=== PATIENT | male | born 1985 | race Caucasian/White ===

== ENCOUNTER 2017-05-22 00:19 | Observation (INO) | payer OTHER ==
[~2017-05-22] VITALS: Ht 182.9 cm; Wt 83.1 kg
[~2017-05-22 00:19] MED LIST: LORA1TAB PO
[2017-05-22] MEDS ORDERED: CLINDAMYCIN INJECTION 900 MG in NS (IVPB) 50 ML IV ONE (00:45)
[2017-05-22] MEDS ORDERED: LIDOCAINE/EPI 1%-1:100,000 (XYLOCAINE) 20ML INJ ONE (00:45)
[2017-05-22] MEDS ORDERED: TETANUS,DIPTH,PERTUSS P/F (BOOSTRIX) 0.5 ML VIAL IM ONE (00:45)
[2017-05-22 00:48] LABS: BASOPHILS # (AUTO) 0.1 10^3/uL (0.0-0.1); BASOPHILS % (AUTO) 1 % (0-10); EOSINOPHILS # (AUTO) 0.1 10^3/uL (0.0-0.3); EOSINOPHILS % (AUTO) 1 % (0-10); LYMPHOCYTES % (AUTO) 41 % (12-44); MEAN CORPUSCULAR HEMOGLOBIN 26 PG (25-34); MEAN CORPUSCULAR HGB CONC 34 G/DL (32-36); MEAN CORPUSCULAR VOLUME 76 FL (80-99); MEAN PLATELET VOLUME 10.9 FL (7.4-10.4); MONOCYTES # (AUTO) 0.3 X 10^3 (0.0-1.0); MONOCYTES % (AUTO) 5 % (0-12); NEUTROPHILS # (AUTO) 2.5 X 10^3 (1.8-7.8); NEUTROPHILS % (AUTO) 51 % (42-75); PLATELET COUNT 199 10^3/uL (130-400); RED BLOOD COUNT 5.32 10^6/uL (4.35-5.85); RED CELL DISTRIBUTION WIDTH 14.2 % (10.0-14.5); WHITE BLOOD COUNT 4.9 10^3/uL (4.3-11.0)
[2017-05-22] MEDS ORDERED: LIDOCAINE/EPI 1%-1:200,000 (XYLOCAINE) 30 ML VIAL INJ ONE (01:00)
[2017-05-22 01:02] LABS: ALANINE AMINOTRANSFERASE 18 U/L (0-55); ALBUMIN 4.3 GM/DL (3.2-4.5); ALCOHOL 112 MG/DL (<10); ANION GAP 13 MMOL/L (5-14); ASPARTATE AMINO TRANSFERASE 21 U/L (5-34); BILIRUBIN,TOTAL 0.5 MG/DL (0.1-1.0); BLOOD UREA NITROGEN 9 MG/DL (7-18); BUN/CREATININE RATIO 10; CALCIUM 8.8 MG/DL (8.5-10.1); CARBON DIOXIDE 20 MMOL/L (21-32); CHLORIDE 107 MMOL/L (98-107); CREATININE SERUM 0.91 MG/DL (0.60-1.30); GFR ESTIMATED > 60; GLUCOSE 108 MG/DL (70-105); POTASSIUM 3.5 MMOL/L (3.6-5.0); SALICYLATE < 5.0 MG/DL (5.0-20.0); SODIUM 140 MMOL/L (135-145); TOTAL PROTEIN 7.1 GM/DL (6.4-8.2)
[2017-05-22 01:05] LABS: ACETAMINOPHEN < 10 UG/ML (10-30)
[2017-05-22] MEDS ORDERED: LORazepam 0.5 MG (ATIVAN) TABLET ONE (01:46)
[2017-05-22] MEDS ORDERED: LORazepam 0.5 MG (ATIVAN) TABLET PO ONE (02:00)
--- NOTE | 2017-05-22 02:23 | ED Psychosocial ---
General Chief Complaint: Psych/Social Disorder Stated Complaint: SUICIDE ATTEMPT Nursing Triage Note: pt to er per ems. lac to right ac with double edged knife. arterial bleeding reported by [facility]. tourniquet in place per pd at 2350. denies drug use. admits to drinking approx 1 pint of whiskey. pt mumbling to self. awake. Source: patient, EMS Exam Limitations: intoxication History of Present Illness Time seen by provider: 00:17 Initial Comments This 31 year old man presents to the ER with a deep laceration to the left antecubital fossa which was self-inflicted with a knife. This was admittedly a suicide attempt. Patient cut himself and then presented to his mother's house and she called 911. Patient admits to suicidal ideation. He also admits to consuming a significant amount of alcohol. He is alert and oriented. He denies any other injuries. Tourniquet was applied by police. EMS estimated blood loss of about 500 mL. Patient is agitated and mildly belligerent in conversation. He is ultimately cooperative with some coaxing. [place] police are present to assist with the case. Allergies and Home Medications Allergies Coded Allergies: NKANo Known Allergies (Verified Allergy, Unknown, 02/07/06) haloperidol (Unverified Adverse Reaction, Unknown, 05/22/17) Home Medications No Active Prescriptions or Reported Meds Constitutional: see HPI EENTM: no symptoms reported Respiratory: no symptoms reported Cardiovascular: see HPI Gastrointestinal: no symptoms reported Genitourinary: no symptoms reported Musculoskeletal: see HPI Skin: see HPI Psychiatric/Neurological: See HPI Past Qsqlypn-Msbkcq-Ahdzji Hx Patient Social History Alcohol Use: Regular Use Recreational Drug Use: Yes (THC, Alcohol) Smoking Status: Unknown if Ever Smoked Recent Foreign Travel: No Contact w/Someone Who Travel: No Recent Infectious Disease Expo: No Recent Hopitalizations: Yes Immunizations Up To Date Tetanus Booster (TDap): Unknown Surgeries HX Surgeries: No Respiratory Hx Respiratory Disorders: No Cardiovascular Hx Cardiac Disorders: No Neurological Hx Neurological Disorders: No Reproductive System Hx Reproductive Disorders: No Sexually Transmitted Disease: No Genitourinary Hx Genitourinary Disorders: No Gastrointestinal Hx Gastrointestinal Disorders: No Musculoskeletal Hx Musculoskeletal Disorders: No Endocrine Hx Endocrine Disorders: No HEENT HX ENT Disorders: No Cancer Hx Cancer: No Psychosocial Hx Psychiatric Problems: Yes (history of alcohol abuse and suicidal ideation.) Blood Transfusions Hx Blood Disorders: No Physical Exam Vital Signs Vital Sign - Last 12Hours 05/22/17 00:24 Temp 99.6 Pulse 84 Resp 18 B/P (MAP) 151/99 Capillary Refill : Less Than 3 Seconds General Appearance: WD/WN, other (intermittently belligerent) HEENT: PERRL/EOMI, normal ENT inspection, pharynx normal Neck: normal inspection Respiratory: lungs clear, normal breath sounds, no respiratory distress, no accessory muscle use Cardiovascular: regular rate, rhythm, no edema, no murmur Gastrointestinal: normal bowel sounds, non tender, soft Extremities: no pedal edema, other (8 cm laceration over the antecubital fossa. Bleeding is controlled. Range of motion and tendon function appear to be intact. Laceration extends into the subcutaneous tissue and fascia layers. No injury to the tendon, muscle, or large vessels noted. 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 Is cooperative with coaxing and retraction. Agitated at times) Appearance/Memory: disheveled, impaired insight Behavior/Eye Contact: good eye contact, normal speech Thoughts/Hallucinations: no apparent hallucination, other (Suicidal ideation. He sometimes talks to himself.) Skin: normal color, warm/dry, other (Laceration as described above.) Laceration Repair : Wound Location: Upper Extremities Other Wound Location Left antecubital fossa Wound Length (cm): 8 Wound's Depth, Shape: linear, irregular, sub Q Wound Explored: clean Irrigated w/ Saline (ccs): 500 Betadine Prep?: Yes Anesthesia: Lidocaine w/ Epi Volume Anesthetic (ccs): 8 Suture: Prolene, Vicryl Suture Size: 3-0 (Vicryl), 4-0 (Prolene) Number of Sutures: 15 Number Deep Layer Sutures: 5 Progress Skin was cleaned with alcohol and local anesthetic injected. No active bleeding at the time of repair. After wound was anesthetized, the wound and surrounding skin was cleaned with sterile saline and chlorhexidine. The wound was then irrigated with sterile saline. Betadine was applied. 5 deep 3-0 Vicryl sutures were placed in the fascial and subcutaneous layers to help approximate the deep wound. 10 sutures of 4-0 Prolene were then used to approximate the skin. Patient tolerated the procedure well. Progress/Results/Core Measures Results/Orders Lab Results Laboratory Tests Test 05/22/17 00:25 05/22/17 00:50 Range/Units White Blood Count 4.9 4.3-11.0 10^3/uL Red Blood Count 5.32 4.35-5.85 10^6/uL Hemoglobin 13.9 13.3-17.7 G/DL Hematocrit 41 40-54 % Mean Corpuscular Volume 76 L 80-99 FL Mean Corpuscular Hemoglobin 26 25-34 PG Mean Corpuscular Hemoglobin Concent 34 32-36 G/DL Red Cell Distribution Width 14.2 10.0-14.5 % Platelet Count 199 130-400 10^3/uL Mean Platelet Volume 10.9 H 7.4-10.4 FL Neutrophils (%) (Auto) 51 42-75 % Lymphocytes (%) (Auto) 41 12-44 % Monocytes (%) (Auto) 5 0-12 % Eosinophils (%) (Auto) 1 0-10 % Basophils (%) (Auto) 1 0-10 % Neutrophils # (Auto) 2.5 1.8-7.8 X 10^3 Lymphocytes # (Auto) 2.0 1.0-4.0 X 10^3 Monocytes # (Auto) 0.3 0.0-1.0 X 10^3 Eosinophils # (Auto) 0.1 0.0-0.3 10^3/uL Basophils # (Auto) 0.1 0.0-0.1 10^3/uL Sodium Level 140 135-145 MMOL/L Potassium Level 3.5 L 3.6-5.0 MMOL/L Chloride Level 107 98-107 MMOL/L Carbon Dioxide Level 20 L 21-32 MMOL/L Anion Gap 13 5-14 MMOL/L Blood Urea Nitrogen 9 7-18 MG/DL Creatinine 0.91 0.60-1.30 MG/DL Estimat Glomerular Filtration Rate > 60 BUN/Creatinine Ratio 10 Glucose Level 108 H 70-105 MG/DL Calcium Level 8.8 8.5-10.1 MG/DL Total Bilirubin 0.5 0.1-1.0 MG/DL Aspartate Amino Transf (AST/SGOT) 21 5-34 U/L Alanine Aminotransferase (ALT/SGPT) 18 0-55 U/L Alkaline Phosphatase 67 40-136 U/L Total Protein 7.1 6.4-8.2 GM/DL Albumin 4.3 3.2-4.5 GM/DL TSH [place] Testing 0.72 0.35-4.94 UIU/ML Salicylates Level < 5.0 L 5.0-20.0 MG/DL Acetaminophen Level < 10 L 10-30 UG/ML Serum Alcohol 112 H <10 MG/DL Urine Opiates Screen NEGATIVE NEGATIVE Urine Oxycodone Screen NEGATIVE NEGATIVE Urine Methadone Screen NEGATIVE NEGATIVE Urine Propoxyphene Screen NEGATIVE NEGATIVE Urine Barbiturates Screen NEGATIVE NEGATIVE Ur Tricyclic Antidepressants Screen NEGATIVE NEGATIVE Urine Phencyclidine Screen NEGATIVE NEGATIVE Urine Amphetamines Screen NEGATIVE NEGATIVE Urine Methamphetamines Screen NEGATIVE NEGATIVE Urine Benzodiazepines Screen NEGATIVE NEGATIVE Urine Cocaine Screen NEGATIVE NEGATIVE Urine Cannabinoids Screen POSITIVE H NEGATIVE My Orders Orders - BO SHELDON MD Elbow, Left, 2 Views (05/22/17 00:34) Dipht,Pertuss(Acell),Tet Adult (Boostrix (05/22/17 00:45) Clindamycin Injection (Cleocin Injection (05/22/17 00:45) Acetaminophen (05/22/17 00:34) Alcohol (05/22/17 00:34) Cbc With Automated Diff (05/22/17 00:34) Comprehensive Metabolic Panel (05/22/17 00:34) Salicylate (05/22/17 00:34) Thyroid Analyzer (05/22/17 00:34) Saline Lock/Iv-Start (05/22/17 00:34) Lidocaine/Epi 1% 1:100,000 (Xylocaine /E (05/22/17 00:45) Lidocaine/Epi 1% 1:200,00 (Xylocaine/Epi (05/22/17 01:00) Drug Screen Stat (Urine) (05/22/17 00:57) Lorazepam Tablet (Ativan Tablet) (05/22/17 02:00) Lorazepam Tablet (Ativan Tablet) (05/22/17 01:46) Medications Given in ED Vital Signs/I&O Vital Sign - Last 12Hours 05/22/17 05/22/17 05/22/17 05/22/17 05:00 06:00 07:00 08:15 Temp 98.8 Pulse 68 69 73 67 Resp 20 24 25 B/P (MAP) 148/98 147/96 139/82 Pulse Ox 99 98 98 O2 Delivery Room Air Room Air Room Air 05/22/17 05/22/17 05/22/17 05/22/17 08:40 09:30 12:00 12:30 Temp 98.0 Pulse 77 64 Resp 24 23 B/P (MAP) 139/82 132/80 Pulse Ox 95 96 O2 Delivery Room Air Room Air Room Air Blood Pressure Mean: 116 Progress Note : Progress Note Patient received a liter of IV fluids as started by EMS. Patient declined tetanus immunization as he reports he recently had a tetanus booster while incarcerated. Clindamycin 900 mg IV was administered for infection prophylaxis. Patient did attempt to leave AMA and made it as far as the exterior ER door before returning. He was escorted during this time by this provider. He was extremely agitated at that time even striking himself in the head and motion and toward objects in the waiting room as if he were going to hit them. Ativan 1 mg orally was given to help with agitation. Laceration was repaired. Patient was ultimately admitted to the ICU. I did contact Britany with [facility] for screening. She intends to screen him later in the day when he is sober. Diagnostic Imaging Diagonstic Imaging: Xray Plain Films/CT/US/NM/MRI: elbow Comments X-ray of the left elbow was viewed by me. Report not yet available. No bony injuries or foreign bodies were identified. Departure Communication Time/Spoke to Admitting Phy: 02:[address] Triana Impression Impression: Primary Impression: Suicide attempt Additional Impressions: Alcohol intoxication Qualified Codes: F10.929 - Alcohol use, unspecified with intoxication, unspecified Laceration of left upper arm Qualified Codes: S41.112A - Laceration without foreign body of left upper arm , initial encounter Disposition: ADMITTED INPATIENT Condition: Improved Departure-Patient Inst. Referrals: ANTONINA SERRATO MD (PCP/Family) Primary Care Physician Scripts No Active Prescriptions or Reported Meds BO SHELDON MD May 22, 2017 02:23
[2017-05-22 04:00] VITALS: BP 145/85
[2017-05-22] MEDS ORDERED: ONDANSETRON 4 MG/2 ML (SDV) Z0FRAN IV PRN (04:45)
[2017-05-22 05:00] VITALS: BP 148/98
[2017-05-22 06:00] VITALS: BP 147/96
[2017-05-22 08:15] VITALS: BP 139/82
--- NOTE | 2017-05-22 08:17 | Diagnostic Imaging Report ---
INDICATION: Self-inflicted wound. TECHNIQUE: 3 views of the left elbow CORRELATION STUDY: None FINDINGS: There is normal alignment of the osseous structures of the elbow. No acute fracture. No abnormal joint effusion. Apparent soft tissue defect along the antecubital region. No definitive radiographic evidence for soft tissue foreign body. IMPRESSION: 1. Negative for acute bony abnormality of the elbow. Dictated by: Dictated on workstation # [id number]
[2017-05-22 08:40] VITALS: BP 139/82
--- OUTSIDE RECORDS SUMMARY | 2017-05-22 09:26 | XMS REPORT | Continuity of Care Document ---
Author Author [facility] Organization [facility] Address Unknown Phone Unavailable Allergies Active Description Code Type Severity Reaction Onset Reported/Identified Relationship to Patient Clinical Status Yes NKANo Known Allergies NKA Miscellaneous Allergy Unknown N/ A 02/07/2006 Medications Problems Date Dx Coded Attending Type Code Diagnosis Diagnosed By 11/20/2016 NICK RENDON MD Ot G43.909 MIGRAINE, UNSP, NOT INTRACTABLE, WITHOUT 11/20/2016 NICK RENDON MD Ot Z53.21 PROC/TRTMT NOT CRD OUT D/T PT LV BEF SEE 2016 NICK RENDON MD Ot G43.909 MIGRAINE, UNSP, NOT INTRACTABLE, WITHOUT 2016 NICK RENDON MD Ot Z53.21 PROC/TRTMT NOT CRD OUT D/T PT LV BEF SEE Procedures Results Encounters ACCT No. Visit Date/Time Discharge Status Pt. Type Provider Facility Loc./Unit Complaint [id number] 11/19/2016 11:58:00 2015 12:12:00 DIS Outpatient NICK RENDON MD [facility] ER [place] [id number] 08/01/2013 04:36:00 2012 06:24:00 DIS Emergency
--- OUTSIDE RECORDS SUMMARY | 2017-05-22 09:26 | XMS REPORT | Continuity of Care Document ---
Author Author [facility] Organization [facility] Address Unknown Phone Unavailable Care Team Providers Care Outsole Tacker Name Role Phone NO, LOCAL PHYSICIAN PP Unavailable Insurance Providers Payer Name Policy Number Subscriber Name Relationship Unknown Gavin Flowers Advance Directives Directive Response Recorded Date Advance Directives N 11/02/11 1:15am Health Care Power of Circulation Manager N 11/02/11 1:15am Organ Donor N 11/02/11 1:15am Problems No Known Problems or Medical conditions. Allergies, Adverse Reactions, Alerts Allergen Type Severity Reaction Last Updated NKANo Known Allergies Allergy Unknown 02/07/06 Medications Medication Dose Units Route Sig Qty Days Lorazepam (Lorazepam 1 Mg) 1 Mg PO Q8H PRN 15 Response Recorded Date/Time Status not known Unknown Results No Known Relevant Diagnostic Tests, Laboratory Data and/or Discharge Summary. Procedures Procedure Code Date ALCOHOL DETOXIFICATION 94.62 11/12/10 CLOSURE SKIN & SUBCUTANEOUS NEC 86.59 12/09 ALCOHOL DETOXIFICATION 94.62 11/02/11 Encounters Encounter Location Date/Time Departed Emergency Room [facility] 07/06 4:36am Discharged [facility] 12:35am
[2017-05-22 09:30] VITALS: BP 132/80
--- OUTSIDE RECORDS SUMMARY | 2017-05-22 09:41 | XMS REPORT | Continuity of Care Document ---
Author Author [facility] Organization [facility] Address Unknown Phone Unavailable Allergies Active Description [...] Status Pt. Type Provider Facility Loc./Unit Complaint [id number] 11/19/2016 11:58:00 2015 12:12:00 DIS Outpatient NICK RENDON MD [facility] ER [place] [id number] 08/01/2013 04:36:00 2012 06:24:00 DIS Emergency
--- NOTE | 2017-05-22 11:36 | Short Stay Summary-Hospitalist ---
HPI History of Present Illness: HPI/Chief Complaint The patient is a 31-year-old white male who presented to the emergency room late last night after what would seem to be a suicide gesture if not an attempt. He states that he drank a pint of whiskey and then made a horizontal cut to his left antecubital fossa. This was the 8 cm in length and repaired in the emergency room. It involved the deep subcutaneous tissues but not vessels or tendons. He is made such attempts in the past. He has just finished his mental health evaluation by Ar Ozuna. Source: patient Exam Limitations: no limitations Date Seen 05/22/17 Time Seen by Provider: 11:31 Attending Physician Ruth Triana DO PCP No,Local Physician Referring Physician Date of Admission May 22, 2017 at 02:21 Home Medications & Allergies Home Medications Reviewed patient Home Medication Reconciliation Form Allergies Allergies Coded Allergies NKANo Known Allergies (Verified Allergy, Unknown, 02/07/06) haloperidol (Unverified Adverse Reaction, Unknown, 05/22/17) Past Brxotxb-Ovgvoh-Qratgp Hx Patient Social History Alcohol Use: Rarely Uses Recreational Drug Use: Yes Drug of Choice: MARIJUANA Smoking Status: Current Everyday Smoker Type Used: Cigarettes Physical Abuse Screen: No Sexual Abuse: No Recent Foreign Travel: No Contact w/other who traveled: No Recent Hopitalizations: No Recent Infectious Disease Expo: No Immunizations Up To Date Tetanus Booster (TDap): Unknown Seasonal Allergies Seasonal Allergies: No Surgeries HX Surgeries: No Respiratory Hx Respiratory Disorders: No Cardiovascular Hx Cardiovascular Disorders: No Neurological Hx Neurological Disorders: No Reproductive System Hx Reproductive Disorders: No Sexually Transmitted Disease: No Genitourinary Hx Genitourinary Disorders: No Gastrointestinal Hx Gastrointestinal Disorders: No Musculoskeletal Hx Musculoskeletal Disorders: No Musculoskeletal Disorders: Fractures Endocrine Hx Endocrine Disorders: No HEENT HX ENT Disorders: No Cancer Hx Cancer: No Psychosocial Hx Psychiatric Problems: Yes (history of alcohol abuse and suicidal ideation.) Behavioral Health Disorders: ADD/ADHD, Anxiety, Suicide Attempts, Depression Blood Transfusions Hx Blood Disorders: No Family Medical History Family Hx: Patient reports no known family medical history. Review of Systems Constitutional: see HPI EENTM: other (headache) Respiratory: no symptoms reported Cardiovascular: no symptoms reported Gastrointestinal: no symptoms reported Genitourinary: no symptoms reported Musculoskeletal: no symptoms reported Skin: no symptoms reported Psychiatric/Neurological: See HPI, Depressed Physical Exam Physical Exam Vital Signs Vital Sign - Last 12Hours 05/22/17 00:24 Temp 99.6 Pulse 84 Resp 18 B/P (MAP) 151/99 Capillary Refill : Less Than 3 Seconds General Appearance: Mild Distress Eyes: Bilateral Eye Normal Inspection HEENT: Normal ENT Inspection Neck: Full Range of Motion, Normal Inspection, Non Tender, Supple, Carotid Bruit Respiratory: Chest Non Tender, Lungs Clear, Normal Breath Sounds, No Accessory Muscle Use, No Respiratory Distress Cardiovascular: Regular Rate, Rhythm, No Edema, No Gallop, No JVD, No Murmur, Normal Peripheral Pulses Gastrointestinal: Normal Bowel Sounds, No Organomegaly, No Pulsatile Mass, Non Tender, Soft Back: Normal Inspection, No CVA Tenderness, No Vertebral Tenderness Extremity: Normal Capillary Refill, Normal Inspection, Normal Range of Motion, Non Tender, No Calf Tenderness, No Pedal Edema Neurologic/Psychiatric: Alert, Oriented x3 Comments There is an 8 cm laceration which has been repaired. It is horizontal and in the left antecubital fossa. In addition multiple other horizontally applied scars are noted over the palm are aspect of the left forearm from the antecubital fossa to the wrist. There would appear to be 20 or more. Results Results/Procedures Lab Laboratory Tests 05/22/17 00:25 Short Stay Diagnosis Discharge Diagnosis-Short Stay Admission Diagnosis Suicide attempt. 2.self-inflicted laceration left antecubital fossa Final Discharge Diagnosis 1.suicide attempt. 2.self-inflicted laceration left antecubital fossa Conclusion Plan He has been seen by Ar Ozuna from [facility]. He will be enlisted in an outpatient program. He has agreed to do this. Clinical Quality Measures DVT/VTE Risk/Contraindication: Risk Factor Score Per Nursin RFS Level Per Nursing on Admit: 1=Low/No VTE PPX MARIANN MARS MD May 22, 2017 11:36
--- NOTE | 2017-05-22 11:41 | Discharge Instructions ---
Discharge Instructions Patient Instructions Goal/Follow Up Appt: Avoid alcohol. Adhere to mental health program and arrangements. Patient Instructions: Keep laceration clean and dry. You may clean up any clotted blood residue with peroxide and a Q-tip. Suture removal in one week. As this was placed in the ER you may return there one week from today to have it looked at and the sutures removed if appropriate Activity & Diet Discharge Diet: No Restrictions MARIANN MARS MD May 22, 2017 11:41
== END 2017-05-22 11:39 | disposition home or self-care (01) ==
LOC: EDUNIT# 00:19 → ER 00:20 → UNDOADMOB 02:21 → ICU 02:21 → UNDODISOB 12:30
PROVIDERS: ADMIT Internal Medicine; ATTEND Internal Medicine
DX: R45.851 Suicidal ideations (principal); S61.512A Laceration without foreign body of left wrist, initial encounter; F10.129 Alcohol abuse with intoxication, unspecified; R45.1 Restlessness and agitation; Y90.5 Blood alcohol level of 100-119 mg/100 ml; X78.1XXA Intentional self-harm by knife, initial encounter; Y92.009 Unspecified place in unspecified non-institutional (private) residence as the place of occurrence of the external cause; Y99.8 Other external cause status
CPT/HCPCS: 36415; 73070; 80053; 80306; 80320; 80329; 84443; 85025; 87081; 96365; 99211; G0378

== ENCOUNTER 2017-06-13 20:18 | Inpatient (IN) | payer OTHER ==
[~2017-06-13] VITALS: Ht 172.7 cm; Wt 82.1 kg
[2017-06-13] MEDS ORDERED: ROCURONIUM 50 MG/5 ML (ZEMURON) VIAL IV ONE (20:20)
[2017-06-13] MEDS ORDERED: ETOMIDATE IV SOLN 20 MG/10 ML VIAL IV ONE ×2 (20:20→20:30)
[2017-06-13] MEDS ORDERED: fentaNYL INJECTION 100 MCG/2 ML AMP INJ ONE (20:20)
[2017-06-13] MEDS ORDERED: MIDAZOLAM 5 MG/5 ML (VERSED) VIAL INJ ONE (20:20)
[2017-06-13] MEDS ORDERED: SUCCINYLCHOLINE INJ 100 MG/5 ML SYR INJ ONE ×2 (20:20→20:30)
[2017-06-13] MEDS ORDERED: ceFAZolin INJECTION 1,000 MG in NS (IVPB) 50 ML IV ONE (20:30)
[2017-06-13] MEDS ORDERED: TETANUS,DIPTH,PERTUSS P/F (BOOSTRIX) 0.5 ML VIAL IM ONE (20:30)
[2017-06-13 20:40] VITALS: BP 168/116
[2017-06-13 20:40] LABS: MEAN PLATELET VOLUME 10.5 FL (7.4-10.4); RED BLOOD COUNT 4.56 10^6/uL (4.35-5.85); RED CELL DISTRIBUTION WIDTH 14.9 % (10.0-14.5); WHITE BLOOD COUNT 12.8 10^3/uL (4.3-11.0)
[2017-06-13] MEDS ORDERED: TRANEXAMIC ACID 100 MG/ML 10 ML INJECTION IV ONE ×2 (20:48)
[2017-06-13] MEDS ORDERED: NS (IVPB) 50 ML ONE ×2 (20:48→20:52)
[2017-06-13 20:52] LABS: INR 1.2 (0.8-1.4); PROTHROMBIN TIME PATIENT 14.5 SEC (12.2-14.7)
[2017-06-13 20:55] LABS: BILIRUBIN,URINE NEGATIVE (NEGATIVE); KETONES,URINE NEGATIVE (NEGATIVE); LEUKOCYTE ESTERASE ,URINE NEGATIVE (NEGATIVE); NITRITE,URINE NEGATIVE (NEGATIVE); PH,URINE 6.5 (5-9); PROTEIN,URINE 2+ (NEGATIVE); UROBILINOGEN,URINE NORMAL (NORMAL)
--- NOTE | 2017-06-13 20:57 | ED Upper Extremity ---
General Stated Complaint: LACERATION Source: patient, police, EMS Exam Limitations: clinical condition History of Present Illness Time seen by provider: 20:20 Initial Comments Here with report of left arm laceration just proximal to the antecubital fossa anterior on the left arm. This was self-inflicted with a razor blade. Occurred sometime between 1929 and 1949. A tourniquet was applied at 1952 by law enforcement due to spurting blood from the wound concerning for arterial injury. There was a large amount of blood in the area around the patient and on the patient. He was diaphoretic and tachycardic. In route they were unable to get blood pressure except for one at 93 systolic. Patient did receive Zofran 4 mg IV for nausea and vomiting. Tourniquet was kept in place and person dressing was also applied for continued bleeding. Patient is intermittently nearly unresponsive and then sometimes combative. Patient admits to drinking a little alcohol and is unclear on what occurred. EMS reports that patient's mother reported patient had self-inflicted wound. Patient did say that he cut himself with a razor blade. Patient denies drug use. Onset: just prior to arrival Severity: severe Pain/Injury Location: left arm Method of Injury: incised Modifying Factors: Improves With Immobilization, Worse With Movement Allergies and Home Medications Allergies Coded Allergies: NKANo Known Allergies (Verified Allergy, Unknown, 02/07/06) haloperidol (Unverified Adverse Reaction, Unknown, 05/22/17) Home Medications No Active Prescriptions or Reported Meds Constitutional: see HPI, No chills, diaphoresis, No fever Cardiovascular: see HPI Gastrointestinal: no symptoms reported Musculoskeletal: see HPI, muscle pain Skin: see HPI, lesions (5 cm incision with arterial bleeding to the left distal biceps area anteriorly) Psychiatric/Neurological: Emotional Problems, Weakness Other Unable to complete review of systems due to altered mental status and critical condition. Past Tjcckqh-Wmfqzv-Pztobs Hx Patient Social History Alcohol Use: Occasionally Uses Recreational Drug Use: No Drug of Choice: MARIJUANA Smoking Status: Current Everyday Smoker Type Used: Cigarettes Recent Hopitalizations: No Immunizations Up To Date Tetanus Booster (TDap): Unknown Seasonal Allergies Seasonal Allergies: No Surgeries HX Surgeries: No Respiratory Hx Respiratory Disorders: No Cardiovascular Hx Cardiac Disorders: No Neurological Hx Neurological Disorders: No Reproductive System Hx Reproductive Disorders: No Sexually Transmitted Disease: No Genitourinary Hx Genitourinary Disorders: No Gastrointestinal Hx Gastrointestinal Disorders: No Musculoskeletal Hx Musculoskeletal Disorders: No Musculoskeletal Disorders: Fractures Endocrine Hx Endocrine Disorders: No HEENT HX ENT Disorders: No Cancer Hx Cancer: No Psychosocial Hx Psychiatric Problems: Yes (history of alcohol abuse and suicidal ideation.) Behavioral Health Disorders: ADD/ADHD, Anxiety, Suicide Attempts, Depression Blood Transfusions Hx Blood Disorders: No Reviewed Nursing Assessment Reviewed/Agree w Nursing PMH: Yes Family Medical History Other History per records due to altered mental status and critical condition. Family Medial History: Patient reports no known family medical history. Physical Exam Vital Signs Vital Sign - Last 12Hours 06/13/17 20:40 Pulse 69 Resp 17 Pulse Ox 98 FiO2 50 Capillary Refill : General Appearance: WD/WN, moderate distress HEENT: TMs normal, other (Pin[place] pupils bilateral) Neck: full range of motion, supple, normal inspection Cardiovascular: no murmur, tachycardia Respiratory: lungs clear, normal breath sounds Gastrointestinal: non tender, soft Back: normal inspection, no CVA tenderness, no vertebral tenderness Shoulder: normal inspection, no evidence of injury Elbow/Forearm: Left, soft tissue tenderness (turning applied to left upper arm due to 5 cm laceration to the distal anterior biceps area with arterial and venous bleeding of significance without tourniquet application.) Wrist: Yes normal inspection, Yes no evidence of injury Hand: normal ROM, Bilateral Neurologic/Psychiatric: other (Intermittent unresponsiveness with combativeness. Patient very diaphoretic and covered in blood.) Skin: cool, diaphoresis, pallor Tube Size: 7.50 Laceration Repair : Suture Size: 3-0, 4-0 Progress/Results/Core Measures Results/Orders Lab Results Laboratory Tests Test 06/13/17 20:32 Range/Units White Blood Count 12.8 H 4.3-11.0 10^3/uL Red Blood Count 4.56 4.35-5.85 10^6/uL Hemoglobin 12.1 L 13.3-17.7 G/DL Hematocrit 37 L 40-54 % Mean Corpuscular Volume 81 80-99 FL Mean Corpuscular Hemoglobin 27 25-34 PG Mean Corpuscular Hemoglobin Concent 33 32-36 G/DL Red Cell Distribution Width 14.9 H 10.0-14.5 % Platelet Count 248 130-400 10^3/uL Mean Platelet Volume 10.5 H 7.4-10.4 FL My Orders Orders - KATE ESCAMILLA MD ([facility]) (Sodium C... W/Tranexamic Acid (06/13/17 21:00) Tranexamic Acid Injection (Cyklokapron I (06/13/17 21:00) Vital Signs/I&O Vital Sign - Last 12Hours 06/13/17 20:40 Pulse 69 Resp 17 Pulse Ox 98 FiO2 50 Progress Note : Progress Note Seen and evaluated on arrival by EMS. Type I activation due to vital signs and severe vascular injury. Dr. Javier pagedeann and arrived within 10 minutes of patient 's arrival. Bleeding controlled with tourniquet and vascular clamping as well as pressure dressing. Due to patient's symptoms, emergent administration of blood products initiated with 1 unit of packed red blood cells O+ type. Patient intubated emergently as patient was going to the OR and he had periods of combativeness causing danger to self and staff. He also had declining status. Elevation without difficulty. NG tube, Ballesteros catheter, second IV line initiated. TXA considered but DC by surgeon prior to administration as this is a local vascular injury. Right subclavian central line placed by surgeon. Post line placement chest x-ray shows NG tube to be in the right mainstem bronchus. This was removed and will be replaced by anesthesia in the OR. Labs , UA and chest x-ray reviewed. Chest x-ray other she otherwise shows central line in ET tube in good position. Patient did receive second unit of packed red blood cells of O+ type. Transferred to the OR at 2107 in stable condition with tourniquet still in place. Diagnostic Imaging Diagonstic Imaging: Xray Plain Films/CT/US/NM/MRI: chest Comments ET tube in good position. Central line in good position. NG tube appears to be in the right mainstem bronchus. This was removed. No obvious pneumothorax or pneumonia. Reviewed: Reviewed by Me Departure Communication Time/Spoke to Admitting Phy: 20:30 Impression Impression: Primary Impression: Injury of artery of right upper extremity Qualified Codes: S45.901A - Unspecified injury of unspecified blood vessel at shoulder and upper arm level, right arm, initial encounter Additional Impressions: Laceration of right upper arm Qualified Codes: S41.111A - Laceration without foreign body of right upper arm , initial encounter Suicide attempt Disposition: ADMITTED INPATIENT Condition: Critical Decision to Admit Reason: Admit from ER (Trauma) Decision to Admit/Date: Jun 13, 2017 Time/Decision to Admit Time: 21:07 Departure-Patient Inst. Referrals: NO,LOCAL PHYSICIAN (PCP/Family) Primary Care Physician Scripts No Active Prescriptions or Reported Meds KATE ESCAMILLA MD Jun 13, 2017 20:57
[2017-06-13] MEDS ORDERED: TRANEXAMIC ACID INJECTION 1,000 MG in NS (IVPB) 250 ML IV SCH (21:00)
[2017-06-13] MEDS ORDERED: TRANEXAMIC ACID INJECTION 1,000 MG in NS (IVPB) 50 ML IV ONE (21:00)
[2017-06-13 21:02] LABS: ALANINE AMINOTRANSFERASE 48 U/L (0-55); ALBUMIN 3.9 GM/DL (3.2-4.5); ALCOHOL 145 MG/DL (<10); ANION GAP 18 MMOL/L (5-14); ASPARTATE AMINO TRANSFERASE 65 U/L (5-34); BILIRUBIN,DIRECT 0.2 MG/DL (0.0-0.3); BILIRUBIN,INDIRECT 0.4 MG/DL; BILIRUBIN,TOTAL 0.6 MG/DL (0.1-1.0); BLOOD UREA NITROGEN 10 MG/DL (7-18); BUN/CREATININE RATIO 10; CALCIUM 7.5 MG/DL (8.5-10.1); CARBON DIOXIDE 13 MMOL/L (21-32); CHLORIDE 111 MMOL/L (98-107); CREATININE SERUM 1.04 MG/DL (0.60-1.30); GFR ESTIMATED > 60; GLUCOSE 143 MG/DL (70-105); POTASSIUM 3.2 MMOL/L (3.6-5.0); SODIUM 142 MMOL/L (135-145)
[2017-06-13] MEDS ORDERED: HEParin 1000 UNIT/ML (10ML VIAL) FOR BOLUS ONE (21:02)
[2017-06-13 21:03] LABS: WBC,URINE RARE /HPF
[2017-06-13] MEDS: LACTATED RINGERS 1,000 ML IV SCH ×2 (21:11→22:22)
[2017-06-13] MEDS ORDERED: morphine INJ 10 MG/ML 1ML (SYR OR VIAL) ONE (21:24)
--- NOTE | 2017-06-13 21:24 | Diagnostic Imaging Report ---
EXAM: CHEST 1 VIEW, AP/PA ONLY INDICATION: Line placement. COMPARISON: None. FINDINGS: NG tube tip is in the right mainstem bronchus. This should be repositioned. ETT tip at the level of clavicles. Right IJ CVC tip low SVC. Normal heart size and pulmonary vascularity. No focal pulmonary opacity, pleural effusion or pneumothorax. No acute osseous findings. IMPRESSION: 1. ETT tip at the level of the clavicles. 2. NG tube tip is in the right mainstem bronchus. Findings were discussed with Dr. Vazquez in the emergency department at 9:20 PM on 06/13/2017. The NGT had already been repositioned. Dictated by: Dictated on workstation # [id number]
[2017-06-13] MEDS ORDERED: fentaNYL INJECTION 100 MCG/2 ML AMP ONE ×2 (21:42→22:20)
[2017-06-13] MEDS ORDERED: NS IV 500 ML 500 ML ONE (21:45)
[2017-06-13] MEDS ORDERED: LACTATED RINGERS 1,000 ML IV ONE ×2 (21:45→22:20)
[2017-06-13] MEDS ORDERED: NS IV 1000 ML 1,000 ML ONE (21:45)
[2017-06-13] MEDS ORDERED: ceFAZolin 1,000 MG (ANCEF) VIAL ONE (21:45)
--- NOTE | 2017-06-13 22:21 | Progress Note-Pre Operative ---
Pre-Operative Progress Note H&P Reviewed The H&P was reviewed, patient examined and no changes noted. Date Seen by Provider: Jun 13, 2017 Time Seen by Provider: 21:00 Date H&P Reviewed: Jun 13, 2017 Time H&P Reviewed: 21:00 Pre-Operative Diagnosis: penetrating trauma left arm with active bleeding. SOLIS COLMENARES MD Jun 13, 2017 10:21 pm
--- NOTE | 2017-06-13 22:24 | Progress Note-Post Operative ---
Post-Operative Progess Note Surgeon (s)/Graduate Engineer (s) Surgeon SOLIS COLMENARES MD Graduate Engineer: none Pre-Operative Diagnosis penetrating trauma left arm with active bleeding. Post-Operative Diagnosis same with deep brachial vein lacerating an active bleed. brachial artery intact. Procedure & Operative Findings Date of Procedure 06/13/17 Procedure Performed/Findings left upper extremity vascular exploration and venoplasty. Anesthesia Type GET Estimated Blood Loss Estimated blood loss (mL): minimal Specimens/Packing Specimens Removed none SOLIS COLMENARES MD Jun 13, 2017 10:24 pm
[2017-06-13] MEDS ORDERED: morphine INJ 10 MG/ML 1ML (SYR OR VIAL) IVP PRN ×2 (22:30→23:00)
[2017-06-13] MEDS ORDERED: HYDROcodone/APAP 5 MG/325 MG (LORTAB) TAB PO ONE (22:30)
[2017-06-13] MEDS ORDERED: ACETAMINOPHEN 325 MG TABLET/CAPLET (TYLENOL) PO PRN (22:30)
[2017-06-13] MEDS ORDERED: ONDANSETRON 4 MG/2 ML (SDV) Z0FRAN IVP PRN ×2 (22:30→23:00)
[2017-06-13] MEDS ORDERED: ceFAZolin 1,000 MG (ANCEF) VIAL IV ONE (22:30)
[2017-06-13] MEDS ORDERED: LORazepam INJ 2 MG/ML (ATIVAN) VIAL ONE (22:45)
[2017-06-13] MEDS ORDERED: LORazepam INJ 2 MG/ML (ATIVAN) VIAL IVP ONE (23:00)
[2017-06-14] VITALS (7 sets, daily range): BP systolic 99–154; BP diastolic 59–103
[2017-06-14] MEDS ORDERED: NS (IVPB) 0 ML ONE (00:13)
[2017-06-14 04:48] LABS: BASOPHILS % (AUTO) 0 % (0-10); EOSINOPHILS % (AUTO) 0 % (0-10); LYMPHOCYTES # (AUTO) 1.1 X 10^3 (1.0-4.0); LYMPHOCYTES % (AUTO) 8 % (12-44); MEAN CORPUSCULAR HEMOGLOBIN 28 PG (25-34); MEAN CORPUSCULAR HGB CONC 34 G/DL (32-36); MEAN CORPUSCULAR VOLUME 83 FL (80-99); MEAN PLATELET VOLUME 11.3 FL (7.4-10.4); MONOCYTES # (AUTO) 0.8 X 10^3 (0.0-1.0); MONOCYTES % (AUTO) 6 % (0-12); NEUTROPHILS % (AUTO) 86 % (42-75); PLATELET COUNT 161 10^3/uL (130-400); RED BLOOD COUNT 4.26 10^6/uL (4.35-5.85); RED CELL DISTRIBUTION WIDTH 14.9 % (10.0-14.5); WHITE BLOOD COUNT 13.9 10^3/uL (4.3-11.0)
[2017-06-14] MEDS ORDERED: DEXMEDETOMIDINE INJECTION 400 MCG in NS (IVPB) 100 ML IV SCH (05:00)
[2017-06-14 05:19] LABS: ANION GAP 8 MMOL/L (5-14); BLOOD UREA NITROGEN 9 MG/DL (7-18); BUN/CREATININE RATIO 12; CARBON DIOXIDE 22 MMOL/L (21-32); CHLORIDE 110 MMOL/L (98-107); CREATININE SERUM 0.78 MG/DL (0.60-1.30); GFR ESTIMATED > 60; GLUCOSE 104 MG/DL (70-105); MAGNESIUM 1.4 MG/DL (1.8-2.4); POTASSIUM 4.5 MMOL/L (3.6-5.0); SODIUM 140 MMOL/L (135-145)
[2017-06-14] MEDS: MAGNESIUM 1 GM/100 ML IVPB 100 ML IV SCH ×3 (05:37→09:26)
[2017-06-14] MEDS ORDERED: KCL 20 MEQ TAB (K-DUR) PO SCH (06:00)
[2017-06-14] MEDS ORDERED: POTASSIUM CL 10MEQ/50ML IVPB 50 ML IV SCH (06:00)
[2017-06-14] MEDS: ceFAZolin INJECTION 1,000 MG in NS (IVPB) 50 ML IV SCH ×2 (06:07→15:03)
--- NOTE | 2017-06-14 07:50 | Diagnostic Imaging Report ---
CHEST 1 VIEW, AP/PA ONLY Indication: Dyspnea Comparison: 06/13/2017 Findings: Support Devices: ET and enteric tubes have been removed. Stable right subclavian central venous catheter. Chest: Visible lungs are clear. No pleural effusion or pneumothorax. Normal cardiomediastinal silhouette. Impression: 1. ET and enteric tubes have been removed. 2. No adverse development in the interim. Dictated by: Dictated on workstation # [id number]
--- NOTE | 2017-06-14 11:06 | Progress Note (SOAP) ---
Subjective Date Seen by Provider: Jun 14, 2017 Time Seen by Provider: 10:45 Subjective/Events-last exam doing well. palpable left radial and ulnar artery. compartments soft. Objective Exam Vital Signs Date Time Temp Pulse Resp B/P (MAP) Pulse Ox O2 Delivery O2 Flow Rate FiO2 06/14/17 08:15 100.4 91 16 127/70 97 Room Air 06/14/17 07:23 100.8 104 22 136/79 97 Room Air 06/14/17 06:02 77 107/59 100 Room Air 06/14/17 05:03 80 97 Room Air 06/14/17 04:06 80 8 99/60 96 Room Air 06/14/17 03:20 79 21 94 Room Air 06/14/17 02:00 84 21 94 Room Air 06/14/17 01:00 83 06/14/17 01:00 84 9 124/84 96 Room Air 06/14/17 00:00 79 18 112/68 95 Room Air 06/13/17 23:05 Room Air 06/13/17 21:07 110 12 99 Ambu Bag 15.00 06/13/17 20:40 69 17 98 50 06/13/17 20:20 96.1 118 16 136/92 (107) 95 Room Air I & O 06/14/17 07:00 Intake Total 1800 ml Output Total 300 ml Balance 1500 ml Capillary Refill : Less Than 3 Seconds General Appearance: No Apparent Distress HEENT: PERRL/EOMI Neck: Full Range of Motion Respiratory: Chest Non Tender, Lungs Clear, Normal Breath Sounds Cardiovascular: Regular Rate, Rhythm Peripheral Pulses: 4+ Radial Pulses (L) Gastrointestinal: normal bowel sounds, non tender, soft Extremity: Normal Capillary Refill, Non Tender, No Calf Tenderness Neurologic/Psychiatric: Alert, Oriented x3 Skin: Normal Color Lymphatic: No Adenopathy Results Lab Laboratory Tests 06/13/17 20:32: White Blood Count 12.8H, Red Blood Count 4.56, Hemoglobin 12.1L, Hematocrit 37L , Mean Corpuscular Volume 81, Mean Corpuscular Hemoglobin 27, Mean Corpuscular Hemoglobin Concent 33, Red Cell Distribution Width 14.9H, Platelet Count 248, Mean Platelet Volume 10.5H, Prothrombin Time 14.5, INR Comment 1.2, Activated Partial Thromboplast Time 26, Sodium Level 142, Potassium Level 3.2L, Chloride Level 111H, Carbon Dioxide Level 13L, Anion Gap 18H, Blood Urea Nitrogen 10, Creatinine 1.04, Estimat Glomerular Filtration Rate > 60, BUN/Creatinine Ratio 10, Glucose Level 143H, Calcium Level 7.5L, Total Bilirubin 0.6, Direct Bilirubin 0.2, Indirect Bilirubin 0.4, Aspartate Amino Transf (AST/SGOT) 65H, Alanine Aminotransferase (ALT/SGPT) 48, Alkaline Phosphatase 59, Troponin I < 0.30, Total Protein 6.0L, Albumin 3.9, Serum Alcohol 145H 06/13/17 20:49: Urine Color YELLOW, Urine Clarity CLEAR, Urine pH 6.5, Urine Specific [place] 1.010L, Urine Protein 2+H, Urine Glucose (UA) NEGATIVE, Urine Ketones NEGATIVE, Urine Nitrite NEGATIVE, Urine Bilirubin NEGATIVE, Urine Urobilinogen NORMAL, Urine Leukocyte Esterase NEGATIVE, Urine RBC (Auto) NEGATIVE, Urine RBC NONE, Urine WBC RARE, Urine Crystals NONE, Urine Bacteria NEGATIVE, Urine Casts NONE, Urine Mucus NEGATIVE, Urine Culture Indicated NO, Urine Opiates Screen NEGATIVE , Urine Oxycodone Screen NEGATIVE, Urine Methadone Screen NEGATIVE, Urine Propoxyphene Screen NEGATIVE, Urine Barbiturates Screen NEGATIVE, Ur Tricyclic Antidepressants Screen NEGATIVE, Urine Phencyclidine Screen NEGATIVE, Urine Amphetamines Screen NEGATIVE, Urine Methamphetamines Screen NEGATIVE, Urine Benzodiazepines Screen NEGATIVE, Urine Cocaine Screen NEGATIVE, Urine Cannabinoids Screen NEGATIVE 06/14/17 04:10: White Blood Count 13.9H, Red Blood Count 4.26L, Hemoglobin 11.8L, Hematocrit 35L , Mean Corpuscular Volume 83, Mean Corpuscular Hemoglobin 28, Mean Corpuscular Hemoglobin Concent 34, Red Cell Distribution Width 14.9H, Platelet Count 161, Mean Platelet Volume 11.3H, Sodium Level 140, Potassium Level 4.5, Chloride Level 110H, Carbon Dioxide Level 22, Anion Gap 8, Blood Urea Nitrogen 9, Creatinine 0.78, Estimat Glomerular Filtration Rate > 60, BUN/Creatinine Ratio 12, Glucose Level 104, Calcium Level 8.0L, Neutrophils (%) (Auto) 86H, Lymphocytes (%) (Auto) 8L, Monocytes (%) (Auto) 6, Eosinophils (%) (Auto) 0, Basophils (%) (Auto) 0, Neutrophils # (Auto) 12.0H, Lymphocytes # (Auto) 1.1, Monocytes # (Auto) 0.8, Eosinophils # (Auto) 0.0, Basophils # (Auto) 0.0, Phosphorus Level 3.0, Magnesium Level 1.4L Assessment/Plan Assessment/Plan Assess & Plan/Chief Complaint trauma-laceration left arm with active brachial vein bleed s/p exploration and venoplasty. patient stable from surgical standpoint. will evaluate self-harm risk and home status. consult IM Clinical Quality Measures DVT/VTE Risk/Contraindication: RFS Level Per Nursing on Admit: 1=Low/No VTE PPX SOLIS COLMENARES MD Jun 14, 2017 11:06 am
--- NOTE | 2017-06-14 12:27 | Consultation-Hospitalist ---
HPI History of Present Illness: HPI/Chief Complaint CC: Suicide attempt with alcohol intoxication and cutting purposefully left brachial region of arm HPI: This is a 31-year-old white male known to the hospitalist service for cutting himself purposely when he is intoxicated with alcohol. Dr. Javier performed procedure of deep laceration of brachial vein but did not lacerate the brachial artery during exploratory. He did have urinary retention after catheter was removed considering had 1 L and when they placed last night but currently he is able to void a small amount but it does burn but I have initiated Urecholine and Pyridium with good results. He is rated ago after suicide hotline has been contacted and he is safe to go home with family. Source: patient Exam Limitations: no limitations Date Seen 06/14/17 Attending Physician Mariama Javier MD PCP No,Local Physician Referring Physician Date of Admission Jun 14, 2017 at 00:00 Home Medications & Allergies Home Medications Reviewed patient Home Medication Reconciliation Form Allergies Allergies Coded Allergies NKANo Known Allergies (Verified Allergy, Unknown, 02/07/06) haloperidol (Unverified Adverse Reaction, Unknown, 05/22/17) Past Uvlqapn-Vwiivb-Yfnptu Hx Patient Social History Marrital Status: single Employed/Student: unemployed Alcohol Use: Occasionally Uses Recreational Drug Use: Yes Drug of Choice: MARIJUANA Smoking Status: Current Everyday Smoker Type Used: Cigarettes Physical Abuse Screen: No Sexual Abuse: No Recent Foreign Travel: No Contact w/other who traveled: No Recent Hopitalizations: Yes Recent Infectious Disease Expo: No Immunizations Up To Date Tetanus Booster (TDap): Unknown Seasonal Allergies Seasonal Allergies: No Surgeries HX Surgeries: No Respiratory Hx Respiratory Disorders: No Cardiovascular Hx Cardiovascular Disorders: No Neurological Hx Neurological Disorders: No Reproductive System Hx Reproductive Disorders: No Sexually Transmitted Disease: No Genitourinary Hx Genitourinary Disorders: No Gastrointestinal Hx Gastrointestinal Disorders: No Musculoskeletal Hx Musculoskeletal Disorders: No Musculoskeletal Disorders: Fractures Endocrine Hx Endocrine Disorders: No HEENT HX ENT Disorders: No Cancer Hx Cancer: No Psychosocial Hx Psychiatric Problems: Yes (history of alcohol abuse and suicidal ideation.) Behavioral Health Disorders: ADD/ADHD, Anxiety, Suicide Attempts, Depression Blood Transfusions Hx Blood Disorders: No Reviewed Nursing Assessment Reviewed/Agree w Nursing PMH: Yes Family Medical History Family Hx: Patient reports no known family medical history. Review of Systems Constitutional: see HPI EENTM: no symptoms reported Respiratory: no symptoms reported Cardiovascular: no symptoms reported Gastrointestinal: no symptoms reported Genitourinary: no symptoms reported Musculoskeletal: no symptoms reported Skin: no symptoms reported Psychiatric/Neurological: No Symptoms Reported All Other Systems Reviewed Negative Unless Noted: Yes Physical Exam Physical Exam Vital Signs Vital Sign - Last 12Hours 06/13/17 06/13/17 06/13/17 20:20 20:40 21:07 Temp 96.1 Pulse 118 Resp 16 B/P (MAP) 136/92 (107) Pulse Ox 95 O2 Delivery Room Air O2 Flow Rate 15.00 FiO2 50 Capillary Refill : Less Than 3 Seconds General Appearance: No Apparent Distress, WD/WN Eyes: Bilateral Eye Normal Inspection, Bilateral Eye PERRL HEENT: PERRL/EOMI, Normal ENT Inspection, Pharynx Normal Neck: Full Range of Motion, Normal Inspection, Non Tender, Supple, Carotid Bruit Respiratory: Chest Non Tender, Lungs Clear, Normal Breath Sounds, No Accessory Muscle Use, No Respiratory Distress Cardiovascular: Regular Rate, Rhythm, No Edema, No Gallop, No JVD, No Murmur, Normal Peripheral Pulses Gastrointestinal: Normal Bowel Sounds, No Organomegaly, No Pulsatile Mass, Non Tender, Soft Back: Normal Inspection, No CVA Tenderness, No Vertebral Tenderness Extremity: Normal Capillary Refill, Normal Inspection, Normal Range of Motion, Non Tender, No Calf Tenderness, No Pedal Edema Neurologic/Psychiatric: Alert, Oriented x3, No Motor/Sensory Deficits, Normal Mood/Affect Skin: Normal Color, Warm/Dry Lymphatic: No Adenopathy Results Results/Procedures Lab Laboratory Tests 06/13/17 20:32 06/14/17 04:10 Assessment/Plan Admission Diagnosis Assessment: ETOH abuse Suicide ideation? Left brachial laceration s/p repair by Dr Javier self-inflicted Assessment and Plan Plan: DC home after suicide hotline contacted Clinical Quality Measures DVT/VTE Risk/Contraindication: RFS Level Per Nursing on Admit: 1=Low/No VTE PPX CHELA SANCHEZ DO Jun 14, 2017 12:27
[2017-06-14] MEDS ORDERED: BETHANECHOL 25 MG (URECHOLINE) TAB PO NR (12:34)
[2017-06-14] MEDS ORDERED: PHENAZOPYRIDINE 100 MG (PYRIDIUM) TABLET PO NR (12:35)
--- NOTE | 2017-06-14 14:00 | Anesthesia-General Post-Op ---
General Patient Condition Mental Status/LOC: Same as Preop Cardiovascular: Satisfactory Nausea/Vomiting: Absent Respiratory: Satisfactory Pain: Controlled Complications: Absent Post Op Complications Complications None Follow Up Care/Instructions Patient Instructions None needed. Anesthesia/Patient Condition Patient Condition Patient is doing well, no complaints, stable vital signs, no apparent adverse anesthesia problems. No complications reported per nursing. MILTON BARRON CRNA Jun 14, 2017 14:00
[2017-06-14] MEDS: LACTATED RINGERS 1,000 ML IV SCH (18:43)
--- NOTE | 2017-06-15 00:34 | HISTORY AND PHYSICAL ---
DATE OF ADMISSION: 06/13/2017 Mr. Reggie Pino is a 31 year-old male with a self-inflicted razor blade laceration to the left anterior arm just proximal to the antecubital fossa. There was a significant amount of arterial bleeding. Law enforcement arrived and due to the arterial bleeding a tourniquet was applied. There was also a significant amount of blood lost on the field. When he came in, he had a low blood pressure of 93; however, after 2 units of blood, his blood pressure and heart rate normalized. He does not have any distal pulses. It appears that he has, based on the location, injured his brachial artery. He is currently intubated and we cannot get a full history from him. Upon looking at previous records, he did have a previous suicidal attempt even within 1 month ago. He does have a history of drug abuse as well as alcohol. PAST MEDICAL HISTORY: 1. Drug abuse. 2. Suicidal ideation. 3. ADHD. 4. Anxiety. 5. Depression. PAST SURGERIES: None known. SOCIAL HISTORY: Positive THC. Regular cigarettes and alcohol. FAMILY HISTORY: Noncontributory. VITAL SIGNS: Pulse 69, respirations 17, pulse ox 98% on endotracheal intubation FiO2 50%. REVIEW OF SYSTEMS: This is a well nourished male who is intubated and sedated. He has stable vital signs at this time. Upon examination, he has good breath sounds bilaterally. There is a pulseless left distal left lower extremity with a tourniquet applied. There is also a pressure dressing and there is no identifiable active bleeding. The left upper extremity brachial and distal pulses are palpable. All other review of systems negative. PHYSICAL EXAMINATION: CHEST: Good breath sounds bilaterally. HEART: Regular. No murmurs. HEENT: No scleral icterus, no cervical lymphadenopathy. ABDOMEN: Soft, nontender, nondistended. VASCULAR: There is a tourniquet applied to the proximal aspect of the left upper extremity with a pressure dressing applied with no active bleeding; however, he has absent distal pulses as well as arterial bleeding on the field, most likely consistent with a brachial artery injury based on the location. LABS: WBC 12.8, hemoglobin 12.1, hematocrit 37, platelets 248. ASSESSMENT AND PLAN: 31 year-old male with a self inflicted laceration to the left upper extremity with probable brachial artery injury and arterial bleeding and absent distal pulses. He shows hard signs of arterial bleeding. We will proceed directly with exploration, possible repair, possible vein graft placement. In the Emergency Department, a right subclavian central venous catheter was placed. The chest and neck were prepped and draped in standard surgical fashion. We then proceeded with cannulation of the right subclavian artery, withdrawing of venous blood. The guidewire was then inserted without any resistance. A small incision was made using an 11 blade and cannulating needle removed and a dilator was used to provide a track. Over the guidewire, using the Seldinger technique, a triple lumen central venous catheter was placed and the guidewire removed. All 3 ports jarvis venous blood and flush pushed in without any resistance. The catheter was sutured to the skin using 3-0 Silk interrupted sutures. The catheter was then cleaned and covered with sterile gauze, followed by OpSite. The patient tolerated the procedure well. Job ID: [id number] Dictated Date: 06/13/2017 21:26:34 Siding Coreboard Inspector Date: 06/14/2017 23:59:36/emanuel
--- NOTE | 2017-06-16 09:46 | OPERATIVE REPORT ---
PROCEDURE PHYSICIAN: SOLIS COLMENARES DATE OF ADMISSION: 06/13/2017 DATE OF PROCEDURE: 06/13/2017. PREOPERATIVE DIAGNOSIS: Penetrating trauma to the left upper extremity with active bleeding. POSTOPERATIVE DIAGNOSIS: 1. Penetrating trauma to the left upper extremity with active bleeding. 2. Brachial vein active bleeding. Brachial artery was intact with good distal perfusion. PROCEDURE: Exploration penetrating wound left upper extremity and venoplasty. SURGEON: Dr. Colmenares. ANESTHESIA: General endotracheal. ESTIMATED BLOOD LOSS: Minimal. FINDINGS: The brachial artery was intact with no injury and good distal pulses distally. Of the brachial vein there was a full-thickness laceration along the anterior wall and a partial thickness laceration of the posterior wall. This was repaired. DISPOSITION: The patient tolerated the procedure well. BRIEF HISTORY: Mr. Reggie Pino is a 31-year-old male who was brought to [facility] emergency department after sustaining self-inflicted trauma to the left upper extremity. This gentleman appears to have some psychological issues and this is the second suicide attempt in approximately one month. He used a razor blade that caused a significant amount of bleeding. Law enforcement arrived in a tourniquet placed in due to a significant amount of bleeding, as well as blood on the field. The patient was resuscitated with 2 units of blood with good response and return of vital signs. Currently there is a tourniquet applied. A right subclavian central venous was placed in the ED before taking the patient to the operating room. There were no distal pulses of the left upper extremity. PROCEDURE: The patient was brought to the operating room, laid supine on the table. After adequate IV pain and sedative medications and general endotracheal intubation the left upper and lower extremities were prepped and draped in standard surgical fashion. The tourniquet was removed and there was bleeding identified. Direct pressure was applied and the wound examined. The brachial artery was completely intact with a good palpable pulse of the brachial artery, as well as ulnar and radial arteries. Adjacent to this was the brachial vein which was actively bleeding and vessel loops were applied proximally and distally to get proximal and distal control. This area was examined and there was a full thickness laceration along the anterior wall and a partial thickness laceration of the posterior wall. The posterior wall was repaired using a running 5-0 Prolene suture. The anterior wall was repaired in a similar manner and before it was completely close, flushed proximally and distally. Good hemostasis was observed. The wound was copiously irrigated. The subcutaneous tissue was then reapproximated using 3-0 Vicryl interrupted sutures. The skin was closed using interrupted 3-0 nylon sutures. The wound was then cleaned and covered with Adaptic, followed by Kerlix wrap. The patient tolerated the procedure well. We will admit him to the ICU for observation. Once he continues to have good perfusion of the left upper extremity, as well as no other issues, we will discharge him home. We will continue with IV antibiotics while admitted. Job ID: [id number] Dictated Date: 06/13/2017 22:35:48 [place] Date: 06/16/2017 09:30:42 / vashti
--- NOTE | 2017-06-16 12:06 | Physician Query-Final Dx ---
CHATA MCCLAIN 06/16/17 1206: Final Diagnosis Give Final Diagnosis Please give Final Diagnosis SOLIS COLMENARES MD 06/16/17 1816: Final Diagnosis Give Final Diagnosis trauma, laceration left upper arm with active venous bleeding. CHATA MCCLAIN Jun 16, 2017 12:06 SOLIS COLMENARES MD Jun 16, 2017 18:16
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
== END 2017-06-14 19:54 | DRG 909 ==
LOC: EDUNIT# 20:18 → ER 20:19 → SDC 20:43 → ICU 06-14
PROVIDERS: ADMIT Surgery; ATTEND Surgery
PROC: 0X370ZZ Control Bleeding in Left Upper Extremity, Open Approach (ICD-10-PCS; principal; 2017-06-13 21:11)
DX: S45.212A Laceration of axillary or brachial vein, left side, initial encounter (principal); F10.129 Alcohol abuse with intoxication, unspecified; F90.9 Attention-deficit hyperactivity disorder, unspecified type; F41.9 Anxiety disorder, unspecified; F32.9 Major depressive disorder, single episode, unspecified; F17.210 Nicotine dependence, cigarettes, uncomplicated; R33.9 Retention of urine, unspecified; X78.8XXA Intentional self-harm by other sharp object, initial encounter
CPT/HCPCS: 31500; 36415; 43760; 51702; 71010; 80048; 80076; 80306; 80320; 81000; 83735; 84100; 84484; 85025; 85027; 85610; 85730; 86850; 86900; 86901; 86920; 93041; 94664; 96360; 99291

== ENCOUNTER 2018-02-08 17:37 | Inpatient (IN) | payer SELFPAY ==
[~2018-02-08] VITALS: Ht 182.9 cm; Wt 83.2 kg
[2018-02-08] VITALS (13 sets, daily range): BP systolic 114–166; BP diastolic 41–94
--- OUTSIDE RECORDS SUMMARY | 2018-02-08 17:42 | XMS REPORT | Continuity of Care Document ---
Author Author [facility] Organization [facility] Address Unknown Phone Unavailable Allergies Active Description Code Type Severity Reaction Onset Reported/Identified Relationship to Patient Clinical Status Yes NO NAME AVAILABLE 86528 DRUG N/ A N/A Yes NKANo Known Allergies NKA Miscellaneous Allergy Unknown N/A 02/07/2006 Yes haloperidol [id number] Drug Allergy Unknown N/A 05/22/2017 Yes HALOPERIDOL 26270 DRUG INGREDI Med Other 06/15/2017 06/15/2017 Yes TRAZODONE 21775 DRUG INGREDI N/ A Other 06/18/2017 06/18/2017 Medications Medication Packaging Start Date Stop Date Route Dosage Sig TRAZODONE HCL 100 MG PO TABS Oral 100 BEDTIME PRN OLANZAPINE 10 MG PO TBDP 2016 Oral 10 2 TIMES DAILY PRN QUETIAPINE FUMARATE 25 MG PO TABS 06/15/2017 Oral 25 4 TIMES DAILY PRN MAGNESIUM HYDROXIDE 400 MG/5ML PO SUSP 06/15/2017 Oral 30 DAILY PRN ALUM T MAG HYDROXIDE-SIMETH 200-200-20 MG/5ML PO SUSP 06/15/2017 Oral 30 4 TIMES DAILY PRN ACETAMINOPHEN 325 MG PO TABS Oral 650 EVERY 6 HOURS PRN Problems [...] D/T PT LV BEF SEE 05/22/2017 SANCHEZ DO, CHELA Ot F10.129 ALCOHOL ABUSE WITH INTOXICATION, UNSPECI 05/22/2017 SANCHEZ DO, CHELA Ot R45.1 RESTLESSNESS AND AGITATION 05/22/2017 SANCHEZ DO, CHELA Ot R45.851 SUICIDAL IDEATIONS 05/22/2017 SANCHEZ DO, CHELA Ot S61.512A LACERATION WITHOUT FOREIGN BODY OF LEFT 05/22/2017 SANCHEZ DO, CHELA Ot X78.1XXA INTENTIONAL SELF-HARM BY KNIFE, INITIAL 05/22/2017 SANCHEZ DO, CHELA Ot Y90.5 BLOOD ALCOHOL LEVEL OF 100-119 MG/100 ML 05/22/2017 SANCHEZ DO, CHELA Ot Y92.[address] [facility] [address] [facility] 05/22/2017 SANCHEZ DO, CHELA Ot Y99.8 OTHER EXTERNAL CAUSE STATUS 05/22/2017 SANCHEZ DO, CHELA Ot F10.129 ALCOHOL ABUSE WITH INTOXICATION, UNSPECI 05/22/2017 SANCHEZ DO, CHELA Ot R45.1 RESTLESSNESS AND AGITATION 05/22/2017 SANCHEZ DO, CHELA Ot R45.851 SUICIDAL IDEATIONS 05/22/2017 SANCHEZ DO, CHELA Ot S61.512A LACERATION WITHOUT FOREIGN BODY OF LEFT 05/22/2017 SANCHEZ DO, CHELA Ot X78.1XXA INTENTIONAL SELF-HARM BY KNIFE, INITIAL 05/22/2017 SANCHEZ DO, CHELA Ot Y90.5 BLOOD ALCOHOL LEVEL OF 100-119 MG/100 ML 05/22/2017 SANCHEZ DO, CHELA Ot Y92.[address] [facility] [address] [facility] 05/22/2017 SANCHEZ DO, CHELA Ot Y99.8 OTHER EXTERNAL CAUSE STATUS 06/14/2017 SOLIS COLMENARES MD Ot F10.129 ALCOHOL ABUSE WITH INTOXICATION, UNSPECI 06/14/2017 SOLIS COLMENARES MD, Ot F17.210 NICOTINE DEPENDENCE, CIGARETTES, UNCOMPL 06/14/2017 SOLIS COLMENARES MD Ot F32.9 MAJOR DEPRESSIVE DISORDER, SINGLE EPISOD 06/14/2017 SOLIS COLMENARES MD, Ot F41.9 ANXIETY DISORDER, UNSPECIFIED 06/14/2017 SOLIS COLMENARES MD, Ot F90.9 ATTENTION-DEFICIT HYPERACTIVITY DISORDER 06/14/2017 SOLIS COLMENARES MD, Ot R33.9 RETENTION OF URINE, UNSPECIFIED 06/14/2017 SOLIS COLMENARES MD, Ot S45.212A LACERATION OF AXILLARY OR BRACHIAL VEIN, 06/14/2017 SOLIS COMLENARES MD, Ot X78.8XXA INTENTIONAL SELF-HARM BY OTHER SHARP OBJ 06/19/2017 KABINS, DOREEN B V 173626 Suicidal KABINS, DOREEN B 06/19/2017 KABINS, DOREEN B V 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 KABINS, DOREEN B Procedures Code Description Performed By Performed On [id number] CONTROL BLEEDING IN LEFT UPPER EXTREMITY 06/13/2017 Results Test Result Range Complete blood count (CBC) with automated white blood cell (WBC) differential - 05/22/17 00:25 Blood leukocytes automated count (number/volume) 4.9 10*3/uL 4.3-11.0 Blood erythrocytes automated count (number/volume) 5.32 10*6/uL 4.35-5.85 Venous blood hemoglobin measurement (mass/volume) 13.9 [...] Automated blood platelet mean volume measurement 10.9 [foz_us] 7.4-10.4 Automated blood neutrophils/100 leukocytes 51 % [...] Serum or plasma sodium measurement (moles/volume) 140 mmol/L 135-145 Serum or plasma potassium measurement (moles/volume) 3.5 mmol/L 3.6-5.0 Serum or plasma chloride measurement (moles/volume) 107 mmol/L 98-107 Carbon dioxide 20 mmol/L 21-32 Serum or plasma anion gap determination (moles/volume) 13 mmol/L 5-14 Serum or plasma urea nitrogen measurement (mass/volume) 9 mg/dL 7-18 Serum or plasma creatinine measurement (mass/volume) 0.91 mg/dL 0.60-1.30 Serum or plasma urea nitrogen/creatinine mass [...] Serum or plasma salicylates measurement (mass/volume) < mg/dL 5.0-20.0 Serum or plasma acetaminophen measurement (mass/volume) - 05/22/17 00:25 Serum or plasma acetaminophen measurement (mass/volume) < ug/mL 10-30 Serum or plasma ethanol measurement (mass/volume) [...] 20:32 Blood leukocytes automated count (number/volume) 12.8 10*3/uL 4.3-11.0 Blood erythrocytes automated count (number/volume) 4.56 10*6/uL 4.35-5.85 Venous blood hemoglobin measurement (mass/volume) 12.1 [...] Automated blood platelet mean volume measurement 10.5 [foz_us] 7.4-10.4 PT panel in platelet poor plasma [...] RED CELLS LEUKO REDUCED AS1 NOT AVAILABLE NRG Blood type T Indirect antibody screen panel - 06/13/17 20:32 ABO+Rh group ON NRG Transfusion band number [id number] NR Blood group antibody screen NEGATIVE [facility] Liver function panel (serum or plasma alk [...] or plasma indirect bilirubin measurement (mass/volume) 0.4 mg/ dL [facility] Whole blood basic metabolic panel - 06/13/17 20:32 Serum or plasma sodium measurement (moles/volume) 142 mmol/L 135-145 Serum or plasma potassium measurement (moles/volume) 3.2 mmol/L 3.6-5.0 Serum or plasma chloride measurement (moles/volume) 111 mmol/L 98-107 Carbon dioxide 13 mmol/L 21-32 Serum or plasma anion gap determination (moles/volume) 18 mmol/L 5-14 Serum or plasma urea nitrogen measurement (mass/volume) 10 mg/dL 7-18 Serum or plasma creatinine measurement (mass/volume) 1.04 mg/dL 0.60-1.30 Serum or plasma urea nitrogen/creatinine mass ratio 10 NRG Serum or plasma creatinine measurement with calculation of estimated glomerular filtration rate > NRG Serum or plasma glucose measurement (mass/volume) 143 mg/dL 70-105 Serum or plasma calcium measurement (mass/volume) 7.5 mg/dL 8.5-10.1 Serum or plasma troponin i.cardiac measurement (mass/volume) - 06/13/17 20:32 Serum or plasma troponin i.cardiac measurement (mass/volume) < ng/ mL <0.30 Serum or plasma ethanol measurement (mass/volume) - 06/13/17 20:32 Serum or plasma ethanol measurement (mass/volume) 145 mg/dL <10 Complete urinalysis with reflex to culture - 06/13/17 20:49 Urine color determination YELLOW NRG Urine clarity determination CLEAR NRG Urine pH measurement by test strip 6.5 5-9 Specific gravity of urine by test strip 1.010 1.016- 1.022 Urine protein assay by test strip, semi-quantitative [...] 04:10 Blood leukocytes automated count (number/volume) 13.9 10*3/uL 4.3-11.0 Blood erythrocytes automated count (number/volume) 4.26 10*6/uL 4.35-5.85 Venous blood hemoglobin measurement (mass/volume) 11.8 [...] Automated blood platelet mean volume measurement 11.3 [foz_us] 7.4-10.4 Automated blood neutrophils/100 leukocytes 86 % [...] Serum or plasma sodium measurement (moles/volume) 140 mmol/L 135-145 Serum or plasma potassium measurement (moles/volume) 4.5 mmol/L 3.6-5.0 Serum or plasma chloride measurement (moles/volume) 110 mmol/L 98-107 Carbon dioxide 22 mmol/L 21-32 Serum or plasma anion gap determination (moles/volume) 8 mmol/L 5-14 Serum or plasma urea nitrogen measurement (mass/volume) 9 mg/dL 7-18 Serum or plasma creatinine measurement (mass/volume) 0.78 mg/dL 0.60-1.30 Serum or plasma urea nitrogen/creatinine mass ratio 12 NRG Serum or plasma creatinine measurement with calculation of estimated glomerular filtration rate > NRG Serum or plasma glucose measurement (mass/volume) 104 mg/dL 70-105 Serum or plasma calcium measurement (mass/volume) 8.0 mg/dL 8.5-10.1 Serum or plasma phosphate measurement (mass/volume) - 06/14/17 04:10 Serum or plasma phosphate measurement (mass/volume) 3.0 mg/dL 2.3-4.7 Magnesium - 06/14/17 04:10 Magnesium 1.4 mg/dL 1.8-2.4 CBC WITH AUTO DIFFERENTIAL - 06/15/17 06:01 BASOPHILS RELATIVE PERCENT 1.0 % 0.0-2.5 EOSINOPHILS RELATIVE PERCENT 3.3 % <=5.0 HEMATOCRIT 32.2 % 38.8-50.0 HEMOGLOBIN 10.7 g/dL 13.5-17.5 LYMPHOCYTES RELATIVE PERCENT 32.2 % 22.0-49.0 MEAN CORPUSCULAR HEMOGLOBIN 27.9 pg 26.0-34.0 MEAN CORPUSCULAR HEMOGLOBIN CONC 33.2 g/dL 31.0-37.0 MEAN CORPUSCULAR VOLUME 83.9 fL 81.2-95.1 MONOCYTES RELATIVE PERCENT 12.7 % 2.0-9.0 NEUTROPHILS RELATIVE PERCENT 50.8 % 40.0-75.0 NUCLEATED RED BLOOD CELLS 0 /100 <=0 PLATELET COUNT 145 10E9/L 150-450 RED BLOOD CELL COUNT 3.84 10E12/L 4.32-5.72 RED CELL DISTRIBUTION WIDTH 14.7 % 11.8-15.6 [id number] 5.1 10E9/L 3.5-10.5 2519710 1.65 10E9/L 0.90-2.90 3415563 0.65 10E9/L 0.30-0.90 7941970 0.17 10E9/L 0.05-0.50 1916138 2.60 10E9/L 1.70-7.00 [id number] 0.05 10E9/L 0.00-0.30 2853716 0 % TSH (REFLEX FREE T4 IF ABNORMAL) - 06/15/17 06:01 TSH 1.237 uIU/mL 0.400-4.000 Encounters ACCT No. Visit Date/Time Discharge Status Pt. Type Provider Facility Loc./Unit Complaint [id number] 06/14/2017 00:00:00 06/14/2017 19:54:00 DIS Inpatient SOLIS COLMENARES MD [facility] ICU LACERATION [id number] 05/22/2017 02:21:00 05/22/2017 12:30:00 DIS Inpatient LORRAINE SANCHEZ DOI [facility] ICU SUICIDE ATTEMPT,ALCOHOL INTOX,L ARM LACERATION [id number] 11/19/2016 11:58:00 11/19/2016 12:12:00 DIS Emergency NICK RENDON MD [facility] ER MIGRAINE [id number] 08/01/2013 04:36:00 08/01/2013 06:24:00 DIS Emergency [id number] 06/15/2017 00:18:00 06/19/2017 16:42:00 DIS Inpatient [facility] [id number] 06/15/2017 02:29:55 Document Registration
[2018-02-08] MEDS ORDERED: NS IV 1000 ML 1,000 ML IV ONE (17:50)
[2018-02-08 18:21] LABS: BASOPHILS % (AUTO) 0 % (0-10); EOSINOPHILS % (AUTO) 0 % (0-10); HEMATOCRIT 31 % (40-54); HEMOGLOBIN 10.9 G/DL (13.3-17.7); LYMPHOCYTES # (AUTO) 1.8 X 10^3 (1.0-4.0); LYMPHOCYTES % (AUTO) 9 % (12-44); MEAN CORPUSCULAR HEMOGLOBIN 27 PG (25-34); MEAN CORPUSCULAR HGB CONC 35 G/DL (32-36); MEAN CORPUSCULAR VOLUME 78 FL (80-99); MEAN PLATELET VOLUME 10.8 FL (7.4-10.4); MONOCYTES # (AUTO) 1.5 X 10^3 (0.0-1.0); MONOCYTES % (AUTO) 7 % (0-12); NEUTROPHILS # (AUTO) 17.4 X 10^3 (1.8-7.8); NEUTROPHILS % (AUTO) 84 % (42-75); PLATELET COUNT 330 10^3/uL (130-400); RED CELL DISTRIBUTION WIDTH 14.2 % (10.0-14.5); WHITE BLOOD COUNT 20.7 10^3/uL (4.3-11.0)
[2018-02-08] MEDS ORDERED: proPOfol 200 MG/20 ML (DIPRIVAN) VIAL IV ONE (18:23)
[2018-02-08] MEDS ORDERED: ONDANSETRON 4 MG/2 ML (SDV) Z0FRAN ONE ×2 (18:23→19:12)
[2018-02-08] MEDS ORDERED: LACTATED RINGERS 1,000 ML IV ONE ×2 (18:23→20:21)
[2018-02-08] MEDS ORDERED: SUCCINYLCHOLINE INJ 100 MG/5 ML SYR ONE (18:23)
[2018-02-08] MEDS ORDERED: LIDOCAINE PF 2% 5 ML (XYLOCAINE) VIAL ONE (18:23)
[2018-02-08] MEDS ORDERED: fentaNYL INJECTION 100 MCG/2 ML AMP ONE (18:24)
[2018-02-08] MEDS ORDERED: MIDAZOLAM 2 MG/2 ML (VERSED) VIAL ONE (18:24)
--- NOTE | 2018-02-08 18:27 | ED Trauma-Multisystem ---
General Chief Complaint: Trauma EMS/Air Arrival Activat Stated Complaint: L ELBOW LAC Nursing Triage Note: Self-inflicted laceation to left AC with significant blood loss. EMS estimate >1500 cc at the scene Source of Information: Patient Exam Limitations: Other (clinical condition) History of Present Illness Date Seen by Provider: Feb 08, 2018 Time Seen by Provider: 17:40 Initial Comments 32 yo male patient presents to the ED via [facility] with a self- inflicted laceration to the left AC with significant blood loss. EMS estimates approximately 2431-6139 cc's blood loss at the scene. Tourniquet placed on the left bicep by EMS at the scene. EMS reports patient verbalized to them that he was trying to harm himself. Reports patient has been alert and oriented. Patient reportedly used methamphetamines this afternoon and then locked himself in the [facility] bathroom. Patient does verbalize intending to commit suicide. Patient is mildly confused. Per EMS patient had a similar attempt within the last couple of years. Pain/Injury Location: Upper Extremity (left AC) Method of Injury: Other (self-inflicted laceration to the left AC) Allergies and Home Medications Allergies Coded Allergies: NKANo Known Allergies (Verified Allergy, Unknown, 02/07/06) haloperidol (Unverified Adverse Reaction, Unknown, 05/22/17) Home Medications No Active Prescriptions or Reported Meds Constitutional: other (patient unable to answer ROS due to clinical condition.) Past Qgsvzmx-Zolfxf-Yfqpeh Hx Patient Social History Alcohol Use: Occasionally Uses Number of Drinks Today: GG Alcohol Beverage of Choice: Beer, Whiskey Recreational Drug Use: Yes (DRUG AND ETOH ABUSE) Drug of Choice: MARIJUANA Smoking Status: Unknown if Ever Smoked Type Used: Cigarettes Recent Foreign Travel: No Contact w/Someone Who Travel: No Recent Infectious Disease Expo: No Recent Hopitalizations: Yes Immunizations Up To Date Tetanus Booster (TDap): Unknown Seasonal Allergies Seasonal Allergies: No Surgeries History of Surgeries: Yes Respiratory History of Respiratory Disorde: No Currently Using CPAP: No Currently Using BIPAP: No Cardiovascular History of Cardiac Disorders: No Neurological History of Neurological Disord: No Reproductive System Hx Reproductive Disorders: No Sexually Transmitted Disease: No Genitourinary History of Genitourinary Disor: No Gastrointestinal History of Gastrointestinal Di: No Musculoskeletal History of Musculoskeletal Dis: Yes Musculoskeletal Disorders: Fractures Endocrine History of Endocrine Disorders: No HEENT History of HEENT Disorders: No Cancer History of Cancer: No Psychosocial History of Psychiatric Problem: Yes (history of alcohol abuse and suicidal ideation.) Behavioral Health Disorders: ADD/ADHD, Anxiety, Suicide Attempts, Depression Integumentary History of Skin or Integumenta: No Blood Transfusions History of Blood Disorders: No Reviewed Nursing Assessment Reviewed/Agree w Nursing PMH: Yes Family Medical History Significant Family History: No Pertinent Family Hx Family Medial History: Patient reports no known family medical history. Physical Exam Vital Signs Vital Signs - First Documented 02/08/18 02/08/18 02/08/18 17:37 17:40 18:25 Temp 95.1 Pulse 98 Resp 16 B/P (MAP) 62/22 (35) Pulse Ox 95 O2 Delivery Nasal Cannula O2 Flow Rate 3.00 FiO2 95 Temperature (Fahrenheit): 95.1 General Appearance: WD/WN, Other (alert, answering simple questions. pale. mildly confused. bilateral radial pulses weak and thready.) Head: No Evidence of Injury, No Kc's Sign, No Contusions, No Raccoon Eyes Eyes: Bilateral Eye Normal Inspection, Bilateral Eye PERRL, Bilateral Eye EOMI Ears, Nose, Throat: Hearing Grossly Normal, No Evidence of ENT Injury, No Dental Injury Neck: Full Range of Motion, Normal Inspection, Non Tender, Supple Cardiovascular: No Edema, No Murmur, Tachycardia Respiratory: Lungs Clear, Normal Breath Sounds, No Accessory Muscle Use, No Respiratory Distress Gastrointestinal: Normal Bowel Sounds, Non Tender, Soft Back: Normal Inspection, No Vertebral Tenderness Extremity: No Pedal Edema, Pelvis Stable, Other (8x3x2 cm transverse, linear laceration to the left AC without active bleeding. lacerated muscle belly noted in the wound bed. left radial pulse thready and weak. left hand dusky. tourniquet released. no bleeding noted from the wound. no improvement in the color of the left distal upper extremity. no injury noted to the BLE or the RUE.) Neurologic/Psychiatric: Alert, emergency man II-XII Norm as Tested, Other (flat, depressed affect. mildly confused. answers simple questions only. patient is moving all 4 extremities without difficulty.) Skin: Cool, Pallor, Other (see extremity exam above.) Christina Coma Score Best Eye Response ([place]): (4) Open Spontaneously Best Verbal Response ([place]): (4) Confused Conversation Best Motor Response ([place]): (6) Obeys Commands [place] Total: 14 Laceration Repair : Suture Size: 3-0, 4-0 Progress/Results/Core Measures Results/Orders Lab Results Laboratory Tests Test 02/08/18 18:05 Range/Units White Blood Count 20.7 H 4.3-11.0 10^3/uL Red Blood Count 4.00 L 4.35-5.85 10^6/uL Hemoglobin 10.9 L 13.3-17.7 G/DL Hematocrit 31 L 40-54 % Mean Corpuscular Volume 78 L 80-99 FL Mean Corpuscular Hemoglobin 27 25-34 PG Mean Corpuscular Hemoglobin Concent 35 32-36 G/DL Red Cell Distribution Width 14.2 10.0-14.5 % Platelet Count 330 130-400 10^3/uL Mean Platelet Volume 10.8 H 7.4-10.4 FL Neutrophils (%) (Auto) 84 H 42-75 % Lymphocytes (%) (Auto) 9 L 12-44 % Monocytes (%) (Auto) 7 0-12 % Eosinophils (%) (Auto) 0 0-10 % Basophils (%) (Auto) 0 0-10 % Neutrophils # (Auto) 17.4 H 1.8-7.8 X 10^3 Lymphocytes # (Auto) 1.8 1.0-4.0 X 10^3 Monocytes # (Auto) 1.5 H 0.0-1.0 X 10^3 Eosinophils # (Auto) 0.0 0.0-0.3 10^3/uL Basophils # (Auto) 0.0 0.0-0.1 10^3/uL Neutrophils % (Manual) 74 % Lymphocytes % (Manual) 7 % Monocytes % (Manual) 6 % Eosinophils % (Manual) 0 % Basophils % (Manual) 0 % Band Neutrophils 12 % Reactive Lymphocytes 1 % Toxic Granulation 1+ Microcytosis SLIGHT Prothrombin Time 16.4 H 12.2-14.7 SEC INR Comment 1.3 0.8-1.4 Activated Partial Thromboplast Time 29 24-35 SEC Sodium Level 139 135-145 MMOL/L Potassium Level 3.8 3.6-5.0 MMOL/L Chloride Level 103 98-107 MMOL/L Carbon Dioxide Level 15 L 21-32 MMOL/L Anion Gap 21 H 5-14 MMOL/L Blood Urea Nitrogen 27 H 7-18 MG/DL Creatinine 2.11 H 0.60-1.30 MG/DL Estimat Glomerular Filtration Rate 36 BUN/Creatinine Ratio 13 Glucose Level 300 H 70-105 MG/DL Calcium Level 8.5 8.5-10.1 MG/DL Total Bilirubin 1.2 H 0.1-1.0 MG/DL Aspartate Amino Transf (AST/SGOT) 24 5-34 U/L Alanine Aminotransferase (ALT/SGPT) 29 0-55 U/L Alkaline Phosphatase 62 40-136 U/L Total Protein 6.0 L 6.4-8.2 GM/DL Albumin 3.9 3.2-4.5 GM/DL Free Thyroxine 0.97 0.70-1.48 NG/DL TSH Colome Testing 8.86 H 0.35-4.94 UIU/ML Salicylates Level < 5.0 L 5.0-20.0 MG/DL Acetaminophen Level < 10 L 10-30 UG/ML Serum Alcohol < 10 <10 MG/DL My Orders Orders - SHARAN PALENCIA Saline Lock/Iv-Start (02/08/18 17:50) Ekg Tracing (02/08/18 17:50) O2 (02/08/18 17:50) Monitor-Rhythm Ecg Trace Only (02/08/18 17:50) Acetaminophen (02/08/18 17:50) Alcohol (02/08/18 17:50) Cbc With Automated Diff (02/08/18 17:50) Comprehensive Metabolic Panel (02/08/18 17:50) Drug Screen Stat (Urine) (02/08/18 17:50) Protime With Inr (02/08/18 17:50) Partial Thromboplastin Time (02/08/18 17:50) Salicylate (02/08/18 17:50) Thyroid Analyzer (02/08/18 17:50) Ua Culture If Indicated (02/08/18 17:50) Red Cells Leukocytes Reduced (02/08/18 17:50) Saline Lock/Iv-Start (02/08/18 17:50) Ns Iv 1000 Ml (Sodium Chloride 0.9%) (02/08/18 17:50) Catheter(Urinary) Insert & Ass 15 (02/08/18 17:53) Type And Screen (02/08/18 17:50) Manual Differential (02/08/18 18:05) Succinylcholine Injection (Succinylcholi (02/08/18 18:23) Propofol Injection (Diprivan Injection) (02/08/18 18:23) Ondansetron Injection (Zofran Injectio (02/08/18 18:23) Lidocaine 2% Pf 5 Ml (Xylocaine 2% Pf) (02/08/18 18:23) Lactated Ringers (Lr 1000 Ml Iv Solution (02/08/18 18:23) Fentanyl Injection (Sublimaze Injection (02/08/18 18:24) Midazolam Injection (Versed Injection) (02/08/18 18:24) Free T4 (Free Thyroxine) (02/08/18 18:05) Vital Signs/I&O Vital Sign - Last 12Hours 02/08/18 02/08/18 02/08/18 17:37 17:40 18:25 Temp 95.1 Pulse 98 93 Resp 16 16 B/P (MAP) 62/22 (35) 105/65 Pulse Ox 95 95 95 O2 Delivery Nasal Cannula Nasal Cannula O2 Flow Rate 3.00 FiO2 95 Critical Care Note Critical Care Start Time: 17:37 Stop Time: 18:25 Total Time (minutes) 48 minutes Departure Communication (Admissions) Communication Dr. Gilbert Progress Notes 1740 patient seen and evaluated. Patient's status is critical. Upgraded to a Level [address] Gilbert notified. Dr. Bolden in patient room. 2 units of uncrossmatched blood ordered per protocol. 1750 Dr. Gilbert in ED. Requesting OR crew and anesthesia to be called in. Dr. Gilbert to place central line at bedside. last tetanus on 06/13/17 per EMR Impression Impression: Primary Impression: Hemorrhagic shock Additional Impressions: Laceration of left upper extremity with complication Qualified Codes: S41.112A - Laceration without foreign body of left upper arm , initial encounter Suicide attempt, initial encounter Disposition: ADMITTED INPATIENT Condition: Critical Admissions Decision to Admit Reason: Admit from ER (General) Decision to Admit/Date: Feb 08, 2018 Time/Decision to Admit Time: 17:50 Departure-Patient Inst. Referrals: NO,LOCAL PHYSICIAN (PCP/Family) Primary Care Physician Scripts No Active Prescriptions or Reported Meds SHARAN PALENCIA Feb 08, 2018 18:27
[2018-02-08 18:30] LABS: INR 1.3 (0.8-1.4); PROTHROMBIN TIME PATIENT 16.4 SEC (12.2-14.7)
[2018-02-08 18:41] LABS: ALANINE AMINOTRANSFERASE 29 U/L (0-55); ALBUMIN 3.9 GM/DL (3.2-4.5); ALKALINE PHOSPHATASE 62 U/L (40-136); BILIRUBIN,TOTAL 1.2 MG/DL (0.1-1.0); BUN/CREATININE RATIO 13; CALCIUM 8.5 MG/DL (8.5-10.1); CARBON DIOXIDE 15 MMOL/L (21-32); CHLORIDE 103 MMOL/L (98-107); CREATININE SERUM 2.11 MG/DL (0.60-1.30); GFR ESTIMATED 36; GLUCOSE 300 MG/DL (70-105); POTASSIUM 3.8 MMOL/L (3.6-5.0); SALICYLATE < 5.0 MG/DL (5.0-20.0); SODIUM 139 MMOL/L (135-145)
[2018-02-08 18:48] LABS: BAND NEUTROPHILS 12 %; BASOPHILS % (MANUAL) 0 %; EOSINOPHILS % (MANUAL) 0 %; LYMPHOCYTES % (MANUAL) 7 %; MONOCYTES % (MANUAL) 6 %; NEUTROPHILS % (MANUAL) 74 %
[2018-02-08 18:49] LABS: MICROCYTOSIS SLIGHT; REACTIVE LYMPHOCYTES 1 %; TOXIC GRANULATION/VACUOLAZATIO 1+
--- OUTSIDE RECORDS SUMMARY | 2018-02-08 18:51 | XMS REPORT | Continuity of Care Document ---
Author Author [facility] Organization [facility] Address Unknown Phone Unavailable Allergies Active Description Code Type Severity Reaction Onset Reported/Identified Relationship to Patient Clinical Status Yes NO NAME AVAILABLE 76969 DRUG N/ A N/A Yes NKANo Known Allergies NKA Miscellaneous Allergy Unknown N/A 02/07/2006 Yes haloperidol [id number] Drug Allergy Unknown N/A 05/22/2017 Yes HALOPERIDOL 08055 DRUG INGREDI Med Other 06/15/2017 06/15/2017 Yes TRAZODONE 08090 DRUG INGREDI N/ A Other 06/18/2017 06/18/2017 [...] ML 05/22/2017 SANCHEZ DO, CHELA Ot Y92.[address] [facility] [address] IN [facility] 05/22/2017 SANCHEZ DO, CHELA Ot Y99.8 [...] ML 05/22/2017 SANCHEZ DO, CHELA Ot Y92.[address] [facility] [address] [facility] 05/22/2017 SANCHEZ DO, CHELA Ot Y99.8 [...] OF AXILLARY OR BRACHIAL VEIN, 06/14/2017 SOLIS COLMENARES MD, Ot X78.8XXA INTENTIONAL SELF-HARM BY OTHER SHARP OBJ 06/19/2017 KABINS, DOREEN B V 324989 Suicidal KABINS, DOREEN B 06/19/2017 KABINS, DOREEN B V 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 KABINS, DOREEN B Procedures Code Description Performed By Performed On [id number] CONTROL BLEEDING IN LEFT UPPER EXTREMITY 06/13/2017 [...] ABO+Rh group ON NRG Transfusion band number [id number] NR Blood group antibody screen NEGATIVE [facility] Liver function panel (serum or plasma alk [...] indirect bilirubin measurement (mass/volume) 0.4 mg/ dL [facility] Whole blood basic metabolic panel - 06/13/17 [...] RED CELL DISTRIBUTION WIDTH 14.7 % 11.8-15.6 7973719 5.1 10E9/L 3.5-10.5 8292902 1.65 10E9/L 0.90-2.90 1320911 0.65 10E9/L 0.30-0.90 5035820 0.17 10E9/L 0.05-0.50 0651726 2.60 10E9/L 1.70-7.00 3504175 0.05 10E9/L 0.00-0.30 5637894 0 % TSH (REFLEX FREE T4 IF ABNORMAL) - 06/15/17 06:01 TSH 1.237 uIU/mL 0.400-4.000 Encounters ACCT No. Visit Date/Time Discharge Status Pt. Type Provider Facility Loc./Unit Complaint [id number] 06/14/2017 00:00:00 06/14/2017 19:54:00 DIS Inpatient SOLIS COLMENARES MD [facility] ICU LACERATION [id number] 05/22/2017 02:21:00 05/22/2017 12:30:00 DIS Inpatient LORRAINE SANCHEZ DOI [facility] ICU SUICIDE ATTEMPT,ALCOHOL INTOX,L ARM LACERATION [id number] 11/19/2016 11:58:00 11/19/2016 12:12:00 DIS Emergency NICK RENDON MD [facility] ER MIGRAINE [id number] 08/01/2013 04:36:00 08/01/2013 06:24:00 DIS Emergency [id number] 06/15/2017 00:18:00 06/19/2017 16:42:00 DIS Inpatient DOREEN MALLOY [facility] [id number] 06/15/2017 02:29:55 Document Registration
[2018-02-08 18:55] LABS: ACETAMINOPHEN < 10 UG/ML (10-30)
[2018-02-08 19:01] LABS: TSH (THYROID ANALYZER) 8.86 UIU/ML (0.35-4.94)
[2018-02-08] MEDS ORDERED: diphenhydrAMINE 50 MG/ML INJ (BENADRYL) ONE (19:08)
[2018-02-08] MEDS ORDERED: HYDROCORTISONE 100 MG/2 ML (Solu-CORTEF) VIAL ONE (19:08)
[2018-02-08] MEDS ORDERED: FAMOTIDINE 20MG/2ML IV (PEPCID) ONE (19:08)
[2018-02-08] MEDS ORDERED: morphine INJ 10 MG/ML 1ML (SYR OR VIAL) ONE (19:12)
[2018-02-08 19:51] LABS: FREE T4 (FREE THYROXINE) 0.97 NG/DL (0.70-1.48)
[2018-02-08] MEDS ORDERED: ROCURONIUM 10 MG/ML 5 ML SYRINGE IV ONE (20:09)
--- NOTE | 2018-02-08 20:20 | History & Physicial ---
History of Present Illness History of Present Illness Reason for visit/HPI Self-inflicted knife wound to the left elbow with acute hypotension Date of Admission 02/08/18 Date Seen by Provider: Feb 08, 2018 Time Seen by Provider: 17:50 I consulted on this patient on 02/08/18 20:15 Attending Physician Enedina Fisher MD Admitting Physician No,Local Physician Consult Dr.Mindi Triana Allergies and Home Medications Allergies Coded Allergies: NKANo Known Allergies (Verified Allergy, Unknown, 02/07/06) haloperidol (Unverified Adverse Reaction, Unknown, 05/22/17) Home Medications No Active Prescriptions or Reported Meds Patient Home Medication List Home Medication List Reviewed: Yes Past Hrmbvmz-Rswzac-Mphfum Hx Patient Social History Marrital Status: single Employed/Student: employed Alcohol Use: Occasionally Uses Number of Drinks Today: GG Alcohol Beverage of Choice: Beer, Whiskey Recreational Drug Use: Yes (DRUG AND ETOH ABUSE) Drug of Choice: MARIJUANA Smoking Status: Unknown if Ever Smoked Type Used: Cigarettes Recent Foreign Travel: No Contact w/other who traveled: No Recent Hopitalizations: Yes Recent Infectious Disease Expo: No Immunizations Up To Date Tetanus Booster (TDap): Unknown Seasonal Allergies Seasonal Allergies: No Surgeries Yes Orthopedic Respiratory No Currently Using CPAP: No Currently Using BIPAP: No Cardiovascular No Neurological No Reproductive System Hx Reproductive Disorders: No Sexually Transmitted Disease: No Genitourinary No Gastrointestinal No Musculoskeletal Yes Fractures Endocrine History of Endocrine Disorders: No HEENT History of HEENT Disorders: No Cancer No Psychosocial History of Psychiatric Problem: Yes (history of alcohol abuse and suicidal ideation.) Behavioral Health Disorders: ADD/ADHD, Anxiety, Suicide Attempts, Depression Integumentary History of Skin or Integumenta: No Blood Transfusions History of Blood Disorders: No Family Medical History Family Hx: Patient reports no known family medical history. Constitutional: see HPI EENTM: see HPI Respiratory: no symptoms reported Gastrointestinal: no symptoms reported Genitourinary: no symptoms reported Musculoskeletal: no symptoms reported Skin: see HPI Psychiatric/Neurological: Anxiety, Depressed, Emotional Problems Physical Exam Vital Signs Vital Signs - First Documented 02/08/18 02/08/18 17:37 17:40 Temp 95.1 Pulse 98 Resp 16 B/P (MAP) 62/22 (35) Pulse Ox 95 O2 Delivery Nasal Cannula FiO2 95 Capillary Refill : Less Than 3 Seconds General Appearance: Other Neck: Normal Inspection Respiratory: Lungs Clear Cardiovascular: Tachycardia Gastrointestinal: Non Tender, Soft Rectal: Deferred Back: Normal Inspection Extremity: Other Comments Decreased mentation, a conjunctiva him. Laceration in a transverse fashion measuring about 10 cm over the anterior aspect of the left elbow. Previous scar proximal and distal to the current laceration. Core body temperature very low at 91F. Both hands cold and pale Surgical scar over the right ankle and the right knee Assessment/Plan Assessment and Plan Gentleman with acute hypotension due to blood loss from a laceration over the left elbow. Central venous catheter placed over the right internal jugular vein using ultrasound guidance and blood transfusion initiated. Intraosseous access placed by the paramedics and removed in the emergency room. Will be taken to surgery for urgent exploration of the left elbow. Tourniquet was removed in the emergency room with no evidence of active bleeding Problems: Admission Diagnosis Admission Status: Inpatient Order (span 2 midnights) Reason for Inpatient Admission: Patient requiring ventilatory support ENEDINA FISHER MD Feb 08, 2018 8:20 pm
[2018-02-08] MEDS ORDERED: NS IV 500 ML 500 ML ONE (20:21)
[2018-02-08] MEDS ORDERED: NS IV 1000 ML 2,000 ML ONE (20:21)
[2018-02-08] MEDS ORDERED: SEVOFLURANE (ULTANE) 15 ML INHAL SOLN ONE (20:22)
--- NOTE | 2018-02-08 20:31 | Operative Report ---
Operative Report Date of Procedure/Surgery Feb 08, 2018 Surgeon (s) ENEDINA FISHER MD Mortgage Collector (s): N/A Post-Operative Diagnosis Laceration of the basilic vein and superficial veins. Procedure Performed Exploration of left elbow. Repair of basilic vein Description of Procedure Anesthesia Type: General Estimated blood loss (mL): Minimal Specimen(s) collected/removed None Description of the Procedure Indication for the procedure: This gentleman with a previous history of suicidal attempts was brought emergency room with a self-inflicted knife wound to the left elbow and acute hypotension due to blood loss. He was also hypothermic. Following resuscitation in the emergency room using a central venous catheter placed in his right internal jugular vein, he was brought to the operating room for exploration and appropriate bleeding control. His mental status status was depressed due to acute blood loss anemia and therefore it is felt reasonable to proceed with surgery without a signed operative consent. Description of procedure: He was placed supine on the operating table and general anesthesia induced. A gram of Ancef was administered intravenously as prophylaxis against wound infection. Left upper extremity was prepared and draped in sterile manner. The laceration was about 10 cm in length situated over the antecubital fossa. Incision was extended in a S shaped fashion , revealing anterior laceration of the basilic vein. It was repaired using a 6-0 nylon suture. In addition, bleeding was noticed from multiple superficial veins, which was controlled with ligaclips. The biceps tendon was retracted laterally and the median nerve was found to be intact. The vascular bundle was also intact. After irrigation with sterile saline, the incision was approximated with 3-0 PDS for the subcutaneous tissue and 4-0 nylon for skin, in an interrupted fashion. Due to tension, the central aspect of the wound was left open, to facilitate delayed closure. He tolerated the procedure well and was taken to the intensive care unit in an intubated state. Warming efforts would continue prior to extubating him Findings of the Procedure See op report Allergies and Home Medications Allergies Coded Allergies: NKANo Known Allergies (Verified Allergy, Unknown, 02/07/06) haloperidol (Unverified Adverse Reaction, Unknown, 05/22/17) Home Medications No Active Prescriptions or Reported Meds Patient Home Medication List Home Medication List Reviewed: Yes ENEDINA FISHER MD Feb 08, 2018 8:31 pm
[2018-02-08] MEDS ORDERED: ONDANSETRON 4 MG/2 ML (SDV) Z0FRAN IVP PRN ×2 (20:45→21:00)
[2018-02-08] MEDS ORDERED: NS IV 1000 ML 1,000 ML ONE ×2 (20:49→20:55)
[2018-02-08] MEDS ORDERED: morphine INJ 10 MG/ML 1ML (SYR OR VIAL) IVP PRN (21:00)
[2018-02-08] MEDS ORDERED: MEPERIDINE (DEMEROL) INJ 50 MG/ML IVP PRN (21:00)
[2018-02-08] MEDS ORDERED: TETANUS & DIPHTHERIA TOX,ADULT 0.5 ML (TENIVAC) IM ONE (21:00)
[2018-02-08] MEDS ORDERED: PROPOFOL DRIP (ICU) 100 ML IV ONE (21:13)
--- OUTSIDE RECORDS SUMMARY | 2018-02-08 21:18 | XMS REPORT | Continuity of Care Document ---
Author Author [facility] Organization [facility] Address Unknown Phone Unavailable Allergies Active Description Code Type Severity Reaction Onset Reported/Identified Relationship to Patient Clinical Status Yes NO NAME AVAILABLE 80379 DRUG N/ A N/A Yes NKANo Known Allergies NKA Miscellaneous Allergy Unknown N/A 02/07/2006 Yes haloperidol [id number] Drug Allergy Unknown N/A 05/22/2017 Yes HALOPERIDOL 62951 DRUG INGREDI Med Other 06/15/2017 06/15/2017 Yes TRAZODONE 29520 DRUG INGREDI N/ A Other 06/18/2017 06/18/2017 [...] ML 05/22/2017 SANCHEZ DO, CHELA Ot Y92.009 [facility] 05/22/2017 SANCHEZ DO, CHELA Ot [...] ML 05/22/2017 SANCHEZ DO, CHELA Ot Y92.009 [facility] 05/22/2017 SANCHEZ DO, CHELA Ot Y99.8 [...] [place] 06/19/2017 KABINS, DOREEN B V 656990 Suicidal KABINS, DOREEN B 06/19/2017 KABINS, DOREEN B V 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 KABINS, DOREEN B Procedures Code Description Performed By Performed On [id number] CONTROL BLEEDING IN LEFT UPPER EXTREMITY 06/13/2017 [...] ABO+Rh group ON NRG Transfusion band number [id number] NR Blood group antibody screen NEGATIVE [facility] Liver function panel (serum or plasma alk [...] indirect bilirubin measurement (mass/volume) 0.4 mg/ dL [facility] Whole blood basic metabolic panel - 06/13/17 [...] RED CELL DISTRIBUTION WIDTH 14.7 % 11.8-15.6 8689981 5.1 10E9/L 3.5-10.5 7652507 1.65 10E9/L 0.90-2.90 3401252 0.65 10E9/L 0.30-0.90 6634340 0.17 10E9/L 0.05-0.50 2634056 2.60 10E9/L 1.70-7.00 3313577 0.05 10E9/L 0.00-0.30 7185317 0 % TSH (REFLEX FREE T4 IF ABNORMAL) - 06/15/17 06:01 TSH 1.237 uIU/mL 0.400-4.000 Encounters ACCT No. Visit Date/Time Discharge Status Pt. Type Provider Facility Loc./Unit Complaint [id number] 06/14/2017 00:00:00 06/14/2017 19:54:00 DIS Inpatient SOLIS COLMENARES MD [facility] ICU LACERATION [id number] 05/22/2017 02:21:00 05/22/2017 12:30:00 DIS Inpatient LORRAINE SANCHEZ DOI [facility] ICU SUICIDE ATTEMPT,ALCOHOL INTOX,L ARM LACERATION [id number] 11/19/2016 11:58:00 11/19/2016 12:12:00 DIS Emergency NICK RENDON MD [facility] ER MIGRAINE [id number] 08/01/2013 04:36:00 08/01/2013 06:24:00 DIS Emergency [id number] 06/15/2017 00:18:00 06/19/2017 16:42:00 DIS Inpatient DOREEN MALLOY [facility] [id number] 06/15/2017 02:29:55 Document Registration
[2018-02-08] MEDS: PROPOFOL DRIP (ICU) 100 ML IV SCH (21:28)
--- NOTE | 2018-02-08 21:42 | Diagnostic Imaging Report ---
PATIENT HISTORY: Endotracheal tube placement. TECHNIQUE: Single frontal view of the chest. COMPARISON: 06/14/2017. FINDINGS: The endotracheal tube is approximately 5 cm from the richard. The right central line tip projects over the right atrium. This may be altered due to semiupright positioning. No focal pulmonary consolidation is seen. Lung volumes appear normal. The cardiac silhouette is normal in size. IMPRESSION: 1. The endotracheal tube is approximately 5 cm from the richard. 2. The right central line projects over the right atrium. Consider approximately 4 cm of retraction. Report was called to patient's nurse at [facility] at 9:38 p.m., by sridhar. Dictated by: Dictated on workstation # [id number]
[2018-02-08] MEDS ORDERED: CATHETER FLUSH 10 ML SYR IV PRN (21:45)
[2018-02-08 22:16] LABS: HEMOGLOBIN 11.7 G/DL (13.3-17.7); MEAN PLATELET VOLUME 10.5 FL (7.4-10.4); RED BLOOD COUNT 4.19 10^6/uL (4.35-5.85); RED CELL DISTRIBUTION WIDTH 15.3 % (10.0-14.5); WHITE BLOOD COUNT 20.8 10^3/uL (4.3-11.0)
[2018-02-08] MEDS: fentaNYL INJECTION 100 MCG/2 ML AMP IVP PRN (22:28)
[2018-02-08] MEDS: LACTATED RINGERS 1,000 ML IV SCH (22:29)
[2018-02-08 22:30] LABS: ABG BASE EXCESS -4.8 MMOL/L (-2.5-2.5); ABG OXYGEN SATURATION 100 % (94-100); ABG PCO2 45 MMHG (35-45); ABG PO2 177 MMHG (79-93); ABG TCO2 22.3 MMOL/L (21.0-31.0)
[2018-02-08 22:31] LABS: ALLENS TEST ART LINE; INSPIRED O2 80%; PATIENT TEMP 97.8; VENTILATOR YES
[2018-02-08 22:32] LABS: ABG PH 7.28 (7.37-7.43)
[2018-02-09] VITALS (55 sets, daily range): BP systolic 93–140; BP diastolic 50–87
[2018-02-09] MEDS: fentaNYL INJECTION 100 MCG/2 ML AMP IVP PRN ×6 (00:10→08:10)
[2018-02-09] MEDS: ceFAZolin INJECTION 1,000 MG in NS (IVPB) 100 ML IV SCH ×3 (00:14→14:56)
[2018-02-09] MEDS: inSUlin (REGULAR) HUMAN 1 UNIT/0.01 ML (CHARGE PER UNIT) SC SCH ×4 (00:19→17:15)
[2018-02-09] MEDS: PROPOFOL DRIP (ICU) 100 ML IV SCH ×7 (00:25→23:17)
[2018-02-09 02:27] LABS: BASOPHILS % (AUTO) 0 % (0-10); EOSINOPHILS % (AUTO) 0 % (0-10); HEMATOCRIT 31 % (40-54); LYMPHOCYTES # (AUTO) 1.5 X 10^3 (1.0-4.0); LYMPHOCYTES % (AUTO) 9 % (12-44); MEAN CORPUSCULAR HEMOGLOBIN 28 PG (25-34); MEAN CORPUSCULAR HGB CONC 36 G/DL (32-36); MEAN CORPUSCULAR VOLUME 79 FL (80-99); MEAN PLATELET VOLUME 10.5 FL (7.4-10.4); MONOCYTES # (AUTO) 1.4 X 10^3 (0.0-1.0); MONOCYTES % (AUTO) 8 % (0-12); NEUTROPHILS # (AUTO) 14.7 X 10^3 (1.8-7.8); NEUTROPHILS % (AUTO) 83 % (42-75); PLATELET COUNT 169 10^3/uL (130-400); RED CELL DISTRIBUTION WIDTH 15.1 % (10.0-14.5); WHITE BLOOD COUNT 17.6 10^3/uL (4.3-11.0)
[2018-02-09 02:32] LABS: ABG BASE EXCESS -2.1 MMOL/L (-2.5-2.5); ABG OXYGEN SATURATION 98 % (94-100); ABG PCO2 44 MMHG (35-45); ABG PO2 83 MMHG (79-93); ABG TCO2 24.4 MMOL/L (21.0-31.0)
[2018-02-09 02:37] LABS: ALLENS TEST ART LINE; INSPIRED O2 21%; PATIENT TEMP 97.6; VENTILATOR YES
[2018-02-09 02:38] LABS: ABG PH 7.34 (7.37-7.43)
[2018-02-09 02:46] LABS: ALANINE AMINOTRANSFERASE 27 U/L (0-55); ALBUMIN 3.2 GM/DL (3.2-4.5); ALKALINE PHOSPHATASE 44 U/L (40-136); BILIRUBIN,TOTAL 0.6 MG/DL (0.1-1.0); BUN/CREATININE RATIO 21; CALCIUM 7.2 MG/DL (8.5-10.1); CARBON DIOXIDE 23 MMOL/L (21-32); CHLORIDE 109 MMOL/L (98-107); CREATININE SERUM 1.24 MG/DL (0.60-1.30); GFR ESTIMATED > 60; GLUCOSE 114 MG/DL (70-105); MAGNESIUM 1.8 MG/DL (1.8-2.4); PHOSPHORUS 5.2 MG/DL (2.3-4.7); POTASSIUM 5.3 MMOL/L (3.6-5.0); SODIUM 138 MMOL/L (135-145); TOTAL PROTEIN 4.6 GM/DL (6.4-8.2)
[2018-02-09] MEDS: MAGNESIUM 1 GM/100 ML IVPB 100 ML IV SCH (05:06)
[2018-02-09] MEDS: POTASSIUM CL 10MEQ/50ML IVPB 50 ML IV SCH (05:06)
--- NOTE | 2018-02-09 06:46 | Pulmonary Consultation ---
History of Present Illness History of Present Illness Date of Consultation 02/09/18 06:41 Time Seen by Provider: 07:24 Date of Admission History of Present Illness 32yo male Allergies and Home Medications Allergies Coded Allergies: NKANo Known Allergies (Verified Allergy, Unknown, 02/07/06) haloperidol (Unverified Adverse Reaction, Unknown, 05/22/17) Home Medications No Active Prescriptions or Reported Meds Past Jvxdbwp-Gwcqxu-Ngrnsj Hx Patient Social History Alcohol Use: Occasionally Uses Number of Drinks Today: GG Alcohol Beverage of Choice: Beer, Whiskey Recreational Drug Use: Yes (DRUG AND ETOH ABUSE) Drug of Choice: MARIJUANA Smoking Status: Unknown if Ever Smoked Type Used: Cigarettes Recent Foreign Travel: No Contact w/Someone Who Travel: No Recent Infectious Disease Expo: No Recent Hopitalizations: Yes Immunizations Up To Date Tetanus Booster (TDap): Unknown Seasonal Allergies Seasonal Allergies: No Surgeries History of Surgeries: Yes Surgeries: Orthopedic Respiratory History of Respiratory Disorde: No Currently Using CPAP: No Currently Using BIPAP: No Cardiovascular History of Cardiac Disorders: No Neurological History of Neurological Disord: No Reproductive System Hx Reproductive Disorders: No Sexually Transmitted Disease: No Genitourinary History of Genitourinary Disor: No Gastrointestinal History of Gastrointestinal Di: No Musculoskeletal History of Musculoskeletal Dis: Yes Musculoskeletal Disorders: Fractures Endocrine History of Endocrine Disorders: No HEENT History of HEENT Disorders: No Cancer History of Cancer: No Psychosocial History of Psychiatric Problem: Yes (history of alcohol abuse and suicidal ideation.) Behavioral Health Disorders: ADD/ADHD, Anxiety, Suicide Attempts, Depression Integumentary History of Skin or Integumenta: No Blood Transfusions History of Blood Disorders: No Reviewed Nursing Assessment Reviewed/Agree w Nursing PMH: Yes Family Medical History Significant Family History: No Pertinent Family Hx Family Medial History: Patient reports no known family medical history. Review of Systems Time Seen by Provider: 07:24 Exam Exam Vital Signs Date Time Temp Pulse Resp B/P (MAP) Pulse Ox O2 Delivery O2 Flow Rate FiO2 02/09/18 06:20 106 16 97 21 02/09/18 06:15 106 15 105/58 (74) 97 Mechanical Ventilator 21.00 02/09/18 06:05 99.1 02/09/18 06:00 107 10 100/61 (74) 96 Mechanical Ventilator 21.00 02/09/18 05:45 107 10 100/66 (77) 97 Mechanical Ventilator 21.00 18 05:30 108 14 109/64 (79) 98 Mechanical Ventilator 21.00 18 05:15 107 9 108/65 (79) 97 Mechanical Ventilator 21.00 18 05:00 108 12 110/65 (80) 97 Mechanical Ventilator 21.00 18 04:45 110 13 108/61 (77) 97 Mechanical Ventilator 21.00 02/09/18 04:30 109 16 110/64 (79) 97 Mechanical Ventilator 21.00 18 04:15 109 16 117/68 (84) 97 Mechanical Ventilator 21.00 02/09/18 04:11 107 02/09/18 04:10 108 18 97 21 02/09/18 04:00 111 13 114/67 (83) 97 Mechanical Ventilator 21.00 02/09/18 04:00 99 Mechanical Ventilator 24 02/09/18 04:00 98.1 02/09/18 03:45 111 21 118/69 (85) 98 Mechanical Ventilator 21.00 02/09/18 03:30 111 13 117/70 (86) 97 Mechanical Ventilator 21.00 02/09/18 03:15 112 14 129/87 (101) 97 Mechanical Ventilator 21.00 02/09/18 03:00 109 7 137/72 (93) 97 Mechanical Ventilator 21.00 02/09/18 02:45 110 11 136/84 (101) 97 Mechanical Ventilator 21.00 02/09/18 02:30 106 10 139/79 (99) 98 Mechanical Ventilator 21.00 02/09/18 02:15 112 9 139/84 (102) 99 Mechanical Ventilator 21.00 02/09/18 02:13 109 21 99 21 18 02:00 112 16 131/79 (96) 99 Mechanical Ventilator 24.00 02/09/18 01:58 97.6 02/09/18 01:45 111 18 124/72 (89) 99 Mechanical Ventilator 24.00 02/09/18 01:30 110 14 122/68 (86) 98 Mechanical Ventilator 24.00 18 01:15 111 18 122/63 (82) 100 Mechanical Ventilator 24.00 02/09/18 01:00 111 19 114/63 (80) 100 Mechanical Ventilator 24.00 02/09/18 01:00 111 3/19/18 00:45 112 18 109/62 (78) 99 Mechanical Ventilator 24.00 02/09/18 00:30 112 16 103/58 (73) 99 Mechanical Ventilator 24.00 02/09/18 00:25 112 3/18 00:15 112 14 95/51 (66) 98 Mechanical Ventilator 24.00 02/09/18 00:13 98 54 99 24 18 00:11 98.1 18 00:00 115 25 103/81 (88) 96 Mechanical Ventilator 35.00 02/09/18 00:00 99 Mechanical Ventilator 24 18 23:45 107 14 130/76 (94) 100 Mechanical Ventilator 35.00 02/08/18 23:30 107 20 139/84 (102) 100 Mechanical Ventilator 35.00 18/18 23:15 98 15 120/67 (84) 100 Mechanical Ventilator 35.00 02/08/18 23:06 99 Mechanical Ventilator 35 18/18 23:00 107 17 132/83 (99) 100 Mechanical Ventilator 35.00 18 22:45 103 15 124/71 (88) 100 Mechanical Ventilator 35.00 18/18 22:43 98.2 18/18 22:32 101 17 100 35 18/18 22:30 101 20 132/74 (93) 100 Mechanical Ventilator 35.00 18/18 22:15 98 20 145/86 (105) 100 Mechanical Ventilator 50.00 318/18 22:00 98 20 145/87 (106) 100 Mechanical Ventilator 50.00 18/18 21:45 102 10 152/87 (108) 100 Mechanical Ventilator 50.00 318/18 21:30 92 10 114/72 (86) 100 Mechanical Ventilator 50.00 318/18 21:30 97.4 318/18 21:28 86 18/18 21:15 87 26 166/94 (118) 100 Mechanical Ventilator 50.00 318/18 21:13 91 3/18/18 21:00 94 10 128/78 (95) 100 Mechanical Ventilator 50.00 318/18 20:40 94 7 121/41 (67) 94 Mechanical Ventilator 50.00 318/18 20:34 95 16 100 50 318/18 18:25 93 16 105/65 95 Nasal Cannula 3.00 02/08/18 17:40 95 95 02/08/18 17:37 95.1 98 16 62/22 (35) 95 Nasal Cannula I & O 02/09/18 07:00 Output Total 1580 ml Balance -1580 ml General Appearance: WD/WN, Moderate Distress, Other (pt is on vent agitated trying to pull tube ) Neck: Full Range of Motion, Normal Inspection, Non Tender, Supple Respiratory: Lungs Clear, Normal Breath Sounds, No Accessory Muscle Use, No Respiratory Distress Cardiovascular: No Edema, No Murmur, Tachycardia Capillary Refill: Less Than 3 Seconds Extremity: No Pedal Edema, Pelvis Stable, Other (8x3x2 cm transverse, linear laceration to the left AC without active bleeding. lacerated muscle belly noted in the wound bed. left radial pulse thready and weak. left hand dusky. tourniquet released. no bleeding noted from the wound. no improvement in the color of the left distal upper extremity. no injury noted to the BLE or the RUE.) Neurologic/Psychiatric: Alert, radiological technician II-XII Norm as Tested, Other (flat, depressed affect. mildly confused. answers simple questions only. patient is moving all 4 extremities without difficulty.) Skin: Cool, Pallor, Other (see extremity exam above.) Results Lab Laboratory Tests 02/08/18 18:05 02/08/18 22:00 02/09/18 02:20 Assessment/Plan Assessment/Plan Suicidal attempt in [place]'s bathroom Acute blood loss approximately 1500-2000mls and hypotension s/p surgery s/p 4 units of O positive (pt is O negative) -PT remained on ventilator post surgery -RN states pt becomes very combative with sedation is weaned. Will leave on vent until tomorrow to allow Methamphetamine to metabolize. -Start Fentanyl gtt -Start Solumedrol 40 IV Q 6 for transfusion reaction Anemia -Monitor Hyperkalemia -change IVF to NS and repeat labs at 9am. Hypothyroid -Start Synthroid 75mcg IV Methamphetamine use prior to event Transverse laceration 10cm of left AC area previous scar in same area Critical Care: Critically Ill Patient Time spent with patient (mins): 60min TARIK MCCOY DO Feb 09, 2018 06:46
[2018-02-09] MEDS: LACTATED RINGERS 1,000 ML IV SCH (06:54)
[2018-02-09] MEDS ORDERED: NS IV 1000 ML 1,000 ML ONE (06:57)
[2018-02-09] MEDS ORDERED: LEVOTHYROXINE 100 MCG INJ (SYNTHROID) VIAL IV SCH (07:00)
[2018-02-09] MEDS: NS IV 1000 ML 1,000 ML IV SCH ×3 (07:06→23:20)
[2018-02-09] MEDS ORDERED: LORazepam INJ 2 MG/ML (ATIVAN) VIAL ONE (07:15)
--- NOTE | 2018-02-09 07:27 | Consultation-Hospitalist ---
HPI History of Present Illness: HPI/Chief Complaint Pt is a 32yoCM with a PMH of substance abuse and suicide attempts who presented to the ER after being found in a [facility] bathroom with self inflicted injuries. He is unable to provide any history at this time due to sedation for intubation. All history is obtained from records. Reportedly he locked himself inside a [facility] bathroom and cut his inner arm near the AC. Per EMS there was roughly 1500-2000cc EBL at the scene. On arrival his SBP were in the 60s. He was found to have a severe injury to his elbow and was activated as a Level [address] Gilbert took to OR last night for repair. He was transfused 5 units of uncrossmatched pRBCs [facility] trauma protocol. Per Dr Gilbert note 10cm laceration on elbow. Of note he was found to be hypothermic on arrival with a temp of 95.1. He has attempted to harm himself in this manor previously as recently as both April and May of 2017. Exam Limitations: clinical condition Date Seen 02/09/18 Attending Physician Ino Gilbert MD PCP No,Local Physician Referring Physician Date of Admission Feb 08, 2018 at 8:34 pm Home Medications & Allergies Home Medications Reviewed patient Home Medication Reconciliation performed by pharmacy medication reconciliations emergency veterinary technician and/or nursing. Patients Allergies have been reviewed. Allergies Allergies Coded Allergies NKANo Known Allergies (Verified Allergy, Unknown, 02/07/06) haloperidol (Unverified Adverse Reaction, Unknown, 05/22/17) Past Sibmnen-Lqxfft-Npdbtr Hx Past Med/Social Hx: Reviewed Nursing Past Med/Soc Hx Patient Social History Marrital Status: single Employed/Student: employed Alcohol Use: Occasionally Uses Number of Drinks Today: GG Alcohol Beverage of Choice: Beer, Whiskey Recreational Drug Use: Yes (DRUG AND ETOH ABUSE) Drug of Choice: MARIJUANA Smoking Status: Unknown if Ever Smoked Type Used: Cigarettes Physical Abuse Screen: No Sexual Abuse: No Recent Foreign Travel: No Contact w/other who traveled: No Recent Hopitalizations: Yes Recent Infectious Disease Expo: No Immunizations Up To Date Tetanus Booster (TDap): Unknown Seasonal Allergies Seasonal Allergies: No Past Medical History Surgeries: Orthopedic Currently Using CPAP: No Currently Using BIPAP: No Reproductive: No Sexually Transmitted Disease: No Musculoskeletal: Fractures Psychosocial: ADD/ADHD, Anxiety, Suicide Attempts, Depression History of Blood Disorders: No Family History Reviewed Nursing Family Hx Patient reports no known family medical history. No Pertinent Family Hx Unable to obtain family history Review of Systems ROS-Unable to Obtain: due to sedation and intubation Constitutional: no symptoms reported Physical Exam Physical Exam Vital Signs Vital Signs - First Documented 02/08/18 02/08/18 02/08/18 17:37 17:40 18:25 Temp 95.1 Pulse 98 Resp 16 B/P (MAP) 62/22 (35) Pulse Ox 95 O2 Delivery Nasal Cannula O2 Flow Rate 3.00 FiO2 95 Capillary Refill : Less Than 3 Seconds General Appearance: WD/WN, Mild Distress, Other (intubated) HEENT: PERRL/EOMI, Moist Mucous Membranes Neck: No JVD, No Thyromegaly Respiratory: Lungs Clear, No Accessory Muscle Use, No Respiratory Distress Cardiovascular: Regular Rate, Rhythm, No Murmur, Normal Peripheral Pulses Gastrointestinal: Normal Bowel Sounds, Non Tender, Soft Rectal: Deferred Extremity: Normal Capillary Refill, Non Tender, No Calf Tenderness, No Pedal Edema, Other (left elbow with surgical dressing in place, c/d/i) Neurologic/Psychiatric: Other (sedated but moves all extremities, responds to verbal stimuli) Skin: Normal Color, Warm/Dry, No Mottled Results Results/Procedures Labs Laboratory Tests 02/08/18 18:05 02/08/18 22:00 02/09/18 02:20 02/09/18 08:53 Patient resulted labs reviewed. Imaging: Reviewed Imaging Films Imaging Date of Exam: 02/08/18 CHEST 1 VIEW, AP/PA ONLY PATIENT HISTORY: Endotracheal tube placement. TECHNIQUE: Single frontal view of the chest. COMPARISON: 06/14/2017. FINDINGS: The endotracheal tube is approximately 5 cm from the richard. The right central line tip projects over the right atrium. This may be altered due to semiupright positioning. No focal pulmonary consolidation is seen. Lung volumes appear normal. The cardiac silhouette is normal in size. IMPRESSION: 1. The endotracheal tube is approximately 5 cm from the richard. 2. The right central line projects over the right atrium. Consider approximately 4 cm of retraction. Assessment/Plan Assessment and Plan Assess & Plan/Chief Complaint Suicide Attempt Critical Care Critical Care: Critically Ill Patient Diagnosis/Problems Diagnosis/Problems (1) Suicide attempt Status: Acute Assessment & Plan: Reportedly has history of similar attempts in past Is sedated and intubated currently Once extubated and more stable will contact mental health for screening and place on suicide precautions (2) Laceration of left elbow with complication Assessment & Plan: Underwent urgent exploration yesterday by Dr Gilbert Qualifiers: Encounter type: initial encounter Qualified Codes: S51.012A - Laceration without foreign body of left elbow, initial encounter (3) Mismatched blood transfused Status: Acute Assessment & Plan: Activated as trauma and received blood products per protocol Has Anti- D antibodies heme consulted, appreciate recs Will monitor closely Goal UOP 80-100cc/hr- discussed with RN to inform MD chief librarian circulation department if UOP drops Solu Medrol started (4) Agitation Assessment & Plan: Despite high levels of propofol for sedation pt has been very sedated Will keep intubated today due to agitation Fentanyl gtt added Nearly self extubated this AM- maintain RASS -1 to -2 (5) Hypotension Status: Acute Assessment & Plan: Likely due to blood loss Monitor with art line Has not needed pressors- continue fluids Qualifiers: Hypotension type: unspecified hypotension type Qualified Codes: I95.9 - Hypotension, unspecified (6) Normocytic anemia Status: Acute Assessment & Plan: s/p 5 units of pRBCs Trend (7) Hypothyroidism Assessment & Plan: TSH high but normal T4 Will start on Synthroid Once OG place will give orally Qualifiers: Hypothyroidism type: unspecified Qualified Codes: E03.9 - Hypothyroidism, unspecified (8) Leukocytosis Assessment & Plan: Likely reactive, trend Qualifiers: Leukocytosis type: unspecified Qualified Codes: D72.829 - Elevated white blood cell count, unspecified (9) Hyperkalemia Status: Acute Assessment & Plan: Mild, will check haptoglobin to evaluate for hemolytic anemia given phosphorus elevation as wel (10) Methamphetamine use Assessment & Plan: Reported Will get UDS (11) MITESH (acute kidney injury) Assessment & Plan: Now resolved, continue to monitor Clinical Quality Measures DVT/VTE Risk/Contraindication: Risk Factor Score Per Nursin RFS Level Per Nursing on Admit: 3=High BRUNO CHARLES MD Feb 09, 2018 7:27 am
[2018-02-09] MEDS ORDERED: INFLUENZA TRIvalent 2017-2018 0.5 ML/45 MCG SYR IM ONE (07:45)
--- NOTE | 2018-02-09 07:45 | Diagnostic Imaging Report ---
Indication: Respiratory failure. Procedure: Portable chest 7:32 AM Findings: ET tube project the trachea. Right jugular central line tip projects over the right atrium. Heart size and pulmonary vascularity are normal. Lungs are clear. There are no effusions or pneumothoraces. Impression: No change in the chest compared to earlier in the day. Dictated by: Dictated on workstation # [id number]
--- NOTE | 2018-02-09 07:48 | Diagnostic Imaging Report ---
INDICATION: Respiratory distress Portable chest 3:11 AM There is an ET tube projecting over the trachea. Right IJ central line tip projects over the right atrium. Heart size and pulmonary vascularity are normal. Lungs are clear. There are no effusions or pneumothoraces. IMPRESSION: No acute abnormalities in the chest. No change from previous day. Dictated by: Dictated on workstation # [id number]
[2018-02-09] MEDS: LORazepam INJ 2 MG/ML (ATIVAN) VIAL IVP PRN ×5 (08:10→23:17)
[2018-02-09] MEDS: fentaNYL INJECTION 1,250 MCG in NS (IVPB) 250 ML IV SCH ×2 (08:12→21:49)
[2018-02-09] MEDS ORDERED: LEVOTHYROXINE 50 MCG (LEVOTHROID) TAB PO ONE (08:15)
[2018-02-09 08:19] LABS: AMPHETAMINE SCREEN, URINE POSITIVE (NEGATIVE); BARBITURATE SCREEN URINE NEGATIVE (NEGATIVE); BENZODIAZEPINES SCREEN URINE NEGATIVE (NEGATIVE); CANNABINOID SCREEN, URINE NEGATIVE (NEGATIVE); COCAINE SCREEN URINE NEGATIVE (NEGATIVE); METHADONE STAT NEGATIVE (NEGATIVE); METHAMPHETAMINE SCREEN URINE S POSITIVE (NEGATIVE); OPIATE SCREEN URINE NEGATIVE (NEGATIVE); OXYCODONE STAT NEGATIVE (NEGATIVE); PROPOXYPHENE STAT NEGATIVE (NEGATIVE); TRICYCLIC ANTIDEPRESSANTS SCRE NEGATIVE (NEGATIVE)
[2018-02-09 09:02] LABS: BASOPHILS % (AUTO) 0 % (0-10); EOSINOPHILS % (AUTO) 0 % (0-10); HEMATOCRIT 29 % (40-54); HEMOGLOBIN 10.1 G/DL (13.3-17.7); LYMPHOCYTES # (AUTO) 2.2 X 10^3 (1.0-4.0); LYMPHOCYTES % (AUTO) 20 % (12-44); MEAN CORPUSCULAR HEMOGLOBIN 28 PG (25-34); MEAN CORPUSCULAR HGB CONC 35 G/DL (32-36); MEAN CORPUSCULAR VOLUME 81 FL (80-99); MEAN PLATELET VOLUME 10.8 FL (7.4-10.4); MONOCYTES # (AUTO) 1.1 X 10^3 (0.0-1.0); MONOCYTES % (AUTO) 10 % (0-12); NEUTROPHILS # (AUTO) 7.7 X 10^3 (1.8-7.8); NEUTROPHILS % (AUTO) 69 % (42-75); PLATELET COUNT 166 10^3/uL (130-400); RED BLOOD COUNT 3.58 10^6/uL (4.35-5.85); RED CELL DISTRIBUTION WIDTH 15.3 % (10.0-14.5); WHITE BLOOD COUNT 11.1 10^3/uL (4.3-11.0)
--- NOTE | 2018-02-09 09:25 | Diagnostic Imaging Report ---
INDICATION: OG catheter placement. FINDINGS: OG catheter is in the stomach. A right IJ in the right atrium. ET tube mid trachea. Lungs are clear. No effusion or pneumothorax. IMPRESSION: OG catheter has been placed in good position tip in the stomach. The remaining lines and catheters project in unchanged position with no acute appearing cardiopulmonary abnormality. Dictated by: Dictated on workstation # [id number]
[2018-02-09 09:26] LABS: BUN/CREATININE RATIO 21; CALCIUM 7.3 MG/DL (8.5-10.1); CARBON DIOXIDE 23 MMOL/L (21-32); CHLORIDE 110 MMOL/L (98-107); CREATININE SERUM 1.08 MG/DL (0.60-1.30); GFR ESTIMATED > 60; GLUCOSE 96 MG/DL (70-105); POTASSIUM 4.1 MMOL/L (3.6-5.0); SODIUM 140 MMOL/L (135-145)
[2018-02-09] MEDS: methylPREDNISolone 40 MG/ML (Solu-MEDROL) VIAL IV SCH ×5 (10:00→23:17)
[2018-02-09] MEDS ORDERED: LEVOTHYROXINE 50 MCG (LEVOTHROID) TAB PO NR (12:45)
--- NOTE | 2018-02-09 13:54 | Progress Note-Standard ---
Standard Progress Note Progress Notes/Assess & Plan Date Seen by Provider: Feb 09, 2018 Time Seen by Provider: 11:25 Progress/Assessment & Plan mechanically ventilated. Hemodynamically stable. Good. Pulse felt over the left radial artery. Mismatched transposition with antibiotics reported. Hospitalist following. Urine output reasonable. Hyperkalemia, recommendations per hospitalist. Final Diagnosis laceration of the left elbow with acute hypovolemic shock ENEDINA FISHER MD Feb 09, 2018 13:54
--- NOTE | 2018-02-09 13:59 | Anesthesia-General Post-Op ---
General Patient Condition Mental Status/LOC: Unreactive (Pt is currently unresponsive, sedated and intubated.) Cardiovascular: Satisfactory Nausea/Vomiting: Absent (Still intubated. ) Respiratory: Satisfactory (SaO2 99% on vent, may wean tomorrow per Dr Chandra's note. ) Pain: Controlled (Currently sedated, unable to assess.) Complications: Absent (No anesthetic complications noted. ) Post Op Complications Complications None Follow Up Care/Instructions Patient Instructions None needed. Anesthesia/Patient Condition Patient Condition Patient is currently intubated and sedated with stable vital signs, no apparent adverse anesthesia problems. We will be available if needed. AILYN HUGHES DO Feb 09, 2018 13:59
--- NOTE | 2018-02-09 15:38 | Oncology Consultation ---
Visit Information Visit Information Date of Admission Feb 08, 2018 at 20:34 Attending Physician Ino Gilbert MD Admitting Physician No,Local Physician Chief Complaint Life threatening bleeding required emergency RBC transfusion, then found auto warm antibody in the labs. Called to help monitoring patient for transfusion reactions Interval History Pt is a 32 year old white was found in the bathroom and suicidal left arm laceration and bleeding about [id number]. He was coded by EMS and then brought to ER last night. His BP was 60/30, Temp 91. He was resuscitated at ER with emergency RBC transfusion in total of 6 units to maintain his BP. Patient has similar situation in 2017 and required emergency blood type. He was O negative in the 2017 and was given O positive RBCs at that time. He was negative anti-D antibody at that time so he did fine in 2017. However, the O positive RBC he received in 2017 triggered him to produce anti-D antibody and he is anti-D antibody positive 2+ in today's test. Unfortunately, there was not enough time to do a cross match and check antibody last night. When blood bank found out the he was positive anti-D antibody, they stopped O positive RBC and changed him to O negative RBC. He got about 2 units of O pos blood. At this point, pt reminds on ventilator, hemodynamic stable, Hb 11 and normal renal function and bili. He was also given solumedryl 40mg IV q 6hrs. Bleeding appeared stopped. I consulted the patient on: 02/09/18 15:24 Time Seen by Provider: 14:50 Constitutional: other (on vent) Health Status Allergies Coded Allergies: NKANo Known Allergies (Verified Allergy, Unknown, 02/07/06) haloperidol (Unverified Adverse Reaction, Unknown, 05/22/17) Home Medications No Active Prescriptions or Reported Meds RAE-Fheydw-Okmytk Hx Patient Social History Marrital Status: single Employed/Student: employed Alcohol Use: Occasionally Uses Recreational Drug Use: Yes (DRUG AND ETOH ABUSE) Drug of Choice: MARIJUANA Smoking Status: Unknown if Ever Smoked Type Used: Cigarettes Recent Foreign Travel: No Contact w/other who traveled: No Recent Infectious Disease Expo: No Recent Hopitalizations: Yes Physical Abuse Screen: No Sexual Abuse: No Immunizations Up To Date Tetanus Booster (TDap): Unknown Family Medical History Significant Family History: No Pertinent Family Hx Family History: Patient reports no known family medical history. Physical Exam Vital Signs Vital Signs - First Documented 02/08/18 02/08/18 02/08/18 17:37 17:40 18:25 Temp 95.1 Pulse 98 Resp 16 B/P (MAP) 62/22 (35) Pulse Ox 95 O2 Delivery Nasal Cannula O2 Flow Rate 3.00 FiO2 95 Capillary Refill : Less Than 3 Seconds General Appearance: Other (sedated on vent) HEENT: PERRL/EOMI Cardiovascular: Regular Rate, Rhythm Gastrointestinal: Soft Extremity: Other (left arm in dressing) Data Review Labs Laboratory Tests 02/08/18 18:05 02/08/18 22:00 02/09/18 02:20 02/09/18 08:53 Laboratory Tests 02/08/18 18:05: White Blood Count 20.7H, Red Blood Count 4.00L, Hemoglobin 10.9L, Hematocrit 31L , Mean Corpuscular Volume 78L, Mean Platelet Volume 10.8H, Neutrophils (%) (Auto ) 84H, Lymphocytes (%) (Auto) 9L, Neutrophils # (Auto) 17.4H, Monocytes # (Auto ) 1.5H, Prothrombin Time 16.4H, Carbon Dioxide Level 15L, Anion Gap 21H, Blood Urea Nitrogen 27H, Creatinine 2.11H, Glucose Level 300H, Total Bilirubin 1.2H, Total Protein 6.0L, TSH [place] Testing 8.86H, Salicylates Level < 5.0L, Acetaminophen Level < 10L 02/08/18 22:00: White Blood Count 20.8H, Red Blood Count 4.19L, Hemoglobin 11.7L, Hematocrit 33L , Mean Corpuscular Volume 79L, Mean Platelet Volume 10.5H, Red Cell Distribution Width 15.3H 02/08/18 22:15: Arterial Blood pH 7.28*L, Arterial Blood Partial Pressure O2 177H, Arterial Blood HCO3 21L, Arterial Blood Base Excess -4.8L 02/09/18 00:19: 02/09/18 02:20: White Blood Count 17.6H, Red Blood Count 3.90L, Hemoglobin 11.0L, Hematocrit 31L , Mean Corpuscular Volume 79L, Red Cell Distribution Width 15.1H, Mean Platelet Volume 10.5H, Neutrophils (%) (Auto) 83H, Lymphocytes (%) (Auto) 9L, Neutrophils # (Auto) 14.7H, Monocytes # (Auto) 1.4H, Arterial Blood pH 7.34*L, Potassium Level 5.3H, Chloride Level 109H, Blood Urea Nitrogen 26H, Glucose Level 114H, Calcium Level 7.2L, Phosphorus Level 5.2H, Total Protein 4.6L 02/09/18 08:00: Urine Amphetamines Screen POSITIVEH, Urine Methamphetamines Screen POSITIVEH 02/09/18 08:43: 02/09/18 08:53: White Blood Count 11.1H, Red Blood Count 3.58L, Hemoglobin 10.1L, Hematocrit 29L , Red Cell Distribution Width 15.3H, Mean Platelet Volume 10.8H, Monocytes # ( Auto) 1.1H, Chloride Level 110H, Blood Urea Nitrogen 23H, Calcium Level 7.3L, Lactate Dehydrogenase 223H 02/09/18 12:23: Impression & Plan Impression & Plan IMP: 1. 32 year old man suicidal attempt with left arm laceration and resulted 1500- 2000ml bleeding 2. s/p Resuscitation with emergency blood transfusion, 2/6 units of RBC transfused were mismatched. 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 4. Depression and drug abuse. Rec: 1. Continue IV Solumedry 40mg q 6hrs for next 48 hrs. If his Hb is stable, then we can wean off. 2. I would not check retic counts nor haptoglobin because they would not reflect the acute hemolysis pictures. We know he has some degree hemolysis. I would check LDH level to help monitoring the degree of acute hemolysis. 3. Aggressive hydration and monitoring renal function and urine out put. I suggest to keep him on NS IVF at 200ml/hr for next 24-48 hrs. 4. Will follow up with you. Thank you for the consultation. АНДРЕЙ AMBROSE MD Feb 09, 2018 15:38
[2018-02-09 16:38] LABS: OCCULT BLOOD,GASTRIC FLUID POSITIVE (NEGATIVE)
[2018-02-09] MEDS: PANTOPRAZOLE 40 MG/10 ML (PROTONIX) VIAL IV SCH (17:15)
[2018-02-10] VITALS (19 sets, daily range): BP systolic 106–147; BP diastolic 50–91
[2018-02-10] MEDS: inSUlin (REGULAR) HUMAN 1 UNIT/0.01 ML (CHARGE PER UNIT) SC SCH ×4 (00:32→18:24)
[2018-02-10] MEDS: PROPOFOL DRIP (ICU) 100 ML IV SCH ×2 (01:46→04:37)
[2018-02-10 03:17] LABS: ABG BASE EXCESS 1.2 MMOL/L (-2.5-2.5); ABG OXYGEN SATURATION 97 % (94-100); ABG PCO2 49 MMHG (35-45); ABG PH 7.35 (7.37-7.43); ABG PO2 81 MMHG (79-93); ABG TCO2 27.5 MMOL/L (21.0-31.0); ALLENS TEST ART LINE; INSPIRED O2 21%; PATIENT TEMP 99.3; VENTILATOR YES
[2018-02-10] MEDS: NS IV 1000 ML 1,000 ML IV SCH ×3 (03:28→21:47)
[2018-02-10 03:36] LABS: BUN/CREATININE RATIO 19; CALCIUM 7.7 MG/DL (8.5-10.1); CARBON DIOXIDE 25 MMOL/L (21-32); CHLORIDE 110 MMOL/L (98-107); CREATININE SERUM 0.72 MG/DL (0.60-1.30); GFR ESTIMATED > 60; GLUCOSE 127 MG/DL (70-105); MAGNESIUM 1.8 MG/DL (1.8-2.4); PHOSPHORUS 3.7 MG/DL (2.3-4.7); POTASSIUM 4.5 MMOL/L (3.6-5.0); SODIUM 140 MMOL/L (135-145)
[2018-02-10 03:46] LABS: BASOPHILS % (AUTO) 0 % (0-10); EOSINOPHILS % (AUTO) 0 % (0-10); HEMATOCRIT 26 % (40-54); HEMOGLOBIN 8.4 G/DL (13.3-17.7); LYMPHOCYTES # (AUTO) 0.8 X 10^3 (1.0-4.0); LYMPHOCYTES % (AUTO) 9 % (12-44); MEAN CORPUSCULAR HEMOGLOBIN 27 PG (25-34); MEAN CORPUSCULAR HGB CONC 32 G/DL (32-36); MEAN CORPUSCULAR VOLUME 85 FL (80-99); MONOCYTES # (AUTO) 0.1 X 10^3 (0.0-1.0); MONOCYTES % (AUTO) 1 % (0-12); NEUTROPHILS # (AUTO) 7.9 X 10^3 (1.8-7.8); NEUTROPHILS % (AUTO) 90 % (42-75); PLATELET COUNT 136 10^3/uL (130-400); RED CELL DISTRIBUTION WIDTH 15.1 % (10.0-14.5); WHITE BLOOD COUNT 8.7 10^3/uL (4.3-11.0)
[2018-02-10 03:55] LABS: INR 1.1 (0.8-1.4); PROTHROMBIN TIME PATIENT 14.7 SEC (12.2-14.7)
[2018-02-10] MEDS: POTASSIUM CL 10MEQ/50ML IVPB 50 ML IV SCH (06:07)
[2018-02-10] MEDS: MAGNESIUM 1 GM/100 ML IVPB 100 ML IV SCH (06:07)
[2018-02-10] MEDS: methylPREDNISolone 40 MG/ML (Solu-MEDROL) VIAL IV SCH ×4 (06:08→21:18)
[2018-02-10] MEDS ORDERED: LEVOTHYROXINE 50 MCG (LEVOTHROID) TAB PO ONE (06:30)
--- NOTE | 2018-02-10 06:54 | Pulmonary Progress Note ---
Subjective Time Seen by Provider: 06:53 Subjective/Events-last exam pt is sedated on vent. Exam Exam Vital Signs Date Time Temp Pulse Resp B/P (MAP) Pulse Ox O2 Delivery O2 Flow Rate FiO2 02/10/18 06:44 93 16 94 21 02/10/18 06:00 92 107/50 (69) 94 Mechanical Ventilator 21.00 02/10/18 05:00 89 106/50 (68) 94 Mechanical Ventilator 21.00 02/10/18 04:37 89 02/10/18 04:34 88 16 94 21 02/10/18 04:00 89 115/53 (73) 94 Mechanical Ventilator 21.00 02/10/18 04:00 99 Mechanical Ventilator 21 02/10/18 04:00 99.1 02/10/18 03:00 96 124/61 (82) 95 Mechanical Ventilator 21.00 02/10/18 02:38 90 17 95 21 02/10/18 02:00 89 124/60 (81) 95 Mechanical Ventilator 21.00 02/10/18 01:46 88 02/10/18 01:00 88 121/57 (78) 95 Mechanical Ventilator 21.00 02/10/18 01:00 88 02/10/18 00:31 89 18 95 21 02/10/18 00:00 99 Mechanical Ventilator 21 02/10/18 00:00 99.1 02/10/18 00:00 90 123/59 (80) 95 Mechanical Ventilator 21.00 02/09/18 23:17 86 02/09/18 23:00 89 140/65 (90) 97 Mechanical Ventilator 21.00 02/09/18 22:45 87 18 97 21 02/09/18 22:00 87 135/65 (88) 97 Mechanical Ventilator 21.00 02/09/18 21:00 85 126/61 (82) 97 Mechanical Ventilator 21.00 02/09/18 20:54 91 19 96 21 02/09/18 20:04 82 02/09/18 20:00 84 94/50 (65) 96 Mechanical Ventilator 21.00 02/09/18 20:00 97.4 Mechanical Ventilator 21.00 02/09/18 20:00 99 Mechanical Ventilator 21 02/09/18 19:00 99 02/09/18 19:00 99 22 96/52 (67) 98 Mechanical Ventilator 21.00 02/09/18 18:45 85 16 97 21 18 18:00 86 16 93/50 (64) 96 Mechanical Ventilator 21.00 02/09/18 17:00 89 15 97/51 (66) 96 Mechanical Ventilator 21.00 02/09/18 16:15 24 112/56 97 02/09/18 16:00 99 Mechanical Ventilator 21 02/09/18 16:00 101 16 134/63 (86) 100 Mechanical Ventilator 21.00 02/09/18 15:59 89 16 96 21 02/09/18 15:00 98 12 110/60 (77) 99 Mechanical Ventilator 21.00 02/09/18 14:44 90 20 97 21 02/09/18 14:00 93 16 101/50 (67) 97 Mechanical Ventilator 21.00 02/09/18 13:00 98 12 110/60 (77) 99 Mechanical Ventilator 21.00 02/09/18 13:00 98 02/09/18 12:21 99 16 100 21 02/09/18 12:15 104 02/09/18 12:00 99 Mechanical Ventilator 24 02/09/18 12:00 101 16 134/63 (86) 100 Mechanical Ventilator 21.00 02/09/18 11:00 112 21 112/57 (75) 97 Mechanical Ventilator 21.00 02/09/18 10:00 110 10 106/62 (77) 96 Mechanical Ventilator 21.00 02/09/18 09:39 110 16 96 21 02/09/18 09:00 112 15 104/60 (75) 96 Mechanical Ventilator 21.00 02/09/18 08:20 114 16 95 21 02/09/18 08:09 112 14 02/09/18 08:00 112 13 94/53 (67) 96 Mechanical Ventilator 21.00 02/09/18 08:00 99 Mechanical Ventilator 24 02/09/18 07:00 107 14 116/68 (84) 97 Mechanical Ventilator 21.00 02/09/18 07:00 107 I & O 02/10/18 07:00 Intake Total 1100 ml Output Total 2440 ml Balance -1340 ml General Appearance: Other (sedated on vent) HEENT: PERRL/EOMI Neck: No JVD, No Thyromegaly Respiratory: Lungs Clear, No Accessory Muscle Use, No Respiratory Distress Cardiovascular: Regular Rate, Rhythm Capillary Refill: Less Than 3 Seconds Extremity: Other (left arm in dressing) Neurologic/Psychiatric: Other (sedated but moves all extremities, responds to verbal stimuli) Skin: Normal Color, Warm/Dry, No Mottled Results Lab Laboratory Tests 02/08/18 18:05 02/08/18 22:00 02/09/18 02:20 02/09/18 08:53 02/10/18 03:05 Assessment/Plan Assessment/Plan Suicidal attempt in [facility] bathroom Acute blood loss approximately 1500-2000mls and hypotension s/p surgery s/p 4 units of O positive (pt is O negative) -PT remained on ventilator post surgery -Will attempt extubation today. -Start Fentanyl gtt -Start Solumedrol 40 IV Q 6 for transfusion reaction Anemia -Monitor Hyperkalemia -change IVF to NS and repeat labs at 9am. Hypothyroid -Start Synthroid 75mcg IV Methamphetamine use prior to event Transverse laceration 10cm of left AC area previous scar in same area 233 Critical Care: Critically Ill Patient TARIK MCCOY DO Feb 10, 2018 06:53
[2018-02-10] MEDS ORDERED: HALOPERIDOL 5 MG/ML (HALDOL) AMP IV PRN (07:00)
[2018-02-10] MEDS ORDERED: morphine INJ 4 MG/ML 1 ML (VIAL/SYRINGE) IVP PRN ×2 (07:00→16:00)
--- NOTE | 2018-02-10 07:20 | Diagnostic Imaging Report ---
INDICATION: Respiratory failure. Portable chest 2:59 AM FINDINGS: There is an ET tube projecting over the trachea. NG tube enters the stomach. Right IJ central line tip projects over the right atrium. Heart size and pulmonary vascularity are normal. Lungs are clear. There are no effusions or pneumothoraces. IMPRESSION: Stable chest from previous day. No acute abnormality is seen. Dictated by: Dictated on workstation # [id number]
[2018-02-10] MEDS ORDERED: PROPOFOL DRIP (ICU) 100 ML IV ONE (07:23)
--- NOTE | 2018-02-10 08:21 | Progress Note-Hospitalist ---
Subjective HPI/CC On Admission Date Seen by Provider: Feb 10, 2018 Time Seen by Provider: 08:16 Pt is a 32yoCM with a PMH of substance abuse and suicide attempts who presented to the ER after being found in a [facility] bathroom with self inflicted injuries. He is unable to provide any history at this time due to sedation for intubation. All history is obtained from records. Reportedly he locked himself inside a [facility] bathroom and cut his inner arm near the AC. Per EMS there was roughly 1500-2000cc EBL at the scene. On arrival his SBP were in the 60s. He was found to have a severe injury to his elbow and was activated as a Level [address] Gilbert took to OR last night for repair. He was transfused 5 units of uncrossmatched pRBCs [facility] trauma protocol. Per Dr Gilbert note 10cm laceration on elbow. Of note he was found to be hypothermic on arrival with a temp of 95.1. He has attempted to harm himself in this manor previously as recently as both April and May of 2017. Subjective/Events-last exam Remains intubated and sedated. No ROS obtainable. Discussed with RN who reports no concerns. Objective Exam Vital Signs Vital Signs Date Time Temp Pulse Resp B/P (MAP) Pulse Ox O2 Delivery O2 Flow Rate FiO2 02/08/18 17:37 95.1 98 16 62/22 (35) 95 Nasal Cannula 02/08/18 17:40 95 02/08/18 18:25 3.00 Capillary Refill : Less Than 3 Seconds General Appearance: WD/WN Respiratory: Lungs Clear, No Accessory Muscle Use, Other (intubated) Cardiovascular: Regular Rate, Rhythm, No Murmur Gastrointestinal: Normal Bowel Sounds, Non Tender, Soft Extremity: No Calf Tenderness, No Pedal Edema, Other (left upper extremity wrapped with surgical dressing, c/d/i) Neurologic/Psychiatric: Other (sedated, unresponsive) Results/Procedures Lab Laboratory Tests 02/10/18 03:05 Patient resulted labs reviewed. Imaging: Reviewed Imaging Films Assessment/Plan Assessment and Plan Assess & Plan/Chief Complaint Suicide Attempt Critical Care Critical Care: Critically Ill Patient Diagnosis/Problems Diagnosis/Problems (1) Mismatched blood transfused Status: Acute Assessment & Plan: Activated as trauma on arrival and received blood products per protocol Has Anti- D antibodies which were resulted after completion of 2 units unmatched blood heme consulted, appreciate recs Will monitor closely Goal UOP 80-100cc/hr- discussed with RN to inform MD environmental protection officer if UOP drops had 1940ml UOP yesterday- at goal Continue Solu Medrol (2) Suicide attempt Status: Acute Assessment & Plan: Reportedly has history of similar attempts in past Is sedated and intubated currently Once extubated and more stable will contact mental health for screening and place on suicide precautions (3) Laceration of left elbow with complication Assessment & Plan: Underwent urgent exploration 02/[address] Gilbert Qualifiers: Encounter type: initial encounter Qualified Codes: S51.012A - Laceration without foreign body of left elbow, initial encounter (4) Agitation Assessment & Plan: Despite high levels of propofol for sedation pt has been very sedated Attempt to wean sedation and extubate today (5) Hypotension Status: Resolved Assessment & Plan: Improving, trend Qualifiers: Hypotension type: unspecified hypotension type Qualified Codes: I95.9 - Hypotension, unspecified (6) Normocytic anemia Status: Acute Assessment & Plan: s/p 5 units of pRBCs Trend- down to 8.4 today hemolysis and dilution likely contributing to drop (7) Hypothyroidism Assessment & Plan: TSH high but normal T4 Continue Synthroid Qualifiers: Hypothyroidism type: unspecified Qualified Codes: E03.9 - Hypothyroidism, unspecified (8) Leukocytosis Status: Resolved Assessment & Plan: Resolved Qualifiers: Leukocytosis type: unspecified Qualified Codes: D72.829 - Elevated white blood cell count, unspecified (9) Hyperkalemia Status: Acute Assessment & Plan: resolved (10) Methamphetamine use Assessment & Plan: UDS positive (11) MITESH (acute kidney injury) Assessment & Plan: Now resolved, continue to monitor Clinical Quality Measures DVT/VTE Risk/Contraindication: Risk Factor Score Per Nursin RFS Level Per Nursing on Admit: 3=High BRUNO CHARLES MD Feb 10, 2018 8:21 am
[2018-02-10] MEDS: PANTOPRAZOLE 40 MG/10 ML (PROTONIX) VIAL IV SCH ×2 (08:38→21:18)
[2018-02-10] MEDS: DEXMEDETOMIDINE INJECTION 400 MCG in NS (IVPB) 96 ML IV SCH (08:39)
[2018-02-10] MEDS: risperiDONE 1 MG (RisperDAL) TAB GT SCH ×3 (10:06→21:23)
[2018-02-10] MEDS: LORazepam INJ 2 MG/ML (ATIVAN) VIAL IVP PRN (10:50)
--- NOTE | 2018-02-10 15:32 | Physician Progress Note ---
Progress Note Assessment/Plan Time Seen by Provider: 11:30 Events since last exam Pt was extubated today. He is using pillow to cover himself and has no interest to talk. Tmax 100 VSS stable Appeared comfortable in bed. Lab today showed normal LDH, normal Cr. Laboratory Tests 02/10/18 03:05 Laboratory Tests 02/10/18 03:05 Assessment/Plan IMP: 1. 32 year old man suicidal attempt with left arm laceration and resulted 1500- 2000ml bleeding 2. s/p Resuscitation with emergency blood transfusion, 2/6 units of RBC transfused were mismatched. LDH normal and Cr normal today. He is most likely ( 80%) out of the danger of hemolysis. Hb drop today most likely from IVF dilution and some degree of hemolysis. 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 4. Depression and drug abuse. Rec: 1. Wean off IV Solumedry 40mg over 3 days. Change to 40mg tid today, bid tomorrow and qd and then off. 2. I would not check retic counts nor haptoglobin because they would not reflect the acute hemolysis pictures. We know he has some degree hemolysis. I would check LDH level to help monitoring the degree of acute hemolysis. 3. Slow down IVF hydration to 100ml/hr today and if doing well, wean off IVF tomorrow. 4. Will follow up with you. Thank you for the consultation. Vitals Last set of Vitals Signs Vital Signs Date Time Temp Pulse Resp B/P (MAP) Pulse Ox O2 Delivery O2 Flow Rate FiO2 02/10/18 14:00 112 18 142/82 (102) 98 Nasal Cannula 2.00 02/10/18 12:00 21 02/10/18 09:24 99.4 I&O I&O Intake and Output 02/10/18 00:00 Intake Total 1000 ml Output Total 1940 ml Balance -940 ml IV Total 1000 ml Output Urine Total 1940 ml Labs Laboratory Tests 02/09/18 16:20: Gastric Fluid Occult Blood POSITIVE 02/09/18 17:12: Glucometer 100 02/10/18 03:05: White Blood Count 8.7, Red Blood Count 3.10L, Hemoglobin 8.4L, Hematocrit 26L, Mean Corpuscular Volume 85, Mean Corpuscular Hemoglobin 27, Mean Corpuscular Hemoglobin Concent 32, Red Cell Distribution Width 15.1H, Platelet Count 136, Mean Platelet Volume 11.0H, Neutrophils (%) (Auto) 90H, Lymphocytes (%) (Auto) 9L, Monocytes (%) (Auto) 1, Eosinophils (%) (Auto) 0, Basophils (%) (Auto) 0, Neutrophils # (Auto) 7.9H, Lymphocytes # (Auto) 0.8L, Monocytes # (Auto) 0.1, Eosinophils # (Auto) 0.0, Basophils # (Auto) 0.0, Prothrombin Time 14.7, INR Comment 1.1, Blood Gas Puncture Site R YOSVANY, Blood Gas Patient Temperature 99.3 , Arterial Blood pH 7.35L, Arterial Blood Partial Pressure CO2 49H, Arterial Blood Partial Pressure O2 81, Arterial Blood HCO3 26, Arterial Blood Total CO2 27.5, Arterial Blood Oxygen Saturation 97, Arterial Blood Base Excess 1.2, Durga Test ART LINE, Blood Gas Ventilator Setting YES, Blood Gas Inspired Oxygen 21%, Sodium Level 140, Potassium Level 4.5, Chloride Level 110H, Carbon Dioxide Level 25, Anion Gap 5, Blood Urea Nitrogen 14, Creatinine 0.72, Estimat Glomerular Filtration Rate > 60, BUN/Creatinine Ratio 19, Glucose Level 127H, Calcium Level 7.7L, Phosphorus Level 3.7, Magnesium Level 1.8, Lactate Dehydrogenase 131 02/10/18 10:03: Lab Scanned Report Transfusion Reaction Form Clinical Quality Measures DVT/VTE Risk/Contraindication: Risk Factor Score Per Nursin RFS Level Per Nursing on Admit: 3=High АНДРЕЙ AMBROSE MD Feb 10, 2018 15:32
[2018-02-10] MEDS ORDERED: ZIPRASIDONE 20 MG INJ (GEODON) VIAL IM PRN (16:30)
--- NOTE | 2018-02-10 17:14 | Progress Note-Standard ---
Standard Progress Note Progress Notes/Assess & Plan Date Seen by Provider: Feb 10, 2018 Time Seen by Provider: 15:55 Progress/Assessment & Plan mechanically ventilated. Hemodynamically stable. Good. Pulse felt over the left radial artery. Mismatched transposition with antibiotics reported. Hospitalist following. Urine output reasonable. Hyperkalemia, recommendations per hospitalist. extubated this morning. Awake and stable. Wound over the left elbow appears to be healthy. Less edematous. Skin edges are still under tension and therefore healing by secondary intention would be ideal. Nursing staff report suicidal behavior of the patient and the hospitalist Dr. Kaye confirms making the necessary arrangements. Credit Risk Manager has recommended observation for 2 more days in view of blood transfusion induced concerns. Final Diagnosis laceration of the left elbow ENEDINA FISHER MD Feb 10, 2018 5:14 pm
[2018-02-10] MEDS: ZIPRASIDONE 20 MG (GEODON) CAP PO SCH (17:37)
[2018-02-11] MEDS: inSUlin (REGULAR) HUMAN 1 UNIT/0.01 ML (CHARGE PER UNIT) SC SCH (01:20)
[2018-02-11 04:00] VITALS: BP 128/80
[2018-02-11] MEDS: DEXMEDETOMIDINE INJECTION 400 MCG in NS (IVPB) 96 ML IV SCH (05:09)
--- NOTE | 2018-02-11 05:58 | Pulmonary Progress Note ---
Subjective Date Seen by Provider: Feb 10, 2018 (late entry for 02/10 today is 02/11. ) Time Seen by Provider: 14:00 Subjective/Events-last exam Pt is agitated and pulled out central line. He states he just wants to . Exam Exam Vital Signs Date Time Temp Pulse Resp B/P (MAP) Pulse Ox O2 Delivery O2 Flow Rate FiO2 02/11/18 04:00 98.7 66 18 128/80 (96) 93 Room Air 02/10/18 21:00 99 Room Air 02/10/18 20:00 99.4 112 20 145/84 (104) 95 Room Air 02/10/18 16:00 Room Air 02/10/18 14:00 112 18 142/82 (102) 98 Nasal Cannula 2.00 02/10/18 12:00 101 98 Nasal Cannula 2.00 02/10/18 12:00 Room Air 21 02/10/18 11:00 94 134/82 (99) 98 Nasal Cannula 2.00 02/10/18 10:00 131 147/91 (109) 96 Nasal Cannula 2.00 02/10/18 09:24 99.4 02/10/18 09:00 115 20 129/80 (96) 96 Nasal Cannula 2.00 02/10/18 08:50 100 Nasal Cannula 2.00 02/10/18 08:50 Nasal Cannula 2.00 02/10/18 08:30 100.1 02/10/18 08:29 93 16 93 21 02/10/18 08:00 90 10 109/52 (71) 95 Mechanical Ventilator 21.00 02/10/18 08:00 99 Mechanical Ventilator 21 02/10/18 07:23 120/55 02/10/18 07:00 92 02/10/18 06:44 93 16 94 21 02/10/18 06:00 92 107/50 (69) 94 Mechanical Ventilator 21.00 I & O 02/11/18 07:00 Intake Total 410 ml Output Total 950 ml Balance -540 ml General Appearance: WD/WN, Anxious HEENT: PERRL/EOMI Neck: No JVD, No Thyromegaly Respiratory: Lungs Clear, No Accessory Muscle Use, Other (intubated) Cardiovascular: Regular Rate, Rhythm, No Murmur Capillary Refill: Less Than 3 Seconds Extremity: No Calf Tenderness, No Pedal Edema Skin: Normal Color, Warm/Dry, No Mottled Results Lab Laboratory Tests 02/09/18 08:53 02/10/18 03:05 Assessment/Plan Assessment/Plan Suicidal attempt in [facility] -Pt states he just wants to . He has had previous suicidal attempts. After pt was extubated from ventilator he was telling the RN to just let him . Pt is still very suicidal and needs to be admitted to inpatient psych. psychosis -Risperdal 1mg BID -Ativan Acute blood loss approximately 1500-2000mls and hypotension s/p surgery s/p 4 units of O positive (pt is O negative) -Pt is doing well off ventilator. - Solumedrol 40 IV Q 6 for transfusion reaction Anemia -Monitor Hyperkalemia -change IVF to NS and repeat labs at 9am. Methamphetamine use prior to event Transverse laceration 10cm of left AC area previous scar in same area I was called to bedside secondary to patient agitation. PT trying to leave AMA. Pt is telling RN he just wants to and requesting that she lets him . Pt pulled out central line and ripped off left arm wound dressing. Pt is very suicidal and we can't let him leave AMA. Pt needs inpatient psych. I discussed patient indetail with Dr. Montoya, SALVADOR, and risk management. At least 60min was spent discussing patients care of plan with medical staff and risk management. Critical Care: Critically Ill Patient Advance Care discuss with: patient (SW, medical staff, risk managment. pt needs in patient psych and can not be allowed to leave AMA. ) Time spent on discussion(mins): 60 TARIK MCCOY DO Feb 11, 2018 05:58
--- NOTE | 2018-02-11 06:10 | Pulmonary Progress Note ---
Subjective Time Seen by Provider: 06:09 Subjective/Events-last exam PT is currently sleeping. Exam Exam Vital Signs Date Time Temp Pulse Resp B/P (MAP) Pulse Ox O2 Delivery O2 Flow Rate FiO2 02/11/18 04:00 98.7 66 18 128/80 (96) 93 Room Air 02/10/18 21:00 99 Room Air 02/10/18 20:00 99.4 112 20 145/84 (104) 95 Room Air 02/10/18 16:00 Room Air 02/10/18 14:00 112 18 142/82 (102) 98 Nasal Cannula 2.00 02/10/18 12:00 101 98 Nasal Cannula 2.00 02/10/18 12:00 Room Air 21 02/10/18 11:00 94 134/82 (99) 98 Nasal Cannula 2.00 02/10/18 10:00 131 147/91 (109) 96 Nasal Cannula 2.00 02/10/18 09:24 99.4 02/10/18 09:00 115 20 129/80 (96) 96 Nasal Cannula 2.00 02/10/18 08:50 100 Nasal Cannula 2.00 02/10/18 08:50 Nasal Cannula 2.00 02/10/18 08:30 100.1 02/10/18 08:29 93 16 93 21 02/10/18 08:00 90 10 109/52 (71) 95 Mechanical Ventilator 21.00 02/10/18 08:00 99 Mechanical Ventilator 21 02/10/18 07:23 120/55 02/10/18 07:00 92 02/10/18 06:44 93 16 94 21 I & O 02/11/18 07:00 Intake Total 410 ml Output Total 950 ml Balance -540 ml General Appearance: No Apparent Distress, WD/WN HEENT: PERRL/EOMI Neck: No JVD, No Thyromegaly Respiratory: Lungs Clear, No Accessory Muscle Use Cardiovascular: Regular Rate, Rhythm, No Murmur Capillary Refill: Less Than 3 Seconds Extremity: No Calf Tenderness, No Pedal Edema Skin: Normal Color, Warm/Dry, No Mottled Results Lab Laboratory Tests 02/09/18 08:53 02/10/18 03:05 Assessment/Plan Assessment/Plan Suicidal attempt in [facility] -Pt states he just wants to . He has had previous suicidal attempts. After pt was extubated from ventilator he was telling the RN to just let him . Pt is still very suicidal and needs to be admitted to inpatient psych. Acute blood loss approximately 1500-2000mls and hypotension s/p surgery s/p 4 units of O positive (pt is O negative) -Pt is doing well off ventilator. - Solumedrol 40 IV Q 6 for transfusion reaction Psychosis -risperadol 1mg BID -Ativan PRN Anemia -Monitor Hyperkalemia -change IVF to NS and repeat labs at 9am. Methamphetamine use prior to event Transverse laceration 10cm of left AC area previous scar in same area Pt is doing well from critical care/pulmonary standpoint. He is remaining in ICU because he is very suicidal. I am going to sign off please call with any questions or concerns. 233 Critical Care: Critically Ill Patient TARIK MCCOY DO Feb 11, 2018 06:10
[2018-02-11] MEDS: methylPREDNISolone 40 MG/ML (Solu-MEDROL) VIAL IV SCH ×3 (06:20→21:30)
[2018-02-11] MEDS: NS IV 1000 ML 1,000 ML IV SCH ×3 (07:30→17:45)
[2018-02-11 07:59] VITALS: BP 125/73
--- NOTE | 2018-02-11 08:08 | Progress Note-Hospitalist ---
Subjective HPI/CC On Admission Date Seen by Provider: Feb 11, 2018 Time Seen by Provider: 08:03 Pt is a 32yoCM with a PMH of substance abuse and suicide attempts who presented to the ER after being found in a [facility] bathroom with self inflicted injuries. He is unable to provide any history at this time due to sedation for intubation. All history is obtained from records. Reportedly he locked himself inside a [facility] bathroom and cut his inner arm near the AC. Per EMS there was roughly 1500-2000cc EBL at the scene. On arrival his SBP were in the 60s. He was found to have a severe injury to his elbow and was activated as a Level [address] Gilbert took to OR last night for repair. He was transfused 5 units of uncrossmatched pRBCs st[facility] trauma protocol. Per Dr Gilbert note 10cm laceration on elbow. Of note he was found to be hypothermic on arrival with a temp of 95.1. He has attempted to harm himself in this manor previously as recently as both April and May of 2017. Subjective/Events-last exam Pt reports feeling "great" this morning. No complaints. Objective Exam Vital Signs Vital Signs Date Time Temp Pulse Resp B/P (MAP) Pulse Ox O2 Delivery O2 Flow Rate FiO2 02/08/18 17:37 95.1 98 16 62/22 (35) 95 Nasal Cannula 02/08/18 17:40 95 02/08/18 18:25 3.00 Capillary Refill : Less Than 3 Seconds General Appearance: No Apparent Distress, WD/WN Respiratory: Lungs Clear, No Accessory Muscle Use, No Respiratory Distress Cardiovascular: Regular Rate, Rhythm, No Murmur Gastrointestinal: Normal Bowel Sounds, Non Tender, Soft Extremity: Other (left elbow dressed in bandages, clean dry and intact) Neurologic/Psychiatric: Alert Results/Procedures Lab Patient resulted labs reviewed. Imaging: Reviewed Imaging Films Assessment/Plan Assessment and Plan Assess & Plan/Chief Complaint Suicide Attempt Critical Care Critical Care: Critically Ill Patient Diagnosis/Problems Diagnosis/Problems (1) Mismatched blood transfused Status: Acute Assessment & Plan: Activated as trauma on arrival and received blood products per protocol Has Anti- D antibodies which were resulted after completion of 2 units unmatched blood heme consulted, appreciate recs Will monitor closely Goal UOP 80-100cc/hr- discussed with RN to inform MD professor of communication and writing if UOP drops had 2250ml UOP yesterday- at goal Continue Solu Medrol taper Will needed monitored one more day fo transfusion reaction (2) Suicide attempt Status: Acute Assessment & Plan: Reportedly has history of similar attempts in past Still actively suicidal per note yesterday Will need evaluated by Mental Health tomorrow to assist with placemnt Cannot leave AMA due to risk of self harm (3) Laceration of left elbow with complication Status: Acute Assessment & Plan: Underwent urgent exploration 02/[address] Gilbert Qualifiers: Encounter type: initial encounter Qualified Codes: S51.012A - Laceration without foreign body of left elbow, initial encounter (4) Agitation Status: Acute Assessment & Plan: Improving with geodon (5) Hypotension Status: Resolved Assessment & Plan: now normotensive Qualifiers: Hypotension type: unspecified hypotension type Qualified Codes: I95.9 - Hypotension, unspecified (6) Normocytic anemia Status: Acute Assessment & Plan: s/p 5 units of pRBCs Trend- down to 8.4 02/10 hemolysis and dilution likely contributing to drop Did not allow labs this AM, will attempt later (7) Hypothyroidism Assessment & Plan: TSH high but normal T4 Continue Synthroid Qualifiers: Hypothyroidism type: unspecified Qualified Codes: E03.9 - Hypothyroidism, unspecified (8) Leukocytosis Status: Resolved Assessment & Plan: Resolved Qualifiers: Leukocytosis type: unspecified Qualified Codes: D72.829 - Elevated white blood cell count, unspecified (9) Hyperkalemia Status: Acute Assessment & Plan: resolved (10) Methamphetamine use Assessment & Plan: UDS positive (11) MITESH (acute kidney injury) Assessment & Plan: Now resolved, continue to monitor Clinical Quality Measures DVT/VTE Risk/Contraindication: Risk Factor Score Per Nursin RFS Level Per Nursing on Admit: 3=High BRUNO CHARLES MD Feb 11, 2018 8:08 am
[2018-02-11 08:52] LABS: BASOPHILS % (AUTO) 0 % (0-10); EOSINOPHILS % (AUTO) 0 % (0-10); HEMATOCRIT 25 % (40-54); HEMOGLOBIN 7.9 G/DL (13.3-17.7); LYMPHOCYTES # (AUTO) 0.8 X 10^3 (1.0-4.0); LYMPHOCYTES % (AUTO) 12 % (12-44); MEAN CORPUSCULAR HEMOGLOBIN 28 PG (25-34); MEAN CORPUSCULAR HGB CONC 32 G/DL (32-36); MEAN CORPUSCULAR VOLUME 86 FL (80-99); MEAN PLATELET VOLUME 10.7 FL (7.4-10.4); MONOCYTES # (AUTO) 0.3 X 10^3 (0.0-1.0); MONOCYTES % (AUTO) 5 % (0-12); NEUTROPHILS # (AUTO) 5.7 X 10^3 (1.8-7.8); NEUTROPHILS % (AUTO) 83 % (42-75); PLATELET COUNT 158 10^3/uL (130-400); RED BLOOD COUNT 2.87 10^6/uL (4.35-5.85); RED CELL DISTRIBUTION WIDTH 14.8 % (10.0-14.5); WHITE BLOOD COUNT 6.9 10^3/uL (4.3-11.0)
--- NOTE | 2018-02-11 08:53 | Anesthesia-General Post-Op ---
General Patient Condition Mental Status/LOC: Same as Preop Cardiovascular: Satisfactory Nausea/Vomiting: Absent Respiratory: Satisfactory Pain: Controlled Complications: Absent Post Op Complications Complications None Follow Up Care/Instructions Patient Instructions None needed. Anesthesia/Patient Condition Patient Condition N LOUIE JUAREZ CRNA Feb 11, 2018 08:53
[2018-02-11 09:11] LABS: BUN/CREATININE RATIO 24; CALCIUM 8.4 MG/DL (8.5-10.1); CARBON DIOXIDE 29 MMOL/L (21-32); CHLORIDE 107 MMOL/L (98-107); CREATININE SERUM 0.63 MG/DL (0.60-1.30); GFR ESTIMATED > 60; GLUCOSE 115 MG/DL (70-105); POTASSIUM 4.1 MMOL/L (3.6-5.0); SODIUM 142 MMOL/L (135-145)
[2018-02-11] MEDS: PANTOPRAZOLE 40 MG/10 ML (PROTONIX) VIAL IV SCH (09:20)
[2018-02-11] MEDS: ZIPRASIDONE 20 MG (GEODON) CAP PO SCH ×2 (09:39→17:30)
--- NOTE | 2018-02-11 10:21 | Progress Note-Standard ---
Standard Progress Note Progress Notes/Assess & Plan Date Seen by Provider: Feb 11, 2018 Time Seen by Provider: 09:20 Progress/Assessment & Plan mechanically ventilated. Hemodynamically stable. Good. Pulse felt over the left radial artery. Mismatched transposition with antibiotics reported. Hospitalist following. Urine output reasonable. Hyperkalemia, recommendations per hospitalist. extubated this morning. Awake and stable. Wound over the left elbow appears to be healthy. Less edematous. Skin edges are still under tension and therefore healing by secondary intention would be ideal. Nursing staff report suicidal behavior of the patient and the hospitalist Dr. Kaye confirms making the necessary arrangements. Recycler has recommended observation for 2 more days in view of blood transfusion induced concerns. patient awake and interactive. Hemoglobin just over 7 g. Awaiting clearance by the feed research aide regarding transfusion incompatibility. Final Diagnosis self-inflicted laceration of the left elbow with blood loss anemia ENEDINA FISHER MD Feb 11, 2018 10:21 am
[2018-02-11] MEDS: risperiDONE 1 MG (RisperDAL) TAB GT SCH ×2 (10:46→21:30)
[2018-02-11 12:00] VITALS: BP 154/88
[2018-02-11 15:55] VITALS: BP 130/74
--- NOTE | 2018-02-11 17:07 | Physician Progress Note ---
Progress Note Assessment/Plan Time Seen by Provider: 14:45 Events since last exam Pt is extubated. He still has suicidal thoughts. Hb relatively stable. No sign of massive hemolysis. He will be 72 hrs after tonight from his mismatch RBC transfusion. Assessment/Plan IMP: 1. 32 year old man suicidal attempt with left arm laceration and resulted 1500- 2000ml bleeding 2. s/p Resuscitation with emergency blood transfusion, 2/6 units of RBC transfused were mismatched. LDH normal and Cr normal today. He is most likely ( 80%) out of the danger of hemolysis. Hb drop today most likely from IVF dilution and some degree of hemolysis. 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 4. Depression and drug abuse. Rec: 1. Wean off IV Solumedry 40mg over 3 days. Last dose of will be tomorrow 9am. 2. He will need some iron replacement as out-pt. 3. Slow down IVF hydration to 100ml/hr today and if doing well, wean off IVF tomorrow. 4. Will follow up with you. 5. psych and behavior evaluation. 6. He needs to have a card or bracelet with him to document that he has anti-D antibody and needs to have O negative transfusion in the future if he ever end up in the bleeding situation and need transfusion again. Vitals Last set of Vitals Signs Vital Signs Date Time Temp Pulse Resp B/P (MAP) Pulse Ox O2 Delivery O2 Flow Rate FiO2 02/11/18 15:55 97.6 98 20 130/74 (92) 97 Room Air 02/10/18 14:00 2.00 02/10/18 12:00 21 I&O I&O Intake and Output 02/11/18 00:00 Intake Total 510 ml Output Total 2250 ml Balance -1740 ml Intake Oral 350 ml IV Total 160 ml Output Urine Total 2050 ml Gastric Drainage Total 200 ml # Voids 4 # Bowel Movements 2 Labs Laboratory Tests 02/10/18 17:46: Glucometer 165H 02/10/18 22:55: Triglycerides Level 74 02/11/18 08:45: White Blood Count 6.9, Red Blood Count 2.87L, Hemoglobin 7.9L, Hematocrit 25L, Mean Corpuscular Volume 86, Mean Corpuscular Hemoglobin 28, Mean Corpuscular Hemoglobin Concent 32, Red Cell Distribution Width 14.8H, Platelet Count 158, Mean Platelet Volume 10.7H, Neutrophils (%) (Auto) 83H, Lymphocytes (%) (Auto) 12, Monocytes (%) (Auto) 5, Eosinophils (%) (Auto) 0, Basophils (%) (Auto) 0, Neutrophils # (Auto) 5.7, Lymphocytes # (Auto) 0.8L, Monocytes # (Auto) 0.3, Eosinophils # (Auto) 0.0, Basophils # (Auto) 0.0, Sodium Level 142, Potassium Level 4.1, Chloride Level 107, Carbon Dioxide Level 29, Anion Gap 6, Blood Urea Nitrogen 15, Creatinine 0.63, Estimat Glomerular Filtration Rate > 60, BUN/ Creatinine Ratio 24, Glucose Level 115H, Calcium Level 8.4L Clinical Quality Measures DVT/VTE Risk/Contraindication: Risk Factor Score Per Nursin RFS Level Per Nursing on Admit: 3=High АНДРЕЙ AMBROSE MD Feb 11, 2018 17:07
[2018-02-11] MEDS: PANTOPRAZOLE 40 MG (PROTONIX) TAB PO SCH (17:30)
[2018-02-11 19:56] VITALS: BP 133/68
[2018-02-11 23:45] VITALS: BP 140/83
[2018-02-12 04:00] VITALS: BP 145/95
[2018-02-12 04:04] LABS: BASOPHILS % (AUTO) 0 % (0-10); EOSINOPHILS % (AUTO) 0 % (0-10); HEMATOCRIT 26 % (40-54); HEMOGLOBIN 8.3 G/DL (13.3-17.7); LYMPHOCYTES # (AUTO) 1.4 X 10^3 (1.0-4.0); LYMPHOCYTES % (AUTO) 14 % (12-44); MEAN CORPUSCULAR HEMOGLOBIN 28 PG (25-34); MEAN CORPUSCULAR HGB CONC 33 G/DL (32-36); MEAN CORPUSCULAR VOLUME 86 FL (80-99); MEAN PLATELET VOLUME 11.2 FL (7.4-10.4); MONOCYTES # (AUTO) 0.6 X 10^3 (0.0-1.0); MONOCYTES % (AUTO) 6 % (0-12); NEUTROPHILS # (AUTO) 8.1 X 10^3 (1.8-7.8); NEUTROPHILS % (AUTO) 81 % (42-75); PLATELET COUNT 184 10^3/uL (130-400); RED BLOOD COUNT 2.97 10^6/uL (4.35-5.85); RED CELL DISTRIBUTION WIDTH 14.7 % (10.0-14.5); WHITE BLOOD COUNT 10.1 10^3/uL (4.3-11.0)
[2018-02-12] MEDS: DEXMEDETOMIDINE INJECTION 400 MCG in NS (IVPB) 96 ML IV SCH (04:16)
[2018-02-12] MEDS: NS IV 1000 ML 1,000 ML IV SCH ×3 (04:16→23:30)
[2018-02-12 04:21] LABS: BUN/CREATININE RATIO 25; CALCIUM 8.1 MG/DL (8.5-10.1); CARBON DIOXIDE 28 MMOL/L (21-32); CHLORIDE 105 MMOL/L (98-107); CREATININE SERUM 0.68 MG/DL (0.60-1.30); GFR ESTIMATED > 60; GLUCOSE 128 MG/DL (70-105); POTASSIUM 4.3 MMOL/L (3.6-5.0); SODIUM 140 MMOL/L (135-145)
[2018-02-12 08:00] VITALS: BP 125/79
--- NOTE | 2018-02-12 08:14 | Progress Note-Hospitalist ---
Subjective HPI/CC On Admission Date Seen by Provider: Feb 12, 2018 Time Seen by Provider: 08:20 Pt is a 32yoCM with a PMH of substance abuse and suicide attempts who presented to the ER after being found in a [facility] bathroom with self inflicted injuries. He is unable to provide any history at this time due to sedation for intubation. All history is obtained from records. Reportedly he locked himself inside a [facility] bathroom and cut his inner arm near the AC. Per EMS there was roughly 1500-2000cc EBL at the scene. On arrival his SBP were in the 60s. He was found to have a severe injury to his elbow and was activated as a Level [address] Gilbert took to OR last night for repair. He was transfused 5 units of uncrossmatched pRBCs [facility] trauma protocol. Per Dr Gilbert note 10cm laceration on elbow. Of note he was found to be hypothermic on arrival with a temp of 95.1. He has attempted to harm himself in this manor previously as recently as both April and May of 2017. Subjective/Events-last exam Reports doing "great." No other complaints. Objective Exam Vital Signs Vital Signs Date Time Temp Pulse Resp B/P (MAP) Pulse Ox O2 Delivery O2 Flow Rate FiO2 02/08/18 17:37 95.1 98 16 62/22 (35) 95 Nasal Cannula 02/08/18 17:40 95 02/08/18 18:25 3.00 Capillary Refill : Less Than 3 Seconds General Appearance: No Apparent Distress, WD/WN Respiratory: Lungs Clear, No Respiratory Distress Cardiovascular: Regular Rate, Rhythm, No Murmur Extremity: Other (moves all extremities, left arm in surgical dress that is clean and dry) Neurologic/Psychiatric: Alert, Oriented x3, Depressed Affect Skin: Normal Color, Warm/Dry, Tattoos/Piercings Results/Procedures Lab Laboratory Tests 02/12/18 03:55 Patient resulted labs reviewed. Imaging: Reviewed Imaging Films Assessment/Plan Assessment and Plan Assess & Plan/Chief Complaint Suicide Attempt Critical Care Critical Care: Critically Ill Patient Diagnosis/Problems Diagnosis/Problems (1) Mismatched blood transfused Status: Acute Assessment & Plan: Activated as trauma on arrival and received blood products per protocol Has Anti- D antibodies which were resulted after completion of 2 units unmatched blood heme consulted, appreciate recs Will monitor closely Adequate UOP Continue Solu Medrol taper- finishes this AM (2) Suicide attempt Status: Acute Assessment & Plan: Reportedly has history of similar attempts in past Still actively suicidal per note yesterday Will need evaluated by Mental Health tomorrow to assist with placement Cannot leave AMA due to risk of self harm Will need placement for inpatient psych stable for transfer to inpatient psych from medical standpoint. (3) Laceration of left elbow with complication Status: Acute Assessment & Plan: Underwent urgent exploration 02/[address] Gilbert Qualifiers: Encounter type: initial encounter Qualified Codes: S51.012A - Laceration without foreign body of left elbow, initial encounter (4) Agitation Status: Acute Assessment & Plan: tolerating Geodon and psychosis improving (5) Hypotension Status: Resolved Assessment & Plan: now normotensive Qualifiers: Hypotension type: unspecified hypotension type Qualified Codes: I95.9 - Hypotension, unspecified (6) Normocytic anemia Status: Acute Assessment & Plan: s/p 5 units of pRBCs Trend- down to 8.4 02/10 hemolysis and dilution likely contributing to drop Did not allow labs this AM, will attempt later (7) Hypothyroidism Assessment & Plan: TSH high but normal T4 Continue Synthroid Qualifiers: Hypothyroidism type: unspecified Qualified Codes: E03.9 - Hypothyroidism, unspecified (8) Leukocytosis Status: Resolved Assessment & Plan: Resolved Qualifiers: Leukocytosis type: unspecified Qualified Codes: D72.829 - Elevated white blood cell count, unspecified (9) Hyperkalemia Status: Acute Assessment & Plan: resolved (10) Methamphetamine use Assessment & Plan: UDS positive (11) MITESH (acute kidney injury) Assessment & Plan: Now resolved, continue to monitor Clinical Quality Measures DVT/VTE Risk/Contraindication: Risk Factor Score Per Nursin RFS Level Per Nursing on Admit: 3=High BRUNO CHARLES MD Feb 12, 2018 08:14
[2018-02-12] MEDS: ZIPRASIDONE 20 MG (GEODON) CAP PO SCH ×2 (08:33→17:56)
[2018-02-12] MEDS: methylPREDNISolone 40 MG/ML (Solu-MEDROL) VIAL IV SCH (08:33)
[2018-02-12] MEDS: PANTOPRAZOLE 40 MG (PROTONIX) TAB PO SCH ×2 (08:33→17:56)
[2018-02-12] MEDS: risperiDONE 1 MG (RisperDAL) TAB GT SCH ×2 (08:38→21:01)
[2018-02-12 12:00] VITALS: BP 139/86
--- NOTE | 2018-02-12 13:57 | Physician Progress Note ---
Progress Note Assessment/Plan Time Seen by Provider: 13:40 Events since last exam Pt looked better today. He is willing to talk to me. When I asked if he has any family and friends, he answered "They all ". Then I found out that he does not want to talk to any of his family and friends that was why they answered they were all ". Hb is up from 7.8 to 8.4 today. He is out of the danger of hemolysis and can be discharged from hematology point view. I told patient that he needs to remember his blood type is O negative and to tell doctor to transfuse O negative blood if he ever needs to have blood transfusion again. To my surprise, he thanked me for telling him that. Assessment/Plan IMP: 1. 32 year old man suicidal attempt with left arm laceration and resulted 1500- 2000ml bleeding 2. s/p Resuscitation with emergency blood transfusion, 2/6 units of RBC transfused were mismatched. LDH normal and Cr normal today. He is most likely ( 80%) out of the danger of hemolysis. Hb drop today most likely from IVF dilution and some degree of hemolysis. 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 4. Depression and drug abuse. Rec: 1. Stop Solumedryl 2. He will need some iron replacement as out-pt. We can start Ferrous sulfate 325mg bid po for 1 month. 3. Pt can be discharged from hematology point of view. I will sign off on this case. . 4. Psych and behavior evaluation. 5. He needs to have a card or bracelet with him to document that he has anti-D antibody and needs to have O negative transfusion in the future if he ever end up in the bleeding situation and need transfusion again. Vitals Last set of Vitals Signs Vital Signs Date Time Temp Pulse Resp B/P (MAP) Pulse Ox O2 Delivery O2 Flow Rate FiO2 02/12/18 12:00 97.3 73 16 139/86 (103) 96 Room Air 02/10/18 14:00 2.00 02/10/18 12:00 21 I&O I&O Intake and Output 02/12/18 00:00 Intake Total 1025 ml Output Total 2575 ml Balance -1550 ml Intake Oral 1025 ml Output Urine Total 2375 ml Gastric Drainage Total 200 ml # Voids 1 Labs Laboratory Tests 3/22/18 03:55: White Blood Count 10.1, Red Blood Count 2.97L, Hemoglobin 8.3L, Hematocrit 26L, Mean Corpuscular Volume 86, Mean Corpuscular Hemoglobin 28, Mean Corpuscular Hemoglobin Concent 33, Red Cell Distribution Width 14.7H, Platelet Count 184, Mean Platelet Volume 11.2H, Neutrophils (%) (Auto) 81H, Lymphocytes (%) (Auto) 14, Monocytes (%) (Auto) 6, Eosinophils (%) (Auto) 0, Basophils (%) (Auto) 0, Neutrophils # (Auto) 8.1H, Lymphocytes # (Auto) 1.4, Monocytes # (Auto) 0.6, Eosinophils # (Auto) 0.0, Basophils # (Auto) 0.0, Sodium Level 140, Potassium Level 4.3, Chloride Level 105, Carbon Dioxide Level 28, Anion Gap 7, Blood Urea Nitrogen 17, Creatinine 0.68, Estimat Glomerular Filtration Rate > 60, BUN/ Creatinine Ratio 25, Glucose Level 128H, Calcium Level 8.1L Clinical Quality Measures DVT/VTE Risk/Contraindication: Risk Factor Score Per Nursin RFS Level Per Nursing on Admit: 3=High АНДРЕЙ AMBROSE MD Feb 12, 2018 13:57
--- NOTE | 2018-02-12 15:20 | Progress Note-Standard ---
Standard Progress Note Progress Notes/Assess & Plan Date Seen by Provider: Feb 12, 2018 Time Seen by Provider: 11:35 Progress/Assessment & Plan mechanically ventilated. Hemodynamically stable. Good. Pulse felt over the left radial artery. Mismatched transposition with antibiotics reported. Hospitalist following. Urine output reasonable. Hyperkalemia, recommendations per hospitalist. extubated this morning. Awake and stable. Wound over the left elbow appears to be healthy. Less edematous. Skin edges are still under tension and therefore healing by secondary intention would be ideal. Nursing staff report suicidal behavior of the patient and the hospitalist Dr. Kaye confirms making the necessary arrangements. Power Builder Developer has recommended observation for 2 more days in view of blood transfusion induced concerns. patient awake and interactive. Hemoglobin just over 7 g. Awaiting clearance by the repairer engine production regarding transfusion incompatibility. hemoglobin stable wound appears to be healthy. Arrangements for transfer to an inpatient psychiatric unit in progress Final Diagnosis self inflicted laceration of left elbow ENEDINA FISHER MD Feb 12, 2018 3:20 pm
[2018-02-12 16:00] VITALS: BP 129/69
[2018-02-12 19:32] VITALS: BP 145/76
[2018-02-12 23:49] VITALS: BP 150/75
[2018-02-13 04:00] VITALS: BP 141/83
[2018-02-13] MEDS: DEXMEDETOMIDINE INJECTION 400 MCG in NS (IVPB) 96 ML IV SCH (05:06)
[2018-02-13] MEDS: PANTOPRAZOLE 40 MG (PROTONIX) TAB PO SCH (06:02)
[2018-02-13] MEDS: ZIPRASIDONE 20 MG (GEODON) CAP PO SCH ×2 (06:02→19:02)
[2018-02-13 08:00] VITALS: BP 166/88
--- NOTE | 2018-02-13 08:09 | Progress Note-Hospitalist ---
Subjective HPI/CC On Admission Date Seen by Provider: Feb 13, 2018 Time Seen by Provider: 08:05 Pt is a 32yoCM with a PMH of substance abuse and suicide attempts who presented to the ER after being found in a [employer] bathroom with self inflicted injuries. He is unable to provide any history at this time due to sedation for intubation. All history is obtained from records. Reportedly he locked himself inside a [employer] bathroom and cut his inner arm near the AC. Per EMS there was roughly 1500-2000cc EBL at the scene. On arrival his SBP were in the 60s. He was found to have a severe injury to his elbow and was activated as a Level [address] Gilbert took to OR last night for repair. He was transfused 5 units of uncrossmatched pRBCs stan[facility] trauma protocol. Per Dr Gilbert note 10cm laceration on elbow. Of note he was found to be hypothermic on arrival with a temp of 95.1. He has attempted to harm himself in this manor previously as recently as both April and May of 2017. Subjective/Events-last exam Pt reports doing well. Eating and drinking well. No other complaints. Objective Exam Vital Signs Vital Signs Date Time Temp Pulse Resp B/P (MAP) Pulse Ox O2 Delivery O2 Flow Rate FiO2 02/08/18 17:37 95.1 98 16 62/22 (35) 95 Nasal Cannula 02/08/18 17:40 95 02/08/18 18:25 3.00 Capillary Refill : Less Than 3 Seconds General Appearance: No Apparent Distress, WD/WN Respiratory: Lungs Clear, No Respiratory Distress Cardiovascular: Regular Rate, Rhythm, No JVD, No Murmur Extremity: No Calf Tenderness Neurologic/Psychiatric: Alert, Oriented x3 Skin: Normal Color, Warm/Dry, Tattoos/Piercings Results/Procedures Lab Patient resulted labs reviewed. Imaging: Reviewed Imaging Films Assessment/Plan Assessment and Plan Assess & Plan/Chief Complaint Suicide Attempt Critical Care Critical Care: Critically Ill Patient Diagnosis/Problems Diagnosis/Problems (1) Mismatched blood transfused Status: Acute Assessment & Plan: Activated as trauma on arrival and received blood products per protocol Has Anti- D antibodies which were resulted after completion of 2 units unmatched blood heme consulted, appreciate recs Adequate UOP Completed Solu-Medrol taper yesterday (2) Suicide attempt Status: Acute Assessment & Plan: Reportedly has history of similar attempts in past Still actively suicidal per note yesterday Will need evaluated by Mental Health tomorrow to assist with placement Cannot leave AMA due to risk of self harm Will need placement for inpatient psych stable for transfer to inpatient psych from medical standpoint. (3) Laceration of left elbow with complication Status: Acute Assessment & Plan: Underwent urgent exploration 02/[address] Gilbert Dressing per Dr Gilbert orders Qualifiers: Encounter type: initial encounter Qualified Codes: S51.012A - Laceration without foreign body of left elbow, initial encounter (4) Agitation Status: Acute Assessment & Plan: tolerating Geodon and psychosis improving (5) Hypotension Status: Resolved Assessment & Plan: Trending up this AM, will monitor Qualifiers: Hypotension type: unspecified hypotension type Qualified Codes: I95.9 - Hypotension, unspecified (6) Normocytic anemia Status: Acute Assessment & Plan: s/p 5 units of pRBCs Stable (7) Hypothyroidism Assessment & Plan: TSH high but normal T4 Continue Synthroid Qualifiers: Hypothyroidism type: unspecified Qualified Codes: E03.9 - Hypothyroidism, unspecified (8) Leukocytosis Status: Resolved Assessment & Plan: Resolved Qualifiers: Leukocytosis type: unspecified Qualified Codes: D72.829 - Elevated white blood cell count, unspecified (9) Hyperkalemia Status: Resolved Assessment & Plan: resolved (10) Methamphetamine use Status: Acute Assessment & Plan: UDS positive (11) MITESH (acute kidney injury) Status: Resolved Assessment & Plan: Now resolved, continue to monitor Clinical Quality Measures DVT/VTE Risk/Contraindication: Risk Factor Score Per Nursin RFS Level Per Nursing on Admit: 3=High BRUNO CHARLES MD Feb 13, 2018 8:09 am
--- NOTE | 2018-02-13 08:45 | Progress Note-Standard ---
Standard Progress Note Progress Notes/Assess & Plan Date Seen by Provider: Feb 13, 2018 Time Seen by Provider: 07:45 Progress/Assessment & Plan mechanically ventilated. Hemodynamically stable. Good. Pulse felt over the left radial artery. Mismatched transposition with antibiotics reported. Hospitalist following. Urine output reasonable. Hyperkalemia, recommendations per hospitalist. extubated this morning. Awake and stable. Wound over the left elbow appears to be healthy. Less edematous. Skin edges are still under tension and therefore healing by secondary intention would be ideal. Nursing staff report suicidal behavior of the patient and the hospitalist Dr. Kaye confirms making the necessary arrangements. Program Management Specialist has recommended observation for 2 more days in view of blood transfusion induced concerns. patient awake and interactive. Hemoglobin just over 7 g. Awaiting clearance by the civil engineer helper regarding transfusion incompatibility. hemoglobin stable wound appears to be healthy. Arrangements for transfer to an inpatient psychiatric unit in progress medically stable. Wound healthy. Requires psychiatric care without further delay. staff attorney in the process of making the necessary arrangements. Final Diagnosis self-inflicted laceration of left elbow. ENEDINA FISHER MD Feb 13, 2018 8:45 am
[2018-02-13 09:44] LABS: BASOPHILS % (AUTO) 0 % (0-10); EOSINOPHILS # (AUTO) 0.1 10^3/uL (0.0-0.3); EOSINOPHILS % (AUTO) 2 % (0-10); HEMATOCRIT 28 % (40-54); HEMOGLOBIN 9.4 G/DL (13.3-17.7); LYMPHOCYTES # (AUTO) 2.7 X 10^3 (1.0-4.0); LYMPHOCYTES % (AUTO) 33 % (12-44); MEAN CORPUSCULAR HEMOGLOBIN 28 PG (25-34); MEAN CORPUSCULAR HGB CONC 34 G/DL (32-36); MEAN CORPUSCULAR VOLUME 84 FL (80-99); MEAN PLATELET VOLUME 10.5 FL (7.4-10.4); MONOCYTES # (AUTO) 0.6 X 10^3 (0.0-1.0); MONOCYTES % (AUTO) 8 % (0-12); NEUTROPHILS # (AUTO) 4.6 X 10^3 (1.8-7.8); NEUTROPHILS % (AUTO) 57 % (42-75); PLATELET COUNT 213 10^3/uL (130-400); RED BLOOD COUNT 3.34 10^6/uL (4.35-5.85); RED CELL DISTRIBUTION WIDTH 14.9 % (10.0-14.5); WHITE BLOOD COUNT 8.1 10^3/uL (4.3-11.0)
[2018-02-13 10:00] LABS: BUN/CREATININE RATIO 22; CALCIUM 8.1 MG/DL (8.5-10.1); CARBON DIOXIDE 32 MMOL/L (21-32); CHLORIDE 103 MMOL/L (98-107); CREATININE SERUM 0.72 MG/DL (0.60-1.30); GFR ESTIMATED > 60; GLUCOSE 104 MG/DL (70-105); POTASSIUM 3.4 MMOL/L (3.6-5.0); SODIUM 140 MMOL/L (135-145)
[2018-02-13 11:58] VITALS: BP 157/94
[2018-02-13 20:07] VITALS: BP 143/90
[2018-02-14] MEDS: ZIPRASIDONE 20 MG (GEODON) CAP PO SCH ×2 (07:38→17:47)
--- NOTE | 2018-02-14 07:46 | Progress Note-Hospitalist ---
Subjective HPI/CC On Admission Date Seen by Provider: Feb 14, 2018 Time Seen by Provider: 07:43 Pt is a 32yoCM with a PMH of substance abuse and suicide attempts who presented to the ER after being found in a [employer] bathroom with self inflicted injuries. He has attempted to harm himself in this manor previously as recently as both April and May of 2017. Subjective/Events-last exam Pt reports doing well. No complaints. Eating and drinking well. Objective Exam Vital Signs Vital Signs Date Time Temp Pulse Resp B/P (MAP) Pulse Ox O2 Delivery O2 Flow Rate FiO2 02/08/18 17:37 95.1 98 16 62/22 (35) 95 Nasal Cannula 02/08/18 17:40 95 02/08/18 18:25 3.00 Capillary Refill : Less Than 3 Seconds Vital Signs Date Time Temp Pulse Resp B/P (MAP) Pulse Ox O2 Delivery O2 Flow Rate FiO2 02/13/18 20:55 98 Room Air 02/13/18 20:07 98.4 74 18 143/90 (107) 98 Room Air 02/13/18 11:58 84 18 157/94 (115) 98 Room Air 02/13/18 09:00 98 Room Air 02/13/18 08:00 98.4 83 18 166/88 (114) 98 Room Air I & O 02/14/18 07:00 Intake Total 950 ml Output Total 1700 ml Balance -750 ml General Appearance: No Apparent Distress, WD/WN Respiratory: Lungs Clear, No Respiratory Distress Cardiovascular: Regular Rate, Rhythm, No Murmur Neurologic/Psychiatric: Alert, Oriented x3 Skin: Normal Color, Warm/Dry, Tattoos/Piercings Results/Procedures Lab Laboratory Tests 02/13/18 09:33 Patient resulted labs reviewed. Imaging: Reviewed Imaging Films Assessment/Plan Assessment and Plan Assess & Plan/Chief Complaint Suicide Attempt Diagnosis/Problems Diagnosis/Problems (1) Suicide attempt Status: Acute Assessment & Plan: Has history of similar attempts in past Still actively suicidal Cannot leave AMA due to risk of self harm Will need placement for inpatient psych stable for transfer to inpatient psych from medical standpoint. (2) Mismatched blood transfused Status: Acute Assessment & Plan: Activated as trauma on arrival and received blood products per protocol Has Anti- D antibodies which were resulted after completion of 2 units unmatched blood heme consulted, appreciate recs Adequate UOP Completed Solu-Medrol taper 02/12 Medically stable for DC when psych bed available (3) Laceration of left elbow with complication Status: Acute Assessment & Plan: Underwent urgent exploration 02/[address] Gilbert Dressing per Dr Gilbert orders- daily changes Qualifiers: Encounter type: initial encounter Qualified Codes: S51.012A - Laceration without foreign body of left elbow, initial encounter (4) Agitation Status: Acute Assessment & Plan: tolerating Geodon and psychosis improving (5) Hypotension Status: Resolved Assessment & Plan: Trending up this AM, will monitor Qualifiers: Hypotension type: unspecified hypotension type Qualified Codes: I95.9 - Hypotension, unspecified (6) Normocytic anemia Status: Acute Assessment & Plan: s/p 5 units of pRBCs Stable (7) Hypothyroidism Assessment & Plan: TSH high but normal T4 Continue Synthroid Qualifiers: Hypothyroidism type: unspecified Qualified Codes: E03.9 - Hypothyroidism, unspecified (8) Leukocytosis Status: Resolved Assessment & Plan: Resolved Qualifiers: Leukocytosis type: unspecified Qualified Codes: D72.829 - Elevated white blood cell count, unspecified (9) Hyperkalemia Status: Resolved Assessment & Plan: resolved (10) Methamphetamine use Status: Acute Assessment & Plan: UDS positive (11) MITESH (acute kidney injury) Status: Resolved Assessment & Plan: Now resolved, continue to monitor Clinical Quality Measures DVT/VTE Risk/Contraindication: Risk Factor Score Per Nursin RFS Level Per Nursing on Admit: 3=High BRUNO CHARLES MD Feb 14, 2018 07:46
[2018-02-14 09:00] VITALS: BP 142/85
[2018-02-14 09:23] LABS: BUN/CREATININE RATIO 19; CALCIUM 8.4 MG/DL (8.5-10.1); CARBON DIOXIDE 28 MMOL/L (21-32); CHLORIDE 101 MMOL/L (98-107); CREATININE SERUM 0.75 MG/DL (0.60-1.30); GFR ESTIMATED > 60; GLUCOSE 105 MG/DL (70-105); SODIUM 139 MMOL/L (135-145)
[2018-02-14 09:27] LABS: BASOPHILS % (AUTO) 0 % (0-10); EOSINOPHILS # (AUTO) 0.2 10^3/uL (0.0-0.3); EOSINOPHILS % (AUTO) 3 % (0-10); HEMATOCRIT 33 % (40-54); LYMPHOCYTES % (AUTO) 26 % (12-44); MEAN CORPUSCULAR HEMOGLOBIN 28 PG (25-34); MEAN CORPUSCULAR HGB CONC 34 G/DL (32-36); MEAN CORPUSCULAR VOLUME 83 FL (80-99); MEAN PLATELET VOLUME 10.4 FL (7.4-10.4); MONOCYTES # (AUTO) 0.5 X 10^3 (0.0-1.0); MONOCYTES % (AUTO) 7 % (0-12); NEUTROPHILS # (AUTO) 4.9 X 10^3 (1.8-7.8); NEUTROPHILS % (AUTO) 64 % (42-75); PLATELET COUNT 274 10^3/uL (130-400); RED BLOOD COUNT 3.95 10^6/uL (4.35-5.85); RED CELL DISTRIBUTION WIDTH 15.2 % (10.0-14.5); WHITE BLOOD COUNT 7.7 10^3/uL (4.3-11.0)
--- NOTE | 2018-02-14 11:52 | Progress Note (SOAP) ---
Subjective Date Seen by Provider: Feb 14, 2018 Time Seen by Provider: 11:35 Subjective/Events-last exam Patient seen with Dr. Javier. Patient reports doing well this AM. Eating and drinking well. Does report some pain of the left arm. Objective Exam Vital Signs Date Time Temp Pulse Resp B/P (MAP) Pulse Ox O2 Delivery O2 Flow Rate FiO2 02/14/18 09:00 98.5 82 18 142/85 (104) 98 Room Air 02/14/18 08:00 Room Air 02/13/18 20:55 98 Room Air 02/13/18 20:07 98.4 74 18 143/90 (107) 98 Room Air 02/13/18 11:58 84 18 157/94 (115) 98 Room Air I & O 02/14/18 07:00 Intake Total 950 ml Output Total 1700 ml Balance -750 ml Capillary Refill : Less Than 3 Seconds General Appearance: No Apparent Distress, WD/WN Respiratory: Lungs Clear, Normal Breath Sounds, No Accessory Muscle Use, No Respiratory Distress Cardiovascular: Regular Rate, Rhythm, No Edema Gastrointestinal: normal bowel sounds, non tender, soft Extremity: Normal Capillary Refill, Normal Range of Motion, Other (palpable left radial pulse.) Skin: Normal Color, Warm/Dry, Tattoos/Piercings Results Lab Laboratory Tests 02/14/18 08:51: White Blood Count 7.7, Red Blood Count 3.95L, Hemoglobin 11.0L, Hematocrit 33L, Mean Corpuscular Volume 83, Mean Corpuscular Hemoglobin 28, Mean Corpuscular Hemoglobin Concent 34, Red Cell Distribution Width 15.2H, Platelet Count 274, Mean Platelet Volume 10.4, Neutrophils (%) (Auto) 64, Lymphocytes (%) (Auto) 26 , Monocytes (%) (Auto) 7, Eosinophils (%) (Auto) 3, Basophils (%) (Auto) 0, Neutrophils # (Auto) 4.9, Lymphocytes # (Auto) 2.0, Monocytes # (Auto) 0.5, Eosinophils # (Auto) 0.2, Basophils # (Auto) 0.0, Sodium Level 139, Potassium Level 4.0, Chloride Level 101, Carbon Dioxide Level 28, Anion Gap 10, Blood Urea Nitrogen 14, Creatinine 0.75, Estimat Glomerular Filtration Rate > 60, BUN/ Creatinine Ratio 19, Glucose Level 105, Calcium Level 8.4L Assessment/Plan Assessment/Plan Assess & Plan/Chief Complaint Self-inflicted laceration of left elbow. medically stable. Wound healthy. Requires psychiatric care without further delay. staff anesthesiologist in the process of making the necessary arrangements. Clinical Quality Measures DVT/VTE Risk/Contraindication: Risk Factor Score Per Nursin RFS Level Per Nursing on Admit: 3=High STERLING BUTLER APRN Feb 14, 2018 11:52 am
[2018-02-14 15:10] VITALS: BP 129/79
[2018-02-14 20:04] VITALS: BP 149/92
[2018-02-15] MEDS: ZIPRASIDONE 20 MG (GEODON) CAP PO SCH ×2 (07:06→17:27)
[2018-02-15 08:00] VITALS: BP 155/92
--- NOTE | 2018-02-15 10:07 | Progress Note (SOAP) ---
Subjective Date Seen by Provider: Feb 15, 2018 Time Seen by Provider: 10:00 Subjective/Events-last exam doing well. no issues. awaiting transfer to inpatient psychiatric care. Objective Exam Vital Signs Date Time Temp Pulse Resp B/P (MAP) Pulse Ox O2 Delivery O2 Flow Rate FiO2 02/15/18 08:00 97.8 91 18 155/92 (113) 99 Room Air 02/14/18 21:00 97 Room Air 02/14/18 20:04 98.7 103 18 149/92 (111) 97 Room Air 02/14/18 15:10 98.9 80 17 129/79 (96) 96 Room Air I & O 02/15/18 07:00 Intake Total 1346 ml Output Total 975 ml Balance 371 ml Capillary Refill : Less Than 3 Seconds General Appearance: No Apparent Distress HEENT: PERRL/EOMI Neck: Full Range of Motion Respiratory: Chest Non Tender Cardiovascular: Regular Rate, Rhythm Gastrointestinal: normal bowel sounds, non tender, soft Extremity: Normal Capillary Refill Neurologic/Psychiatric: Alert, Oriented x3 Skin: Normal Color Lymphatic: No Adenopathy Assessment/Plan Assessment/Plan Assess & Plan/Chief Complaint depression/suicide risk/self mutilative behavior. clinicall stable with stable wound. awaiting transfer to inpatient psychiatry. Clinical Quality Measures DVT/VTE Risk/Contraindication: Risk Factor Score Per Nursin RFS Level Per Nursing on Admit: 3=High SOLIS COLMENARES MD Feb 15, 2018 10:07 am
--- NOTE | 2018-02-15 12:08 | Progress Note-Hospitalist ---
Subjective HPI/CC On Admission Date Seen by Provider: Feb 15, 2018 Time Seen by Provider: 09:30 Pt is a 32yoCM with a PMH of substance abuse and suicide attempts who presented to the ER after being found in a [employer] bathroom with self inflicted injuries. He has attempted to harm himself in this manor previously as recently as both April and May of 2017. Subjective/Events-last exam Pt sleepy during exam. Denies any complaints or need. Discussed with RN. He was up ambulating well yesterday. Has been cooperative with dressing changes. Objective Exam Vital Signs Vital Signs Date Time Temp Pulse Resp B/P (MAP) Pulse Ox O2 Delivery O2 Flow Rate FiO2 02/09/18 00:00 99 Mechanical Ventilator 24 02/09/18 00:00 115 25 103/81 (88) 35.00 02/09/18 00:11 98.1 Capillary Refill : Less Than 3 Seconds General Appearance: No Apparent Distress, WD/WN Respiratory: Lungs Clear, No Respiratory Distress Cardiovascular: Regular Rate, Rhythm, No Murmur Extremity: Other (surgical dressing in place) Results/Procedures Lab Patient resulted labs reviewed. Imaging: Reviewed Imaging Films Assessment/Plan Assessment and Plan Assess & Plan/Chief Complaint Suicide Attempt Diagnosis/Problems Diagnosis/Problems (1) Suicide attempt Status: Acute Assessment & Plan: Has history of similar attempts in past Still actively suicidal tolerating Geodon well Cannot leave AMA due to risk of self harm Will need placement for inpatient psych stable for transfer to inpatient psych from medical standpoint. (2) Mismatched blood transfused Status: Acute Assessment & Plan: Activated as trauma on arrival and received blood products per protocol Has Anti-D antibodies which were resulted after completion of 2 units unmatched blood heme consulted, appreciate recs Adequate UOP Completed Solu-Medrol taper 02/12 Medically stable for DC when psych bed available (3) Laceration of left elbow with complication Status: Acute Assessment & Plan: Underwent urgent exploration 02/[address] Gilbert Dressing per Dr Gilbert orders- daily changes Qualifiers: Encounter type: initial encounter Qualified Codes: S51.012A - Laceration without foreign body of left elbow, initial encounter (4) Agitation Status: Acute Assessment & Plan: tolerating Geodon and psychosis improving (5) Hypotension Status: Resolved Assessment & Plan: now having elevated BPs trend- could consider treatment if remains high Qualifiers: Hypotension type: unspecified hypotension type Qualified Codes: I95.9 - Hypotension, unspecified (6) Normocytic anemia Status: Acute Assessment & Plan: s/p 5 units of pRBCs Stable (7) Hypothyroidism Status: Acute Assessment & Plan: TSH high but normal T4 Will need outpatient followup Qualifiers: Hypothyroidism type: unspecified Qualified Codes: E03.9 - Hypothyroidism, unspecified (8) Leukocytosis Status: Resolved Assessment & Plan: Resolved Qualifiers: Leukocytosis type: unspecified Qualified Codes: D72.829 - Elevated white blood cell count, unspecified (9) Hyperkalemia Status: Resolved Assessment & Plan: resolved (10) Methamphetamine use Status: Chronic Assessment & Plan: UDS positive (11) MITESH (acute kidney injury) Status: Resolved Assessment & Plan: Now resolved, continue to monitor Clinical Quality Measures DVT/VTE Risk/Contraindication: Risk Factor Score Per Nursin RFS Level Per Nursing on Admit: 3=High BRUNO CHARLES MD Feb 15, 2018 12:08
[2018-02-15 20:05] VITALS: BP 149/110
[2018-02-15 23:30] VITALS: BP 139/91
[2018-02-16 04:05] VITALS: BP 150/96
[2018-02-16] MEDS ORDERED: PIPERACILLIN/TAZO 4.5 GM VIAL (ZOSYN) IV ONE (04:31)
[2018-02-16] MEDS ORDERED: NS (IVPB) 100 ML ONE (04:31)
[2018-02-16] MEDS: PIPERACILLIN SODIUM/TAZOBACTAM 4.5 GM in NS (IVPB) 100 ML IV SCH ×3 (05:02→23:02)
[2018-02-16 05:13] LABS: BASOPHILS # (AUTO) 0.1 10^3/uL (0.0-0.1); BASOPHILS % (AUTO) 1 % (0-10); EOSINOPHILS # (AUTO) 0.3 10^3/uL (0.0-0.3); EOSINOPHILS % (AUTO) 3 % (0-10); HEMATOCRIT 34 % (40-54); HEMOGLOBIN 11.6 G/DL (13.3-17.7); LYMPHOCYTES # (AUTO) 2.9 X 10^3 (1.0-4.0); LYMPHOCYTES % (AUTO) 28 % (12-44); MEAN CORPUSCULAR HEMOGLOBIN 28 PG (25-34); MEAN CORPUSCULAR HGB CONC 34 G/DL (32-36); MEAN CORPUSCULAR VOLUME 82 FL (80-99); MEAN PLATELET VOLUME 10.2 FL (7.4-10.4); MONOCYTES # (AUTO) 0.7 X 10^3 (0.0-1.0); MONOCYTES % (AUTO) 6 % (0-12); NEUTROPHILS # (AUTO) 6.4 X 10^3 (1.8-7.8); NEUTROPHILS % (AUTO) 62 % (42-75); PLATELET COUNT 358 10^3/uL (130-400); RED BLOOD COUNT 4.15 10^6/uL (4.35-5.85); RED CELL DISTRIBUTION WIDTH 15.3 % (10.0-14.5); WHITE BLOOD COUNT 10.3 10^3/uL (4.3-11.0)
[2018-02-16 05:32] LABS: BUN/CREATININE RATIO 20; CALCIUM 8.8 MG/DL (8.5-10.1); CARBON DIOXIDE 23 MMOL/L (21-32); CHLORIDE 104 MMOL/L (98-107); CREATININE SERUM 0.79 MG/DL (0.60-1.30); GFR ESTIMATED > 60; GLUCOSE 101 MG/DL (70-105); POTASSIUM 4.5 MMOL/L (3.6-5.0); SODIUM 137 MMOL/L (135-145)
[2018-02-16 08:00] VITALS: BP 140/87
[2018-02-16] MEDS: ZIPRASIDONE 20 MG (GEODON) CAP PO SCH ×2 (09:23→17:46)
[2018-02-16 16:00] VITALS: BP 131/79
--- NOTE | 2018-02-16 16:22 | Progress Note-Standard ---
Standard Progress Note Progress Notes/Assess & Plan Date Seen by Provider: Feb 16, 2018 Time Seen by Provider: 14:55 Progress/Assessment & Plan mechanically ventilated. Hemodynamically stable. Good. Pulse felt over the left radial artery. Mismatched transposition with antibiotics reported. Hospitalist following. Urine output reasonable. Hyperkalemia, recommendations per hospitalist. extubated this morning. Awake and stable. Wound over the left elbow appears to be healthy. Less edematous. Skin edges are still under tension and therefore healing by secondary intention would be ideal. Nursing staff report suicidal behavior of the patient and the hospitalist Dr. Kaye confirms making the necessary arrangements. Integrated Circuit Ic Layout Designer has recommended observation for 2 more days in view of blood transfusion induced concerns. patient awake and interactive. Hemoglobin just over 7 g. Awaiting clearance by the computer patternmaker regarding transfusion incompatibility. hemoglobin stable wound appears to be healthy. Arrangements for transfer to an inpatient psychiatric unit in progress medically stable. Wound healthy. Requires psychiatric care without further delay. waitstaff in the process of making the necessary arrangements. Afebrile. Concern about crepitus around the wound brought up early this morning.. His upper arm is soft and I do not see any evidence of tissue necrosis or gas gangrene. The feeling of crepitus is due to the skin flaps being loose. The open aspect of the wound appears to be granulating satisfactorily. I feel strongly that he would benefit from behavioral health care as soon as possible Final Diagnosis Laceration of the left elbow ENEDINA FISHER MD Feb 16, 2018 4:22 pm
--- NOTE | 2018-02-16 16:35 | Progress Note-Hospitalist ---
Progress Note HPI/CC on Admission Pt is a 32yoCM with a PMH of substance abuse and suicide attempts who presented to the ER after being found in a [facility] bathroom with self inflicted injuries. He has attempted to harm himself in this manor previously as recently as both April and May of 2017. Progress Notes/Assess & Plan Date Seen 02/16/18 Time Seen by Provider: 16:28 Diagonsis/Assessment & Plan The patient is a 32-year-old white male who attempted suicide 8 days ago by slashing his left antecubital fossa with a knife while in the bathroom at a local [facility]. It was brought to the emergency room by ambulance and went directly to the OR for arterial repair by Dr. Gilbert. In the postop. He was aggressive and psychotic. This has now been managed. He is actually quite pleasant today. He was to have gone to [facility] today. Apparently a rn shift mgr nurse reported crepitus in the right upper arm and this was enough to derail the plan. Dr. Gilbert has subsequently examine the surgical wound and was quite pleased with the healing process. Physical exam: The patient is alert and sitting up on the bedside talking calmly to a female abatement worker. Lungs are clear to auscultation. CV is regular without murmur. Vital signs are stable. Impression: Suicide attempt by laceration of the left antecubital fossa. 2.subsequent arterial bleed and surgical repair. Plan: Attempt transfer in MARIANN Ferreira MD Feb 16, 2018 16:35
[2018-02-16 20:00] VITALS: BP 145/93
[2018-02-17] VITALS (7 sets, daily range): BP systolic 127–146; BP diastolic 72–98
[2018-02-17] MEDS: PIPERACILLIN SODIUM/TAZOBACTAM 4.5 GM in NS (IVPB) 100 ML IV SCH (05:12)
[2018-02-17] MEDS: ZIPRASIDONE 20 MG (GEODON) CAP PO SCH ×2 (06:19→17:03)
--- NOTE | 2018-02-17 10:27 | Progress Note-Standard ---
Standard Progress Note Progress Notes/Assess & Plan Date Seen by Provider: Feb 17, 2018 Time Seen by Provider: 10:26 Progress/Assessment & Plan mechanically ventilated. Hemodynamically stable. Good. Pulse felt over the left radial artery. Mismatched transposition with antibiotics reported. Hospitalist following. Urine output reasonable. Hyperkalemia, recommendations per hospitalist. extubated this morning. Awake and stable. Wound over the left elbow appears to be healthy. Less edematous. Skin edges are still under tension and therefore healing by secondary intention would be ideal. Nursing staff report suicidal behavior of the patient and the hospitalist Dr. Kaye confirms making the necessary arrangements. Clinical Advisor has recommended observation for 2 more days in view of blood transfusion induced concerns. patient awake and interactive. Hemoglobin just over 7 g. Awaiting clearance by the manager rehab regarding transfusion incompatibility. hemoglobin stable wound appears to be healthy. Arrangements for transfer to an inpatient psychiatric unit in progress medically stable. Wound healthy. Requires psychiatric care without further delay. staff technologist in the process of making the necessary arrangements. Afebrile. Concern about crepitus around the wound brought up early this morning.. His upper arm is soft and I do not see any evidence of tissue necrosis or gas gangrene. The feeling of crepitus is due to the skin flaps being loose. The open aspect of the wound appears to be granulating satisfactorily. I feel strongly that he would benefit from behavioral health care as soon as possible. Continues to improve. Antibiotics could be stopped today. Simple wound care to be continued. Patient is stable and from a surgical standpoint, to be transferred to the [facility] to receive the appropriate care. Final Diagnosis Self-inflicted laceration of the left elbow ENEDINA FISHER MD Feb 17, 2018 10:27
--- NOTE | 2018-02-17 13:31 | Progress Note (SOAP) ---
Subjective Date Seen by Provider: Feb 17, 2018 Time Seen by Provider: 08:45 Subjective/Events-last exam Patient has no specific symptoms. Afebrile. Anxious to receive the appropriate behavioral health care. Antibiotics would be discontinued Review of Systems General: No Chills, No Night Sweats, No Fatigue, No Malaise HEENT: No Head Aches, No Eye Pain, No Ear Pain, No Dysphasia, No Sinus Congestion, No Post Nasal Drip, No Sore Throat Pulmonary: No Dyspnea, No Cough, No Pleuritic Chest Pain Cardiovascular: No: Chest Pain, Palpitations, Orthopnea, Paroxysmal Noc. Dyspnea, Edema, Lt Headedness, Other Genitourinary: No Dysuria, No Frequency, No Incontinence, No Hematuria, No Retention Musculoskeletal: No: other, neck pain, shoulder pain, arm pain, back pain, hand pain, leg pain, foot pain Neurological: No: Weakness, Numbness, Incoordination, Change in speech, Confusion, Seizures, Other Objective Exam Vital Signs Date Time Temp Pulse Resp B/P (MAP) Pulse Ox O2 Delivery O2 Flow Rate FiO2 02/17/18 12:14 97.1 110 12 127/93 (104) 97 Room Air 02/17/18 08:00 Room Air 02/17/18 07:58 97.5 92 17 134/72 (92) 99 Room Air 02/17/18 04:00 98.5 87 15 133/74 (93) 99 Room Air 02/17/18 00:00 98.3 106 17 146/88 (107) 98 Room Air 02/16/18 21:00 Room Air 02/16/18 20:00 98.2 101 14 145/93 (110) 100 Room Air 02/16/18 16:00 97.6 100 16 131/79 (96) 100 Room Air I & O 02/17/18 07:00 Intake Total 3120 ml Output Total 4000 ml Balance -880 ml Capillary Refill : Less Than 3 Seconds General Appearance: No Apparent Distress Neck: Normal Inspection Respiratory: Lungs Clear Cardiovascular: Regular Rate, Rhythm Gastrointestinal: soft Extremity: Other Neurologic/Psychiatric: Alert, Oriented x3 Skin: Warm/Dry Other comments The wound over the left elbow appears to be granulating. There is no evidence of active infection or cellulitis. Antibiotics could be discontinued. Recommend dressing with Xeroform gauze and Kerlix wrap once a day. Does not require continued antibiotics. Care regarding behavioral health issues takes priority and it is essential that this service be provided to him without further delay Results Lab Microbiology 02/16/18 Blood Culture - Preliminary, Resulted No growth 02/16/18 Gram Stain - Final, Resulted 02/16/18 Wound Culture - Preliminary, Resulted Staphylococcus aureus Assessment/Plan Assessment/Plan Assess & Plan/Chief Complaint Gentleman with a self-inflicted laceration of the left elbow. Neurovascular bundle intact. No active infection. The wound was not closed completely due to tension. Sutures intact the central aspect of the wound is granulating measuring about 4 cm transversely by 3 cm vertically. This could be managed with simple wound care measures using Xeroform gauze and Kerlix wrapping once a day Final Diagnosis Self-inflicted laceration of the left elbow. Suicidal ideation Clinical Quality Measures Admission Status Admission Dx Gentleman with acute hypotension due to blood loss from a laceration over the left elbow. Central venous catheter placed over the right internal jugular vein using ultrasound guidance and blood transfusion initiated. Intraosseous access placed by the paramedics and removed in the emergency room. Will be taken to surgery for urgent exploration of the left elbow. Tourniquet was removed in the emergency room with no evidence of active bleeding DVT/VTE Risk/Contraindication: Risk Factor Score Per Nursin RFS Level Per Nursing on Admit: 3=High ENEDINA FISHER MD Feb 17, 2018 1:31 pm
[2018-02-18 04:30] VITALS: BP 140/83
[2018-02-18 08:50] VITALS: BP 120/98
[2018-02-18] MEDS: ZIPRASIDONE 20 MG (GEODON) CAP PO SCH (09:33)
[2018-02-18] MEDS ORDERED: ZIPR20CA24 PO (11:18)
--- NOTE | 2018-02-18 11:58 | Discharge Summary-Hospitalist ---
Diagnosis/Chief Complaint Date of Admission Feb 08, 2018 at 20:34 Date of Discharge Discharge Date: Feb 18, 2018 Discharge Diagnosis (1) Suicide attempt Status: Acute Assessment & Plan: Has history of similar attempts in past Still actively suicidal tolerating Geodon well Cannot leave AMA due to risk of self harm Will need placement for inpatient psych stable for transfer to inpatient psych from medical standpoint. (2) Mismatched blood transfused Status: Acute Assessment & Plan: Activated as trauma on arrival and received blood products per protocol Has Anti-D antibodies which were resulted after completion of 2 units unmatched blood heme consulted, appreciate recs Adequate UOP Completed Solu-Medrol taper 02/12 Medically stable for DC when psych bed available (3) Laceration of left elbow with complication Status: Acute Assessment & Plan: Underwent urgent exploration 02/[address] Gilbert Dressing per Dr Gilbert orders- daily changes (4) Agitation Status: Acute Assessment & Plan: tolerating Geodon and psychosis improving (5) Hypotension Status: Resolved Assessment & Plan: now having elevated BPs trend- could consider treatment if remains high (6) Normocytic anemia Status: Acute Assessment & Plan: s/p 5 units of pRBCs Stable (7) Hypothyroidism Status: Acute Assessment & Plan: TSH high but normal T4 Will need outpatient followup (8) Leukocytosis Status: Resolved Assessment & Plan: Resolved (9) Hyperkalemia Status: Resolved Assessment & Plan: resolved (10) Methamphetamine use Status: Chronic Assessment & Plan: UDS positive (11) MITESH (acute kidney injury) Status: Resolved Assessment & Plan: Now resolved, continue to monitor Discharge Summary Discharge Physical Exam Allergies: Coded Allergies: haloperidol (Unverified Adverse Reaction, Unknown, 05/22/17) Vitals & I&Os Vital Signs Date Time Temp Pulse Resp B/P (MAP) Pulse Ox O2 Delivery O2 Flow Rate FiO2 02/18/18 12:25 02/18/18 08:50 87 16 100 Room Air 02/18/18 04:30 96.9 General Appearance: Alert, Oriented X3, Cooperative HEENT: Atraumatic, PERRLA Respiratory: Clear to Auscultation, Normal Air Movement Psych/Mental Status: Mental Status NL, Mood NL Hospital Course Dr. Tracy Review: Dr. Tracy was called and she made it clear that if pt is not in the condition that we assured her he is, he will be sent back to [facility] Wound dressing was discussed auto damage appraiser: Pt is here because of suicide attempt, he cut himself and hit a deep vein. Dr. Gilbert did surgery Pt is not on abx currently, crepitus was resolved Wound is gauze wrapped No medical issues Pt has depression and was on meth when he attempted suicide this time, has had previous suicide attempts and scars on arms ADHD hx Pt is nice and seems clear now Dr. Gilbert says he will do DrCelio to when he gets time SW Review: Pt had suicidal thoughts this am Pt Interview: Pt was finished with shower during interview Pt confirms eating and drinking and confirms urinating and BMs Pt denies any concerns Physical exam stable. Lungs CTAB Plan: DC to [facility] Scribed by Fany Harper under direct supervision of Dr. Ruth Sanchez. Hospital course: This is a 32yoWM patient with h/o meth abuse and suicide attempts who attempted to kill himself with left elbow excision by a knife. [facility] Pt was sent to ER and deep vein was noted to have been lacerated and that was repaired. Pt had wound care management and secondary intention area of the laceration appears to have good granulation tissue and had no evidence of erythema or infection. Pt was deemed stable for DC to [facility]. Labs (last 24 hrs) Microbiology 02/16/18 Blood Culture - Preliminary, Resulted No growth 02/16/18 Gram Stain - Final, Resulted 02/16/18 Wound Culture - Preliminary, Resulted Staphylococcus aureus Patient resulted labs reviewed. Imaging: Reviewed Imaging Films Discussion & Recommendations Discharge Planning: <30 minutes discharge planning Discharge Home Medications: Active Scripts Active Ziprasidone HCl 20 Mg Capsule 20 Mg PO BID WITH MEALS 30 Days Instructions to patient/family Please see electronic discharge instructions given to patient. Clinical Quality Measures DVT/VTE Risk/Contraindication: Risk Factor Score Per Nursin RFS Level Per Nursing on Admit: 3=High Problem Qualifiers (1) Laceration of left elbow with complication: Encounter type: initial encounter Qualified Codes: S51.012A - Laceration without foreign body of left elbow, initial encounter (2) Hypotension: Hypotension type: unspecified hypotension type Qualified Codes: I95.9 - Hypotension, unspecified (3) Hypothyroidism: Hypothyroidism type: unspecified Qualified Codes: E03.9 - Hypothyroidism, unspecified (4) Leukocytosis: Leukocytosis type: unspecified Qualified Codes: D72.829 - Elevated white blood cell count, unspecified RUTH SANCHEZ DO Feb 18, 2018 11:58
--- NOTE | 2018-02-18 13:44 | Progress Note-Standard ---
Standard Progress Note Progress Notes/Assess & Plan Date Seen by Provider: Feb 18, 2018 Time Seen by Provider: 10:45 Progress/Assessment & Plan Wound appears to be granulating satisfactorily and he could be transferred to psychiatric care Final Diagnosis Self-inflicted laceration of the left elbow ENEDINA FISHER MD Feb 18, 2018 1:44 pm
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
== END 2018-02-18 12:25 | DRG 907 ==
LOC: EDUNIT# 17:37 → ER 17:38 → SDC 18:47 → ICU 20:34
PROVIDERS: ADMIT Surgery; ATTEND Surgery
PROC: 5A1945Z Respiratory Ventilation, 24-96 Consecutive Hours (ICD-10-PCS; 2018-02-08)
PROC: 05Q Upper Veins, Repair (ICD-10-PCS; principal; 2018-02-08 18:26)
DX: S55.212A Laceration of vein at forearm level, left arm, initial encounter (principal); S51.012A Laceration without foreign body of left elbow, initial encounter; T79.4XXA Traumatic shock, initial encounter; D62 Acute posthemorrhagic anemia; N17.9 Acute kidney failure, unspecified; R68.0 Hypothermia, not associated with low environmental temperature; E87.5 Hyperkalemia; E03.9 Hypothyroidism, unspecified; R45.1 Restlessness and agitation; F15.90 Other stimulant use, unspecified, uncomplicated; F12.90 Cannabis use, unspecified, uncomplicated; F17.210 Nicotine dependence, cigarettes, uncomplicated; F10.10 Alcohol abuse, uncomplicated; F90.9 Attention-deficit hyperactivity disorder, unspecified type; F41.9 Anxiety disorder, unspecified; F32.9 Major depressive disorder, single episode, unspecified; X78.1XXA Intentional self-harm by knife, initial encounter; Y92.524 Gas station as the place of occurrence of the external cause; Z23 Encounter for immunization
CPT/HCPCS: 36415; 71045; 80048; 80053; 80306; 80320; 80329; 82271; 82805; 82962; 83010; 83615; 83735; 84100; 84439; 84443; 84478; 85007; 85025; 85027; 85610; 85730; 86850; 86870; 86900; 86901; 86922; 87040; 87070; 87077; 87186; 87205; 90714; 93041; 94002; 94003; 94664; 94799; 99291

== ENCOUNTER 2019-01-07 16:10 | Emergency (ER) | payer BC, OTHER ==
[~2019-01-07] VITALS: Ht 182.9 cm; Wt 81.6 kg
[~2019-01-07 16:10] MED LIST changes: +ZIPR20CA24 PO
--- NOTE | 2019-01-07 16:16 | NUR ---
ATTEMPT TO CALL PT BACK ET PT IN BATHROOM.
[2019-01-07] MEDS ORDERED: FLUORESCEIN (FLUOR-I-STRIPS) 1 MG STRP OU ONE (16:30)
[2019-01-07] MEDS ORDERED: TETRACAINE 0.5% OPHTH SOLN 4 ML BTL (SINGLE DOSE ONLY) OU ONE (16:30)
[2019-01-07] MEDS ORDERED: BSS 15 ML IR ONE (16:30)
[2019-01-07] MEDS ORDERED: HYDR-4226 PO (16:46)
--- NOTE | 2019-01-07 16:46 | ED EENT ---
History of Present Illness General Chief Complaint: Eye Problems Stated Complaint: LT EYE INJURY Nursing Triage Note: THE PT IS AMBULATORY TO THE ROOM WITHOUT DIFFICULTY. NO DISTRESS IS SEEN ON ARRIVAL LOC IS NORMAL FOR THE PT. THE PT SCRATCHED HIS LEFT EYE. Source: patient Exam Limitations: no limitations History of Present Illness Date Seen by Provider: Jan 07, 2019 Time Seen by Provider: 16:42 Initial Comments To ER per private vehicle with reports of left eye injury. He was babysitting his nephew when his nephew attempted to grab his hat and axially scratched his eye. This occurred just prior to arrival. He does not have an eye doctor. Timing/Duration: abrupt Severity: moderate Location: eye (L) Associated Symptoms: denies symptoms Allergies and Home Medications Allergies Coded Allergies: haloperidol (Unverified Adverse Reaction, Unknown, 05/22/17) Home Medications Ziprasidone HCl 20 Mg Capsule, 20 MG PO BID WITH MEALS Prescribed by: CHELA SANCHEZ on 02/18/18 1118 Patient Home Medication List Home Medication List Reviewed: Yes Review of Systems Review of Systems Constitutional: see HPI Eyes: See HPI, Foreign Body Sensation Ears: No Symptoms Reported Nose: no symptoms reported Mouth: no symptoms reported Throat: no symptoms reported Respiratory: no symptoms reported Cardiovascular: no symptoms reported Musculoskeletal: no symptoms reported Past Bfpnceu-Tdlxho-Wpjmku Hx Patient Social History Alcohol Beverage of Choice: Beer, Whiskey Drug of Choice: MARIJUANA Type Used: Cigarettes Recent Foreign Travel: No Contact w/Someone Who Travel: No Recent Infectious Disease Expo: No Recent Hopitalizations: Yes Physical Abuse: No Sexual Abuse: No Mistreated: No Fear: No Immunizations Up To Date Tetanus Booster (TDap): Unknown Seasonal Allergies Seasonal Allergies: No Past Medical History Surgeries: Yes Orthopedic Respiratory: No Currently Using CPAP: No Currently Using BIPAP: No Cardiac: No Neurological: No Reproductive Disorders: No Sexually Transmitted Disease: No Genitourinary: No Gastrointestinal: No Musculoskeletal: Yes Fractures Endocrine: No HEENT: No Cancer: No Psychosocial: Yes (history of alcohol abuse and suicidal ideation.) ADD/ADHD, Anxiety, Suicide Attempts, Depression Integumentary: No Blood Disorders: No Family Medical History Patient reports no known family medical history. No Pertinent Family Hx Unable to obtain family history Physical Exam Vital Signs Vital Signs - First Documented 01/07/19 16:33 Temp 96.3 Pulse 92 Resp 16 B/P (MAP) 150/96 (114) Height, Weight, BMI Height: 6'0" Weight: 180lbs. 0oz. 81.058399no; 25.4 BMI Method:Estimated General Appearance: WD/WN, no apparent distress Eyes: left eye other (There is a superficial corneal abrasion to the left eye from about the 9:00 to 11:00 position. No foreign bodies are seen. No hyphema. Pupils are reactive. Scleral injection is minimal. No subconjunctival hemorrhage.); bilateral eye PERRL, bilateral eye EOMI Ears: bilateral ear auricle normal, bilateral ear canal normal, bilateral ear TM normal Neck: non-tender, full range of motion Gastrointestinal: normal bowel sounds, non tender, soft Neurologic/Psychiatric: alert, normal mood/affect, oriented x 3 Skin: normal color, warm/dry Procedures/Interventions Date of ETT Placement: Feb 08, 2018 Suture Size: 3-0, 4-0 Progress/Results/Core Measures Results/Orders My Orders Orders - SABIHA RICHARDSON APRN Tetracaine 0.5% Ophth Jennifer Sdv (Tetracai (01/07/19 16:30) Fluorescein Strips (Rrbyj-F-Iydwnt) (01/07/19 16:30) Balanced Salt Irrigation Soln (Bss Irrig (01/07/19 16:30) Tobramycin Ophth Ointment (Tobrex Ophth (01/07/19 21:00) Vital Signs/I&O 01/07/19 16:33 Temp 96.3 Pulse 92 Resp 16 B/P (MAP) 150/96 (114) Blood Pressure Mean: 114 Departure Impression Primary Impression: Corneal abrasion Qualified Codes: S05.02XA - Injury of conjunctiva and corneal abrasion without foreign body, left eye, initial encounter Disposition: 01 HOME, SELF-CARE Condition: Stable Departure-Patient Inst. Decision time for Depature: 16:44 Referrals: CEZAR WILLAMS OD,LOCAL PHYSICIAN (PCP) Primary Care Physician Patient Instructions: Corneal Abrasion (DC) Add. Discharge Instructions: 1. Apply the antibiotic ointment to the lower eyelid 3 times a day for 4 days. This will help prevent infection. Take pain medication as directed. Follow-up with your doctor next week. If you do not have an eye doctor, call Dr. Willams tomorrow to make an appointment to be seen. All discharge instructions reviewed with patient and/or family. Voiced understanding. Scripts Hydrocodone/Acetaminophen ([place] 5-325 Tablet) 1 Each Tablet 1 EACH PO Q6H PRN for PAIN-MODERATE MDD 10, #14 TAB Prov: SABIHA RICHARDSON APRN 01/07/19 Work/School Note: Work Release Form Date Seen in the Emergency Department: Jan 07, 2019 Return to Work: Jan 09, 2019 SABIHA RICHARDSON APRN Jan 07, 2019 16:46
[2019-01-07 16:52] VITALS: BP 150/96
[2019-01-07] MEDS ORDERED: TOBRAMYCIN (TOBREX) 0.3% OP OINT 3.5 GM TUBE OU SCH (21:00)
== END 2019-01-07 17:01 | disposition home or self-care (01) ==
LOC: EDUNIT# 16:10 → ER 16:12
DX: S05.02XA Injury of conjunctiva and corneal abrasion without foreign body, left eye, initial encounter (principal); F12.10 Cannabis abuse, uncomplicated; F41.9 Anxiety disorder, unspecified; F32.9 Major depressive disorder, single episode, unspecified; F90.9 Attention-deficit hyperactivity disorder, unspecified type; Z88.8 Allergy status to other drugs, medicaments and biological substances; W51.XXXA Accidental striking against or bumped into by another person, initial encounter
CPT/HCPCS: 99282

== ENCOUNTER 2019-05-15 19:25 | Emergency (ER) | payer SELFPAY ==
[~2019-05-15] VITALS: Ht 177.8 cm; Wt 79.4 kg
[~2019-05-15 19:25] MED LIST changes: +HYDR-4226 PO
--- NOTE | 2019-05-15 19:42 | ED Upper Extremity ---
General Chief Complaint: Upper Extremity Stated Complaint: RT THUMB LACERATION Source: patient Exam Limitations: no limitations History of Present Illness Date Seen by Provider: May 15, 2019 Time Seen by Provider: 19:41 Initial Comments To ER with laceration to the pad of the right thumb from a table saw just prior to arrival. Tetanus vaccine is up-to-date. Onset: just prior to arrival Severity: moderate Pain/Injury Location: right thumb Method of Injury: unknown Modifying Factors: Worse With Movement Allergies and Home Medications Allergies Coded Allergies: haloperidol (Unverified Adverse Reaction, Unknown, 05/22/17) Home Medications Hydrocodone/Acetaminophen 1 Each Tablet, 1 EACH PO Q6H PRN for PAIN-MODERATE Prescribed by: SABIHA RICHARDSON on 01/07/19 1646 Ziprasidone HCl 20 Mg Capsule, 20 MG PO BID WITH MEALS Prescribed by: CHELA SANCHEZ on 02/18/18 1118 Patient Home Medication List Home Medication List Reviewed: Yes Review of Systems Constitutional: see HPI EENTM: see HPI Respiratory: no symptoms reported Cardiovascular: no symptoms reported Musculoskeletal: no symptoms reported Skin: see HPI Past Jtilqnd-Vrcbmy-Loiekp Hx Patient Social History Alcohol Beverage of Choice: Beer, Whiskey Drug of Choice: MARIJUANA Type Used: Cigarettes Recent Foreign Travel: No Contact w/Someone Who Travel: No Recent Hopitalizations: Yes Immunizations Up To Date Tetanus Booster (TDap): Unknown Seasonal Allergies Seasonal Allergies: No Past Medical History Surgeries: Yes Orthopedic Respiratory: No Currently Using CPAP: No Currently Using BIPAP: No Cardiac: No Neurological: No Reproductive Disorders: No Sexually Transmitted Disease: No Genitourinary: No Gastrointestinal: No Musculoskeletal: Yes Fractures Endocrine: No HEENT: No Cancer: No Psychosocial: Yes (history of alcohol abuse and suicidal ideation.) ADD/ADHD, Anxiety, Suicide Attempts, Depression Integumentary: No Blood Disorders: No Family Medical History Patient reports no known family medical history. No Pertinent Family Hx Unable to obtain family history Physical Exam Vital Signs Vital Signs - First Documented 05/15/19 19:37 Temp 98.5 Pulse 90 Resp 16 B/P (MAP) 160/100 (120) Capillary Refill : Height, Weight, BMI Height: 6'0" Weight: 180lbs. 0oz. 81.100901si; 25.4 BMI Method:Estimated General Appearance: WD/WN, no apparent distress HEENT: PERRL/EOMI, normal ENT inspection Respiratory: no respiratory distress, no accessory muscle use Elbow/Forearm: normal inspection, non-tender Hand: laceration (3 cm laceration to the pad of the thumb on the right. A large part of this flap of laceration does not avi and so will likely slough off. ) Neurologic/Tendon: normal sensation, normal motor functions, normal tendon functions, other (presently does have normal sensation of the distal thumb distal to the laceration and he does have ability to flex the thumb DIP joint) Neurologic/Psychiatric: alert, normal mood/affect, oriented x 3 Skin: normal color, warm/dry Procedures/Interventions Date of ETT Placement: Feb 08, 2018 Suture Size: 3-0, 4-0 1957-digital block was done using 5 mL of 0.5% bupivacaine without epinephrine. 2027-the flap was used to suture the tissue back in place as there was not a lot of other viable tissue over the pad of the distal phalanx of the thumb. This was loosely stitched with total of 12 interrupted simple sutures Prolene size 4-0 and 5-0. The distal aspect of the thumb has capillary refill. This was covered with Xeroform dressing and gauze roll. Progress/Results/Core Measures Results/Orders My Orders Orders - SABIHA RICHARDSON APRN Bupivacaine 0.5% Injection (Sensorcaine (05/15/19 19:45) Hand, Right, 3 Views (05/15/19 19:35) Cephalexin Capsule (Keflex Capsule) (05/15/19 19:45) Medications Given in ED Current Medications Medications Dose Ordered Sig/Yamile Route Start Time Stop Time Status Last Admin Dose Admin Bupivacaine HCl 30 ml ONCE ONCE INJ 05/15/19 19:45 05/15/19 19:46 DC 05/15/19 19:52 30 ML Cephalexin HCl 500 mg ONCE ONCE PO 05/15/19 19:45 05/15/19 19:46 DC 05/15/19 19:50 500 MG Vital Signs/I&O 05/15/19 19:37 Temp 98.5 Pulse 90 Resp 16 B/P (MAP) 160/100 (120) Departure Impression Primary Impression: Laceration of right thumb Qualified Codes: S61.011A - Laceration without foreign body of right thumb without damage to nail, initial encounter Disposition: 01 HOME, SELF-CARE Condition: Stable Departure-Patient Inst. Decision time for Depature: 20:03 Referrals: NO,LOCAL PHYSICIAN (PCP/Family) Primary Care Physician Patient Instructions: Laceration Repair With Stitches (DC) Add. Discharge Instructions: 1. Return to ER for any concerns 2. Antibiotic as directed 3. Change the dressing tomorrow morning with the materials provided. Do not soak this in water until the stitches have been removed. Stitches should be removed in about 10-12 days. You can let water run over this after he removed the dressing starting in 48 hours. Please return to the emergency room on Friday or Friday for wound check. All discharge instructions reviewed with patient and/or family. Voiced understanding. Scripts Hydrocodone Bit/Acetaminophen (Hydrocodone/Acetaminophen 5/325mg Tablet) 1 Tab Tab 1 EACH PO Q4-6HR PRN for PAIN-MODERATE MDD 10 for 3 Days, #20 TAB Do not fill them us Keflex is also filled Prov: SABIHA RICHARDSON APRN 05/15/19 Cephalexin (Cephalexin) 500 Mg Tablet 500 MG PO QID, #20 TAB 0 Refills Prov: SABIHA RICHARDSON APRN 05/15/19 Work/School Note: Work Release Form Date Seen in the Emergency Department: May 15, 2019 Return to Work: May 17, 2019 Other Restrictions Listed Below: No use of right hand until cleared. Dressing on right hand at all times SABIHA RICHARDSON APRN May 15, 2019 19:42
[2019-05-15] MEDS ORDERED: BUPIVACAINE 0.5% 30 ML (SENSORCAINE) VIAL INJ ONE (19:45)
[2019-05-15] MEDS ORDERED: CEPHALEXIN 250 MG (KEFLEX) CAP PO ONE (19:45)
--- NOTE | 2019-05-15 20:06 | Diagnostic Imaging Report ---
PATIENT HISTORY: Right first digit injury by table saw. TECHNIQUE: 3 views of the right hand COMPARISON: 09/26/2007 FINDINGS: There is a comminuted fracture of the right thumb distal phalangeal tuft, with bone defects at the radial aspect of the shaft and small tiny ossific fragment seen. There is overlying soft tissue laceration. Alignment appears normal. There is deformity of the fifth metacarpal head from remote injury. No radiopaque foreign body is seen. IMPRESSION: 1. Comminuted fracture of the right thumb distal phalangeal tuft with additional bone defects of the distal phalangeal shaft. 2. Right thumb soft tissue laceration with no radiopaque foreign body seen. Dictated by: Dictated on workstation # [id number]
[2019-05-15] MEDS ORDERED: CEPH500T PO (20:31)
[2019-05-15] MEDS ORDERED: ACHD5005 PO (20:31)
[2019-05-15 20:45] VITALS: BP 160/90
[2019-05-15] MEDS ORDERED: RX-HYDROCODONE/APAP 5/325 MG #4 TAB PK PO PRN (20:45)
== END 2019-05-15 20:49 | disposition home or self-care (01) ==
LOC: EDUNIT# 19:25 → ER 19:26
DX: S61.011A Laceration without foreign body of right thumb without damage to nail, initial encounter (principal); F41.9 Anxiety disorder, unspecified; F90.9 Attention-deficit hyperactivity disorder, unspecified type; F32.9 Major depressive disorder, single episode, unspecified; Z88.8 Allergy status to other drugs, medicaments and biological substances; W29.8XXA Contact with other powered hand tools and household machinery, initial encounter
CPT/HCPCS: 73130

== ENCOUNTER 2021-03-28 21:40 | Emergency (ER) | payer SELFPAY ==
[~2021-03-28] VITALS: Ht 185.5 cm; Wt 86.0 kg
[~2021-03-28 21:40] MED LIST changes: +ACHD5005 PO; +CEPH500T PO
[2021-03-28 21:43] VITALS: BP 177/127
--- NOTE | 2021-03-28 21:50 | ED GI ---
General Chief Complaint: Foreign Body Stated Complaint: RAZOR BLADE IN ANUS Source of Information: Patient Exam Limitations: No Limitations History of Present Illness Date Seen by Provider: March 28, 2021 Time Seen by Provider: 21:49 Initial Comments To ER by private vehicle with reports of a Octavio mccall razor blade in his rectal canal. He has a long complicated history that I do not understand as to how this got into the anal canal. He seems acutely psychotic. Timing/Duration: 1-2 Days Severity/Quality: Moderate Location: Other Radiation: No Radiation Activities at Onset: None Allergies and Home Medications Allergies Coded Allergies: haloperidol (Unverified Adverse Reaction, Unknown, 05/22/17) Home Medications Cephalexin 500 Mg Tablet, 500 MG PO QID Prescribed by: SABIHA RICHARDSON on 05/15/192030 Hydrocodone Bit/Acetaminophen 1 Tab Tab, 1 EACH PO Q4-6HR PRN for PAIN-MODERATE Do not fill them us Keflex is also filled Prescribed by: SABIHA RICHARDSON on 05/15/192030 Hydrocodone/Acetaminophen 1 Each Tablet, 1 EACH PO Q6H PRN for PAIN-MODERATE Prescribed by: SABIHA RICHARDSON on 01/07/19 1646 Ziprasidone HCl 20 Mg Capsule, 20 MG PO BID WITH MEALS Prescribed by: CHELA SANCHEZ on 02/18/18 1118 Patient Home Medication List Home Medication List Reviewed: Yes Review of Systems Review of Systems Constitutional: see HPI EENTM: No Symptoms Reported Respiratory: No Symptoms Reported Cardiovascular: No Symptoms Reported Gastrointestinal: See HPI Genitourinary: No Symptoms Reported Musculoskeletal: no symptoms reported Skin: no symptoms reported Psychiatric/Neurological: No Symptoms Reported Endocrine: No Symptoms Reported Hematologic/Lymphatic: No Symptoms Reported Past Buvvtgz-Ttuzag-Cmtryu Hx Patient Social History Alcohol Beverage of Choice: Beer, Whiskey Drug of Choice: MARIJUANA Type Used: Cigarettes Recent Hopitalizations: Yes Immunizations Up To Date Tetanus Booster (TDap): Unknown Seasonal Allergies Seasonal Allergies: No Past Medical History Surgeries: Yes Orthopedic Respiratory: No Currently Using CPAP: No Currently Using BIPAP: No Cardiac: No Neurological: No Reproductive Disorders: No Sexually Transmitted Disease: No Genitourinary: No Gastrointestinal: No Musculoskeletal: Yes Fractures Endocrine: No HEENT: No Cancer: No Psychosocial: Yes (history of alcohol abuse and suicidal ideation.) ADD/ADHD, Anxiety, Suicide Attempts, Depression Integumentary: No Blood Disorders: No Family Medical History Patient reports no known family medical history. No Pertinent Family Hx Unable to obtain family history Physical Exam Vital Signs Vital Signs - First Documented 03/28/21 21:43 Temp 36.9 Pulse 107 Resp 20 B/P (MAP) 177/127 (144) O2 Delivery Room Air Capillary Refill : Height/Weight/BMI Height: 5'10.00" Weight: 175lbs. 0oz. 79.465798kw; 25.4 BMI Method:Estimated General Appearance: WD/WN, no apparent distress, other Respiratory: no respiratory distress, no accessory muscle use Gastrointestinal: normal bowel sounds, non tender, soft Extremities: normal range of motion, non-tender Neurologic/Psychiatric: alert, normal mood/affect, oriented x 3 Skin: normal color, warm/dry Procedures/Interventions Date of ETT Placement: Feb 08, 2018 Suture Size: 3-0, 4-0 Progress/Results/Core Measures Results/Orders My Orders Orders - SABIHA RICHARDSON APRN Pelvis (03/28/21 21:48) Vital Signs/I&O 03/28/21 21:43 Temp 36.9 Pulse 107 Resp 20 B/P (MAP) 177/127 (144) O2 Delivery Room Air Departure Communication (Admissions) Advised the patient there was no razor in his anus. He states "I know it is in there, fuck it I guess we're done then. " and left. Impression Primary Impression: General medical exam Disposition: HOME, SELF-CARE Condition: Stable Departure-Patient Inst. Decision time for Depature: 22:11 Referrals: NO,LOCAL PHYSICIAN (PCP/Family) Primary Care Physician Patient Instructions: NO INSTRUCTIONS GIVEN Add. Discharge Instructions: All discharge instructions reviewed with patient and/or family. Voiced understanding. SABIHA RICHARDSON APRN March 28, 2021 21:50
--- NOTE | 2021-03-28 22:07 | Diagnostic Imaging Report ---
INDICATION: Patient states he has a razor blade in his rectum. EXAMINATION: AP pelvis was obtained at 9:53 p.m. FINDINGS: No fracture or acute bony abnormality is seen. Joint spaces are unremarkable. No radiopaque foreign body is visualized. IMPRESSION: No evidence of fracture or radiopaque foreign body. Dictated by: Dictated on workstation # [id number]
== END 2021-03-28 22:13 | disposition home or self-care (01) ==
LOC: EDUNIT# 21:40 → ER 21:41
DX: Z00.00 Encounter for general adult medical examination without abnormal findings (principal); Z88.8 Allergy status to other drugs, medicaments and biological substances
CPT/HCPCS: 72170

== ENCOUNTER 2021-12-13 12:52 | Inpatient (IN) | payer SELFPAY ==
[~2021-12-13] VITALS: Ht 177.8 cm; Wt 79.4 kg
[2021-12-13 13:02] VITALS: BP 113/86
[2021-12-13 13:10] LABS: HEMATOCRIT 43 % (40-54); HEMOGLOBIN 13.8 g/dL (13.3-17.7); MEAN CORPUSCULAR HEMOGLOBIN 26 pg (25-34); MEAN CORPUSCULAR HGB CONC 32 g/dL (32-36); MEAN CORPUSCULAR VOLUME 82 fL (80-99); MEAN PLATELET VOLUME 10.9 fL (9.0-12.2); PLATELET COUNT 289 10^3/uL (130-400); WHITE BLOOD COUNT 9.4 10^3/uL (4.3-11.0)
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
[2021-12-13] MEDS ORDERED: NS IV 1000 ML 1,000 ML IV SCH ×3 (13:15→18:30)
[2021-12-13] MEDS ORDERED: DROPERIDOL 5 MG/2 ML (INAPSINE) ED ONLY! IM ONE (13:15)
[2021-12-13] MEDS ORDERED: TRANEXAMIC ACID INJECTION 1,000 MG in NS (IVPB) 50 ML IV ONE (13:15)
[2021-12-13] MEDS ORDERED: PROPOFOL DRIP (ICU) 100 ML IV ONE (13:17)
[2021-12-13 13:22] LABS: ALBUMIN 4.8 GM/DL (3.2-4.5); POTASSIUM 3.1 MMOL/L (3.6-5.0)
[2021-12-13 13:23] LABS: CALCIUM 8.5 MG/DL (8.5-10.1)
[2021-12-13 13:25] LABS: TOTAL PROTEIN 7.7 GM/DL (6.4-8.2)
[2021-12-13 13:26] LABS: BILIRUBIN,TOTAL 0.7 MG/DL (0.1-1.0)
[2021-12-13 13:27] LABS: FIBRIN DEGRADATION PRODUCTS 2.8 UG/ML (0.00-0.49); PROTHROMBIN TIME PATIENT 13.7 SEC (12.2-14.7)
[2021-12-13 13:28] LABS: CREATININE SERUM 0.82 MG/DL (0.60-1.30); PHOSPHORUS 2.3 MG/DL (2.3-4.7)
[2021-12-13 13:30] LABS: BILIRUBIN,DIRECT 0.3 MG/DL (0.0-0.3); BILIRUBIN,INDIRECT 0.4 MG/DL
[2021-12-13] MEDS ORDERED: ceFAZolin INJECTION 1,000 MG VIAL IV ONE (13:30)
[2021-12-13] MEDS ORDERED: PROPOFOL DRIP (ICU) 100 ML IV SCH (13:30)
[2021-12-13] MEDS ORDERED: MIDAZOLAM 5 MG/5 ML (VERSED) VIAL IVP ONE (13:30)
[2021-12-13] MEDS ORDERED: HOLD METFORMIN - RECEIVED CONTRAST 20 ML VIAL IV SCH (13:30)
[2021-12-13] MEDS ORDERED: IOHEXOL 350 MG/ML 100 ML (OMNIPAQUE 350) VIAL IV ONE (13:30)
[2021-12-13] MEDS ORDERED: NS 100 ML (IVPB) BAG IV ONE (13:30)
[2021-12-13] MEDS ORDERED: TETANUS,DIPTH,PERTUSS P/F (BOOSTRIX) 0.5 ML VIAL IM ONE (13:30)
[2021-12-13 13:31] LABS: MAGNESIUM 2.2 MG/DL (1.6-2.4)
[2021-12-13 13:33] LABS: BILIRUBIN,URINE NEGATIVE (NEGATIVE); CLARITY,URINE CLEAR; COLOR,URINE YELLOW; GLUCOSE, URINE (UA) NEGATIVE (NEGATIVE); KETONES,URINE TRACE (NEGATIVE); LEUKOCYTE ESTERASE ,URINE NEGATIVE (NEGATIVE); NITRITE,URINE NEGATIVE (NEGATIVE); PH,URINE 5.5 (5-9); PROTEIN,URINE TRACE (NEGATIVE)
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
[2021-12-13] MEDS ORDERED: TRANEXAMIC ACID INJECTION 1,000 MG in NS (IVPB) 250 ML IV SCH (13:45)
[2021-12-13 13:50] LABS: BACTERIA,URINE TRACE /HPF; WBC,URINE RARE /HPF
[2021-12-13 13:51] LABS: AMPHETAMINE SCREEN, URINE NEGATIVE (NEGATIVE); BARBITURATE SCREEN URINE NEGATIVE (NEGATIVE); BENZODIAZEPINES SCREEN URINE NEGATIVE (NEGATIVE); CANNABINOID SCREEN, URINE POSITIVE (NEGATIVE); COCAINE SCREEN URINE NEGATIVE (NEGATIVE); METHADONE STAT NEGATIVE (NEGATIVE); METHAMPHETAMINE SCREEN URINE S NEGATIVE (NEGATIVE); OPIATE SCREEN URINE NEGATIVE (NEGATIVE); OXYCODONE STAT NEGATIVE (NEGATIVE); PROPOXYPHENE STAT NEGATIVE (NEGATIVE); TRICYCLIC ANTIDEPRESSANTS SCRE NEGATIVE (NEGATIVE)
[2021-12-13] MEDS: CATHETER FLUSH 10 ML SYR IV PRN (13:57)
[2021-12-13] MEDS ORDERED: MIDAZOLAM 5 MG/5 ML (VERSED) VIAL IV ONE (14:00)
[2021-12-13] MEDS ORDERED: ROCURONIUM 10 MG/ML 5 ML SYRINGE IV ONE ×3 (14:00→23:00)
[2021-12-13] MEDS ORDERED: ETOMIDATE IV SOLN 20 MG/10 ML VIAL IV ONE ×2 (14:00)
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
[2021-12-13] MEDS ORDERED: PHENYLEPHRINE 100 MCG/ML 10 ML (ANESTHESIA) SYR ONE (14:52)
[2021-12-13] MEDS ORDERED: SEVOFLURANE (ULTANE) 15 ML INHAL SOLN ONE ×2 (14:53→15:54)
[2021-12-13] MEDS ORDERED: ROCURONIUM 50 MG/5 ML (ZEMURON) VIAL IV ONE ×2 (14:53→15:37)
[2021-12-13] MEDS ORDERED: HYDROmorphone 2 MG/ML VIAL (DILAUDID) ONE ×2 (15:27→15:38)
[2021-12-13] MEDS ORDERED: MIDAZOLAM 2 MG/2 ML (VERSED) VIAL ONE (15:38)
[2021-12-13 16:25] VITALS: BP 134/90
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
[2021-12-13] MEDS ORDERED: DexMEDEtomidine 250 ML DRIP 250 ML IV SCH (16:30)
[2021-12-13] MEDS: PROPOFOL DRIP (ICU) 100 ML IV SCH ×2 (16:36→20:54)
[2021-12-13] MEDS ORDERED: DexMEDEtomidine 250 ML DRIP 250 ML IV ONE (16:40)
[2021-12-13 16:42] LABS: HEMATOCRIT 36 % (40-54); HEMOGLOBIN 11.2 g/dL (13.3-17.7); MEAN CORPUSCULAR HEMOGLOBIN 27 pg (25-34); MEAN CORPUSCULAR HGB CONC 32 g/dL (32-36); MEAN CORPUSCULAR VOLUME 84 fL (80-99); PLATELET COUNT 235 10^3/uL (130-400); WHITE BLOOD COUNT 14.3 10^3/uL (4.3-11.0)
[2021-12-13] MEDS: POTASSIUM CL 10 MEQ/50 ML IVPB (PRE-MIX) IV SCH ×3 (17:46→20:48)
[2021-12-13] MEDS: FOLIC ACID IV SCH (17:46)
[2021-12-13] MEDS: [UNRECOGNIZED DRUG - OTHER] IV SCH (17:46)
[2021-12-13] MEDS: MAGNESIUM SULFATE IV SCH (17:46)
[2021-12-13] MEDS: THIAMINE IV SCH (17:46)
[2021-12-13] MEDS: ceFAZolin 2 GM IV Premixed 50 ML IV SCH (17:59)
[2021-12-13 18:05] LABS: ABG OXYGEN SATURATION 57 % (94-100); ABG PCO2 53 MMHG (35-45); ABG TCO2 24.4 MMOL/L (21.0-31.0)
[2021-12-13 18:08] LABS: ABG PH 7.24 (7.37-7.43); ABG PO2 36 MMHG (79-93); INSPIRED O2 35%; VENTILATOR YES
[2021-12-13] MEDS ORDERED: NS IV 1000 ML 1,000 ML ONE (18:30)
[2021-12-13 18:44] VITALS: BP 71/38
[2021-12-13] MEDS: NS IV 1000 ML 1,000 ML IV SCH (20:48)
[2021-12-13 22:20] LABS: HEPATITIS C ANTIBODY C Non-Reactive (Non-Reactive)
[2021-12-13] MEDS ORDERED: fentaNYL DRIP PRE-MIX 250 ML IV ONE (22:50)
[2021-12-13 23:18] VITALS: BP 71/38
[2021-12-13] MEDS: fentaNYL DRIP PRE-MIX 250 ML IV SCH (23:25)
[2021-12-13] MEDS: DexMEDEtomidine 250 ML DRIP 250 ML IV SCH (23:27)
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
[2021-12-14] MEDS: ceFAZolin 2 GM IV Premixed 50 ML IV SCH ×3 (01:52→16:40)
[2021-12-14] MEDS: PROPOFOL DRIP (ICU) 100 ML IV SCH ×6 (01:53→23:15)
[2021-12-14 02:57] VITALS: BP 71/38
[2021-12-14] MEDS: fentaNYL DRIP PRE-MIX 250 ML IV SCH ×6 (03:15→23:14)
[2021-12-14 03:31] LABS: ABG OXYGEN SATURATION 95 % (94-100); ABG PCO2 43 MMHG (35-45); ABG PO2 78 MMHG (79-93); ABG TCO2 22.4 MMOL/L (21.0-31.0)
[2021-12-14 03:32] LABS: ALLENS TEST YES-POS; INSPIRED O2 30%; VENTILATOR YES
[2021-12-14 03:33] LABS: PATIENT TEMP 37
[2021-12-14 03:38] LABS: ABG PH 7.32 (7.37-7.43)
[2021-12-14 05:52] LABS: POTASSIUM 4.3 MMOL/L (3.6-5.0)
[2021-12-14 05:53] LABS: BASOPHILS % (AUTO) 0 % (0-10); CALCIUM 7.5 MG/DL (8.5-10.1); EOSINOPHILS # (AUTO) 0.1 10^3/uL (0.0-0.3); EOSINOPHILS % (AUTO) 1 % (0-10); HEMATOCRIT 29 % (40-54); LYMPHOCYTES # (AUTO) 1.6 10^3/uL (1.0-4.0); LYMPHOCYTES % (AUTO) 18 % (12-44); MEAN CORPUSCULAR HEMOGLOBIN 26 pg (25-34); MEAN CORPUSCULAR HGB CONC 31 g/dL (32-36); MEAN CORPUSCULAR VOLUME 83 fL (80-99); MEAN PLATELET VOLUME 11.8 fL (9.0-12.2); MONOCYTES # (AUTO) 0.6 10^3/uL (0.0-1.0); MONOCYTES % (AUTO) 7 % (0-12); NEUTROPHILS # (AUTO) 6.4 10^3/uL (1.8-7.8); NEUTROPHILS % (AUTO) 72 % (42-75); PLATELET COUNT 166 10^3/uL (130-400); WHITE BLOOD COUNT 8.8 10^3/uL (4.3-11.0)
[2021-12-14 05:54] LABS: TOTAL PROTEIN 4.7 GM/DL (6.4-8.2)
[2021-12-14 05:56] LABS: BILIRUBIN,TOTAL 0.7 MG/DL (0.1-1.0)
[2021-12-14 05:57] LABS: PHOSPHORUS 3.4 MG/DL (2.3-4.7)
[2021-12-14 05:58] LABS: CREATININE SERUM 0.78 MG/DL (0.60-1.30)
[2021-12-14 06:00] LABS: MAGNESIUM 2.1 MG/DL (1.6-2.4)
[2021-12-14] MEDS: DexMEDEtomidine 250 ML DRIP 250 ML IV SCH ×3 (06:25→23:15)
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
[2021-12-14 07:50] VITALS: BP 113/65
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
[2021-12-14] MEDS: PANTOPRAZOLE 40 MG (PROTONIX) VIAL IV SCH (08:12)
[2021-12-14] MEDS: MAGNESIUM SULFATE IV SCH (09:19)
[2021-12-14] MEDS: FOLIC ACID IV SCH (09:19)
[2021-12-14] MEDS: [UNRECOGNIZED DRUG - OTHER] IV SCH (09:19)
[2021-12-14] MEDS: THIAMINE IV SCH (09:19)
[2021-12-14 10:30] VITALS: BP 118/69
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
--- NOTE | 2021-12-14 13:00 | Anesthesia-General Post-Op ---
General Patient Condition Mental Status/LOC: Same as Preop (Pt intubated and sedated) Cardiovascular: Satisfactory Nausea/Vomiting: Absent Respiratory: Satisfactory (Intubated due to combativeness an DT's) Pain: Controlled Complications: Absent Post Op Complications Complications None Follow Up Care/Instructions Patient Instructions None needed. Anesthesia/Patient Condition Patient Condition Patient is doing well, no change from previous condition, stable vital signs, no apparent adverse anesthesia problems. No complications reported per nursing. JAN ROSSI CRNA Dec 14, 2021 13:00
[2021-12-14] MEDS: LORazepam 0.5 MG (ATIVAN) TABLET PO PRN ×2 (14:04→23:15)
[2021-12-14 14:30] VITALS: BP 118/69
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
[2021-12-14 19:08] VITALS: BP 130/66
[2021-12-15] MEDS: ceFAZolin 2 GM IV Premixed 50 ML IV SCH ×3 (00:59→16:31)
[2021-12-15 03:05] VITALS: BP 135/78
[2021-12-15] MEDS: PROPOFOL DRIP (ICU) 100 ML IV SCH ×6 (03:38→21:41)
[2021-12-15 03:58] LABS: ABG BASE EXCESS -1.1 MMOL/L (-2.5-2.5); ABG OXYGEN SATURATION 98 % (94-100); ABG PCO2 38 MMHG (35-45); ABG PO2 87 MMHG (79-93); ABG TCO2 24.5 MMOL/L (21.0-31.0)
[2021-12-15 03:59] LABS: BASOPHILS % (AUTO) 0 % (0-10); EOSINOPHILS # (AUTO) 0.2 10^3/uL (0.0-0.3); EOSINOPHILS % (AUTO) 2 % (0-10); HEMATOCRIT 28 % (40-54); HEMOGLOBIN 8.8 g/dL (13.3-17.7); LYMPHOCYTES # (AUTO) 1.2 10^3/uL (1.0-4.0); LYMPHOCYTES % (AUTO) 12 % (12-44); MEAN CORPUSCULAR HEMOGLOBIN 26 pg (25-34); MEAN CORPUSCULAR HGB CONC 31 g/dL (32-36); MEAN CORPUSCULAR VOLUME 84 fL (80-99); MONOCYTES # (AUTO) 0.7 10^3/uL (0.0-1.0); MONOCYTES % (AUTO) 7 % (0-12); NEUTROPHILS # (AUTO) 7.7 10^3/uL (1.8-7.8); NEUTROPHILS % (AUTO) 79 % (42-75); PLATELET COUNT 140 10^3/uL (130-400); WHITE BLOOD COUNT 9.9 10^3/uL (4.3-11.0)
[2021-12-15 04:02] LABS: ALLENS TEST YES-POS; INSPIRED O2 28%; VENTILATOR YES
[2021-12-15 04:10] LABS: ALBUMIN 2.9 GM/DL (3.2-4.5); POTASSIUM 4.2 MMOL/L (3.6-5.0)
[2021-12-15 04:11] LABS: CALCIUM 7.9 MG/DL (8.5-10.1)
[2021-12-15 04:12] LABS: TOTAL PROTEIN 4.9 GM/DL (6.4-8.2)
[2021-12-15 04:14] LABS: BILIRUBIN,TOTAL 0.6 MG/DL (0.1-1.0)
[2021-12-15 04:16] LABS: CREATININE SERUM 0.72 MG/DL (0.60-1.30); PHOSPHORUS 3.2 MG/DL (2.3-4.7)
[2021-12-15 04:19] LABS: MAGNESIUM 1.9 MG/DL (1.6-2.4)
[2021-12-15 06:56] VITALS: BP 135/78
[2021-12-15] MEDS: PANTOPRAZOLE 40 MG (PROTONIX) VIAL IV SCH (07:56)
[2021-12-15] MEDS: fentaNYL DRIP PRE-MIX 250 ML IV SCH ×6 (08:05→22:49)
[2021-12-15] MEDS: MAGNESIUM SULFATE IV SCH (08:34)
[2021-12-15] MEDS: FOLIC ACID IV SCH (08:34)
[2021-12-15] MEDS: THIAMINE IV SCH (08:34)
[2021-12-15] MEDS: [UNRECOGNIZED DRUG - OTHER] IV SCH (08:34)
[2021-12-15] MEDS: DexMEDEtomidine 250 ML DRIP 250 ML IV SCH ×2 (09:48→19:53)
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
[2021-12-15 11:40] VITALS: BP 134/68
[2021-12-15] MEDS: LORazepam INJ 2 MG/ML (ATIVAN) VIAL IVP PRN (14:50)
[2021-12-15 14:55] VITALS: BP 123/61
[2021-12-15 18:58] VITALS: BP 136/78
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
[2021-12-15 23:06] VITALS: BP 136/76
[2021-12-16] MEDS: ceFAZolin 2 GM IV Premixed 50 ML IV SCH ×4 (00:23→23:41)
[2021-12-16] MEDS: DexMEDEtomidine 250 ML DRIP 250 ML IV SCH ×3 (01:59→17:49)
[2021-12-16 03:13] VITALS: BP 130/77
[2021-12-16] MEDS: PROPOFOL DRIP (ICU) 100 ML IV SCH ×6 (03:41→23:38)
[2021-12-16 05:05] LABS: ABG BASE EXCESS 0.8 MMOL/L (-2.5-2.5); ABG OXYGEN SATURATION 98 % (94-100); ABG PCO2 50 MMHG (35-45); ABG PO2 109 MMHG (79-93); ABG TCO2 27.7 MMOL/L (21.0-31.0)
[2021-12-16 05:06] LABS: ABG PH 7.35 (7.37-7.43)
[2021-12-16 05:07] LABS: ALLENS TEST YES-POS; INSPIRED O2 21%; PATIENT TEMP 36.7; VENTILATOR YES
[2021-12-16 05:11] LABS: BASOPHILS % (AUTO) 0 % (0-10); EOSINOPHILS # (AUTO) 0.2 10^3/uL (0.0-0.3); EOSINOPHILS % (AUTO) 3 % (0-10); HEMATOCRIT 28 % (40-54); HEMOGLOBIN 8.7 g/dL (13.3-17.7); LYMPHOCYTES # (AUTO) 1.5 10^3/uL (1.0-4.0); LYMPHOCYTES % (AUTO) 19 % (12-44); MEAN CORPUSCULAR HEMOGLOBIN 27 pg (25-34); MEAN CORPUSCULAR HGB CONC 32 g/dL (32-36); MEAN CORPUSCULAR VOLUME 84 fL (80-99); MEAN PLATELET VOLUME 12.6 fL (9.0-12.2); MONOCYTES # (AUTO) 0.7 10^3/uL (0.0-1.0); MONOCYTES % (AUTO) 9 % (0-12); NEUTROPHILS # (AUTO) 5.3 10^3/uL (1.8-7.8); NEUTROPHILS % (AUTO) 69 % (42-75); PLATELET COUNT 140 10^3/uL (130-400); WHITE BLOOD COUNT 7.7 10^3/uL (4.3-11.0)
[2021-12-16 05:16] LABS: ALBUMIN 2.8 GM/DL (3.2-4.5); POTASSIUM 4.2 MMOL/L (3.6-5.0)
[2021-12-16 05:17] LABS: CALCIUM 8.2 MG/DL (8.5-10.1)
[2021-12-16 05:19] LABS: TOTAL PROTEIN 5.1 GM/DL (6.4-8.2)
[2021-12-16 05:20] LABS: BILIRUBIN,TOTAL 0.4 MG/DL (0.1-1.0)
[2021-12-16 05:22] LABS: CREATININE SERUM 0.76 MG/DL (0.60-1.30); PHOSPHORUS 3.6 MG/DL (2.3-4.7)
[2021-12-16 05:25] LABS: MAGNESIUM 1.7 MG/DL (1.6-2.4)
[2021-12-16] MEDS: MAGNESIUM 1 GM/100 ML IVPB 100 ML IV SCH (07:08)
[2021-12-16 08:22] VITALS: BP 128/68
[2021-12-16] MEDS: METOCLOPRAMIDE INJ 10 MG/2 ML (REGLAN) IVP PRN (08:32)
[2021-12-16] MEDS: PANTOPRAZOLE 40 MG (PROTONIX) VIAL IV SCH (08:32)
[2021-12-16] MEDS: LORazepam INJ 2 MG/ML (ATIVAN) VIAL IVP PRN (08:41)
[2021-12-16] MEDS: fentaNYL DRIP PRE-MIX 250 ML IV SCH ×2 (09:51→20:02)
[2021-12-16 10:00] VITALS: BP 120/71
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
[2021-12-16 14:25] VITALS: BP 124/74
[2021-12-16 18:19] VITALS: BP 132/70
[2021-12-16 22:23] VITALS: BP 140/81
[2021-12-17 02:18] VITALS: BP 132/81
[2021-12-17] MEDS: DexMEDEtomidine 250 ML DRIP 250 ML IV SCH ×3 (02:23→16:52)
[2021-12-17 04:01] LABS: BASOPHILS % (AUTO) 0 % (0-10); EOSINOPHILS # (AUTO) 0.2 10^3/uL (0.0-0.3); EOSINOPHILS % (AUTO) 2 % (0-10); HEMATOCRIT 27 % (40-54); HEMOGLOBIN 8.3 g/dL (13.3-17.7); LYMPHOCYTES # (AUTO) 2.9 10^3/uL (1.0-4.0); LYMPHOCYTES % (AUTO) 22 % (12-44); MEAN CORPUSCULAR HEMOGLOBIN 26 pg (25-34); MEAN CORPUSCULAR HGB CONC 31 g/dL (32-36); MEAN CORPUSCULAR VOLUME 85 fL (80-99); MONOCYTES # (AUTO) 1.3 10^3/uL (0.0-1.0); MONOCYTES % (AUTO) 10 % (0-12); NEUTROPHILS # (AUTO) 8.8 10^3/uL (1.8-7.8); NEUTROPHILS % (AUTO) 66 % (42-75); PLATELET COUNT 221 10^3/uL (130-400); WHITE BLOOD COUNT 13.4 10^3/uL (4.3-11.0)
[2021-12-17 04:19] LABS: ALBUMIN 2.8 GM/DL (3.2-4.5); BILIRUBIN,TOTAL 0.7 MG/DL (0.1-1.0); CALCIUM 8.3 MG/DL (8.5-10.1); CREATININE SERUM 0.77 MG/DL (0.60-1.30); MAGNESIUM 1.7 MG/DL (1.6-2.4); PHOSPHORUS 4.1 MG/DL (2.3-4.7); POTASSIUM 3.9 MMOL/L (3.6-5.0); TOTAL PROTEIN 5.3 GM/DL (6.4-8.2)
[2021-12-17] MEDS: PROPOFOL DRIP (ICU) 100 ML IV SCH ×6 (05:32→20:18)
[2021-12-17] MEDS ORDERED: MAGNESIUM 1 GM/100 ML IVPB 200 ML IV ONE (05:58)
[2021-12-17] MEDS: KCL 20 MEQ TAB (K-DUR) PO SCH (06:02)
[2021-12-17] MEDS: MAGNESIUM 1 GM/100 ML IVPB 100 ML IV SCH ×3 (06:02→07:22)
[2021-12-17] MEDS: POTASSIUM CL 10MEQ/50ML IVPB 50 ML IV SCH (06:02)
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
[2021-12-17 08:01] VITALS: BP 157/90
[2021-12-17] MEDS: PANTOPRAZOLE 40 MG (PROTONIX) VIAL IV SCH (08:22)
[2021-12-17] MEDS: ceFAZolin 2 GM IV Premixed 50 ML IV SCH ×2 (08:22→16:51)
[2021-12-17] MEDS: fentaNYL DRIP PRE-MIX 250 ML IV SCH ×2 (08:23→16:04)
--- NOTE | 2021-12-17 08:27 | Diagnostic Imaging Report ---
INDICATION: Ventilator support. TIME OF EXAM: 7:56 AM Correlation is made with prior chest from 12/13/2021. ET tube has the tip at the thoracic inlet. NG tube appears to pass below the diaphragm. Heart size is stable. There is central congestion but no overt failure. There is no effusion or pneumothorax. IMPRESSION: Central congestion without evidence of overt failure. Dictated by: Dictated on workstation # [id number]
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
[2021-12-17] MEDS: LORazepam INJ 2 MG/ML (ATIVAN) VIAL IVP PRN ×2 (10:30→17:59)
[2021-12-17 11:16] VITALS: BP 123/66
[2021-12-17 14:56] VITALS: BP 135/76
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
[2021-12-17 18:38] VITALS: BP 136/76
[2021-12-17 22:54] VITALS: BP 129/74
[2021-12-18] MEDS: DexMEDEtomidine 250 ML DRIP 250 ML IV SCH ×4 (00:01→23:29)
[2021-12-18] MEDS: fentaNYL DRIP PRE-MIX 250 ML IV SCH ×3 (00:01→08:19)
[2021-12-18] MEDS: ceFAZolin 2 GM IV Premixed 50 ML IV SCH ×2 (00:01→08:12)
[2021-12-18] MEDS: LORazepam INJ 2 MG/ML (ATIVAN) VIAL IVP PRN ×4 (00:02→21:43)
[2021-12-18 02:43] VITALS: BP 133/78
[2021-12-18 04:28] LABS: BASOPHILS % (AUTO) 0 % (0-10); EOSINOPHILS # (AUTO) 0.2 10^3/uL (0.0-0.3); EOSINOPHILS % (AUTO) 4 % (0-10); HEMATOCRIT 24 % (40-54); HEMOGLOBIN 7.7 g/dL (13.3-17.7); LYMPHOCYTES # (AUTO) 0.8 10^3/uL (1.0-4.0); LYMPHOCYTES % (AUTO) 14 % (12-44); MEAN CORPUSCULAR HEMOGLOBIN 27 pg (25-34); MEAN CORPUSCULAR HGB CONC 32 g/dL (32-36); MEAN CORPUSCULAR VOLUME 84 fL (80-99); MEAN PLATELET VOLUME 11.3 fL (9.0-12.2); MONOCYTES # (AUTO) 0.7 10^3/uL (0.0-1.0); MONOCYTES % (AUTO) 13 % (0-12); NEUTROPHILS # (AUTO) 3.8 10^3/uL (1.8-7.8); NEUTROPHILS % (AUTO) 69 % (42-75); PLATELET COUNT 190 10^3/uL (130-400); WHITE BLOOD COUNT 5.5 10^3/uL (4.3-11.0)
[2021-12-18 04:44] LABS: ABG BASE EXCESS 2.7 MMOL/L (-2.5-2.5); ABG OXYGEN SATURATION 99 % (94-100); ABG PCO2 44 MMHG (35-45); ABG PO2 132 MMHG (79-93); ABG TCO2 28.4 MMOL/L (21.0-31.0)
[2021-12-18 04:48] LABS: ALLENS TEST YES-POS; INSPIRED O2 30%; PATIENT TEMP 37; VENTILATOR NO
[2021-12-18 04:50] LABS: ALBUMIN 2.7 GM/DL (3.2-4.5); BILIRUBIN,TOTAL 0.6 MG/DL (0.1-1.0); CALCIUM 8.2 MG/DL (8.5-10.1); CREATININE SERUM 0.67 MG/DL (0.60-1.30); MAGNESIUM 1.7 MG/DL (1.6-2.4); POTASSIUM 3.8 MMOL/L (3.6-5.0); TOTAL PROTEIN 5.5 GM/DL (6.4-8.2)
[2021-12-18] MEDS: POTASSIUM CL 10MEQ/50ML IVPB 50 ML IV SCH (05:28)
[2021-12-18] MEDS: MAGNESIUM 1 GM/100 ML IVPB 100 ML IV SCH (05:28)
[2021-12-18] MEDS: KCL 20 MEQ TAB (K-DUR) PO SCH (05:28)
[2021-12-18] MEDS: PROPOFOL DRIP (ICU) 100 ML IV SCH ×4 (06:00→22:00)
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
[2021-12-18 07:12] VITALS: BP 134/86
[2021-12-18] MEDS: PANTOPRAZOLE 40 MG (PROTONIX) VIAL IV SCH (08:12)
[2021-12-18] MEDS: FOLIC ACID 1 MG TAB PO SCH (10:04)
[2021-12-18] MEDS: THIAMINE 100 MG (VITAMIN B-1) TAB PO SCH (10:04)
[2021-12-18] MEDS: LORazepam 0.5 MG (ATIVAN) TABLET PO SCH ×4 (10:04→21:43)
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
[2021-12-18 10:14] VITALS: BP 159/82
[2021-12-18] MEDS: METOCLOPRAMIDE INJ 10 MG/2 ML (REGLAN) IVP PRN (14:43)
[2021-12-18 15:13] VITALS: BP 125/70
[2021-12-18 18:58] VITALS: BP 129/76
[2021-12-18] MEDS: APAP 325 MG/10.15 ML LIQ (TYLENOL) UDC PO PRN (21:51)
[2021-12-18 23:06] VITALS: BP 129/76
[2021-12-19] MEDS: fentaNYL DRIP PRE-MIX 250 ML IV SCH ×4 (00:12→08:17)
[2021-12-19] MEDS: LORazepam 0.5 MG (ATIVAN) TABLET PO SCH ×6 (02:23→22:04)
[2021-12-19 02:57] LABS: BASOPHILS % (AUTO) 0 % (0-10); EOSINOPHILS # (AUTO) 0.2 10^3/uL (0.0-0.3); EOSINOPHILS % (AUTO) 4 % (0-10); HEMATOCRIT 23 % (40-54); HEMOGLOBIN 7.3 g/dL (13.3-17.7); LYMPHOCYTES # (AUTO) 1.1 10^3/uL (1.0-4.0); LYMPHOCYTES % (AUTO) 20 % (12-44); MEAN CORPUSCULAR HEMOGLOBIN 26 pg (25-34); MEAN CORPUSCULAR HGB CONC 32 g/dL (32-36); MEAN CORPUSCULAR VOLUME 84 fL (80-99); MEAN PLATELET VOLUME 10.9 fL (9.0-12.2); MONOCYTES # (AUTO) 0.6 10^3/uL (0.0-1.0); MONOCYTES % (AUTO) 12 % (0-12); NEUTROPHILS # (AUTO) 3.4 10^3/uL (1.8-7.8); NEUTROPHILS % (AUTO) 63 % (42-75); PLATELET COUNT 241 10^3/uL (130-400); WHITE BLOOD COUNT 5.4 10^3/uL (4.3-11.0)
[2021-12-19 03:02] VITALS: BP 113/66
[2021-12-19 03:05] LABS: ALBUMIN 2.7 GM/DL (3.2-4.5); POTASSIUM 3.7 MMOL/L (3.6-5.0)
[2021-12-19 03:06] LABS: CALCIUM 8.1 MG/DL (8.5-10.1)
[2021-12-19 03:08] LABS: TOTAL PROTEIN 5.6 GM/DL (6.4-8.2)
[2021-12-19 03:09] LABS: BILIRUBIN,TOTAL 0.5 MG/DL (0.1-1.0)
[2021-12-19 03:11] LABS: CREATININE SERUM 0.63 MG/DL (0.60-1.30)
[2021-12-19 03:14] LABS: ABG OXYGEN SATURATION 99 % (94-100); ABG PCO2 46 MMHG (35-45); ABG PH 7.41 (7.37-7.43); ABG PO2 94 MMHG (79-93); ABG TCO2 29.6 MMOL/L (21.0-31.0); ALLENS TEST YES-POS; INSPIRED O2 30%; PATIENT TEMP 37.4; VENTILATOR YES
[2021-12-19] MEDS: PROPOFOL DRIP (ICU) 100 ML IV SCH ×4 (04:44→12:43)
[2021-12-19] MEDS: DexMEDEtomidine 250 ML DRIP 250 ML IV SCH ×2 (04:45→11:05)
[2021-12-19] MEDS: POTASSIUM CL 10MEQ/50ML IVPB 50 ML IV SCH (04:45)
[2021-12-19] MEDS: KCL 20 MEQ TAB (K-DUR) PO SCH (04:46)
[2021-12-19] MEDS: MAGNESIUM 1 GM/100 ML IVPB 100 ML IV SCH (04:46)
[2021-12-19] MEDS: THIAMINE 100 MG (VITAMIN B-1) TAB PO SCH (06:11)
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
[2021-12-19 06:52] VITALS: BP 118/71
[2021-12-19] MEDS ORDERED: THIAMINE 100 MG (VITAMIN B-1) TAB PO SCH (07:00)
[2021-12-19] MEDS: FOLIC ACID 1 MG TAB PO SCH (08:15)
[2021-12-19] MEDS: PANTOPRAZOLE 40 MG (PROTONIX) VIAL IV SCH (08:15)
[2021-12-19] MEDS ORDERED: FOLIC ACID 1 MG TAB PO SCH (09:00)
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
[2021-12-19 10:40] VITALS: BP 110/58
[2021-12-19] MEDS: METOCLOPRAMIDE INJ 10 MG/2 ML (REGLAN) IVP SCH ×2 (11:06→18:00)
[2021-12-19 14:40] VITALS: BP 123/66
[2021-12-19] MEDS ORDERED: LORazepam INJ 2 MG/ML (ATIVAN) VIAL IVP NR (18:30)
[2021-12-19] MEDS ORDERED: LORazepam INJ 2 MG/ML (ATIVAN) VIAL IM/IV PRN (19:45)
[2021-12-19] MEDS ORDERED: LORazepam 1 MG (ATIVAN) TAB PO PRN (19:45)
[2021-12-19] MEDS ORDERED: 1/2 NS IV SOLUTION 1,000 ML IV PRN (19:45)
[2021-12-19] MEDS ORDERED: D5 1/2 NS 1000 ML IV SOLUTION 1,000 ML IV PRN (19:45)
[2021-12-19] MEDS: LORazepam INJ 2 MG/ML (ATIVAN) VIAL IV PRN ×4 (20:00→23:30)
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
[2021-12-20] VITALS (7 sets, daily range): BP systolic 112–178; BP diastolic 59–79
[2021-12-20] MEDS: METOCLOPRAMIDE INJ 10 MG/2 ML (REGLAN) IVP SCH ×4 (00:51→18:01)
[2021-12-20] MEDS: LORazepam INJ 2 MG/ML (ATIVAN) VIAL IV PRN (00:51)
[2021-12-20 01:06] LABS: ABG BASE EXCESS 3.9 MMOL/L (-2.5-2.5); ABG PCO2 42 MMHG (35-45); ABG PH 7.44 (7.37-7.43); ABG PO2 67 MMHG (79-93); ABG TCO2 28.8 MMOL/L (21.0-31.0)
[2021-12-20 01:07] LABS: ABG OXYGEN SATURATION 93 % (94-100); ALLENS TEST YES-POS; INSPIRED O2 10L OXYMASK; PATIENT TEMP 38.2; VENTILATOR NO
--- NOTE | 2021-12-20 01:20 | Anesthesia-Procedure Note ---
Procedures/Interventions Procedure Start/Stop/Diagnosis Date of Procedure: Dec 20, 2021 Start Time: 01:00 Referring Physician: E-ICU Stop Time: 01:10 Intubation RSI: Yes 100% pre-Ox, [id number]: Yes Intubation Method: orotracheal Videoscope used: Yes Grade View: 1 Medications: Propofol (200), Rocuronium (50), Succinylcholine (100), Versed (2) Mask Ventilation: positive Positive End Tide CO2: Yes Breath Sounds after Intubation: bilateral-equal ETT Securred @ (cm): 23 Intubated with ease: Yes Intubation Complications: no complications Post Intubation Xray-done: Yes (in progress) Progress Intubation without complications. Care turned over to: TONE ARTIST APPRENTICE and staff JAN ROSSI CRNA Dec 20, 2021 01:20
[2021-12-20] MEDS: fentaNYL DRIP PRE-MIX 250 ML IV SCH ×4 (02:57→18:00)
[2021-12-20] MEDS: LORazepam 0.5 MG (ATIVAN) TABLET PO SCH ×6 (02:58→20:45)
[2021-12-20 04:42] LABS: BASOPHILS % (AUTO) 0 % (0-10); EOSINOPHILS % (AUTO) 0 % (0-10); HEMATOCRIT 21 % (40-54); LYMPHOCYTES # (AUTO) 0.9 10^3/uL (1.0-4.0); LYMPHOCYTES % (AUTO) 18 % (12-44); MEAN CORPUSCULAR HEMOGLOBIN 27 pg (25-34); MEAN CORPUSCULAR HGB CONC 34 g/dL (32-36); MEAN CORPUSCULAR VOLUME 80 fL (80-99); MEAN PLATELET VOLUME 11.4 fL (9.0-12.2); MONOCYTES # (AUTO) 0.6 10^3/uL (0.0-1.0); MONOCYTES % (AUTO) 12 % (0-12); NEUTROPHILS # (AUTO) 3.6 10^3/uL (1.8-7.8); NEUTROPHILS % (AUTO) 69 % (42-75); PLATELET COUNT 272 10^3/uL (130-400); WHITE BLOOD COUNT 5.2 10^3/uL (4.3-11.0)
[2021-12-20 04:56] LABS: ALBUMIN 2.4 GM/DL (3.2-4.5); POTASSIUM 3.2 MMOL/L (3.6-5.0)
[2021-12-20 04:57] LABS: CALCIUM 7.2 MG/DL (8.5-10.1)
[2021-12-20 04:58] LABS: TOTAL PROTEIN 5.1 GM/DL (6.4-8.2)
[2021-12-20 05:00] LABS: BILIRUBIN,TOTAL 0.7 MG/DL (0.1-1.0)
[2021-12-20 05:02] LABS: CREATININE SERUM 0.6 MG/DL (0.60-1.30)
[2021-12-20 05:20] LABS: HEMOGLOBIN 6.9 g/dL (13.3-17.7)
[2021-12-20] MEDS: POTASSIUM CL 10MEQ/50ML IVPB 50 ML IV SCH ×3 (05:23→06:57)
[2021-12-20] MEDS: MAGNESIUM 1 GM/100 ML IVPB 100 ML IV SCH (05:23)
[2021-12-20] MEDS: KCL 20 MEQ TAB (K-DUR) PO SCH (05:24)
[2021-12-20] MEDS: THIAMINE 100 MG (VITAMIN B-1) TAB PO SCH (05:38)
[2021-12-20] MEDS: PROPOFOL DRIP (ICU) 100 ML IV SCH ×5 (05:39→20:45)
--- NOTE | 2021-12-20 06:24 | Tele-ICU Progress Note ---
Subjective Date Seen by a Provider: Dec 20, 2021 Time Seen by a Provider: 06:23 Sepsis Event Evaluation Height, Weight, BMI Height: 5'10.00" Weight: 175lbs. 0oz. 79.392091nm; 27.99 BMI Method:Estimated Focused Exam Lactate Level 12/19/21 23:59: Lactic Acid Level 0.72 Exam Exam Patient acknowledged, consented, and participated in this virtual visit which was conducted using real time audio/video Vital Signs Date Time Temp Pulse Resp B/P (MAP) Pulse Ox O2 Delivery O2 Flow Rate FiO2 12/20/21 05:39 79 118/65 12/20/21 05:39 79 118/65 12/20/21 05:00 79 21 118/65 98 Mechanical Ventilator 35.00 12/20/21 04:00 80 21 111/65 98 Mechanical Ventilator 35.00 12/20/21 04:00 99 Mechanical Ventilator 35 12/20/21 03:21 94 22 96 35 12/20/21 03:00 82 21 124/74 99 Mechanical Ventilator 35.00 12/20/21 02:00 86 20 120/73 98 Mechanical Ventilator 35.00 12/20/21 01:00 110 12/20/21 01:00 90 26 135/82 98 Mechanical Ventilator 35.00 12/20/21 00:53 38.0 12/20/21 00:00 106 38 173/101 97 OxyMask 10.00 12/19/21 23:59 85 OxyMask 10.00 12/19/21 23:30 OxyMask 10.00 12/19/21 23:00 99 28 163/98 93 Nasal Cannula 4.00 12/19/21 22:00 99 35 171/100 93 Nasal Cannula 4.00 12/19/21 21:00 98 21 173/99 95 Nasal Cannula 4.00 12/19/21 20:03 37.1 12/19/21 20:00 94 Nasal Cannula 4.00 12/19/21 20:00 105 16 164/97 95 Nasal Cannula 4.00 12/19/21 19:00 100 20 151/93 92 Nasal Cannula 4.00 12/19/21 19:00 100 12/19/21 18:00 112 21 159/98 96 Nasal Cannula 4.00 12/19/21 17:00 118 21 205/92 84 Nasal Cannula 4.00 12/19/21 16:00 94 Nasal Cannula 4.00 12/19/21 16:00 105 21 187/112 100 Nasal Cannula 4.00 12/19/21 15:38 37.3 12/19/21 15:00 79 21 146/81 100 Mechanical Ventilator 21.00 12/19/21 14:40 76 22 99 25 12/19/21 14:00 76 21 112/61 100 Mechanical Ventilator 21.00 12/19/21 13:19 83 12/19/21 13:00 90 22 128/77 100 Mechanical Ventilator 21.00 12/19/21 12:43 80 113/58 12/19/21 12:42 79 113/58 12/19/21 12:00 94 Mechanical Ventilator 25 12/19/21 12:00 80 22 131/82 94 Mechanical Ventilator 21.00 12/19/21 11:48 36.8 12/19/21 11:05 74 110/58 12/19/21 11:00 79 22 118/74 97 Mechanical Ventilator 21.00 12/19/21 10:40 74 22 91 21 12/19/21 10:00 73 21 111/64 91 Mechanical Ventilator 21.00 12/19/21 09:00 73 21 111/56 92 Mechanical Ventilator 21.00 12/19/21 08:00 73 21 120/68 94 Mechanical Ventilator 30.00 12/19/21 08:00 96 Mechanical Ventilator 21 12/19/21 07:55 37.0 12/19/21 07:00 Mechanical Ventilator 21.00 12/19/21 07:00 72 12/19/21 07:00 72 21 119/65 94 Mechanical Ventilator 30.00 12/19/21 06:52 71 22 96 21 I & O 12/20/21 07:00 Intake Total 320 ml Output Total 2000 ml Balance -1680 ml Height & Weight Height: 5'10.00" Weight: 175lbs. 0oz. 79.020902ai; 27.99 BMI Method:Estimated General Appearance: No Apparent Distress, Obese, Other (intubated) HEENT: PERRL/EOMI, Normal ENT Inspection Neck: Normal Inspection, Non Tender Respiratory: Lungs Clear, Other (intubated and sedated) Cardiovascular: Regular Rate, Rhythm, No Murmur Capillary Refill: Less Than 3 Seconds Gastrointestinal: soft Extremity: Normal Inspection, No Pedal Edema Neurologic/Psychiatric: Other (sedated) Skin: Normal Color, Warm/Dry Lymphatic: No Adenopathy Results Lab Laboratory Tests 12/19/21 02:45 12/20/21 04:10 Assessment/Plan Assessment/Plan HB<7 no active bleeding; 1u prbc to be given. SHAQ SHRESTHA MD Dec 20, 2021 06:24
--- NOTE | 2021-12-20 06:38 | Diagnostic Imaging Report ---
INDICATION: Intubated COMPARISON: 12/17/2021 FINDINGS: Single view of the chest demonstrates well-positioned support devices including a left entering PICC line. The heart is prominent with some slight central vascular congestion which has decreased. There is trace left-sided effusion. There is no pneumothorax. IMPRESSION: 1. Stable support devices. 2. Improved aeration. Dictated by: Dictated on workstation # [id number]
[2021-12-20 06:44] LABS: ABG BASE EXCESS 5.6 MMOL/L (-2.5-2.5); ABG OXYGEN SATURATION 98 % (94-100); ABG PCO2 47 MMHG (35-45); ABG PH 7.42 (7.37-7.43); ABG PO2 97 MMHG (79-93); ABG TCO2 31.4 MMOL/L (21.0-31.0)
[2021-12-20 06:45] LABS: ALLENS TEST YES-POS; INSPIRED O2 35%; PATIENT TEMP 37.3; VENTILATOR YES
[2021-12-20] MEDS ORDERED: NS IV 500 ML 500 ML IV SCH (06:45)
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
[2021-12-20] MEDS ORDERED: proPOfol 200 MG/20 ML (DIPRIVAN) VIAL IV ONE (08:25)
[2021-12-20] MEDS ORDERED: SUCCINYLCHOLINE INJ 100 MG/5 ML SYR/VIAL INJ ONE (08:25)
[2021-12-20] MEDS ORDERED: MIDAZOLAM 5 MG/5 ML (VERSED) VIAL IJ ONE (08:25)
[2021-12-20] MEDS ORDERED: ROCURONIUM 10 MG/ML 5 ML SYRINGE IV ONE (08:25)
[2021-12-20] MEDS ORDERED: NS (IVPB) 250 ML ONE (08:50)
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
[2021-12-20] MEDS: FOLIC ACID 1 MG TAB PO SCH (10:30)
[2021-12-20] MEDS: PANTOPRAZOLE 40 MG (PROTONIX) VIAL IV SCH (10:30)
[2021-12-20] MEDS: DexMEDEtomidine 250 ML DRIP 250 ML IV SCH ×4 (10:50→20:45)
[2021-12-20] MEDS: RT-ALBUTEROL HFA 8.5 GM INHALER IH SCH ×4 (14:09→22:05)
[2021-12-20] MEDS: risperiDONE 1 MG (RisperDAL) TAB PO SCH (20:45)
[2021-12-21] VITALS (7 sets, daily range): BP systolic 105–171; BP diastolic 64–105
[2021-12-21] MEDS: RT-ALBUTEROL HFA 8.5 GM INHALER IH SCH ×6 (02:02→21:43)
[2021-12-21] MEDS: METOCLOPRAMIDE INJ 10 MG/2 ML (REGLAN) IVP SCH ×4 (02:15→18:23)
[2021-12-21] MEDS: PROPOFOL DRIP (ICU) 100 ML IV SCH ×7 (02:16→20:49)
[2021-12-21] MEDS: fentaNYL DRIP PRE-MIX 250 ML IV SCH ×5 (02:16→21:05)
[2021-12-21] MEDS: LORazepam 0.5 MG (ATIVAN) TABLET PO SCH ×6 (02:16→20:48)
[2021-12-21 04:42] LABS: ABG BASE EXCESS 5.2 MMOL/L (-2.5-2.5); ABG OXYGEN SATURATION 97 % (94-100); ABG PCO2 49 MMHG (35-45); ABG PO2 84 MMHG (79-93); ABG TCO2 31.1 MMOL/L (21.0-31.0); ALLENS TEST YES-POS; INSPIRED O2 30%; PATIENT TEMP 38; VENTILATOR YES
[2021-12-21 04:51] LABS: ALBUMIN 2.7 GM/DL (3.2-4.5); POTASSIUM 3.7 MMOL/L (3.6-5.0)
[2021-12-21 04:54] LABS: TOTAL PROTEIN 5.7 GM/DL (6.4-8.2)
[2021-12-21 04:55] LABS: BASOPHILS % (AUTO) 1 % (0-10); EOSINOPHILS # (AUTO) 0.2 10^3/uL (0.0-0.3); EOSINOPHILS % (AUTO) 2 % (0-10); HEMATOCRIT 27 % (40-54); HEMOGLOBIN 8.5 g/dL (13.3-17.7); LYMPHOCYTES # (AUTO) 1.6 10^3/uL (1.0-4.0); LYMPHOCYTES % (AUTO) 19 % (12-44); MEAN CORPUSCULAR HEMOGLOBIN 26 pg (25-34); MEAN CORPUSCULAR HGB CONC 31 g/dL (32-36); MEAN CORPUSCULAR VOLUME 82 fL (80-99); MEAN PLATELET VOLUME 10.3 fL (9.0-12.2); MONOCYTES # (AUTO) 0.8 10^3/uL (0.0-1.0); MONOCYTES % (AUTO) 10 % (0-12); NEUTROPHILS # (AUTO) 5.7 10^3/uL (1.8-7.8); NEUTROPHILS % (AUTO) 68 % (42-75); PLATELET COUNT 338 10^3/uL (130-400); WHITE BLOOD COUNT 8.3 10^3/uL (4.3-11.0)
[2021-12-21 04:56] LABS: BILIRUBIN,TOTAL 1.7 MG/DL (0.1-1.0)
[2021-12-21 04:57] LABS: PHOSPHORUS 3.7 MG/DL (2.3-4.7)
[2021-12-21 04:58] LABS: CREATININE SERUM 0.68 MG/DL (0.60-1.30)
[2021-12-21 05:00] LABS: MAGNESIUM 1.7 MG/DL (1.6-2.4)
[2021-12-21] MEDS: POTASSIUM CL 10MEQ/50ML IVPB 50 ML IV SCH (05:04)
[2021-12-21] MEDS: KCL 20 MEQ TAB (K-DUR) PO SCH (05:04)
[2021-12-21] MEDS: MAGNESIUM 1 GM/100 ML IVPB 100 ML IV SCH ×3 (05:05→06:02)
[2021-12-21] MEDS: THIAMINE 100 MG (VITAMIN B-1) TAB PO SCH (06:02)
[2021-12-21] MEDS: DexMEDEtomidine 250 ML DRIP 250 ML IV SCH ×3 (09:02→20:49)
[2021-12-21] MEDS: risperiDONE 1 MG (RisperDAL) TAB PO SCH ×2 (09:03→20:48)
[2021-12-21] MEDS: FOLIC ACID 1 MG TAB PO SCH (09:03)
[2021-12-21] MEDS: PANTOPRAZOLE 40 MG (PROTONIX) VIAL IV SCH (09:03)
[2021-12-21] MEDS: APAP 325 MG/10.15 ML LIQ (TYLENOL) UDC PO PRN (09:04)
[2021-12-21] MEDS ORDERED: NS IV 1000 ML 1,000 ML IV SCH (11:30)
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
[2021-12-21] MEDS: MIDAZOLAM DRIP PRE-MIX 100 ML IV SCH (12:47)
[2021-12-21] MEDS: NS IV 1000 ML 1,000 ML IV SCH ×3 (12:47→23:39)
--- NOTE | 2021-12-21 14:46 | Diagnostic Imaging Report ---
INDICATION: Fever. TIME OF EXAM: 01:55 p.m. COMPARISON: Correlation is made with prior chest one day earlier. FINDINGS: ET tube has tip above the richard. NG tube passes into the stomach. A left upper extremity PICC line appears to have the tip overlying the SVC-right atrial junction. There is some increased density at the left base, similar to prior exam. This is likely owing to combination of infiltrate and pleural fluid, obscuring the left hemidiaphragm. Right lung is clear. There is no pneumothorax. IMPRESSION: Stable chest since examination one day earlier. Dictated by: Dictated on workstation # [id number]
[2021-12-21] MEDS: LORazepam INJ 2 MG/ML (ATIVAN) VIAL IV PRN (16:48)
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
[2021-12-21] MEDS ORDERED: PIPERACILLIN SODIUM/TAZOBACTAM 4.5 GM in NS (IVPB) 100 ML IV NR (19:00)
[2021-12-22] MEDS: METOCLOPRAMIDE INJ 10 MG/2 ML (REGLAN) IVP SCH ×5 (01:35→23:04)
[2021-12-22] MEDS: LORazepam 0.5 MG (ATIVAN) TABLET PO SCH ×6 (01:35→20:06)
[2021-12-22] MEDS: PIPERACILLIN SODIUM/TAZOBACTAM 4.5 GM in NS (IVPB) 100 ML IV SCH ×4 (01:36→23:51)
[2021-12-22 02:27] VITALS: BP 127/81
[2021-12-22] MEDS: RT-ALBUTEROL HFA 8.5 GM INHALER IH SCH ×6 (02:27→21:51)
[2021-12-22] MEDS: PROPOFOL DRIP (ICU) 100 ML IV SCH ×4 (02:45→20:08)
[2021-12-22] MEDS: fentaNYL DRIP PRE-MIX 250 ML IV SCH ×4 (03:55→20:08)
[2021-12-22 04:12] LABS: ABG BASE EXCESS 4.4 MMOL/L (-2.5-2.5); ABG OXYGEN SATURATION 98 % (94-100); ABG PCO2 47 MMHG (35-45); ABG PH 7.41 (7.37-7.43); ABG PO2 99 MMHG (79-93); ABG TCO2 30.3 MMOL/L (21.0-31.0)
[2021-12-22 04:14] LABS: ALLENS TEST YES-POS; INSPIRED O2 28%; VENTILATOR YES
[2021-12-22 04:15] LABS: BASOPHILS % (AUTO) 1 % (0-10); EOSINOPHILS # (AUTO) 0.3 10^3/uL (0.0-0.3); EOSINOPHILS % (AUTO) 6 % (0-10); HEMATOCRIT 26 % (40-54); LYMPHOCYTES % (AUTO) 20 % (12-44); MEAN CORPUSCULAR HEMOGLOBIN 26 pg (25-34); MEAN CORPUSCULAR HGB CONC 31 g/dL (32-36); MEAN CORPUSCULAR VOLUME 83 fL (80-99); MEAN PLATELET VOLUME 9.7 fL (9.0-12.2); MONOCYTES # (AUTO) 0.4 10^3/uL (0.0-1.0); MONOCYTES % (AUTO) 9 % (0-12); NEUTROPHILS # (AUTO) 3.4 10^3/uL (1.8-7.8); NEUTROPHILS % (AUTO) 65 % (42-75); PATIENT TEMP 36.9; PLATELET COUNT 312 10^3/uL (130-400); WHITE BLOOD COUNT 5.2 10^3/uL (4.3-11.0)
[2021-12-22 04:25] LABS: ALBUMIN 2.5 GM/DL (3.2-4.5); POTASSIUM 3.9 MMOL/L (3.6-5.0)
[2021-12-22 04:26] LABS: CALCIUM 8.1 MG/DL (8.5-10.1)
[2021-12-22 04:27] LABS: TOTAL PROTEIN 5.4 GM/DL (6.4-8.2)
[2021-12-22 04:29] LABS: BILIRUBIN,TOTAL 0.9 MG/DL (0.1-1.0)
[2021-12-22 04:31] LABS: CREATININE SERUM 0.6 MG/DL (0.60-1.30); PHOSPHORUS 3.7 MG/DL (2.3-4.7)
[2021-12-22 04:34] LABS: MAGNESIUM 1.9 MG/DL (1.6-2.4)
[2021-12-22] MEDS: MAGNESIUM 1 GM/100 ML IVPB 100 ML IV SCH (04:54)
[2021-12-22] MEDS: POTASSIUM CL 10MEQ/50ML IVPB 50 ML IV SCH (04:54)
[2021-12-22] MEDS: KCL 20 MEQ TAB (K-DUR) PO SCH (04:54)
[2021-12-22] MEDS: THIAMINE 100 MG (VITAMIN B-1) TAB PO SCH (05:42)
[2021-12-22 07:45] VITALS: BP 169/111
[2021-12-22] MEDS: MIDAZOLAM DRIP PRE-MIX 100 ML IV SCH ×2 (08:34→18:51)
[2021-12-22] MEDS: FOLIC ACID 1 MG TAB PO SCH (08:36)
[2021-12-22] MEDS: risperiDONE 1 MG (RisperDAL) TAB PO SCH ×2 (08:36→20:06)
[2021-12-22] MEDS: PANTOPRAZOLE 40 MG (PROTONIX) VIAL IV SCH (08:36)
[2021-12-22] MEDS: DexMEDEtomidine 250 ML DRIP 250 ML IV SCH ×4 (09:27→22:00)
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
[2021-12-22 10:31] VITALS: BP 179/121
[2021-12-22] MEDS: 1/2 NS W/KCL 20 MEQ/L 1,000 ML IV SCH ×2 (10:45→20:05)
[2021-12-22] MEDS: LABETALOL HCL 20 MG/4 ML VIAL IV PRN ×2 (12:32→23:50)
[2021-12-22 15:28] VITALS: BP 117/68
[2021-12-22 18:45] VITALS: BP 141/96
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
[2021-12-22 21:51] VITALS: BP 130/82
[2021-12-23] MEDS: APAP 325 MG/10.15 ML LIQ (TYLENOL) UDC PO PRN ×2 (00:43→16:53)
[2021-12-23] MEDS: LORazepam 0.5 MG (ATIVAN) TABLET PO SCH ×6 (00:48→21:32)
[2021-12-23] MEDS: PROPOFOL DRIP (ICU) 100 ML IV SCH ×6 (02:06→21:32)
[2021-12-23 02:23] VITALS: BP 145/84
[2021-12-23] MEDS: RT-ALBUTEROL HFA 8.5 GM INHALER IH SCH ×6 (02:48→21:44)
[2021-12-23 03:33] LABS: BASOPHILS % (AUTO) 1 % (0-10); EOSINOPHILS # (AUTO) 0.3 10^3/uL (0.0-0.3); EOSINOPHILS % (AUTO) 5 % (0-10); HEMATOCRIT 27 % (40-54); HEMOGLOBIN 8.4 g/dL (13.3-17.7); LYMPHOCYTES # (AUTO) 1.6 10^3/uL (1.0-4.0); LYMPHOCYTES % (AUTO) 25 % (12-44); MEAN CORPUSCULAR HEMOGLOBIN 25 pg (25-34); MEAN CORPUSCULAR HGB CONC 31 g/dL (32-36); MEAN CORPUSCULAR VOLUME 83 fL (80-99); MONOCYTES # (AUTO) 0.6 10^3/uL (0.0-1.0); MONOCYTES % (AUTO) 9 % (0-12); NEUTROPHILS # (AUTO) 3.8 10^3/uL (1.8-7.8); NEUTROPHILS % (AUTO) 60 % (42-75); PLATELET COUNT 368 10^3/uL (130-400); WHITE BLOOD COUNT 6.3 10^3/uL (4.3-11.0)
[2021-12-23 03:54] LABS: ALBUMIN 2.5 GM/DL (3.2-4.5); BILIRUBIN,TOTAL 0.8 MG/DL (0.1-1.0); CALCIUM 8.2 MG/DL (8.5-10.1); CREATININE SERUM 0.65 MG/DL (0.60-1.30); TOTAL PROTEIN 5.4 GM/DL (6.4-8.2)
[2021-12-23] MEDS: fentaNYL DRIP PRE-MIX 250 ML IV SCH ×4 (04:29→21:08)
[2021-12-23 04:48] LABS: MAGNESIUM 1.6 MG/DL (1.6-2.4); PHOSPHORUS 4.1 MG/DL (2.3-4.7)
[2021-12-23] MEDS: POTASSIUM CL 10MEQ/50ML IVPB 50 ML IV SCH (04:53)
[2021-12-23] MEDS: KCL 20 MEQ TAB (K-DUR) PO SCH (04:54)
[2021-12-23] MEDS: MAGNESIUM 1 GM/100 ML IVPB 100 ML IV SCH ×3 (04:54→05:50)
[2021-12-23] MEDS: THIAMINE 100 MG (VITAMIN B-1) TAB PO SCH (05:03)
[2021-12-23] MEDS: METOCLOPRAMIDE INJ 10 MG/2 ML (REGLAN) IVP SCH ×3 (05:03→17:02)
[2021-12-23] MEDS: 1/2 NS W/KCL 20 MEQ/L 1,000 ML IV SCH ×2 (06:39→16:53)
[2021-12-23 07:56] VITALS: BP 135/78
[2021-12-23] MEDS: risperiDONE 1 MG (RisperDAL) TAB PO SCH ×2 (08:49→21:07)
[2021-12-23] MEDS: PIPERACILLIN SODIUM/TAZOBACTAM 4.5 GM in NS (IVPB) 100 ML IV SCH ×2 (08:49→16:51)
[2021-12-23] MEDS: FOLIC ACID 1 MG TAB PO SCH (08:49)
[2021-12-23] MEDS: PANTOPRAZOLE 40 MG (PROTONIX) VIAL IV SCH (08:50)
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
[2021-12-23 11:35] VITALS: BP 122/68
[2021-12-23] MEDS: DexMEDEtomidine 250 ML DRIP 250 ML IV SCH (13:29)
[2021-12-23] MEDS: LABETALOL HCL 20 MG/4 ML VIAL IV PRN (15:21)
[2021-12-23 15:34] VITALS: BP 195/124
[2021-12-23] MEDS: LORazepam INJ 2 MG/ML (ATIVAN) VIAL IV PRN (16:51)
[2021-12-23] MEDS: MIDAZOLAM DRIP PRE-MIX 100 ML IV SCH (17:01)
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
[2021-12-23] MEDS ORDERED: hydrALAZINE (APESOLINE) 20 MG/ML VIAL ONE (18:09)
[2021-12-23 18:34] VITALS: BP 169/101
[2021-12-23] MEDS: hydrALAZINE (APESOLINE) 20 MG/ML VIAL IV PRN (18:39)
[2021-12-24] MEDS: METOCLOPRAMIDE INJ 10 MG/2 ML (REGLAN) IVP SCH ×4 (00:33→17:14)
[2021-12-24] MEDS: PIPERACILLIN SODIUM/TAZOBACTAM 4.5 GM in NS (IVPB) 100 ML IV SCH ×3 (00:33→16:14)
[2021-12-24] MEDS: LORazepam 0.5 MG (ATIVAN) TABLET PO SCH ×6 (02:22→20:40)
[2021-12-24] MEDS: 1/2 NS W/KCL 20 MEQ/L 1,000 ML IV SCH ×3 (02:32→21:50)
[2021-12-24 02:49] VITALS: BP 128/70
[2021-12-24] MEDS: PROPOFOL DRIP (ICU) 100 ML IV SCH ×5 (03:55→20:41)
[2021-12-24] MEDS: DexMEDEtomidine 250 ML DRIP 250 ML IV SCH ×2 (04:01→19:33)
[2021-12-24 04:34] LABS: ABG BASE EXCESS 4.7 MMOL/L (-2.5-2.5); ABG OXYGEN SATURATION 96 % (94-100); ABG PCO2 47 MMHG (35-45); ABG PH 7.41 (7.37-7.43); ABG PO2 83 MMHG (79-93); ABG TCO2 30.5 MMOL/L (21.0-31.0); ALLENS TEST YES-POS; INSPIRED O2 25%; VENTILATOR YES
[2021-12-24 04:35] LABS: BASOPHILS % (AUTO) 1 % (0-10); EOSINOPHILS # (AUTO) 0.3 10^3/uL (0.0-0.3); EOSINOPHILS % (AUTO) 5 % (0-10); HEMATOCRIT 27 % (40-54); HEMOGLOBIN 8.5 g/dL (13.3-17.7); LYMPHOCYTES # (AUTO) 1.3 10^3/uL (1.0-4.0); LYMPHOCYTES % (AUTO) 25 % (12-44); MEAN CORPUSCULAR HEMOGLOBIN 25 pg (25-34); MEAN CORPUSCULAR HGB CONC 31 g/dL (32-36); MEAN CORPUSCULAR VOLUME 81 fL (80-99); MEAN PLATELET VOLUME 9.9 fL (9.0-12.2); MONOCYTES # (AUTO) 0.5 10^3/uL (0.0-1.0); MONOCYTES % (AUTO) 9 % (0-12); NEUTROPHILS # (AUTO) 3.1 10^3/uL (1.8-7.8); NEUTROPHILS % (AUTO) 59 % (42-75); PATIENT TEMP 37.2; PLATELET COUNT 365 10^3/uL (130-400); WHITE BLOOD COUNT 5.3 10^3/uL (4.3-11.0)
[2021-12-24 05:01] LABS: ALBUMIN 2.5 GM/DL (3.2-4.5); BILIRUBIN,TOTAL 0.9 MG/DL (0.1-1.0); CALCIUM 8.4 MG/DL (8.5-10.1); CREATININE SERUM 0.6 MG/DL (0.60-1.30); MAGNESIUM 1.7 MG/DL (1.6-2.4); PHOSPHORUS 3.5 MG/DL (2.3-4.7); POTASSIUM 3.9 MMOL/L (3.6-5.0); TOTAL PROTEIN 5.9 GM/DL (6.4-8.2)
[2021-12-24] MEDS: POTASSIUM CL 10MEQ/50ML IVPB 50 ML IV SCH (05:24)
[2021-12-24] MEDS: MAGNESIUM 1 GM/100 ML IVPB 100 ML IV SCH ×3 (05:25→06:39)
[2021-12-24] MEDS: KCL 20 MEQ TAB (K-DUR) PO SCH (05:25)
[2021-12-24] MEDS: THIAMINE 100 MG (VITAMIN B-1) TAB PO SCH (05:28)
[2021-12-24] MEDS: APAP 325 MG/10.15 ML LIQ (TYLENOL) UDC PO PRN ×3 (05:28→17:15)
[2021-12-24] MEDS: fentaNYL DRIP PRE-MIX 250 ML IV SCH ×4 (05:37→15:11)
[2021-12-24] MEDS: MIDAZOLAM DRIP PRE-MIX 100 ML IV SCH ×2 (05:37→20:42)
[2021-12-24 07:33] VITALS: BP 149/84
[2021-12-24] MEDS: RT-ALBUTEROL HFA 8.5 GM INHALER IH SCH ×5 (07:33→21:53)
[2021-12-24] MEDS: FOLIC ACID 1 MG TAB PO SCH (08:36)
[2021-12-24] MEDS: PANTOPRAZOLE 40 MG (PROTONIX) VIAL IV SCH (08:36)
[2021-12-24] MEDS: risperiDONE 1 MG (RisperDAL) TAB PO SCH ×2 (08:36→20:39)
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
--- NOTE | 2021-12-24 10:53 | Diagnostic Imaging Report ---
INDICATION: Abdominal distention. TIME OF EXAM: 10:43 a.m. FINDINGS: NG tube passes into the stomach. Bowel gas pattern is nonobstructed. No free air or pathologic calcifications are seen. IMPRESSION: No acute abnormality is detected. Dictated by: Dictated on workstation # [id number]
[2021-12-24] MEDS: hydrALAZINE (APESOLINE) 20 MG/ML VIAL IV PRN ×2 (11:06→16:13)
[2021-12-24 11:14] VITALS: BP 172/118
[2021-12-24] MEDS: LABETALOL HCL 20 MG/4 ML VIAL IV PRN ×2 (11:23→17:15)
--- NOTE | 2021-12-24 14:46 | Diagnostic Imaging Report ---
PROCEDURE: US Venous Lower Ext Gilles. TECHNIQUE: Multiple real-time grayscale images were obtained over the lower extremities in various projections, bilaterally. Additional duplex Doppler and color Doppler images were also obtained. INDICATION: Leg swelling. FINDINGS: The veins of the lower extremities have good color filling and compressibility. There is phasic flow and a normal response to augmentation. IMPRESSION: Negative venous Doppler of lower extremities. Dictated by: Dictated on workstation # [id number]
[2021-12-24 15:31] VITALS: BP 194/111
[2021-12-24] MEDS: LORazepam INJ 2 MG/ML (ATIVAN) VIAL IVP PRN (16:45)
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
[2021-12-24 19:38] VITALS: BP 126/69
[2021-12-24] MEDS: ENOXAPARIN 40 MG/0.4 ML (LOVENOX) SYR SC SCH (20:40)
[2021-12-24 22:33] VITALS: BP 130/84
[2021-12-25] MEDS: METOCLOPRAMIDE INJ 10 MG/2 ML (REGLAN) IVP SCH ×2 (01:11→05:16)
[2021-12-25] MEDS: PIPERACILLIN SODIUM/TAZOBACTAM 4.5 GM in NS (IVPB) 100 ML IV SCH ×4 (01:11→23:56)
[2021-12-25] MEDS: fentaNYL DRIP PRE-MIX 250 ML IV SCH ×4 (01:12→09:56)
[2021-12-25] MEDS: LORazepam 0.5 MG (ATIVAN) TABLET PO SCH ×6 (01:12→21:49)
[2021-12-25 02:00] VITALS: BP 107/63
[2021-12-25] MEDS: RT-ALBUTEROL HFA 8.5 GM INHALER IH SCH ×6 (02:00→22:35)
[2021-12-25] MEDS: PROPOFOL DRIP (ICU) 100 ML IV SCH ×7 (03:22→23:56)
[2021-12-25 03:47] LABS: BASOPHILS % (AUTO) 1 % (0-10); EOSINOPHILS # (AUTO) 0.3 10^3/uL (0.0-0.3); EOSINOPHILS % (AUTO) 5 % (0-10); HEMATOCRIT 26 % (40-54); HEMOGLOBIN 8.4 g/dL (13.3-17.7); LYMPHOCYTES # (AUTO) 1.6 10^3/uL (1.0-4.0); LYMPHOCYTES % (AUTO) 28 % (12-44); MEAN CORPUSCULAR HEMOGLOBIN 27 pg (25-34); MEAN CORPUSCULAR HGB CONC 32 g/dL (32-36); MEAN CORPUSCULAR VOLUME 82 fL (80-99); MEAN PLATELET VOLUME 10.4 fL (9.0-12.2); MONOCYTES # (AUTO) 0.5 10^3/uL (0.0-1.0); MONOCYTES % (AUTO) 10 % (0-12); NEUTROPHILS % (AUTO) 54 % (42-75); PLATELET COUNT 399 10^3/uL (130-400); WHITE BLOOD COUNT 5.6 10^3/uL (4.3-11.0)
[2021-12-25 03:50] LABS: ABG BASE EXCESS 3.9 MMOL/L (-2.5-2.5); ABG OXYGEN SATURATION 95 % (94-100); ABG PCO2 45 MMHG (35-45); ABG PH 7.42 (7.37-7.43); ABG PO2 86 MMHG (79-93); ABG TCO2 29.3 MMOL/L (21.0-31.0)
[2021-12-25 03:51] LABS: ALLENS TEST POSITIVE; INSPIRED O2 25; PATIENT TEMP 37.6; VENTILATOR YES
[2021-12-25 03:58] LABS: ALBUMIN 2.4 GM/DL (3.2-4.5); POTASSIUM 3.8 MMOL/L (3.6-5.0)
[2021-12-25 03:59] LABS: CALCIUM 7.9 MG/DL (8.5-10.1)
[2021-12-25 04:01] LABS: TOTAL PROTEIN 5.8 GM/DL (6.4-8.2)
[2021-12-25 04:02] LABS: BILIRUBIN,TOTAL 0.6 MG/DL (0.1-1.0)
[2021-12-25 04:04] LABS: CREATININE SERUM 0.57 MG/DL (0.60-1.30); PHOSPHORUS 3.5 MG/DL (2.3-4.7)
[2021-12-25 04:07] LABS: MAGNESIUM 1.7 MG/DL (1.6-2.4)
[2021-12-25] MEDS: KCL 20 MEQ TAB (K-DUR) PO SCH (04:10)
[2021-12-25] MEDS: POTASSIUM CL 10MEQ/50ML IVPB 50 ML IV SCH (04:10)
[2021-12-25] MEDS: MAGNESIUM 1 GM/100 ML IVPB 100 ML IV SCH (04:10)
[2021-12-25] MEDS: 1/2 NS W/KCL 20 MEQ/L 1,000 ML IV SCH ×2 (05:15→15:54)
[2021-12-25] MEDS: THIAMINE 100 MG (VITAMIN B-1) TAB PO SCH (05:16)
[2021-12-25] MEDS: APAP 325 MG/10.15 ML LIQ (TYLENOL) UDC PO PRN (05:25)
--- NOTE | 2021-12-25 07:41 | Diagnostic Imaging Report ---
EXAMINATION: Chest radiograph, portable AP view. DATE: 12/25/2021 5:33 AM INDICATION: 36-year-old male, COVID positive. Fever. Shortness of breath. COMPARISON: December 21, 2021. FINDINGS: The endotracheal tube is approximately 7.2 cm above the richard. The nasogastric tube extends to the inferior margin of the included [id number]. The left-sided PIC line overlies the lower SVC. Heart size and mediastinal contours are unchanged. There is no identified pneumothorax. There is no large pleural effusion. There is slight blunting of the right lateral costophrenic angle. There does appear to be improved aeration of the left lung base since the comparison exam. IMPRESSION: 1. Slight blunting the right lateral costophrenic angle which may relate to atelectasis, infiltrate, and/or small effusion. 2. Interval improved aeration of the left lung base. 3. Support lines and tubes as above. Report was faxed to [facility] by halle at 7:38am. Dictated by: Dictated on workstation # [id number]
[2021-12-25 07:52] VITALS: BP 160/91
[2021-12-25] MEDS: FOLIC ACID 1 MG TAB PO SCH (08:35)
[2021-12-25] MEDS: PANTOPRAZOLE 40 MG (PROTONIX) VIAL IV SCH (08:35)
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
[2021-12-25] MEDS: KETAMINE INJECTION 500 MG in NS IV 500 ML 500 ML IV SCH ×3 (09:49→21:48)
[2021-12-25] MEDS: DexMEDEtomidine 250 ML DRIP 250 ML IV SCH ×3 (09:55→21:48)
[2021-12-25 11:01] VITALS: BP 142/84
[2021-12-25] MEDS: MIDAZOLAM DRIP PRE-MIX 100 ML IV SCH ×2 (11:30→23:55)
[2021-12-25] MEDS ORDERED: ERYTHROMYCIN ETHYLSUCCINATE 400 MG/5 ML PO SCH (13:00)
[2021-12-25 14:51] VITALS: BP 183/109
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
[2021-12-25 18:22] VITALS: BP 111/62
[2021-12-25] MEDS: ENOXAPARIN 40 MG/0.4 ML (LOVENOX) SYR SC SCH (20:12)
[2021-12-25 22:35] VITALS: BP 150/101
[2021-12-26] MEDS: hydrALAZINE (APESOLINE) 20 MG/ML VIAL IV PRN (00:41)
[2021-12-26] MEDS ORDERED: fentaNYL DRIP PRE-MIX 250 ML IV ONE (00:51)
[2021-12-26] MEDS: fentaNYL DRIP PRE-MIX 250 ML IV SCH ×4 (00:53→14:02)
--- NOTE | 2021-12-26 01:24 | Tele-ICU Progress Note ---
Subjective Date Seen by a Provider: Dec 26, 2021 Time Seen by a Provider: 01:20 Subjective/Events-last exam called for continued agitation despite, IV Ketamine, IV Propofol @ 60, IV Fentayl @ 300, IV Precedex would add IV Ativan @ 5 mg/h and is still not helping would give either 30 or 60 mg of IV phenobarb Aly King MD Sepsis Event Evaluation Height, Weight, BMI Height: 5'10.00" Weight: 175lbs. 0oz. 79.175929hc; 27.99 BMI Method:Estimated Exam Exam Patient acknowledged, consented, and participated in this virtual visit which was conducted using real time audio/video Vital Signs Date Time Temp Pulse Resp B/P (MAP) Pulse Ox O2 Delivery O2 Flow Rate FiO2 12/26/21 00:00 37.6 89 22 158/101 100 Mechanical Ventilator 25.00 12/25/21 23:59 94 Mechanical Ventilator 25 12/25/21 23:56 84 150/101 12/25/21 23:55 84 24 150/101 12/25/21 23:55 84 150/101 12/25/21 23:00 37.4 87 22 159/103 99 Mechanical Ventilator 25.00 12/25/21 22:35 84 24 98 25 12/25/21 22:00 37.2 84 22 150/89 97 Mechanical Ventilator 25.00 12/25/21 21:48 77 111/62 12/25/21 21:00 37.0 80 22 137/86 96 Mechanical Ventilator 25.00 12/25/21 20:00 36.9 80 22 135/84 96 Mechanical Ventilator 25.00 12/25/21 20:00 94 Mechanical Ventilator 25 12/25/21 19:00 36.9 80 22 114/67 94 Mechanical Ventilator 25.00 12/25/21 19:00 80 12/25/21 18:22 77 22 93 25 12/25/21 18:00 37.2 76 22 111/64 94 Mechanical Ventilator 25.00 12/25/21 17:00 37.7 81 22 120/68 94 Mechanical Ventilator 25.00 12/25/21 16:43 96 130/75 12/25/21 16:41 96 130/75 12/25/21 16:00 37.8 96 25 130/75 97 Mechanical Ventilator 25.00 12/25/21 16:00 94 Mechanical Ventilator 25 12/25/21 15:00 37.6 98 16 162/109 97 Mechanical Ventilator 25.00 12/25/21 14:51 96 24 96 25 12/25/21 14:00 37.4 90 28 183/109 97 Mechanical Ventilator 25.00 12/25/21 13:00 37.2 89 24 156/98 98 Mechanical Ventilator 25.00 12/25/21 12:59 86 12/25/21 12:00 37.0 82 25 170/97 99 Mechanical Ventilator 25.00 12/25/21 12:00 100 Mechanical Ventilator 25 12/25/21 11:30 79 24 142/84 12/25/21 11:01 79 24 98 25 12/25/21 11:00 37.0 79 25 141/88 98 Mechanical Ventilator 25.00 12/25/21 10:00 37.5 82 22 130/72 95 Mechanical Ventilator 25.00 12/25/21 09:56 96 143/77 12/25/21 09:55 96 143/77 12/25/21 09:00 37.9 96 16 143/77 95 Mechanical Ventilator 25.00 12/25/21 08:36 98 165/98 12/25/21 08:36 98 165/98 12/25/21 08:00 100 Mechanical Ventilator 25 12/25/21 08:00 37.9 98 21 165/98 99 Mechanical Ventilator 25.00 12/25/21 07:52 99 27 96 25 12/25/21 07:00 97 12/25/21 07:00 38.0 115 20 160/91 99 Mechanical Ventilator 25.00 12/25/21 06:00 38.0 112 22 160/96 98 Mechanical Ventilator 25.00 12/25/21 05:25 38.1 12/25/21 05:00 38.0 98 22 167/99 96 Mechanical Ventilator 25.00 12/25/21 04:00 98 Mechanical Ventilator 25 12/25/21 04:00 37.7 92 22 160/103 97 Mechanical Ventilator 25.00 12/25/21 03:23 83 125/73 12/25/21 03:22 83 125/73 12/25/21 03:00 37.5 83 22 125/73 96 Mechanical Ventilator 25.00 12/25/21 02:00 37.4 82 22 107/63 94 Mechanical Ventilator 25.00 12/25/21 02:00 82 22 94 25 I & O 12/26/21 07:00 Intake Total 240 ml Output Total 5700 ml Balance -5460 ml Height & Weight Height: 5'10.00" Weight: 175lbs. 0oz. 79.803980to; 27.99 BMI Method:Estimated General Appearance: No Apparent Distress, Obese HEENT: Normal ENT Inspection Neck: Normal Inspection, Non Tender Respiratory: No Respiratory Distress, Decreased Breath Sounds, Other (intubated and mechanically ventilated) Cardiovascular: No Murmur, Tachycardia Capillary Refill: Less Than 3 Seconds Gastrointestinal: soft Extremity: Normal Inspection, No Pedal Edema Neurologic/Psychiatric: Other (sedated) Skin: Normal Color, Warm/Dry Lymphatic: No Adenopathy Results Lab Laboratory Tests 12/24/21 04:10 12/25/21 03:30 Assessment/Plan Assessment/Plan IV Avitan drip @ 5, if not help will give either 30 or 60 mg of IV phenobarb Aly King MD Critical Care: Ventilator Management Time spent with patient (mins): GAVIN SORIANO MD Dec 26, 2021 01:24
[2021-12-26] MEDS ORDERED: LORazepam INJ 2 MG/ML (ATIVAN) VIAL IVP ONE (01:30)
[2021-12-26] MEDS: LORazepam 0.5 MG (ATIVAN) TABLET PO SCH ×6 (01:44→21:56)
[2021-12-26 02:23] VITALS: BP 138/77
[2021-12-26] MEDS: RT-ALBUTEROL HFA 8.5 GM INHALER IH SCH ×6 (02:23→22:03)
[2021-12-26] MEDS: KETAMINE INJECTION 500 MG in NS IV 500 ML 500 ML IV SCH ×5 (02:33→16:24)
[2021-12-26] MEDS: LORazepam INJECTION FOR DRIP 20 MG in NS (IVPB) 90 ML IV SCH ×4 (02:34→18:08)
[2021-12-26] MEDS: 1/2 NS W/KCL 20 MEQ/L 1,000 ML IV SCH ×2 (03:51→14:00)
[2021-12-26 03:52] LABS: BASOPHILS # (AUTO) 0.1 10^3/uL (0.0-0.1); BASOPHILS % (AUTO) 1 % (0-10); EOSINOPHILS # (AUTO) 0.2 10^3/uL (0.0-0.3); EOSINOPHILS % (AUTO) 3 % (0-10); HEMATOCRIT 23 % (40-54); HEMOGLOBIN 7.5 g/dL (13.3-17.7); LYMPHOCYTES # (AUTO) 1.2 10^3/uL (1.0-4.0); LYMPHOCYTES % (AUTO) 21 % (12-44); MEAN CORPUSCULAR HEMOGLOBIN 26 pg (25-34); MEAN CORPUSCULAR HGB CONC 32 g/dL (32-36); MEAN CORPUSCULAR VOLUME 82 fL (80-99); MEAN PLATELET VOLUME 10.2 fL (9.0-12.2); MONOCYTES # (AUTO) 0.4 10^3/uL (0.0-1.0); MONOCYTES % (AUTO) 8 % (0-12); NEUTROPHILS # (AUTO) 3.7 10^3/uL (1.8-7.8); NEUTROPHILS % (AUTO) 66 % (42-75); PLATELET COUNT 358 10^3/uL (130-400); WHITE BLOOD COUNT 5.6 10^3/uL (4.3-11.0)
[2021-12-26 03:53] LABS: ABG BASE EXCESS 2.5 MMOL/L (-2.5-2.5); ABG OXYGEN SATURATION 95 % (94-100); ABG PCO2 48 MMHG (35-45); ABG PH 7.37 (7.37-7.43); ABG PO2 71 MMHG (79-93); ABG TCO2 28.6 MMOL/L (21.0-31.0)
[2021-12-26 03:57] LABS: ALLENS TEST POSITIVE; INSPIRED O2 25; PATIENT TEMP 37.4; VENTILATOR YES
[2021-12-26 04:16] LABS: POTASSIUM 3.2 MMOL/L (3.6-5.0)
[2021-12-26 04:18] LABS: CALCIUM 6.7 MG/DL (8.5-10.1)
[2021-12-26 04:22] LABS: CREATININE SERUM 0.52 MG/DL (0.60-1.30); PHOSPHORUS 3.2 MG/DL (2.3-4.7)
[2021-12-26 04:24] LABS: LYMPHOCYTES % (MANUAL) 20 %; MAGNESIUM 1.5 MG/DL (1.6-2.4); NEUTROPHILS % (MANUAL) 70 %
[2021-12-26 04:25] LABS: ATYPICAL LYMPHOCYTES 3 %; EOSINOPHILS % (MANUAL) 2 %; HYPOCHROMASIA SLIGHT; MICROCYTOSIS SLIGHT; MONOCYTES % (MANUAL) 5 %; PLATELET CLUMPS RARE SEEN; POLYCHROMASIA SLIGHT
[2021-12-26] MEDS: MAGNESIUM 1 GM/100 ML IVPB 100 ML IV SCH ×3 (04:57→06:11)
[2021-12-26] MEDS: POTASSIUM CL 10MEQ/50ML IVPB 50 ML IV SCH ×3 (04:58→06:28)
[2021-12-26] MEDS: PROPOFOL DRIP (ICU) 100 ML IV SCH ×4 (05:07→14:02)
[2021-12-26] MEDS: KCL 20 MEQ TAB (K-DUR) PO SCH (06:12)
[2021-12-26] MEDS: THIAMINE 100 MG (VITAMIN B-1) TAB PO SCH (06:28)
[2021-12-26 06:44] VITALS: BP 107/68
[2021-12-26] MEDS: ERYTHROMYCIN ETHYLSUCCINATE 400 MG/5 ML PO SCH ×3 (09:00→21:56)
[2021-12-26] MEDS: PIPERACILLIN SODIUM/TAZOBACTAM 4.5 GM in NS (IVPB) 100 ML IV SCH (09:12)
[2021-12-26] MEDS: PANTOPRAZOLE 40 MG (PROTONIX) VIAL IV SCH (09:12)
[2021-12-26] MEDS: FOLIC ACID 1 MG TAB PO SCH (09:12)
[2021-12-26] MEDS: DexMEDEtomidine 250 ML DRIP 250 ML IV SCH ×2 (09:19→21:58)
[2021-12-26] MEDS ORDERED: NS 100 ML (IVPB) BAG IV ONE (09:30)
[2021-12-26] MEDS ORDERED: IOHEXOL 350 MG/ML 100 ML (OMNIPAQUE 350) VIAL IV ONE (09:30)
[2021-12-26] MEDS ORDERED: HOLD METFORMIN - RECEIVED CONTRAST 20 ML VIAL IV SCH (09:30)
[2021-12-26] MEDS ORDERED: ROCURONIUM 10 MG/ML 5 ML SYRINGE IV ONE (09:45)
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
[2021-12-26] MEDS ORDERED: ROCURONIUM 10 MG/ML 5 ML SYRINGE IV PRN (10:30)
[2021-12-26 11:14] VITALS: BP 163/87
[2021-12-26] MEDS: CATHETER FLUSH 10 ML SYR IV PRN (11:25)
[2021-12-26] MEDS: MIDAZOLAM DRIP PRE-MIX 100 ML IV SCH (11:30)
--- NOTE | 2021-12-26 11:36 | Diagnostic Imaging Report ---
EXAMINATION: CTA chest, abdomen, and pelvis TECHNIQUE: Thin axial sections through the chest, abdomen, and pelvis are obtained following intravenous contrast bolus. Multiplanar MIP images were reconstructed and reviewed. All CT scans use one or more of the following dose optimizing techniques: automated exposure control, MA and/or KvP adjustment based on patient size and exam type or iterative reconstruction. INDICATION: Fever, abscess, altered mental status, and Covid positive. COMPARISON: CT chest, abdomen, and pelvis from 12/13/2021. FINDINGS: CTA CHEST: No pulmonary emboli. Normal caliber thoracic aorta without dissection. No supraclavicular or axillary lymphadenopathy. Numerous small mediastinal lymph nodes are likely reactive in nature. Heart is normal in size without pericardial effusion. A small right pleural effusion is present. Consolidations are present in both lower lobes. In the right lower lobe, there is some heterogeneous hypoenhancement, most likely due to areas of superimposed pneumonia. Groundglass opacity and consolidation in the anterior aspect of the right upper lobe. CT ABDOMEN AND PELVIS: A small amount of free fluid is present within the pelvis. No loculated fluid or free intraperitoneal air. The liver, spleen, and pancreas are normal. Gallbladder is normal. No adrenal mass. Kidneys enhance normally without mass lesion. Urinary bladder is partially decompressed by a Ballesteros catheter. No bowel obstruction. Enteric tube has tip terminating in the proximal stomach. Normal appendix. Normal caliber abdominal aorta without dissection. There is a small amount of intramuscular edema in the proximal left thigh. Subcutaneous edema is also present throughout the lower abdominal wall. IMPRESSION: 1. No pulmonary emboli or acute aortic syndrome. 2. Multifocal pulmonary consolidations are likely due to a combination of atelectasis and pneumonia. 3. Small right pleural effusion. 4. Small amount of free fluid is present within the pelvis. No loculated collections to suggest intraperitoneal abscess. 5. The report was faxed to Infection Control by cody@11:34 AM. Dictated by: Dictated on workstation # [id number]
--- NOTE | 2021-12-26 12:02 | Diagnostic Imaging Report ---
INDICATION: Mental status change. Covid positive on a ventilator. EXAMINATION: CT brain without contrast on 12/26/2021. COMPARISON: None. FINDINGS: There is no evidence for hemorrhage or infarct. No mass, mass effect, or midline shift. No hydrocephalus. There is partial opacification of the visualized sinuses including small air-fluid levels within the sphenoid and maxillary sinuses. There is near complete opacification of the mastoid air cells bilaterally. On the 1st image at the proximal cervical spine, there is a peripheral rim of hyperdensity surrounding the canal at the C1-C2 level. This most likely represents volume averaging with adjacent structures but, given it is incompletely imaged, subarachnoid blood is difficult to exclude although felt to be less likely. Dedicated imaging of the spine is recommended to exclude such a process. IMPRESSION: 1. No acute intracranial process. 2. Nonspecific peripheral rim of hyperdensity in the proximal cervical spine is likely artifact with a small amount of subarachnoid blood difficult to completely exclude. Dedicated imaging of the spine could help exclude such a process. 3. The report was called to the patient's nurse Thierno by cody@12:02 PM. Dictated by: Dictated on workstation # [id number]
[2021-12-26 14:10] VITALS: BP 110/70
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
[2021-12-26] MEDS: NS IV SCH (18:38)
[2021-12-26] MEDS: KETAMINE IV SCH (18:38)
[2021-12-26 18:59] VITALS: BP 130/103
[2021-12-26] MEDS: ENOXAPARIN 40 MG/0.4 ML (LOVENOX) SYR SC SCH (21:56)
[2021-12-26 22:03] VITALS: BP 158/115
[2021-12-27] MEDS: APAP 325 MG/10.15 ML LIQ (TYLENOL) UDC PO PRN
[2021-12-27] MEDS: 1/2 NS W/KCL 20 MEQ/L 1,000 ML IV SCH ×3 (00:01→18:42)
[2021-12-27] MEDS: LORazepam INJECTION FOR DRIP 20 MG in NS (IVPB) 90 ML IV SCH ×4 (00:39→20:18)
[2021-12-27 01:50] VITALS: BP 170/114
[2021-12-27] MEDS: RT-ALBUTEROL HFA 8.5 GM INHALER IH SCH ×6 (01:50→22:42)
[2021-12-27] MEDS: LORazepam 0.5 MG (ATIVAN) TABLET PO SCH ×6 (02:03→20:20)
[2021-12-27] MEDS: MIDAZOLAM DRIP PRE-MIX 100 ML IV SCH ×2 (02:13→16:47)
[2021-12-27] MEDS: PROPOFOL DRIP (ICU) 100 ML IV SCH ×3 (03:55→20:20)
[2021-12-27] MEDS: LABETALOL HCL 20 MG/4 ML VIAL IV PRN ×2 (03:56→13:57)
[2021-12-27] MEDS: KETAMINE IV SCH ×8 (04:08→23:00)
[2021-12-27] MEDS: NS IV SCH ×8 (04:08→23:00)
[2021-12-27 04:19] LABS: BASOPHILS # (AUTO) 0.1 10^3/uL (0.0-0.1); BASOPHILS % (AUTO) 1 % (0-10); EOSINOPHILS # (AUTO) 0.1 10^3/uL (0.0-0.3); EOSINOPHILS % (AUTO) 2 % (0-10); HEMATOCRIT 30 % (40-54); HEMOGLOBIN 9.2 g/dL (13.3-17.7); LYMPHOCYTES # (AUTO) 1.1 10^3/uL (1.0-4.0); LYMPHOCYTES % (AUTO) 17 % (12-44); MEAN CORPUSCULAR HEMOGLOBIN 25 pg (25-34); MEAN CORPUSCULAR HGB CONC 31 g/dL (32-36); MEAN CORPUSCULAR VOLUME 81 fL (80-99); MONOCYTES # (AUTO) 0.5 10^3/uL (0.0-1.0); MONOCYTES % (AUTO) 7 % (0-12); NEUTROPHILS # (AUTO) 4.8 10^3/uL (1.8-7.8); NEUTROPHILS % (AUTO) 72 % (42-75); PLATELET COUNT 512 10^3/uL (130-400); WHITE BLOOD COUNT 6.8 10^3/uL (4.3-11.0)
[2021-12-27 04:20] LABS: ABG BASE EXCESS 2.6 MMOL/L (-2.5-2.5); ABG OXYGEN SATURATION 90 % (94-100); ABG PCO2 43 MMHG (35-45); ABG PH 7.41 (7.37-7.43); ABG PO2 58 MMHG (79-93); ABG TCO2 27.8 MMOL/L (21.0-31.0); ALLENS TEST POSITIVE; INSPIRED O2 21; VENTILATOR YES
[2021-12-27 04:21] LABS: PATIENT TEMP 38.4
[2021-12-27 04:36] LABS: POTASSIUM 4.2 MMOL/L (3.6-5.0)
[2021-12-27 04:37] LABS: BASOPHILS % (MANUAL) 1 %; CALCIUM 8.3 MG/DL (8.5-10.1); EOSINOPHILS % (MANUAL) 3 %; LYMPHOCYTES % (MANUAL) 13 %; MONOCYTES % (MANUAL) 7 %; NEUTROPHILS % (MANUAL) 72 %
[2021-12-27 04:38] LABS: ATYPICAL LYMPHOCYTES 4 %; HYPOCHROMASIA SLIGHT; POLYCHROMASIA SLIGHT
[2021-12-27 04:41] LABS: CREATININE SERUM 0.64 MG/DL (0.60-1.30); PHOSPHORUS 3.9 MG/DL (2.3-4.7)
[2021-12-27 04:44] LABS: MAGNESIUM 1.6 MG/DL (1.6-2.4)
[2021-12-27] MEDS: POTASSIUM CL 10MEQ/50ML IVPB 50 ML IV SCH (05:46)
[2021-12-27] MEDS: KCL 20 MEQ TAB (K-DUR) PO SCH (05:47)
[2021-12-27] MEDS: MAGNESIUM 1 GM/100 ML IVPB 100 ML IV SCH ×3 (05:47→06:51)
[2021-12-27] MEDS ORDERED: MAGNESIUM 1 GM/100 ML IVPB 200 ML IV ONE (05:59)
[2021-12-27] MEDS: THIAMINE 100 MG (VITAMIN B-1) TAB PO SCH (06:50)
[2021-12-27 08:01] VITALS: BP 135/93
[2021-12-27] MEDS: PANTOPRAZOLE 40 MG (PROTONIX) VIAL IV SCH (08:56)
[2021-12-27] MEDS: FOLIC ACID 1 MG TAB PO SCH (08:56)
[2021-12-27] MEDS: ERYTHROMYCIN ETHYLSUCCINATE 400 MG/5 ML PO SCH ×3 (09:02→20:20)
[2021-12-27] MEDS: DexMEDEtomidine 250 ML DRIP 250 ML IV SCH ×4 (10:57→23:00)
[2021-12-27] MEDS ORDERED: MEROPENEM 1,000 MG in NS (IVPB) 100 ML IV SCH (11:15)
[2021-12-27 11:19] VITALS: BP 180/127
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
[2021-12-27] MEDS: MEROPENEM 500 MG/NS 100 ML IVPB IV SCH ×6 (12:25→23:00)
[2021-12-27] MEDS: hydrALAZINE (APESOLINE) 20 MG/ML VIAL IV PRN ×2 (12:26)
[2021-12-27] MEDS: fentaNYL DRIP PRE-MIX 250 ML IV SCH (13:48)
[2021-12-27 14:53] VITALS: BP 130/78
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
[2021-12-27 19:07] VITALS: BP 125/80
[2021-12-27] MEDS: ENOXAPARIN 40 MG/0.4 ML (LOVENOX) SYR SC SCH (20:19)
[2021-12-27 22:42] VITALS: BP 148/110
[2021-12-28] MEDS: NS IV SCH ×3 (01:57→11:00)
[2021-12-28] MEDS: KETAMINE IV SCH ×3 (01:57→11:00)
[2021-12-28 02:45] VITALS: BP 122/60
[2021-12-28] MEDS: RT-ALBUTEROL HFA 8.5 GM INHALER IH SCH ×6 (02:45→22:35)
[2021-12-28] MEDS: LORazepam 0.5 MG (ATIVAN) TABLET PO SCH ×6 (03:07→22:00)
[2021-12-28 04:56] LABS: BASOPHILS # (AUTO) 0.1 10^3/uL (0.0-0.1); BASOPHILS % (AUTO) 1 % (0-10); EOSINOPHILS # (AUTO) 0.2 10^3/uL (0.0-0.3); EOSINOPHILS % (AUTO) 3 % (0-10); HEMATOCRIT 29 % (40-54); HEMOGLOBIN 8.5 g/dL (13.3-17.7); LYMPHOCYTES # (AUTO) 1.6 10^3/uL (1.0-4.0); LYMPHOCYTES % (AUTO) 29 % (12-44); MEAN CORPUSCULAR HEMOGLOBIN 25 pg (25-34); MEAN CORPUSCULAR HGB CONC 30 g/dL (32-36); MEAN CORPUSCULAR VOLUME 82 fL (80-99); MEAN PLATELET VOLUME 10.3 fL (9.0-12.2); MONOCYTES # (AUTO) 0.6 10^3/uL (0.0-1.0); MONOCYTES % (AUTO) 10 % (0-12); NEUTROPHILS # (AUTO) 3.2 10^3/uL (1.8-7.8); NEUTROPHILS % (AUTO) 56 % (42-75); PLATELET COUNT 540 10^3/uL (130-400); WHITE BLOOD COUNT 5.7 10^3/uL (4.3-11.0)
[2021-12-28] MEDS: 1/2 NS W/KCL 20 MEQ/L 1,000 ML IV SCH ×2 (05:00→16:52)
[2021-12-28] MEDS: MIDAZOLAM DRIP PRE-MIX 100 ML IV SCH ×2 (05:02→18:19)
[2021-12-28] MEDS: THIAMINE 100 MG (VITAMIN B-1) TAB PO SCH (05:03)
[2021-12-28] MEDS: MEROPENEM 500 MG/NS 100 ML IVPB IV SCH ×6 (05:03→18:19)
[2021-12-28 05:12] LABS: POTASSIUM 3.8 MMOL/L (3.6-5.0)
[2021-12-28 05:13] LABS: CALCIUM 8.3 MG/DL (8.5-10.1)
[2021-12-28 05:17] LABS: CREATININE SERUM 0.62 MG/DL (0.60-1.30); PHOSPHORUS 3.3 MG/DL (2.3-4.7)
[2021-12-28 05:19] LABS: MAGNESIUM 1.9 MG/DL (1.6-2.4)
[2021-12-28] MEDS: MAGNESIUM 1 GM/100 ML IVPB 100 ML IV SCH (05:24)
[2021-12-28] MEDS: KCL 20 MEQ TAB (K-DUR) PO SCH (05:24)
[2021-12-28] MEDS: POTASSIUM CL 10MEQ/50ML IVPB 50 ML IV SCH (05:24)
[2021-12-28 05:39] LABS: ABG PH 7.41 (7.37-7.43)
[2021-12-28 05:40] LABS: ABG BASE EXCESS 2.4 MMOL/L (-2.5-2.5); ABG OXYGEN SATURATION 95 % (94-100); ABG PCO2 43 MMHG (35-45); ABG PO2 68 MMHG (79-93); ABG TCO2 28.1 MMOL/L (21.0-31.0); ALLENS TEST POSITIVE; INSPIRED O2 25; PATIENT TEMP 37; VENTILATOR YES
[2021-12-28 05:52] LABS: ATYPICAL LYMPHOCYTES 6 %; EOSINOPHILS % (MANUAL) 3 %; HYPOCHROMASIA MODERATE; LYMPHOCYTES % (MANUAL) 23 %; MICROCYTOSIS SLIGHT; MONOCYTES % (MANUAL) 6 %; NEUTROPHILS % (MANUAL) 62 %; POLYCHROMASIA SLIGHT
[2021-12-28] MEDS: LORazepam INJECTION FOR DRIP 20 MG in NS (IVPB) 90 ML IV SCH ×3 (07:37→21:02)
[2021-12-28] MEDS: LABETALOL HCL 20 MG/4 ML VIAL IV PRN (07:44)
[2021-12-28 07:50] VITALS: BP 195/118
[2021-12-28] MEDS: ERYTHROMYCIN ETHYLSUCCINATE 400 MG/5 ML PO SCH ×3 (08:46→21:02)
[2021-12-28] MEDS: PANTOPRAZOLE 40 MG (PROTONIX) VIAL IV SCH (08:46)
[2021-12-28] MEDS: FOLIC ACID 1 MG TAB PO SCH (08:46)
[2021-12-28] MEDS: APAP 325 MG/10.15 ML LIQ (TYLENOL) UDC PO PRN (08:47)
[2021-12-28 10:53] VITALS: BP 137/89
[2021-12-28] MEDS: DexMEDEtomidine 250 ML DRIP 250 ML IV SCH ×3 (11:01→21:03)
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
[2021-12-28] MEDS: D5W W/KCL 20 MEQ/L 1,000 ML IV SCH (12:12)
[2021-12-28] MEDS: PROPOFOL DRIP (ICU) 100 ML IV SCH (13:58)
[2021-12-28 14:35] VITALS: BP 141/102
[2021-12-28] MEDS: fentaNYL DRIP PRE-MIX 250 ML IV SCH ×2 (18:19→18:20)
[2021-12-28 18:43] VITALS: BP 141/102
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
[2021-12-28] MEDS: ENOXAPARIN 40 MG/0.4 ML (LOVENOX) SYR SC SCH (21:02)
[2021-12-28 22:35] VITALS: BP 134/88
[2021-12-29] MEDS: MEROPENEM 500 MG/NS 100 ML IVPB IV SCH ×8 (00:36→17:59)
[2021-12-29] MEDS: LORazepam 0.5 MG (ATIVAN) TABLET PO SCH ×6 (03:01→21:49)
[2021-12-29 03:03] VITALS: BP 124/75
[2021-12-29] MEDS: RT-ALBUTEROL HFA 8.5 GM INHALER IH SCH ×6 (03:03→22:07)
[2021-12-29] MEDS: LORazepam INJECTION FOR DRIP 20 MG in NS (IVPB) 90 ML IV SCH ×4 (03:46→21:49)
[2021-12-29 04:05] LABS: ABG BASE EXCESS 5.4 MMOL/L (-2.5-2.5); ABG OXYGEN SATURATION 96 % (94-100); ABG PCO2 48 MMHG (35-45); ABG PH 7.41 (7.37-7.43); ABG PO2 76 MMHG (79-93); ABG TCO2 31.4 MMOL/L (21.0-31.0)
[2021-12-29 04:06] LABS: BASOPHILS # (AUTO) 0.1 10^3/uL (0.0-0.1); BASOPHILS % (AUTO) 1 % (0-10); EOSINOPHILS # (AUTO) 0.2 10^3/uL (0.0-0.3); EOSINOPHILS % (AUTO) 4 % (0-10); HEMATOCRIT 29 % (40-54); HEMOGLOBIN 8.9 g/dL (13.3-17.7); LYMPHOCYTES # (AUTO) 1.3 10^3/uL (1.0-4.0); LYMPHOCYTES % (AUTO) 25 % (12-44); MEAN CORPUSCULAR HEMOGLOBIN 25 pg (25-34); MEAN CORPUSCULAR HGB CONC 30 g/dL (32-36); MEAN CORPUSCULAR VOLUME 83 fL (80-99); MEAN PLATELET VOLUME 10.1 fL (9.0-12.2); MONOCYTES # (AUTO) 0.5 10^3/uL (0.0-1.0); MONOCYTES % (AUTO) 10 % (0-12); NEUTROPHILS # (AUTO) 2.9 10^3/uL (1.8-7.8); NEUTROPHILS % (AUTO) 58 % (42-75); PLATELET COUNT 493 10^3/uL (130-400)
[2021-12-29 04:08] LABS: ALLENS TEST YES-POS; INSPIRED O2 30%; PATIENT TEMP 36.7; VENTILATOR YES
[2021-12-29 04:15] LABS: POTASSIUM 3.7 MMOL/L (3.6-5.0)
[2021-12-29 04:16] LABS: CALCIUM 8.2 MG/DL (8.5-10.1)
[2021-12-29 04:21] LABS: CREATININE SERUM 0.61 MG/DL (0.60-1.30); PHOSPHORUS 4.1 MG/DL (2.3-4.7)
[2021-12-29 04:23] LABS: MAGNESIUM 1.7 MG/DL (1.6-2.4)
[2021-12-29 04:36] LABS: ANISOCYTOSIS SLIGHT; BAND NEUTROPHILS 3 %; EOSINOPHILS % (MANUAL) 4 %; HYPOCHROMASIA SLIGHT; LYMPHOCYTES % (MANUAL) 27 %; MONOCYTES % (MANUAL) 8 %; NEUTROPHILS % (MANUAL) 58 %; POLYCHROMASIA SLIGHT
[2021-12-29] MEDS: MAGNESIUM 1 GM/100 ML IVPB 100 ML IV SCH ×3 (05:11→05:52)
[2021-12-29] MEDS: POTASSIUM CL 10MEQ/50ML IVPB 50 ML IV SCH (05:11)
[2021-12-29] MEDS: KCL 20 MEQ TAB (K-DUR) PO SCH (05:11)
[2021-12-29] MEDS: THIAMINE 100 MG (VITAMIN B-1) TAB PO SCH (05:51)
[2021-12-29] MEDS: MIDAZOLAM DRIP PRE-MIX 100 ML IV SCH ×2 (06:11→17:15)
[2021-12-29 06:54] VITALS: BP 127/87
[2021-12-29] MEDS: D5W W/KCL 20 MEQ/L 1,000 ML IV SCH (08:35)
[2021-12-29] MEDS: FOLIC ACID 1 MG TAB PO SCH (08:36)
[2021-12-29] MEDS: PANTOPRAZOLE 40 MG (PROTONIX) VIAL IV SCH (08:36)
[2021-12-29] MEDS: ERYTHROMYCIN ETHYLSUCCINATE 400 MG/5 ML PO SCH ×3 (08:36→21:48)
[2021-12-29] MEDS: PROPOFOL DRIP (ICU) 100 ML IV SCH (09:40)
[2021-12-29] MEDS: DexMEDEtomidine 250 ML DRIP 250 ML IV SCH ×3 (09:41→21:49)
[2021-12-29 10:26] VITALS: BP 117/74
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
[2021-12-29 15:22] VITALS: BP 139/87
[2021-12-29 18:16] VITALS: BP 139/102
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
[2021-12-29] MEDS: ENOXAPARIN 40 MG/0.4 ML (LOVENOX) SYR SC SCH (21:48)
[2021-12-29 22:07] VITALS: BP 136/89
[2021-12-30] MEDS: MEROPENEM 500 MG/NS 100 ML IVPB IV SCH ×8 (00:44→15:49)
[2021-12-30] MEDS: LORazepam 0.5 MG (ATIVAN) TABLET PO SCH ×6 (00:45→22:11)
[2021-12-30] MEDS: fentaNYL DRIP PRE-MIX 250 ML IV SCH ×3 (00:45→08:20)
[2021-12-30 02:59] VITALS: BP 146/104
[2021-12-30] MEDS: RT-ALBUTEROL HFA 8.5 GM INHALER IH SCH ×6 (02:59→22:57)
[2021-12-30] MEDS: MIDAZOLAM DRIP PRE-MIX 100 ML IV SCH ×2 (03:21→08:21)
[2021-12-30] MEDS: D5W W/KCL 20 MEQ/L 1,000 ML IV SCH ×2 (03:22→09:32)
[2021-12-30] MEDS: LORazepam INJECTION FOR DRIP 20 MG in NS (IVPB) 90 ML IV SCH ×4 (03:26→22:25)
[2021-12-30 04:15] LABS: ABG BASE EXCESS 6.8 MMOL/L (-2.5-2.5); ABG OXYGEN SATURATION 97 % (94-100); ABG PCO2 49 MMHG (35-45); ABG PH 7.42 (7.37-7.43); ABG PO2 78 MMHG (79-93); ABG TCO2 32.9 MMOL/L (21.0-31.0)
[2021-12-30 04:17] LABS: BASOPHILS # (AUTO) 0.1 10^3/uL (0.0-0.1); BASOPHILS % (AUTO) 2 % (0-10); EOSINOPHILS # (AUTO) 0.3 10^3/uL (0.0-0.3); EOSINOPHILS % (AUTO) 6 % (0-10); HEMATOCRIT 30 % (40-54); HEMOGLOBIN 9.3 g/dL (13.3-17.7); LYMPHOCYTES # (AUTO) 1.5 10^3/uL (1.0-4.0); LYMPHOCYTES % (AUTO) 31 % (12-44); MEAN CORPUSCULAR HEMOGLOBIN 25 pg (25-34); MEAN CORPUSCULAR HGB CONC 31 g/dL (32-36); MEAN CORPUSCULAR VOLUME 80 fL (80-99); MEAN PLATELET VOLUME 10.3 fL (9.0-12.2); MONOCYTES # (AUTO) 0.4 10^3/uL (0.0-1.0); MONOCYTES % (AUTO) 9 % (0-12); NEUTROPHILS # (AUTO) 2.4 10^3/uL (1.8-7.8); NEUTROPHILS % (AUTO) 52 % (42-75); PLATELET COUNT 510 10^3/uL (130-400); WHITE BLOOD COUNT 4.6 10^3/uL (4.3-11.0)
[2021-12-30 04:18] LABS: ALLENS TEST YES-POS; INSPIRED O2 30%; PATIENT TEMP 36.5; VENTILATOR YES
[2021-12-30 04:24] LABS: POTASSIUM 3.6 MMOL/L (3.6-5.0)
[2021-12-30 04:25] LABS: CALCIUM 8.5 MG/DL (8.5-10.1)
[2021-12-30 04:30] LABS: BAND NEUTROPHILS 4 %; CREATININE SERUM 0.56 MG/DL (0.60-1.30); EOSINOPHILS % (MANUAL) 3 %; LYMPHOCYTES % (MANUAL) 36 %; MONOCYTES % (MANUAL) 5 %; NEUTROPHILS % (MANUAL) 52 %; PHOSPHORUS 3.7 MG/DL (2.3-4.7)
[2021-12-30 04:31] LABS: ANISOCYTOSIS SLIGHT; HYPOCHROMASIA SLIGHT; POLYCHROMASIA SLIGHT
[2021-12-30 04:32] LABS: MAGNESIUM 1.7 MG/DL (1.6-2.4)
[2021-12-30] MEDS: PROPOFOL DRIP (ICU) 100 ML IV SCH ×2 (05:57→08:19)
[2021-12-30] MEDS: MAGNESIUM 1 GM/100 ML IVPB 100 ML IV SCH ×3 (06:02→06:03)
[2021-12-30] MEDS: THIAMINE 100 MG (VITAMIN B-1) TAB PO SCH (06:02)
[2021-12-30] MEDS: POTASSIUM CL 10MEQ/50ML IVPB 50 ML IV SCH ×3 (06:02→06:03)
[2021-12-30] MEDS: KCL 20 MEQ TAB (K-DUR) PO SCH (06:03)
[2021-12-30 06:36] VITALS: BP 138/97
[2021-12-30] MEDS: PANTOPRAZOLE 40 MG (PROTONIX) VIAL IV SCH (08:16)
[2021-12-30] MEDS: ERYTHROMYCIN ETHYLSUCCINATE 400 MG/5 ML PO SCH ×3 (08:17→22:10)
[2021-12-30] MEDS: FOLIC ACID 1 MG TAB PO SCH (08:18)
[2021-12-30] MEDS: DexMEDEtomidine 250 ML DRIP 250 ML IV SCH ×3 (08:19→23:32)
[2021-12-30 10:34] VITALS: BP 113/75
[2021-12-30] MEDS ORDERED: FLEET ENEMA ADULT 1 EA BTL PR ONE (11:00)
[2021-12-30 14:10] VITALS: BP 108/97
[2021-12-30] MEDS ORDERED: FLEET ENEMA ADULT 1 EA BTL ONE (17:16)
[2021-12-30 18:55] VITALS: BP 144/101
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
[2021-12-30] MEDS: ENOXAPARIN 40 MG/0.4 ML (LOVENOX) SYR SC SCH (22:10)
[2021-12-30 22:57] VITALS: BP 107/73
[2021-12-31] MEDS: PROPOFOL DRIP (ICU) 100 ML IV SCH ×3 (00:16→20:33)
[2021-12-31] MEDS: MEROPENEM 500 MG/NS 100 ML IVPB IV SCH ×4 (00:16→05:19)
[2021-12-31 02:48] VITALS: BP 112/75
[2021-12-31] MEDS: RT-ALBUTEROL HFA 8.5 GM INHALER IH SCH ×6 (02:48→22:37)
[2021-12-31] MEDS: fentaNYL DRIP PRE-MIX 250 ML IV SCH ×3 (03:20→20:31)
[2021-12-31] MEDS: MIDAZOLAM DRIP PRE-MIX 100 ML IV SCH ×2 (03:21→15:34)
[2021-12-31] MEDS: LORazepam 0.5 MG (ATIVAN) TABLET PO SCH ×6 (03:21→22:19)
[2021-12-31 03:34] LABS: ABG BASE EXCESS 5.2 MMOL/L (-2.5-2.5); ABG OXYGEN SATURATION 97 % (94-100); ABG PCO2 46 MMHG (35-45); ABG PH 7.43 (7.37-7.43); ABG PO2 77 MMHG (79-93); ABG TCO2 30.8 MMOL/L (21.0-31.0)
[2021-12-31 03:35] LABS: ALLENS TEST YES-POS; INSPIRED O2 30%; PATIENT TEMP 36.9; VENTILATOR YES
[2021-12-31 03:42] LABS: BASOPHILS # (AUTO) 0.1 10^3/uL (0.0-0.1); BASOPHILS % (AUTO) 2 % (0-10); EOSINOPHILS # (AUTO) 0.2 10^3/uL (0.0-0.3); EOSINOPHILS % (AUTO) 4 % (0-10); HEMATOCRIT 31 % (40-54); HEMOGLOBIN 9.7 g/dL (13.3-17.7); LYMPHOCYTES # (AUTO) 1.6 10^3/uL (1.0-4.0); LYMPHOCYTES % (AUTO) 30 % (12-44); MEAN CORPUSCULAR HEMOGLOBIN 25 pg (25-34); MEAN CORPUSCULAR HGB CONC 31 g/dL (32-36); MEAN CORPUSCULAR VOLUME 80 fL (80-99); MEAN PLATELET VOLUME 10.1 fL (9.0-12.2); MONOCYTES # (AUTO) 0.5 10^3/uL (0.0-1.0); MONOCYTES % (AUTO) 9 % (0-12); NEUTROPHILS # (AUTO) 2.9 10^3/uL (1.8-7.8); NEUTROPHILS % (AUTO) 55 % (42-75); PLATELET COUNT 536 10^3/uL (130-400); WHITE BLOOD COUNT 5.2 10^3/uL (4.3-11.0)
[2021-12-31 03:50] LABS: POTASSIUM 3.9 MMOL/L (3.6-5.0)
[2021-12-31 03:51] LABS: CALCIUM 8.5 MG/DL (8.5-10.1)
[2021-12-31 03:55] LABS: CREATININE SERUM 0.6 MG/DL (0.60-1.30)
[2021-12-31 03:57] LABS: MAGNESIUM 1.8 MG/DL (1.6-2.4)
[2021-12-31 04:02] LABS: BASOPHILS % (MANUAL) 2 %; EOSINOPHILS % (MANUAL) 5 %; LYMPHOCYTES % (MANUAL) 20 %; MONOCYTES % (MANUAL) 3 %; NEUTROPHILS % (MANUAL) 70 %
[2021-12-31 04:03] LABS: ANISOCYTOSIS SLIGHT; HYPOCHROMASIA SLIGHT; POLYCHROMASIA SLIGHT
[2021-12-31] MEDS: KCL 20 MEQ TAB (K-DUR) PO SCH (05:19)
[2021-12-31] MEDS: POTASSIUM CL 10MEQ/50ML IVPB 50 ML IV SCH (05:20)
[2021-12-31] MEDS: MAGNESIUM 1 GM/100 ML IVPB 100 ML IV SCH (05:20)
[2021-12-31] MEDS: THIAMINE 100 MG (VITAMIN B-1) TAB PO SCH (06:09)
[2021-12-31 06:30] VITALS: BP 174/112
[2021-12-31] MEDS: FOLIC ACID 1 MG TAB PO SCH (08:28)
[2021-12-31] MEDS: ERYTHROMYCIN ETHYLSUCCINATE 400 MG/5 ML PO SCH ×3 (08:28→22:19)
[2021-12-31] MEDS: D5W W/KCL 20 MEQ/L 1,000 ML IV SCH (08:28)
[2021-12-31] MEDS: PANTOPRAZOLE 40 MG (PROTONIX) VIAL IV SCH (08:28)
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
[2021-12-31] MEDS: LORazepam INJECTION FOR DRIP 20 MG in NS (IVPB) 90 ML IV SCH ×3 (10:39→20:32)
[2021-12-31] MEDS: DexMEDEtomidine 250 ML DRIP 250 ML IV SCH ×2 (11:23→20:33)
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
[2021-12-31 14:30] VITALS: BP 106/64
[2021-12-31 18:49] VITALS: BP 128/81
[2021-12-31] MEDS: ENOXAPARIN 40 MG/0.4 ML (LOVENOX) SYR SC SCH (20:30)
[2021-12-31 22:37] VITALS: BP 130/83
[2022-01-01 02:17] VITALS: BP 142/100
[2022-01-01] MEDS: RT-ALBUTEROL HFA 8.5 GM INHALER IH SCH ×6 (02:17→22:41)
[2022-01-01 02:30] LABS: ABG BASE EXCESS 5.2 MMOL/L (-2.5-2.5); ABG OXYGEN SATURATION 97 % (94-100); ABG PCO2 48 MMHG (35-45); ABG PH 7.41 (7.37-7.43); ABG PO2 84 MMHG (79-93); ABG TCO2 31.1 MMOL/L (21.0-31.0)
[2022-01-01 02:31] LABS: BASOPHILS # (AUTO) 0.1 10^3/uL (0.0-0.1); BASOPHILS % (AUTO) 1 % (0-10); EOSINOPHILS # (AUTO) 0.2 10^3/uL (0.0-0.3); EOSINOPHILS % (AUTO) 3 % (0-10); HEMATOCRIT 29 % (40-54); LYMPHOCYTES # (AUTO) 1.6 10^3/uL (1.0-4.0); LYMPHOCYTES % (AUTO) 24 % (12-44); MEAN CORPUSCULAR HEMOGLOBIN 25 pg (25-34); MEAN CORPUSCULAR HGB CONC 31 g/dL (32-36); MEAN CORPUSCULAR VOLUME 81 fL (80-99); MEAN PLATELET VOLUME 10.5 fL (9.0-12.2); MONOCYTES # (AUTO) 0.6 10^3/uL (0.0-1.0); MONOCYTES % (AUTO) 9 % (0-12); NEUTROPHILS # (AUTO) 4.1 10^3/uL (1.8-7.8); NEUTROPHILS % (AUTO) 62 % (42-75); PLATELET COUNT 446 10^3/uL (130-400); WHITE BLOOD COUNT 6.6 10^3/uL (4.3-11.0)
[2022-01-01 02:33] LABS: ALLENS TEST YES-POS; INSPIRED O2 30%; PATIENT TEMP 37.4; VENTILATOR YES
[2022-01-01 02:41] LABS: POTASSIUM 4.7 MMOL/L (3.6-5.0)
[2022-01-01 02:42] LABS: CALCIUM 8.1 MG/DL (8.5-10.1)
[2022-01-01 02:46] LABS: PHOSPHORUS 3.7 MG/DL (2.3-4.7)
[2022-01-01 02:47] LABS: CREATININE SERUM 0.66 MG/DL (0.60-1.30)
[2022-01-01 02:49] LABS: MAGNESIUM 1.6 MG/DL (1.6-2.4)
[2022-01-01] MEDS: MAGNESIUM 1 GM/100 ML IVPB 100 ML IV SCH ×3 (03:37→05:17)
[2022-01-01] MEDS: POTASSIUM CL 10MEQ/50ML IVPB 50 ML IV SCH (03:37)
[2022-01-01] MEDS: KCL 20 MEQ TAB (K-DUR) PO SCH (03:38)
[2022-01-01] MEDS: LORazepam 0.5 MG (ATIVAN) TABLET PO SCH ×6 (03:44→22:13)
[2022-01-01] MEDS: MIDAZOLAM DRIP PRE-MIX 100 ML IV SCH ×2 (03:59→20:18)
[2022-01-01] MEDS: LORazepam INJECTION FOR DRIP 20 MG in NS (IVPB) 90 ML IV SCH ×2 (05:16→22:12)
[2022-01-01] MEDS: PROPOFOL DRIP (ICU) 100 ML IV SCH ×3 (05:17→22:42)
[2022-01-01] MEDS: fentaNYL DRIP PRE-MIX 250 ML IV SCH ×3 (05:18→22:12)
[2022-01-01] MEDS ORDERED: inSUlin ASPART (NovoLOG) 1 UNIT/0.01 ML (CHARGE PER UNIT) ONE (05:45)
[2022-01-01] MEDS: inSUlin ASPART (NovoLOG) 1 UNIT/0.01 ML (CHARGE PER UNIT) SC SCH ×4 (06:29→23:29)
[2022-01-01] MEDS: D5W W/KCL 20 MEQ/L 1,000 ML IV SCH ×2 (06:29→22:12)
[2022-01-01] MEDS: THIAMINE 100 MG (VITAMIN B-1) TAB PO SCH (06:30)
--- NOTE | 2022-01-01 07:42 | Diagnostic Imaging Report ---
Clinical indication: Patient with pneumonia. EXAM: Portable chest x-ray upright view. COMPARISON: Chest x-ray dated 12/25/2021. FINDINGS: Left PICC line seen in stable good position. ET tube and feeding tube are in stable good position. There is interval development of mild left basilar atelectasis versus infiltrate. Stable minimal right basilar atelectasis versus infiltrate. Possible bilateral pleural effusions which is similar on the right, but new on the left. Pulmonary vasculature and cardiac silhouette within normal limits. The remainder of this exam shows no significant interval change compared to the prior study of comparison. IMPRESSION: 1.: There is interval development of mild left basilar atelectasis versus infiltrate. There is also concern for development of small left pleural effusion. 2: Stable mild right basilar atelectasis versus infiltrate and small right pleural effusion. 3: The remainder of this exam shows no significant interval change compared to the prior study of comparison. Dictated by: Dictated on workstation # [id number]
[2022-01-01 07:57] VITALS: BP 138/94
[2022-01-01] MEDS: PANTOPRAZOLE 40 MG (PROTONIX) VIAL IV SCH (08:41)
[2022-01-01] MEDS: ERYTHROMYCIN ETHYLSUCCINATE 400 MG/5 ML PO SCH ×3 (08:41→20:17)
[2022-01-01] MEDS: FOLIC ACID 1 MG TAB PO SCH (08:41)
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
[2022-01-01 10:31] VITALS: BP 135/96
--- NOTE | 2022-01-01 11:22 | Tele-ICU Progress Note ---
Subjective Date Seen by a Provider: Jan 01, 2022 Time Seen by a Provider: 08:45 Sepsis Event Evaluation Height, Weight, BMI Height: 5'10.00" Weight: 175lbs. 0oz. 79.503339cb; 27.99 BMI Method:Estimated Exam Exam Patient acknowledged, consented, and participated in this virtual visit which was conducted using real time audio/video Vital Signs Date Time Temp Pulse Resp B/P (MAP) Pulse Ox O2 Delivery O2 Flow Rate FiO2 01/01/22 11:00 36.5 61 21 148/103 100 Mechanical Ventilator 30.00 01/01/22 10:31 60 22 100 30 01/01/22 10:00 36.6 62 21 124/81 100 Mechanical Ventilator 30.00 01/01/22 09:00 36.7 62 22 126/81 100 Mechanical Ventilator 30.00 01/01/22 08:00 36.5 64 21 138/94 100 Mechanical Ventilator 30.00 01/01/22 07:57 64 22 100 30 01/01/22 07:44 36.5 01/01/22 07:00 65 01/01/22 07:00 36.5 62 22 155/107 100 Mechanical Ventilator 30.00 01/01/22 06:00 36.6 64 21 125/82 98 Mechanical Ventilator 30.00 01/01/22 05:18 62 01/01/22 05:16 63 152/101 01/01/22 05:00 36.8 64 22 145/98 99 Mechanical Ventilator 30.00 01/01/22 04:00 99 Mechanical Ventilator 30 01/01/22 04:00 37.0 69 21 156/106 99 Mechanical Ventilator 30.00 01/01/22 03:59 68 22 123/95 01/01/22 03:00 37.3 68 22 144/99 98 Mechanical Ventilator 30.00 01/01/22 02:17 71 22 99 30 01/01/22 02:00 37.4 73 22 128/82 98 Mechanical Ventilator 30.00 01/01/22 01:00 37.5 74 21 141/83 98 Mechanical Ventilator 30.00 01/01/22 01:00 80 01/01/22 00:00 37.6 77 22 138/85 98 Mechanical Ventilator 30.00 12/31/21 23:59 97 Mechanical Ventilator 30 12/31/21 23:00 37.6 80 22 130/83 100 Mechanical Ventilator 30.00 12/31/21 22:37 79 22 100 30 12/31/21 22:00 37.6 74 21 122/77 98 Mechanical Ventilator 30.00 12/31/21 21:00 37.6 74 21 122/73 97 Mechanical Ventilator 30.00 12/31/21 20:33 75 142/89 12/31/21 20:33 75 142/89 12/31/21 20:32 75 142/89 12/31/21 20:00 95 Mechanical Ventilator 30 12/31/21 20:00 37.7 75 21 115/73 96 Mechanical Ventilator 30.00 12/31/21 19:00 80 12/31/21 19:00 37.7 75 21 110/61 96 Mechanical Ventilator 30.00 12/31/21 18:49 75 22 97 30 12/31/21 18:00 37.7 76 21 114/71 96 Mechanical Ventilator 30.00 12/31/21 17:00 37.8 77 21 112/64 96 Mechanical Ventilator 30.00 12/31/21 16:00 37.8 77 21 104/60 95 Mechanical Ventilator 30.00 12/31/21 15:50 37.1 12/31/21 15:34 77 22 116/71 12/31/21 15:34 77 22 116/71 12/31/21 15:23 94 Mechanical Ventilator 30 12/31/21 15:00 37.7 77 22 116/71 95 Mechanical Ventilator 30.00 12/31/21 14:30 77 22 95 30 12/31/21 14:00 37.8 77 22 105/62 95 Mechanical Ventilator 30.00 12/31/21 13:00 37.8 78 22 103/64 96 Mechanical Ventilator 30.00 12/31/21 12:37 80 12/31/21 12:00 94 Mechanical Ventilator 30 12/31/21 12:00 37.7 81 22 129/84 95 Mechanical Ventilator 30.00 12/31/21 11:23 92 157/104 12/31/21 11:23 92 157/104 I & O 01/01/22 07:00 Intake Total 2540 ml Output Total 3650 ml Balance -1110 ml Height & Weight Height: 5'10.00" Weight: 175lbs. 0oz. [id number]; 27.99 BMI Method:Estimated General Appearance: No Apparent Distress HEENT: PERRL/EOMI, Moist Mucous Membranes Neck: Normal Inspection, Supple Respiratory: Chest Non Tender, Normal Breath Sounds Cardiovascular: Regular Rate, Rhythm, No Edema, No Gallop, No JVD, No Murmur, Normal Peripheral Pulses Capillary Refill: Less Than 3 Seconds Gastrointestinal: soft Extremity: Normal Capillary Refill, Normal Inspection, No Pedal Edema Neurologic/Psychiatric: Other (sedated) Skin: Normal Color, Warm/Dry Lymphatic: No Adenopathy Results Lab Laboratory Tests 12/31/21 03:33 01/01/22 02:15 Assessment/Plan Assessment/Plan (Tele-ICU Physician , Progress Note ) Available chart/ vitals / labs / Images reviewed Video assessment done using teleICU camera, rest of exam as per RN Discussed with RN , EXAM PER RN Events overnight : increased need for fio2 Afebrile FiO2 - 100 I/O = neg 700 Drips: Pressors: , hemodynamically stable Consultants: HPI 12/10 weakness - > dx COVID 12/10 , started on steroids , Z pack , MDI - felt little better 12/19 - then reported multiple syncopal episodes- seen in ER - was given Zofran, a liter of fluids, meclizine, d/c -ed on O2 CTA NEG FOR PE 12/20 - tammi tto office -> direct admit to hospital Hospital course 12/21 - COVID PNA< dehydration , 2 l NC 12/23 - 10 L NC , diuresis , Decadron BID 12/24 - transferred to ICU , VT 40 L 100% , Actemra 12/25 -VT 35L 90%. precedex 0.4, - did not tolerated BIpap US LE NEG FOR DVT 2/2- BIPAP 158 100% - rr 36 tv 600 MV 20L , precedex 1.5 2/ - VT 40 100% 2/4- bipap60% OFF PRECEDEX FM + VT / - bipap 18/10 80 % rr 22 tv 500 MV 11 A/P Acute resp failure - BIPAP 1- bipap 18/10 rr 22 tv 500 MV 11 , DID NOT TOLERATED VT - OFF PRECEDEX , FIO@ sligtly better - 70 % - proning ( more on side ) high risk for intubation [id number]/[id number]-19 PNA ( Symptom onset ~?, - DX unvaccinated -outpatient on steroids po , CA[facility] ) - IV steroids dexa bid -no PE on CTA 12/20 - ernst proph dose - ddimer 12/27 is 19 --> changed to Tx dose 12/27 -Actemra 12/24 ( acyclovir for 30 days ) Suspected bact PNA - abx started 12/22 - cefepime and doxy - OFF 12/27 syncope - can be related tro COVID , less likely to meds - follow No h/o pum dz - Previous studies: PFT - 04/2016 - NL spirometry PSG 09/2019 - AHI 4 Lines : periph asked for picc line 12/26 (Central Line Necessity Reviewed) Ballesteros: 12/23 OG: Nutrition: minimal Analgesia: Anxiety/ delirium - XANAX VTE Prophylaxis: lovenox full dose Stress Ulcer Prophylaxis: PPI Plans in collaboration with bedside consultants and IM MDs. Discussed with RN to reach out if any questions or concerns A total of 15 minutes of critical care time was devoted to this patient today, required to treat and/or prevent further deterioration of critical care condition ( as above) MARGARET RUBIN MD Jan 01, 2022 11:22
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
[2022-01-01] MEDS: DexMEDEtomidine 250 ML DRIP 250 ML IV SCH ×3 (13:31→22:23)
[2022-01-01 14:43] VITALS: BP 119/77
[2022-01-01 19:24] VITALS: BP 141/99
[2022-01-01] MEDS: ENOXAPARIN 40 MG/0.4 ML (LOVENOX) SYR SC SCH (20:18)
[2022-01-01] MEDS: QUEtiapine 25 MG (SEROquel) TAB IMMEDIATE RELEASE PO SCH (20:18)
[2022-01-01 22:41] VITALS: BP_SYST 153; BP_SYST 453; BP_DIAS 114
[2022-01-02] MEDS: LORazepam 0.5 MG (ATIVAN) TABLET PO SCH ×6 (01:43→22:24)
[2022-01-02] MEDS: RT-ALBUTEROL HFA 8.5 GM INHALER IH SCH ×6 (02:31→22:01)
[2022-01-02 02:32] VITALS: BP 141/93
[2022-01-02 04:27] LABS: BASOPHILS # (AUTO) 0.1 10^3/uL (0.0-0.1); BASOPHILS % (AUTO) 1 % (0-10); EOSINOPHILS # (AUTO) 0.3 10^3/uL (0.0-0.3); EOSINOPHILS % (AUTO) 4 % (0-10); HEMATOCRIT 31 % (40-54); HEMOGLOBIN 9.5 g/dL (13.3-17.7); LYMPHOCYTES # (AUTO) 1.5 10^3/uL (1.0-4.0); LYMPHOCYTES % (AUTO) 27 % (12-44); MEAN CORPUSCULAR HEMOGLOBIN 25 pg (25-34); MEAN CORPUSCULAR HGB CONC 31 g/dL (32-36); MEAN CORPUSCULAR VOLUME 79 fL (80-99); MEAN PLATELET VOLUME 10.5 fL (9.0-12.2); MONOCYTES # (AUTO) 0.6 10^3/uL (0.0-1.0); MONOCYTES % (AUTO) 10 % (0-12); NEUTROPHILS # (AUTO) 3.3 10^3/uL (1.8-7.8); NEUTROPHILS % (AUTO) 57 % (42-75); PLATELET COUNT 471 10^3/uL (130-400); WHITE BLOOD COUNT 5.8 10^3/uL (4.3-11.0)
[2022-01-02 04:57] LABS: POTASSIUM 3.4 MMOL/L (3.6-5.0)
[2022-01-02 04:58] LABS: CALCIUM 8.6 MG/DL (8.5-10.1)
[2022-01-02 05:01] LABS: BAND NEUTROPHILS 0 %; BASOPHILS % (MANUAL) 0 %; EOSINOPHILS % (MANUAL) 4 %; HYPOCHROMASIA SLIGHT; LYMPHOCYTES % (MANUAL) 18 %; MONOCYTES % (MANUAL) 11 %; NEUTROPHILS % (MANUAL) 56 %; REACTIVE LYMPHOCYTES 11 %
[2022-01-02 05:02] LABS: ANISOCYTOSIS SLIGHT; CREATININE SERUM 0.62 MG/DL (0.60-1.30); PHOSPHORUS 3.5 MG/DL (2.3-4.7); POIKILOCYTOSIS SLIGHT; POLYCHROMASIA SLIGHT
[2022-01-02 05:04] LABS: MAGNESIUM 1.9 MG/DL (1.6-2.4)
[2022-01-02 05:38] LABS: ABG BASE EXCESS 3.1 MMOL/L (-2.5-2.5); ABG OXYGEN SATURATION 93 % (94-100); ABG PCO2 37 MMHG (35-45); ABG PH 7.47 (7.37-7.43); ABG PO2 61 MMHG (79-93); ABG TCO2 27.7 MMOL/L (21.0-31.0)
[2022-01-02 05:40] LABS: ALLENS TEST YES-POS
[2022-01-02 05:41] LABS: INSPIRED O2 25%; PATIENT TEMP 37.1; VENTILATOR YES
[2022-01-02] MEDS: fentaNYL DRIP PRE-MIX 250 ML IV SCH ×3 (05:58→22:22)
[2022-01-02] MEDS: LORazepam INJECTION FOR DRIP 20 MG in NS (IVPB) 90 ML IV SCH ×2 (05:58→16:19)
[2022-01-02] MEDS: THIAMINE 100 MG (VITAMIN B-1) TAB PO SCH (05:59)
[2022-01-02] MEDS: POTASSIUM CL 10MEQ/50ML IVPB 50 ML IV SCH ×3 (05:59→06:14)
[2022-01-02] MEDS: MAGNESIUM 1 GM/100 ML IVPB 100 ML IV SCH (06:14)
[2022-01-02] MEDS: inSUlin ASPART (NovoLOG) 1 UNIT/0.01 ML (CHARGE PER UNIT) SC SCH ×4 (06:15→23:08)
[2022-01-02] MEDS: KCL 20 MEQ TAB (K-DUR) PO SCH (06:15)
[2022-01-02 06:28] VITALS: BP 139/93
[2022-01-02] MEDS: ERYTHROMYCIN ETHYLSUCCINATE 400 MG/5 ML PO SCH ×3 (07:49→20:01)
[2022-01-02] MEDS: PANTOPRAZOLE 40 MG (PROTONIX) VIAL IV SCH (07:49)
[2022-01-02] MEDS: FOLIC ACID 1 MG TAB PO SCH (07:49)
[2022-01-02] MEDS: PROPOFOL DRIP (ICU) 100 ML IV SCH ×2 (07:49→19:00)
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
[2022-01-02] MEDS: MIDAZOLAM DRIP PRE-MIX 100 ML IV SCH ×2 (08:23→20:01)
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
[2022-01-02] MEDS: DexMEDEtomidine 250 ML DRIP 250 ML IV SCH ×4 (10:00→22:24)
[2022-01-02 10:07] VITALS: BP 119/86
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
[2022-01-02 14:37] VITALS: BP 133/93
[2022-01-02 18:46] VITALS: BP 133/93
[2022-01-02] MEDS: ENOXAPARIN 40 MG/0.4 ML (LOVENOX) SYR SC SCH (20:02)
[2022-01-02] MEDS: QUEtiapine 25 MG (SEROquel) TAB IMMEDIATE RELEASE PO SCH (20:02)
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
[2022-01-02 22:01] VITALS: BP 133/93
[2022-01-03] MEDS: LORazepam INJECTION FOR DRIP 20 MG in NS (IVPB) 90 ML IV SCH (01:18)
[2022-01-03] MEDS: LORazepam 0.5 MG (ATIVAN) TABLET PO SCH ×4 (02:17→14:51)
[2022-01-03] MEDS: PROPOFOL DRIP (ICU) 100 ML IV SCH ×2 (02:19→13:07)
[2022-01-03 02:45] VITALS: BP 133/93
[2022-01-03] MEDS: RT-ALBUTEROL HFA 8.5 GM INHALER IH SCH ×6 (02:45→21:38)
[2022-01-03 04:59] LABS: BASOPHILS # (AUTO) 0.1 10^3/uL (0.0-0.1); BASOPHILS % (AUTO) 1 % (0-10); EOSINOPHILS # (AUTO) 0.3 10^3/uL (0.0-0.3); EOSINOPHILS % (AUTO) 3 % (0-10); HEMATOCRIT 31 % (40-54); HEMOGLOBIN 9.5 g/dL (13.3-17.7); LYMPHOCYTES # (AUTO) 1.6 10^3/uL (1.0-4.0); LYMPHOCYTES % (AUTO) 19 % (12-44); MEAN CORPUSCULAR HEMOGLOBIN 24 pg (25-34); MEAN CORPUSCULAR HGB CONC 31 g/dL (32-36); MEAN CORPUSCULAR VOLUME 80 fL (80-99); MEAN PLATELET VOLUME 10.6 fL (9.0-12.2); MONOCYTES # (AUTO) 0.6 10^3/uL (0.0-1.0); MONOCYTES % (AUTO) 7 % (0-12); NEUTROPHILS % (AUTO) 70 % (42-75); PLATELET COUNT 451 10^3/uL (130-400); WHITE BLOOD COUNT 8.6 10^3/uL (4.3-11.0)
[2022-01-03 05:20] LABS: BAND NEUTROPHILS 2 %; LYMPHOCYTES % (MANUAL) 14 %; NEUTROPHILS % (MANUAL) 74 %
[2022-01-03 05:21] LABS: ANISOCYTOSIS SLIGHT; EOSINOPHILS % (MANUAL) 4 %; MONOCYTES % (MANUAL) 4 %; POIKILOCYTOSIS SLIGHT; REACTIVE LYMPHOCYTES 2 %
[2022-01-03] MEDS: THIAMINE 100 MG (VITAMIN B-1) TAB PO SCH (05:27)
[2022-01-03 05:29] LABS: POTASSIUM 3.8 MMOL/L (3.6-5.0)
[2022-01-03 05:31] LABS: CALCIUM 8.4 MG/DL (8.5-10.1)
[2022-01-03 05:35] LABS: CREATININE SERUM 0.63 MG/DL (0.60-1.30)
[2022-01-03 05:57] LABS: PHOSPHORUS 4.6 MG/DL (2.3-4.7)
[2022-01-03 05:59] LABS: MAGNESIUM 1.7 MG/DL (1.6-2.4)
[2022-01-03] MEDS: KCL 20 MEQ TAB (K-DUR) PO SCH (06:16)
[2022-01-03] MEDS: MAGNESIUM 1 GM/100 ML IVPB 100 ML IV SCH ×2 (06:16→06:33)
[2022-01-03] MEDS: inSUlin ASPART (NovoLOG) 1 UNIT/0.01 ML (CHARGE PER UNIT) SC SCH ×4 (06:16→23:59)
[2022-01-03] MEDS: POTASSIUM CL 10MEQ/50ML IVPB 50 ML IV SCH (06:16)
[2022-01-03] MEDS: MIDAZOLAM DRIP PRE-MIX 100 ML IV SCH (06:33)
[2022-01-03] MEDS: fentaNYL DRIP PRE-MIX 250 ML IV SCH (06:33)
[2022-01-03 06:58] VITALS: BP 117/71
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
[2022-01-03] MEDS: FOLIC ACID 1 MG TAB PO SCH (08:03)
[2022-01-03] MEDS: ERYTHROMYCIN ETHYLSUCCINATE 400 MG/5 ML PO SCH ×3 (08:03→20:44)
[2022-01-03] MEDS: PANTOPRAZOLE 40 MG (PROTONIX) VIAL IV SCH (08:03)
[2022-01-03] MEDS: D5W W/KCL 20 MEQ/L 1,000 ML IV SCH (08:03)
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
[2022-01-03 10:00] VITALS: BP 135/93
[2022-01-03] MEDS: DexMEDEtomidine 250 ML DRIP 250 ML IV SCH ×3 (11:01→23:09)
[2022-01-03] MEDS ORDERED: ZIPRASIDONE 20 MG INJ (GEODON) VIAL IM NR ×2 (11:30→17:15)
[2022-01-03] MEDS ORDERED: WATER (STERILE) FOR INJ 10 ML BTL INJ SCH ×2 (11:30→17:15)
[2022-01-03] MEDS ORDERED: ZIPRASIDONE 20 MG INJ (GEODON) VIAL IM ONE ×2 (11:33→17:21)
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
[2022-01-03 15:02] VITALS: BP 135/89
[2022-01-03] MEDS: LORazepam INJ 2 MG/ML (ATIVAN) VIAL IVP PRN (15:56)
[2022-01-03 16:10] VITALS: BP 153/94
[2022-01-03] MEDS: APAP 325 MG/10.15 ML LIQ (TYLENOL) UDC PO PRN (16:14)
[2022-01-03 16:56] LABS: ABG BASE EXCESS 0.2 MMOL/L (-2.5-2.5); ABG OXYGEN SATURATION 98 % (94-100); ABG PCO2 39 MMHG (35-45); ABG PH 7.41 (7.37-7.43); ABG PO2 121 MMHG (79-93); ABG TCO2 25.1 MMOL/L (21.0-31.0)
[2022-01-03] MEDS ORDERED: LORazepam INJ 2 MG/ML (ATIVAN) VIAL IVP NR (17:00)
[2022-01-03 17:08] LABS: ALLENS TEST POS; INSPIRED O2 40%; PATIENT TEMP 38.1; VENTILATOR YES
[2022-01-03] MEDS ORDERED: WATER (STERILE) FOR INJECTION 10 ML ONE (17:21)
[2022-01-03] MEDS: QUEtiapine 25 MG (SEROquel) TAB IMMEDIATE RELEASE PO SCH (20:44)
[2022-01-03] MEDS: hydrALAZINE (APESOLINE) 20 MG/ML VIAL IV PRN (20:56)
[2022-01-04] MEDS: LABETALOL HCL 20 MG/4 ML VIAL IV PRN ×2 (01:36→07:54)
[2022-01-04] MEDS: RT-ALBUTEROL HFA 8.5 GM INHALER IH SCH ×6 (03:00→20:52)
[2022-01-04] MEDS: D5W W/KCL 20 MEQ/L 1,000 ML IV SCH (05:12)
[2022-01-04] MEDS: hydrALAZINE (APESOLINE) 20 MG/ML VIAL IV PRN (05:12)
[2022-01-04 05:37] LABS: BASOPHILS # (AUTO) 0.1 10^3/uL (0.0-0.1); BASOPHILS % (AUTO) 0 % (0-10); EOSINOPHILS # (AUTO) 0.1 10^3/uL (0.0-0.3); EOSINOPHILS % (AUTO) 1 % (0-10); HEMATOCRIT 34 % (40-54); HEMOGLOBIN 10.9 g/dL (13.3-17.7); LYMPHOCYTES # (AUTO) 0.9 10^3/uL (1.0-4.0); LYMPHOCYTES % (AUTO) 4 % (12-44); MEAN CORPUSCULAR HEMOGLOBIN 25 pg (25-34); MEAN CORPUSCULAR HGB CONC 32 g/dL (32-36); MEAN CORPUSCULAR VOLUME 77 fL (80-99); MEAN PLATELET VOLUME 11.2 fL (9.0-12.2); MONOCYTES # (AUTO) 0.8 10^3/uL (0.0-1.0); MONOCYTES % (AUTO) 4 % (0-12); NEUTROPHILS % (AUTO) 91 % (42-75); PLATELET COUNT 583 10^3/uL (130-400)
[2022-01-04 05:47] LABS: POTASSIUM 3.4 MMOL/L (3.6-5.0)
[2022-01-04 05:48] LABS: CALCIUM 8.7 MG/DL (8.5-10.1)
[2022-01-04 05:53] LABS: CREATININE SERUM 0.65 MG/DL (0.60-1.30)
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
[2022-01-04] MEDS: inSUlin ASPART (NovoLOG) 1 UNIT/0.01 ML (CHARGE PER UNIT) SC SCH ×3 (06:08→18:50)
[2022-01-04] MEDS: KCL 20 MEQ TAB (K-DUR) PO SCH (06:08)
[2022-01-04] MEDS: THIAMINE 100 MG (VITAMIN B-1) TAB PO SCH (06:08)
[2022-01-04 06:09] LABS: LYMPHOCYTES % (MANUAL) 9 %; MONOCYTES % (MANUAL) 3 %; NEUTROPHILS % (MANUAL) 88 %
[2022-01-04 06:10] LABS: HYPOCHROMASIA SLIGHT; MICROCYTOSIS MODERATE
[2022-01-04] MEDS: POTASSIUM CL 10MEQ/50ML IVPB 50 ML IV SCH ×3 (06:15→07:38)
[2022-01-04] MEDS: MAGNESIUM 1 GM/100 ML IVPB 100 ML IV SCH ×3 (06:39→09:49)
[2022-01-04] MEDS ORDERED: ACETAMINOPHEN 650 MG SUPP (TYLENOL) PR PRN (07:45)
[2022-01-04] MEDS: PANTOPRAZOLE 40 MG (PROTONIX) VIAL IV SCH (08:15)
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
--- NOTE | 2022-01-04 08:51 | Diagnostic Imaging Report ---
CHEST 1 VIEW, AP/PA ONLY Indication: Fever Comparison: 01/01/2022 Findings: Stable left PICC. Hazy opacities are present in the right lung base, that are most likely due to summation of normal structures and portable technique. Underlying airspace disease is not excluded but felt less likely. No pneumothorax or pleural effusion. Impression: 1. Right basilar hazy opacities are most likely summation artifact. However, in the appropriate setting, pneumonia could give this appearance. Dictated by: Dictated on workstation # [id number]
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
[2022-01-04] MEDS: ERYTHROMYCIN ETHYLSUCCINATE 400 MG/5 ML PO SCH ×3 (09:03→20:05)
[2022-01-04] MEDS: FOLIC ACID 1 MG TAB PO SCH (09:03)
--- NOTE | 2022-01-04 10:51 | Speech Therapy Progress Note ---
Therapy Progress Note The clinician received the clinical bedside swallowing consult and reviewed the patient's medical chart. The clinician attempted the evaluation at 1030. At this time, the patient does not display appropriate alertness levels for safe participation in PO trials. The patient was discussed with the assigned RN, Neelam, who agreed with the clinician's findings. ST will reattempt the evaluation as the patient's mental status improves. ACE VALDOVINOS Jan 04, 2022 10:51
[2022-01-04 11:26] LABS: BILIRUBIN,URINE NEGATIVE (NEGATIVE); CLARITY,URINE CLOUDY; COLOR,URINE YELLOW; GLUCOSE, URINE (UA) NEGATIVE (NEGATIVE); KETONES,URINE NEGATIVE (NEGATIVE); LEUKOCYTE ESTERASE ,URINE NEGATIVE (NEGATIVE); NITRITE,URINE NEGATIVE (NEGATIVE); PH,URINE 7.5 (5-9); PROTEIN,URINE NEGATIVE (NEGATIVE)
[2022-01-04 11:33] LABS: AMORPHOUS SEDIMENT,UR LARGE AMOR PHOSPHATE /LPF; BACTERIA,URINE NEGATIVE /HPF
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
[2022-01-04] MEDS: DexMEDEtomidine 250 ML DRIP 250 ML IV SCH ×2 (12:26→12:27)
[2022-01-04 13:52] LABS: OCCULT BLOOD,GASTRIC FLUID POSITIVE (NEGATIVE)
[2022-01-04] MEDS: QUEtiapine 25 MG (SEROquel) TAB IMMEDIATE RELEASE PO SCH (20:05)
[2022-01-05] MEDS: inSUlin ASPART (NovoLOG) 1 UNIT/0.01 ML (CHARGE PER UNIT) SC SCH ×2 (00:14→05:40)
[2022-01-05] MEDS: D5W W/KCL 20 MEQ/L 1,000 ML IV SCH ×2 (00:15→20:38)
[2022-01-05] MEDS: RT-ALBUTEROL HFA 8.5 GM INHALER IH SCH ×6 (02:01→21:30)
[2022-01-05 04:15] LABS: BASOPHILS # (AUTO) 0.1 10^3/uL (0.0-0.1); BASOPHILS % (AUTO) 1 % (0-10); EOSINOPHILS # (AUTO) 0.1 10^3/uL (0.0-0.3); EOSINOPHILS % (AUTO) 1 % (0-10); HEMATOCRIT 32 % (40-54); HEMOGLOBIN 10.1 g/dL (13.3-17.7); LYMPHOCYTES # (AUTO) 1.6 10^3/uL (1.0-4.0); LYMPHOCYTES % (AUTO) 13 % (12-44); MEAN CORPUSCULAR HEMOGLOBIN 25 pg (25-34); MEAN CORPUSCULAR HGB CONC 31 g/dL (32-36); MEAN CORPUSCULAR VOLUME 79 fL (80-99); MEAN PLATELET VOLUME 11.2 fL (9.0-12.2); MONOCYTES # (AUTO) 0.9 10^3/uL (0.0-1.0); MONOCYTES % (AUTO) 7 % (0-12); NEUTROPHILS # (AUTO) 9.4 10^3/uL (1.8-7.8); NEUTROPHILS % (AUTO) 77 % (42-75); PLATELET COUNT 442 10^3/uL (130-400); WHITE BLOOD COUNT 12.1 10^3/uL (4.3-11.0)
[2022-01-05 04:29] LABS: POTASSIUM 3.6 MMOL/L (3.6-5.0)
[2022-01-05 04:31] LABS: CALCIUM 8.8 MG/DL (8.5-10.1)
[2022-01-05 04:35] LABS: CREATININE SERUM 0.62 MG/DL (0.60-1.30)
[2022-01-05 04:53] LABS: PHOSPHORUS 3.8 MG/DL (2.3-4.7)
[2022-01-05 04:55] LABS: MAGNESIUM 1.7 MG/DL (1.6-2.4)
[2022-01-05 05:13] LABS: LYMPHOCYTES % (MANUAL) 17 %; MONOCYTES % (MANUAL) 2 %; NEUTROPHILS % (MANUAL) 81 %
[2022-01-05 05:14] LABS: HYPOCHROMASIA SLIGHT; MICROCYTOSIS MODERATE
[2022-01-05] MEDS: MAGNESIUM 1 GM/100 ML IVPB 100 ML IV SCH ×2 (05:39→05:47)
[2022-01-05] MEDS: KCL 20 MEQ TAB (K-DUR) PO SCH (05:39)
[2022-01-05] MEDS: POTASSIUM CL 10MEQ/50ML IVPB 50 ML IV SCH ×2 (05:39→05:47)
[2022-01-05] MEDS: THIAMINE 100 MG (VITAMIN B-1) TAB PO SCH (05:40)
[2022-01-05] MEDS: hydrALAZINE (APESOLINE) 20 MG/ML VIAL IV PRN (05:47)
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
[2022-01-05] MEDS: LABETALOL HCL 20 MG/4 ML VIAL IV PRN ×3 (07:13→21:14)
[2022-01-05] MEDS: ERYTHROMYCIN ETHYLSUCCINATE 400 MG/5 ML PO SCH ×3 (07:20→20:37)
[2022-01-05] MEDS: FOLIC ACID 1 MG TAB PO SCH (07:20)
[2022-01-05] MEDS: PANTOPRAZOLE 40 MG (PROTONIX) VIAL IV SCH (07:55)
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
[2022-01-05] MEDS ORDERED: ONDANSETRON 4 MG/2 ML (SDV) Z0FRAN IVP PRN (17:00)
[2022-01-05] MEDS ORDERED: ONDANSETRON 4 MG/2 ML (SDV) Z0FRAN ONE (17:29)
[2022-01-05] MEDS: QUEtiapine 25 MG (SEROquel) TAB IMMEDIATE RELEASE PO SCH (20:37)
[2022-01-06] MEDS: RT-ALBUTEROL HFA 8.5 GM INHALER IH SCH ×6 (02:36→21:59)
[2022-01-06 05:23] LABS: BASOPHILS # (AUTO) 0.2 10^3/uL (0.0-0.1); BASOPHILS % (AUTO) 1 % (0-10); EOSINOPHILS # (AUTO) 0.2 10^3/uL (0.0-0.3); EOSINOPHILS % (AUTO) 1 % (0-10); HEMATOCRIT 36 % (40-54); HEMOGLOBIN 11.2 g/dL (13.3-17.7); LYMPHOCYTES # (AUTO) 1.8 10^3/uL (1.0-4.0); LYMPHOCYTES % (AUTO) 11 % (12-44); MEAN CORPUSCULAR HEMOGLOBIN 24 pg (25-34); MEAN CORPUSCULAR HGB CONC 31 g/dL (32-36); MEAN CORPUSCULAR VOLUME 79 fL (80-99); MONOCYTES % (AUTO) 6 % (0-12); NEUTROPHILS # (AUTO) 12.5 10^3/uL (1.8-7.8); NEUTROPHILS % (AUTO) 80 % (42-75); PLATELET COUNT 510 10^3/uL (130-400); WHITE BLOOD COUNT 15.7 10^3/uL (4.3-11.0)
[2022-01-06 05:34] LABS: POTASSIUM 3.3 MMOL/L (3.6-5.0)
[2022-01-06 05:35] LABS: CALCIUM 8.9 MG/DL (8.5-10.1)
[2022-01-06 05:39] LABS: CREATININE SERUM 0.58 MG/DL (0.60-1.30); PHOSPHORUS 3.5 MG/DL (2.3-4.7)
[2022-01-06 05:42] LABS: MAGNESIUM 1.7 MG/DL (1.6-2.4)
[2022-01-06] MEDS: POTASSIUM CL 10MEQ/50ML IVPB 50 ML IV SCH (06:03)
[2022-01-06] MEDS: KCL 20 MEQ TAB (K-DUR) PO SCH (06:04)
[2022-01-06] MEDS: MAGNESIUM 1 GM/100 ML IVPB 100 ML IV SCH ×3 (06:04→08:26)
[2022-01-06] MEDS ORDERED: KCL 20 MEQ TAB (K-DUR) PO ONE ×2 (06:15→08:15)
[2022-01-06] MEDS: THIAMINE 100 MG (VITAMIN B-1) TAB PO SCH (06:30)
[2022-01-06] MEDS: hydrALAZINE (APESOLINE) 20 MG/ML VIAL IV PRN (06:38)
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
[2022-01-06] MEDS: PANTOPRAZOLE 40 MG (PROTONIX) VIAL IV SCH (08:26)
[2022-01-06] MEDS: FOLIC ACID 1 MG TAB PO SCH (08:26)
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
[2022-01-06] MEDS: ERYTHROMYCIN ETHYLSUCCINATE 400 MG/5 ML PO SCH (09:27)
[2022-01-06] MEDS ORDERED: HALOPERIDOL 5 MG/ML (HALDOL) VIAL IM PRN (11:00)
[2022-01-06] MEDS: amLODIPine 5 MG (NORVASC) TAB PO SCH (11:42)
[2022-01-06] MEDS ORDERED: ZIPRASIDONE 20 MG INJ (GEODON) VIAL IM PRN (11:45)
[2022-01-06] MEDS ORDERED: WATER (STERILE) FOR INJ 10 ML BTL INJ SCH (11:45)
[2022-01-06] MEDS: cloNIDine 0.1 MG (CATAPRES) TAB PO PRN (13:37)
[2022-01-06] MEDS: QUEtiapine 25 MG (SEROquel) TAB IMMEDIATE RELEASE PO SCH (21:05)
[2022-01-07] MEDS: cloNIDine 0.1 MG (CATAPRES) TAB PO PRN ×2 (00:07→09:52)
[2022-01-07] MEDS: HYDROcodone/APAP 5 MG/325 MG (LORTAB) TAB PO PRN ×2 (01:27→19:49)
[2022-01-07] MEDS: LORazepam INJ 2 MG/ML (ATIVAN) VIAL IVP PRN (02:06)
[2022-01-07] MEDS: RT-ALBUTEROL HFA 8.5 GM INHALER IH SCH ×6 (02:22→22:23)
[2022-01-07 04:47] LABS: BASOPHILS # (AUTO) 0.2 10^3/uL (0.0-0.1); BASOPHILS % (AUTO) 2 % (0-10); EOSINOPHILS # (AUTO) 0.6 10^3/uL (0.0-0.3); EOSINOPHILS % (AUTO) 4 % (0-10); HEMATOCRIT 38 % (40-54); HEMOGLOBIN 11.9 g/dL (13.3-17.7); LYMPHOCYTES % (AUTO) 16 % (12-44); MEAN CORPUSCULAR HEMOGLOBIN 25 pg (25-34); MEAN CORPUSCULAR HGB CONC 31 g/dL (32-36); MEAN CORPUSCULAR VOLUME 79 fL (80-99); MEAN PLATELET VOLUME 10.8 fL (9.0-12.2); MONOCYTES # (AUTO) 0.9 10^3/uL (0.0-1.0); MONOCYTES % (AUTO) 7 % (0-12); NEUTROPHILS # (AUTO) 8.7 10^3/uL (1.8-7.8); NEUTROPHILS % (AUTO) 70 % (42-75); PLATELET COUNT 496 10^3/uL (130-400); WHITE BLOOD COUNT 12.4 10^3/uL (4.3-11.0)
[2022-01-07 04:56] LABS: ALBUMIN 3.8 GM/DL (3.2-4.5)
[2022-01-07 04:57] LABS: CALCIUM 9.1 MG/DL (8.5-10.1)
[2022-01-07 04:59] LABS: TOTAL PROTEIN 7.2 GM/DL (6.4-8.2)
[2022-01-07 05:00] LABS: BILIRUBIN,TOTAL 0.7 MG/DL (0.1-1.0)
[2022-01-07 05:02] LABS: CREATININE SERUM 0.63 MG/DL (0.60-1.30)
[2022-01-07] MEDS: THIAMINE 100 MG (VITAMIN B-1) TAB PO SCH (06:08)
[2022-01-07 08:00] VITALS: BP 180/90
--- NOTE | 2022-01-07 08:39 | Speech Therapy Progress Note ---
Therapy Progress Note Per chart review, the patient is tolerating the diet consistency recommended by his primary team and is "drinking water without aspirating." As the primary team has placed an appropriate PO diet consistency for the patient, ST to sign off at this time. If ST services are warranted, please re-consult. Thank you. ACE VALDOVINOS Jan 07, 2022 08:39
[2022-01-07] MEDS: PANTOPRAZOLE 40 MG (PROTONIX) TAB PO SCH (09:52)
[2022-01-07] MEDS: FOLIC ACID 1 MG TAB PO SCH (09:52)
[2022-01-07] MEDS: amLODIPine 5 MG (NORVASC) TAB PO SCH (09:52)
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
[2022-01-07 11:47] VITALS: BP 159/97
[2022-01-07 16:00] VITALS: BP 170/90
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
[2022-01-07] MEDS: ENOXAPARIN 40 MG/0.4 ML (LOVENOX) SYR SC SCH (18:36)
[2022-01-07 19:38] VITALS: BP 147/93
[2022-01-07] MEDS: QUEtiapine 25 MG (SEROquel) TAB IMMEDIATE RELEASE PO SCH (19:48)
[2022-01-07 23:18] VITALS: BP 160/98
[2022-01-07] MEDS: morphine INJ 10 MG/ML 1ML (SYR OR VIAL) IVP PRN (23:20)
[2022-01-08] MEDS: RT-ALBUTEROL HFA 8.5 GM INHALER IH SCH ×6 (02:08→21:28)
[2022-01-08 03:56] VITALS: BP 161/98
[2022-01-08 05:13] LABS: POTASSIUM 3.8 MMOL/L (3.6-5.0)
[2022-01-08 05:14] LABS: CALCIUM 9.5 MG/DL (8.5-10.1)
[2022-01-08] MEDS: POTASSIUM CL 10MEQ/50ML IVPB 50 ML IV SCH (05:15)
[2022-01-08] MEDS: KCL 20 MEQ TAB (K-DUR) PO SCH (05:15)
[2022-01-08 05:18] LABS: CREATININE SERUM 0.64 MG/DL (0.60-1.30)
[2022-01-08 05:21] LABS: MAGNESIUM 1.7 MG/DL (1.6-2.4)
[2022-01-08] MEDS: MAGNESIUM 1 GM/100 ML IVPB 100 ML IV SCH ×2 (05:43→06:10)
[2022-01-08] MEDS: THIAMINE 100 MG (VITAMIN B-1) TAB PO SCH (06:10)
[2022-01-08 08:00] VITALS: BP 160/102
--- NOTE | 2022-01-08 08:59 | Physical Therapy Daily Note ---
PT Daily Note-Current Subjective Patient presented sitting in the chair and agreed to walk with therapy. Patient reports he has to use the bathroom also. Patient reported pain in his left shoulder. Mental Status Patient Orientation: Person Transfers SCALE: Activities may be completed with or without assistive devices. 0-Lyczcmgkvs-pdmwgrb completes the activity by him/herself with no assistance from a helper. 5-Set-up or Clean-up Assistance-helper sets up or cleans up; patient completes activity. [place] assists only prior to or following the activity. 4-Supervision or Touching Assistance-helper provides verbal cues and/or touching/steadying and/or contact guard assistance as patient completes activity. Assistance may be provided throughout the activity or intermittently. 3-Partial/Moderate Assistance-helper does LESS THAN HALF the effort. [place] lifts, holds or supports trunk or limbs, but provides less than half the effort. 2-Substantial/Maximal Assistance-helper does MORE THAN HALF the effort. [place] lifts or holds trunk or limbs and provides more than half the effort. 5-Yoqcahorp-xlchhc does ALL the effort. Patient does none of the effort to com plete the activity. Or, the assistance of 2 or more helpers is required for the patient to complete the activity. If activity was not attempted, code reason: 7-Patient Refused. 9-Not Applicable-not attempted and the patient did not perform the activity before the current illness, exacerbation or injury. 10-Not Attempted due to Environmental Limitations-(lack of equipment, weather restraints, etc.). 88-Not Attempted due to Medical Conditions or Safety Concerns. Sit to Stand (QC): 3 Chair/Hzr-dj-Pygqy Xfer(QC): 3 Toilet Transfer (QC): 3 Patient required min assist for sit to stand transfer and moving back to bed. Patient required assistance to hold his gown while he stood to use the bathroom. Gait Training Does the Patient Walk?: Yes Distance: 200' Walk 10 feet (QC): 3 Walk 50 ft with 2 Turns(QC): 3 Walk 150 ft (QC): 3 Gait Assistive Device: FWW Patient ambulated with min/mod assist for 200' and FWW. Patient ambulated with m ore control today but still seemed to lose have points of unsteadiness at times. Assessment Patient ambulated and transferred back to the bed with therapy. Patient required min assist for all transfers and min/mod assist for ambulation. Patient reports severe left shoulder pain and was given an ice pack per his request for his pain. Patient ambulated more upright today and required less assistance with ambulation. PT Licensing Worker Goals Licensing Worker Goals PT Licensing Worker Goals Time Frame: Jan 19, 2022 Roll Left & Right (QC): 6 Sit to Lying (QC): 6 Lying-Sitting on Side/Bed(QC): 6 Sit to Stand (QC): 6 Chair/Cdw-se-Jtnmj Xfer(QC): 6 Does the Patient Walk: Yes Walk 10 feet (QC): 6 Walk 50ft with 2 Turns (QC): 6 Walk 150 ft (QC): 6 PT Plan Problem List Problem List: Activity Tolerance, Functional Strength, Safety, Balance, Gait, Transfer, Bed Mobility, ROM Treatment/Plan Treatment Plan: Continue Plan of Care Treatment Plan: Bed Mobility, Education, Functional Activity Winnie, Functional Strength, Gait, Safety, Therapeutic Exercise, Transfers Treatment Duration: Jan 19, 2022 Frequency: 6 times per week Estimated Hrs Per Day: .25 hour per day Time/GCodes Time In: 818 Time Out: 829 Total Billed Treatment Time: 11 Total Billed Treatment 1 Visit Gait 11 min BILLIE CRYSTAL PT Jan 08, 2022 08:59
[2022-01-08] MEDS: amLODIPine 5 MG (NORVASC) TAB PO SCH (09:04)
[2022-01-08] MEDS: PANTOPRAZOLE 40 MG (PROTONIX) TAB PO SCH (09:04)
[2022-01-08] MEDS: FOLIC ACID 1 MG TAB PO SCH (09:04)
[2022-01-08] MEDS: HYDROcodone/APAP 5 MG/325 MG (LORTAB) TAB PO PRN ×2 (09:04→20:01)
[2022-01-08 12:00] VITALS: BP 137/87
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
[2022-01-08 15:30] VITALS: BP 176/123
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
[2022-01-08] MEDS: ENOXAPARIN 40 MG/0.4 ML (LOVENOX) SYR SC SCH (18:25)
[2022-01-08 20:06] VITALS: BP 153/91
[2022-01-08] MEDS: QUEtiapine 25 MG (SEROquel) TAB IMMEDIATE RELEASE PO SCH (21:41)
[2022-01-08 22:40] VITALS: BP 153/91
[2022-01-08] MEDS: morphine INJ 10 MG/ML 1ML (SYR OR VIAL) IVP PRN (22:40)
[2022-01-08] MEDS ORDERED: RT-ALBUTEROL HFA 8.5 GM INHALER IH PRN (23:00)
[2022-01-09] VITALS: BP 154/104
[2022-01-09] MEDS: HYDROcodone/APAP 5 MG/325 MG (LORTAB) TAB PO PRN ×2 (00:26→13:04)
[2022-01-09 04:42] VITALS: BP 150/88
[2022-01-09 05:17] LABS: POTASSIUM 4.3 MMOL/L (3.6-5.0)
[2022-01-09 05:18] LABS: CALCIUM 9.3 MG/DL (8.5-10.1)
[2022-01-09 05:22] LABS: CREATININE SERUM 0.66 MG/DL (0.60-1.30)
[2022-01-09 05:24] LABS: MAGNESIUM 1.8 MG/DL (1.6-2.4)
[2022-01-09] MEDS: POTASSIUM CL 10MEQ/50ML IVPB 50 ML IV SCH (06:17)
[2022-01-09] MEDS: MAGNESIUM 1 GM/100 ML IVPB 100 ML IV SCH (06:18)
[2022-01-09] MEDS: KCL 20 MEQ TAB (K-DUR) PO SCH (06:18)
[2022-01-09] MEDS: THIAMINE 100 MG (VITAMIN B-1) TAB PO SCH (06:23)
[2022-01-09 08:13] VITALS: BP 168/116
[2022-01-09] MEDS: FOLIC ACID 1 MG TAB PO SCH (08:25)
[2022-01-09] MEDS: PANTOPRAZOLE 40 MG (PROTONIX) TAB PO SCH (08:25)
[2022-01-09] MEDS: amLODIPine 5 MG (NORVASC) TAB PO SCH (08:25)
[2022-01-09] MEDS ORDERED: lisINopril 40 MG (PRINIVIL) TABLET PO SCH (09:00)
--- NOTE | 2022-01-09 09:26 | Physical Therapy Daily Note ---
PT Daily Note-Current Subjective Patient presents laying in bed and reports that he is ready to get up and walk. Appearance Patient in bed post tx with nurse call, phone, tray, all needs met, bed alarm on. Mental Status Patient Orientation: Person, Place, Situation Transfers SCALE: Activities may be completed with or without assistive devices. 5-Xpeiaweval-quyzksz completes the activity by him/herself with no assistance from a helper. 5-Set-up or Clean-up Assistance-helper sets up or cleans up; patient completes activity. [place] assists only prior to or following the activity. 4-Supervision or Touching Assistance-helper provides verbal cues and/or touching/steadying and/or contact guard assistance as patient completes activity. Assistance may be provided throughout the activity or intermittently. 3-Partial/Moderate Assistance-helper does LESS THAN HALF the effort. [place] lift s, holds or supports trunk or limbs, but provides less than half the effort. 2-Substantial/Maximal Assistance-helper does MORE THAN HALF the effort. [place] lifts or holds trunk or limbs and provides more than half the effort. 0-Uaqcpfdus-nyvxli does ALL the effort. Patient does none of the effort to complete the activity. Or, the assistance of 2 or more helpers is required for the patient to complete the activity. If activity was not attempted, code reason: 7-Patient Refused. 9-Not Applicable-not attempted and the patient did not perform the activity before the current illness, exacerbation or injury. 10-Not Attempted due to Environmental Limitations-(lack of equipment, weather restraints, etc.). 88-Not Attempted due to Medical Conditions or Safety Concerns. Sit to Lying (QC): 6 Lying to Sitting/Side of Bed(Q: 6 Sit to Stand (QC): 4 Gait Training Does the Patient Walk?: Yes Distance: 550' Walk 10 feet (QC): 3 Walk 50 ft with 2 Turns(QC): 3 Walk 150 ft (QC): 3 Gait Assistive Device: FWW Patient ambulated for 550' with min assist and FWW. Patient staggered at times and required assistance to regain his balance. Exercises Standing: Heel/toe raises Standing Reps: 10 Assessment Patient was able to ambulate a greater distance today before reporting fatigue and requesting to return to his room. Patient stood and looked out the window and completed some heel toe raises. Patient still reports significant weakness and pain in his L shoulder and does not move it very much. PT Grain Elevator Clerk Goals Mcfp Goals PT Mcfp Goals Time Frame: Jan 19, 2022 Roll Left & Right (QC): 6 Sit to Lying (QC): 6 Lying-Sitting on Side/Bed(QC): 6 Sit to Stand (QC): 6 Chair/Fjs-wv-Lgzba Xfer(QC): 6 Does the Patient Walk: Yes Walk 10 feet (QC): 6 Walk 50ft with 2 Turns (QC): 6 Walk 150 ft (QC): 6 PT Plan Problem List Problem List: Activity Tolerance, Functional Strength, Safety, Balance, Gait, Transfer, ROM Treatment/Plan Treatment Plan: Continue Plan of Care Treatment Plan: Bed Mobility, Education, Functional Activity Winnie, Functional Strength, Gait, Safety, Therapeutic Exercise, Transfers Treatment Duration: Jan 19, 2022 Frequency: 6 times per week Estimated Hrs Per Day: .25 hour per day Safety Risks/Education Patient Education: Gait Training, Transfer Techniques, Correct Positioning, Safety Issues Teaching Recipient: Patient Teaching Methods: Demonstration, Discussion Response to Teaching: Reinforcement Needed Time/GCodes Time In: 830 Time Out: 845 Total Billed Treatment Time: 15 Total Billed Treatment 1 Visit FA 15 min ANAND PILLAI PT Jan 09, 2022 09:26
[2022-01-09 11:16] VITALS: BP 150/99
--- NOTE | 2022-01-09 11:23 | Occupational Ther Daily Note ---
OT Current Status-Daily Note Subjective Pt in bed, agreeable to OT tx. habilitation worker present at start of session. OT recommendations include shower chair (pt states he has one) and home health OT. ADL-Treatment Therapy Code Descriptions/Definitions Functional [place] Measure: 0=Not Assessed/NA 4=Minimal Assistance 1=Total Assistance 5=Supervision or Setup 2=Maximal Assistance 6=Modified [place] 3=Moderate Assistance 7=Complete IndependenceSCALE: Activities may be completed with or without assistive devices. 4-Isdtyanrdj-jzsmmmo completes the activity by him/herself with no assistance from a helper. 5-Set-up or Clean-up Assistance-helper sets up or cleans up; patient completes activity. [place] assists only prior to or following the activity. 4-Supervision or Touching Assistance-helper provides verbal cues and/or touching/steadying and/or contact guard assistance as patient completes activity. Assistance may be provided throughout the activity or intermittently. 3-Partial/Moderate Assistance-helper does LESS THAN HALF the effort. [place] lifts, holds or supports trunk or limbs, but provides less than half the effort. 2-Substantial/Maximal Assistance-helper does MORE THAN HALF the effort. [place] lifts or holds trunk or limbs and provides more than half the effort. 5-Ozrnbfqsw-rwdzmu does ALL the effort. Patient does none of the effort to complete the activity. Or, the assistance of 2 or more helpers is required for the patient to complete the activity. If activity was not attempted, code reason: 7-Patient Refused. 9-Not Applicable-not attempted and the patient did not perform the activity before the current illness, exacerbation or injury. 10-Not Attempted due to Environmental Limitations-(lack of equipment, weather restraints, etc.). 88-Not Attempted due to Medical Conditions or Safety Concerns. Other Treatment Pt in bed, director social service present at start of tx. Pt agreeable to OT tx, states BUE are still weak. Pt demo'd exercises from yesterday, completing AROM on RUE, and PROM shoulder flexion on LUE, min verbal cues for correct technique. Pt able to doff L gripper sock, unable to don. OT attempted to educate pt on one handed technique, he tried this but got frustrated, throwing sock onto the bed and dropping his leg onto the bed. OT assisted pt with donning sock. OT educated pt on rubber band exercise in order to strengthen finger extensors, he verbalized understanding. Post tx, pt in bed, call light in reach and all needs met, bed alarm activated. Education OT Patient Education: Correct positioning, Energy conservation, Exercise program, Modified ADL techniques, Progress toward Goal/Update tx plan, Purpose of tx/functional activities, Rehab process Teaching Recipient: Patient Teaching Methods: Discussion Response to Teaching: Verbalize Understanding OT Sociology Instructor Goals Sociology Instructor Goals Time Frame: Jan 25, 2022 Eating (QC): 5 Oral Hygiene (QC): 4 Toileting Hygiene (QC): 4 Shower/Bathe Self (QC): 3 Upper Body Dressing (QC): 3 Lower Body Dressing (QC): 3 On/Off Footwear (QC): 3 Additional Goals: 1-Demonstrate ADL Tasks, 2-Verbalize Understanding, 3- ImproveStrength/Winnie 1=Demonstrate adherence to instructed precautions during ADL tasks. 2=Patient will verbalize/demonstrate understanding of assistive devices/modifications for ADL. 3=Patient will improve strength/tolerance for activity to enable patient to perform ADL's. OT Education/Plan Problem List/Assessment Assessment: Decreased Activ Tolerance, Decreased UE Strength, Impaired Funct Balance, Impaired I ADL's, Impaired Self-Care Skills, Restricted Funct UE ROM Discharge Recommendations Plan/Recommendations: Continue POC Therapy Discharge Recommendati: Post Acute OT (Home Health OT) Equpiment Recommendations-D/C: Bath Chair Treatment Plan/Plan of Care Patient would benefit from OT for education, treatment and training to promote independence in ADL's, mobility, safety and/or upper extremity function for ADL's. Plan of Care: ADL Retraining, Functional Mobility, UE Funct Exercise/Act, UE Neuromus Re-Ed/Coord Treatment Duration: Jan 25, 2022 Frequency: 3 times per week (3-5 times per week) Rehab Potential: Guarded Time/GCodes Start Time: 10:05 Stop Time: 10:15 Total Time Billed (hr/min): 10 Billed Treatment Time 1, ADL PATRICK STALLINGS OT Jan 09, 2022 11:23
[2022-01-09] MEDS ORDERED: LISI40TA9 PO (11:28)
[2022-01-09] MEDS ORDERED: AMLO-250 PO (11:28)
[2022-01-09] MEDS ORDERED: PANT40TA52 PO (11:28)
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
[2022-01-09] MEDS ORDERED: AMLO-251 PO (12:36)
[2022-01-09 14:27] VITALS: BP 150/99
== END 2022-01-09 14:11 | disposition home health service (06) | DRG 579 ==
LOC: EDUNIT# 12:52 → ER 12:54 → SDC 13:59 → ICU 14:00 → 4TH 01-06 11:38
PROVIDERS: ADMIT Internal Medicine; ATTEND Internal Medicine
PROC: 0X3F0ZZ Control Bleeding in Left Lower Arm, Open Approach (ICD-10-PCS; 2021-12-13)
PROC: 0W380ZZ Control Bleeding in Chest Wall, Open Approach (ICD-10-PCS; 2021-12-13)
PROC: 0X3 Anatomical Regions, Upper Extremities, Control (ICD-10-PCS; 2021-12-13)
PROC: 0HQCXZZ Repair Left Upper Arm Skin, External Approach (ICD-10-PCS; 2021-12-13)
PROC: 0HQGXZZ Repair Left Hand Skin, External Approach (ICD-10-PCS; 2021-12-13)
PROC: 5A1955Z Respiratory Ventilation, Greater than 96 Consecutive Hours (ICD-10-PCS; 2021-12-13)
PROC: 0BH17EZ Insertion of Endotracheal Airway into Trachea, Via Natural or Artificial Opening (ICD-10-PCS; 2021-12-13)
PROC: 0X3 Anatomical Regions, Upper Extremities, Control (ICD-10-PCS; principal; 2021-12-13 14:24)
PROC: 8E0ZXY6 Isolation (ICD-10-PCS; 2021-12-14)
PROC: 5A0935A Assistance with Respiratory Ventilation, Less than 24 Consecutive Hours, High Flow/Velocity Cannula (ICD-10-PCS; 2022-01-03)
DX: S41.012A Laceration without foreign body of left shoulder, initial encounter (principal); U07.1 COVID-19; J96.01 Acute respiratory failure with hypoxia; A41.9 Sepsis, unspecified organism; J15.9 Unspecified bacterial pneumonia; S21.132A Puncture wound without foreign body of left front wall of thorax without penetration into thoracic cavity, initial encounter; F10.121 Alcohol abuse with intoxication delirium; F12.121 Cannabis abuse with intoxication delirium; G72.81 Critical illness myopathy; E87.0 Hyperosmolality and hypernatremia; E87.2 Acidosis; S61.412A Laceration without foreign body of left hand, initial encounter; S41.112A Laceration without foreign body of left upper arm, initial encounter; S51.812A Laceration without foreign body of left forearm, initial encounter; S46.822A Laceration of other muscles, fascia and tendons at shoulder and upper arm level, left arm, initial encounter; X78.1XXA Intentional self-harm by knife, initial encounter; Y90.7 Blood alcohol level of 200-239 mg/100 ml; R13.10 Dysphagia, unspecified; I10 Essential (primary) hypertension; D64.9 Anemia, unspecified; F20.9 Schizophrenia, unspecified; F90.9 Attention-deficit hyperactivity disorder, unspecified type; F41.9 Anxiety disorder, unspecified; F31.9 Bipolar disorder, unspecified; Z88.8 Allergy status to other drugs, medicaments and biological substances
CPT/HCPCS: 31500; 36415; 36569; 51702; 70450; 71045; 71260; 71275; 73060; 73130; 74018; 74177; 76937; 80048; 80053; 80074; 80076; 80306; 80320; 81000; 82271; 82550; 82805; 82947; 83605; 83735; 84100; 84145; 85007; 85025; 85027; 85379; 85384; 85610; 85730; 86703; 86850; 86900; 86901; 86920; 86922; 87040; 87070; 87077; 87081; 87185; 87205; 87636; 90471; 90715; 93005; 93041; 93970; 94002; 94003; 94640; 94664; 94799; 96361; 96372; 96374; 96375; 99291

== ENCOUNTER 2023-01-06 11:14 | Emergency (ER) | payer SELFPAY ==
[~2023-01-06] VITALS: Ht 185.4 cm; Wt 88.5 kg
[~2023-01-06 11:14] MED LIST changes: +AMLO-250 PO; +AMLO-251 PO; +LISI40TA9 PO; +PANT40TA52 PO
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
[2023-01-06] MEDS ORDERED: ONDANSETRON 4 MG (ZOFRAN) ORAL DISSOLVE TAB PO ONE (11:30)
[2023-01-06] MEDS ORDERED: TETANUS,DIPTH,PERTUSS P/F (BOOSTRIX) 0.5 ML VIAL IM ONE ×2 (11:30→13:54)
[2023-01-06] MEDS ORDERED: OLANZapine 5 MG ODT (ZyPREXA ZYDIS) PO ONE (11:30)
[2023-01-06] MEDS ORDERED: LIDOCAINE/EPI 2% 1:100,00 (XYLOCAINE) 20 ML VIAL INJ ONE (12:00)
[2023-01-06 12:07] LABS: BASOPHILS % (AUTO) 0 % (0-10); EOSINOPHILS % (AUTO) 0 % (0-10); HEMATOCRIT 44 % (40-54); HEMOGLOBIN 14.6 g/dL (13.3-17.7); LYMPHOCYTES # (AUTO) 1.5 10^3/uL (1.0-4.0); LYMPHOCYTES % (AUTO) 14 % (12-44); MEAN CORPUSCULAR HEMOGLOBIN 26 pg (25-34); MEAN CORPUSCULAR HGB CONC 33 g/dL (32-36); MEAN CORPUSCULAR VOLUME 79 fL (80-99); MEAN PLATELET VOLUME 11.2 fL (9.0-12.2); MONOCYTES # (AUTO) 0.6 10^3/uL (0.0-1.0); MONOCYTES % (AUTO) 6 % (0-12); NEUTROPHILS # (AUTO) 8.2 10^3/uL (1.8-7.8); NEUTROPHILS % (AUTO) 79 % (42-75); PLATELET COUNT 223 10^3/uL (130-400); WHITE BLOOD COUNT 10.3 10^3/uL (4.3-11.0)
[2023-01-06 12:16] LABS: CHLORIDE 102 MMOL/L (98-107); POTASSIUM 3.9 MMOL/L (3.6-5.0); SODIUM 139 MMOL/L (135-145)
[2023-01-06 12:17] LABS: CALCIUM 9.3 MG/DL (8.5-10.1)
[2023-01-06 12:19] LABS: GLUCOSE 90 MG/DL (70-105); TOTAL PROTEIN 8.1 GM/DL (6.4-8.2)
[2023-01-06 12:20] LABS: BILIRUBIN,TOTAL 0.6 MG/DL (0.1-1.0); CARBON DIOXIDE 23 MMOL/L (21-32)
[2023-01-06 12:22] LABS: ALKALINE PHOSPHATASE 111 U/L (40-136); CREATININE SERUM 0.94 MG/DL (0.60-1.30); GFR ESTIMATED 106
[2023-01-06 12:24] LABS: BUN/CREATININE RATIO 19
[2023-01-06 12:25] LABS: ACETAMINOPHEN < 10 UG/ML (10-30); ALANINE AMINOTRANSFERASE 22 U/L (0-55); SALICYLATE < 5.0 MG/DL (5.0-20.0)
[2023-01-06] MEDS ORDERED: LIDOCAINE 1% INJ 10 ML VIAL ONE ×2 (12:46→13:00)
[2023-01-06 14:10] LABS: BILIRUBIN,URINE NEGATIVE (NEGATIVE); CLARITY,URINE CLEAR; COLOR,URINE YELLOW; GLUCOSE, URINE (UA) NEGATIVE (NEGATIVE); KETONES,URINE 2+ (NEGATIVE); LEUKOCYTE ESTERASE ,URINE NEGATIVE (NEGATIVE); NITRITE,URINE NEGATIVE (NEGATIVE); PROTEIN,URINE TRACE (NEGATIVE)
[2023-01-06 14:30] LABS: BACTERIA,URINE NEGATIVE /HPF; RBC,URINE RARE /HPF; WBC,URINE RARE /HPF
[2023-01-06 14:31] LABS: URINE OTHER FEW SPERM /HPF
[2023-01-06 14:32] LABS: AMPHETAMINE SCREEN, URINE POSITIVE (NEGATIVE); BARBITURATE SCREEN URINE NEGATIVE (NEGATIVE); BENZODIAZEPINES SCREEN URINE NEGATIVE (NEGATIVE); CANNABINOID SCREEN, URINE NEGATIVE (NEGATIVE); COCAINE SCREEN URINE NEGATIVE (NEGATIVE); METHADONE STAT NEGATIVE (NEGATIVE); OPIATE SCREEN URINE NEGATIVE (NEGATIVE); OXYCODONE STAT NEGATIVE (NEGATIVE); PROPOXYPHENE STAT NEGATIVE (NEGATIVE); TRICYCLIC ANTIDEPRESSANTS SCRE NEGATIVE (NEGATIVE)
[2023-01-06 15:14] VITALS: BP 147/97
[2023-01-06 21:09] LABS: HEPATITIS C ANTIBODY C Non-Reactive (Non-Reactive)
== END 2023-01-06 15:20 | disposition home or self-care (01) ==
LOC: ER 11:17 → MERGE 11:17 → ER 15:20
DX: S46.222A Laceration of muscle, fascia and tendon of other parts of biceps, left arm, initial encounter (principal); R44.1 Visual hallucinations; F15.10 Other stimulant abuse, uncomplicated; F10.10 Alcohol abuse, uncomplicated; Z23 Encounter for immunization; X78.8XXA Intentional self-harm by other sharp object, initial encounter; Y92.59 Other trade areas as the place of occurrence of the external cause
CPT/HCPCS: 13152; 80053; 80306; 81000; 85025; 86701; 86803; 87340; 87389; 93005; 99284; G0480 ×3; 36415; 80320; 80329; 90715